=== PATIENT | female | born 1965 | race Caucasian/White ===

== ENCOUNTER → 2016-11-25 | Outpatient (CLI) | payer MEDICARE, OTHER ==
[~2016-11-25] MED LIST: ESCI5TAB PO; FERR65TA PO; GABA600T PO; GLUCTAB PO; HYDR-3288 PO; METF500T PO; NORC7.5T PO; PANT40TA3 PO; PHEN30CA PO; POTA-243 PO; PROT40TA PO; TAB-TAB PO; TEMA30CA PO; VITA500S3 PO
[2016-11-25 12:03] LABS: ALKALINE PHOSPHATASE 77 U/L (45-117); ALT (GPT) 20 U/L (10-53); ANION GAP 9 MEQ/L (5-15); AST (GOT) 15 U/L (15-37); BICARBONATE 26.5 MEQ/L (21.0-32.0); BLOOD UREA NITROGEN 16 MG/DL (7-18); CHLORIDE 105 MEQ/L (98-107); GLOMERULAR FILTRATION RATE 53 ML/MIN (>89); GLUCOSE,FASTING 112 MG/DL (74-99); HDL CHOLESTEROL 67.9 MG/DL (40.0-60.0); LDL CHOLESTEROL 75 MG/DL (0-99); POTASSIUM 4.4 MEQ/L (3.5-5.1); SODIUM (NA) 140 MEQ/L (136-145); TOTAL BILIRUBIN ADULT 0.8 MG/DL (0.2-1.0)
[2016-11-25 16:54] LABS: HEMOGLOBIN A1a 0.8 %; HEMOGLOBIN Ao 85.8 %; HEMOGLOBIN F 0.8 %; HEMOGLOBIN LA1C 2.1 %; HEMOGLOBIN P3 3.9 %
== END ==
LOC: CLAB 11:01
PROVIDERS: ATTEND General Practice
DX: E55.9 Vitamin D deficiency, unspecified (principal); N18.3 Chronic kidney disease, stage 3 (moderate); E11.22 Type 2 diabetes mellitus with diabetic chronic kidney disease; Z79.899 Other long term (current) drug therapy
CPT/HCPCS: 36415; 80053; 80061; 82306; 83036; 83970

== ENCOUNTER 2017-02-26 19:41 | Observation (INO) | payer MEDICARE, OTHER ==
[~2017-02-26] VITALS: Ht 172.7 cm; Wt 123.0 kg
[~2017-02-26 19:41] MED LIST changes: -ESCI5TAB PO; -HYDR-3288 PO; -METF500T PO; -PANT40TA3 PO; -PHEN30CA PO; -TEMA30CA PO
[2017-02-26 19:43] VITALS: BP 183/95; PULSE 88; RESP 18; TEMP 98.6; O2SAT 100
--- NOTE | 2017-02-26 19:49 | PD ---
Physical Exam Time Seen by Provider: 19:46 Narrative 51yo F c/o chest pain, nausea, clamminess, ORR over the past few days. Worsening today. Reports heart palpitations and SOB. Chest pain and SOB worse on exertion. Feels pressure in back too. Patient seen in triage. VS reviewed. Awaiting bed placement. Data Data Last Documented VS Vital Signs Date Time Temp Pulse Resp B/P Pulse Ox O2 Delivery O2 Flow Rate FiO2 02/26/17 19:43 98.6 88 18 183/95 100 Room Air MDM Supervised Visit with RYANNE: Ana Brown February 26, 2017 19:49
[2017-02-26 21:42] VITALS: BP 162/81; PULSE 81; RESP 19; O2SAT 100
[2017-02-26] MEDS ORDERED: HYDR-3288 PO (21:57)
[2017-02-26] MEDS ORDERED: TEMA30CA PO (21:57)
[2017-02-26] MEDS ORDERED: PROT40TA PO (21:57)
[2017-02-26] MEDS ORDERED: ESCI5TAB PO (21:57)
[2017-02-26] MEDS ORDERED: GABA600T PO (21:57)
[2017-02-26] MEDS ORDERED: METF500T PO (21:57)
[2017-02-26] MEDS ORDERED: PHEN30CA PO (21:57)
[2017-02-26] MEDS ORDERED: POTA-243 PO (21:57)
[2017-02-26] MEDS ORDERED: SODIUM CHLORID 0.9% 500 ML INJ 500 ML IV ONE (22:00)
[2017-02-26] MEDS ORDERED: ASPIRIN 81 MG CHEW TAB PO ONE (22:00)
[2017-02-26] MEDS ORDERED: SODIUM CHLORIDE 0.9% FLUSH 10 ML FLUSH IVF PRN (22:00)
[2017-02-26] MEDS ORDERED: NITROGLYCERIN 0.4 MG SL 25 TABS/BTL SL ONE (22:00)
--- NOTE | 2017-02-26 22:00 | PD ---
HPI Chief Complaint: Chest Pain Time Seen by Provider: 21:37 Travel History International Travel<30 days: No Contact w/Intl Traveler<30days: No Traveled to known affect area: No History of Present Illness HPI The patient is a 51-year-old female who presents emergency department for chest pain and shortness of breath. The patient states over the last 2 days she has had some chest pain which is substernal, radiates around the left aspect of her chest to the mid scapular area. The patient's pain has been constant since approximately 5 PM, is associated with shortness of breath, mild nausea, and lightheadedness. The patient states she is also short of breath, minimal exertional symptoms, and history of diabetes which is controlled with metformin. The patient denies any known history of coronary artery disease, hypertension, hyperlipidemia, or current tobacco use. The patient does have a history of stage IV uterine cancer with previous partial hysterectomy, chemotherapy, and subsequent tumor removal from the lungs after recurrence. The patient's primary physician is Dr. Paulson. The patient denies having any previous stress test or history of cardiomyopathy. PFSH Past Medical History Arthritis: Yes (hand left thumb left knee) Blood Disorders: No Cancer: Yes (UTERINE/ METS TO LUNGS) Cardiovascular Problems: No Diabetes: Yes Patient Takes Glucophage: Yes Diminished Hearing: No Endocrine: Yes Gastrointestinal Disorders: Yes (GASTRIC BYPASS, ABD. PAIN) Glaucoma: No Genitourinary: No Hepatitis: No Hiatal Hernia: No Hypertension: Yes (RESOLVED WITH WT LOSS) Immune Disorder: No Implanted Vascular Access Dvce: Yes Musculoskeletal: Yes (ARTHRITIS, NECK/ LEFT SHOULDER PAIN ) Neurologic: Yes (NEUROPATHY FEET) Psychiatric: No Reproductive: Yes (HX ENDOMETRIAL CA) Respiratory: Yes (LUNG SX) Sleep Apnea: Yes Thyroid Disease: No Tetanus Vaccination: Unknown Influenza Vaccination: No ?: Not Menopausal: Yes : 1 Para: 1 Ovarian Cysts: Yes Past Surgical History Abdominal Surgery: Yes (LAP SARWAT, GASTRIC BYPASS gastric bypass 01/25/13) AICD: No Body Medical Devices: INFUSAPORT Cholecystectomy: Yes (2003) Ear Surgery: No Eye Surgery: No Genitourinary Surgery: No Gynecologic Surgery: Yes (LASH) Hysterectomy: Yes Joint Replacement: No Oral Surgery: No Pacemaker: No Thoracic Surgery: Yes (RIGHT LUNG MASS EXC.) Other Surgery: Yes (CHOLECYSTECTOMY) Social History Alcohol Use: No Tobacco Use: No Substance Use: No Allergies-Medications (Allergen,Severity, Reaction): Coded Allergies: Latex (Unverified Allergy, Severe, Itching, RASH, 02/26/17) Toradol (Verified Allergy, Intermediate, HIVES, 02/26/17) burning rash Carboplatin (Verified Allergy, Mild, Rash, 02/26/17) Adhesives (Unverified Adverse Reaction, Severe, RASH, 02/26/17) OK FOR PAPER TAPE Ativan (Verified Adverse Reaction, Mild, NIGHTMARES, 02/26/17) Percocet (Verified Adverse Reaction, Unknown, 02/26/17) nausea Reported Meds & Prescriptions Reported Meds & Active Scripts Active Reported Escitalopram (Escitalopram Oxalate) 5 Mg Tab 5 Mg PO DAILY [place] (Hydrocodone-Acetaminophen) 7.5-325 mg Tab 1 Tab PO Q6H PRN Phentermine (Phentermine HCl) 30 Mg Cap 30 Mg PO DAILY Protonix (Pantoprazole Sodium) 40 Mg Tab 40 Mg PO DAILY Klor-Con 10 (Potassium Chloride) 10 Meq Tab 10 Meq PO BID Gabapentin 600 Mg Tab 600 Mg PO TID Temazepam 30 Mg Cap 30 Mg PO HS PRN Review of Systems Except as stated in HPI: all other systems reviewed are Neg General / Constitutional: No: Fever HENT: Positive: Lightheadedness Cardiovascular: Positive: Chest Pain or Discomfort, Diaphoresis, Dyspnea on exertion (minimal), No: Tachycardia Respiratory: Positive: Shortness of Breath Gastrointestinal: Positive: Nausea, No: Vomiting, Abdominal Pain Musculoskeletal: No: Weakness Neurologic: Positive: Dizziness, No: Weakness Physical Exam Narrative GENERAL: Awake, alert, pleasant 51-year-old female who appears her stated age and is in no acute respiratory distress. SKIN: Focused skin assessment warm/dry. HEAD: Atraumatic. Normocephalic. EYES: Pupils equal and round. No scleral icterus. No injection or drainage. ENT: No nasal bleeding or discharge. Mucous membranes pink and moist. NECK: Trachea midline. No JVD. CARDIOVASCULAR: Regular rate and rhythm. No murmur appreciated. Well-healed scar over the lateral right chest wall. RESPIRATORY: No accessory muscle use. Clear to auscultation. Breath sounds equal bilaterally. GASTROINTESTINAL: Abdomen soft, obese, no rebound tenderness. MUSCULOSKELETAL: No obvious deformities. No clubbing. No cyanosis. No edema. NEUROLOGICAL: Awake and alert. No obvious cranial nerve deficits. Motor grossly within normal limits. Normal speech. PSYCHIATRIC: Appropriate mood and affect; insight and judgment normal. Data Data Last Documented VS Vital Signs Date Time Temp Pulse Resp B/P Pulse Ox O2 Delivery O2 Flow Rate FiO2 02/26/17 22:21 76 18 136/73 100 Room Air 02/26/17 19:43 98.6 Orders Electrocardiogram (02/26/17 ) Electrocardiogram (02/26/17 21:54) Ckmb (Isoenzyme) Profile (02/26/17 21:54) Complete Blood Count With Diff (02/26/17 21:54) Comprehensive Metabolic Panel (02/26/17 21:54) Magnesium (Mg) (02/26/17 21:54) Prothrombin Time / Inr (Pt) (02/26/17 21:54) Act Partial Throm Time (Ptt) (02/26/17 21:54) Troponin I (02/26/17 21:54) Lipase (02/26/17 21:54) Chest, Single Ap (02/26/17 21:54) Ecg Monitoring (02/26/17 21:54) Bilateral Bp Monitoring (02/26/17 21:54) Iv Access Insert/Monitor (02/26/17 21:54) Oximetry (02/26/17 21:54) Oxygen Administration (02/26/17 21:54) Aspirin Chew (Aspirin Chew) (02/26/17 22:00) Sodium Chloride 0.9% Flush (Ns Flush) (02/26/17 22:00) Nitroglycerin Sl (Nitrostat Sl) (02/26/17 22:00) Sodium Chlorid 0.9% 500 Ml Inj (Ns 500 M (02/26/17 22:00) Labs Laboratory Tests Test 02/26/17 22:05 White Blood Count 3.6 TH/MM3 Red Blood Count 3.13 MIL/MM3 Hemoglobin 10.0 GM/DL Hematocrit 30.5 % Mean Corpuscular Volume 97.3 FL Mean Corpuscular Hemoglobin 31.9 PG Mean Corpuscular Hemoglobin 32.7 % Concent Red Cell Distribution Width 17.3 % Platelet Count 109 TH/MM3 Mean Platelet Volume 8.7 FL Neutrophils (%) (Auto) % Lymphocytes (%) (Auto) % Monocytes (%) (Auto) % Eosinophils (%) (Auto) % Basophils (%) (Auto) % Neutrophils # (Auto) TH/MM3 Lymphocytes # (Auto) TH/MM3 Monocytes # (Auto) TH/MM3 Eosinophils # (Auto) TH/MM3 Basophils # (Auto) TH/MM3 CBC Comment AUTO DIFF Differential Total Cells 100 Counted Neutrophils % (Manual) 7 % Band Neutrophils % 5 % Lymphocytes % 60 % Monocytes % 1 % Eosinophils % 6 % Neutrophils # (Manual) 0.7 TH/MM3 Metamyelocytes 4 % Myelocytes 3 % Nucleated Red Blood Cells 3 /100 WBC Differential Comment FINAL DIFF MANUAL Atypical Lymphocytes 14 % Platelet Estimate LOW Platelet Morphology Comment NORMAL Keratocytes OCC Prothrombin Time 10.3 SEC Prothromb Time International 0.9 RATIO Ratio Activated Partial 22.5 SEC Thromboplast Time Sodium Level 140 MEQ/L Potassium Level 4.1 MEQ/L Chloride Level 107 MEQ/L Carbon Dioxide Level 27.1 MEQ/L Anion Gap 6 MEQ/L Blood Urea Nitrogen 19 MG/DL Creatinine 1.04 MG/DL Estimat Glomerular Filtration 56 ML/MIN Rate Random Glucose 128 MG/DL Calcium Level 9.3 MG/DL Magnesium Level 1.8 MG/DL Total Bilirubin 0.6 MG/DL Aspartate Amino Transf 18 U/L (AST/SGOT) Alanine Aminotransferase 23 U/L (ALT/SGPT) Alkaline Phosphatase 75 U/L Total Creatine Kinase 56 U/L Troponin I LESS THAN 0.02 NG/ML Total Protein 7.6 GM/DL Albumin 3.9 GM/DL Lipase 147 U/L MDM Medical Decision Making Medical Screen Exam Complete: Yes Emergency Medical Condition: Yes Medical Record Reviewed: Yes Interpretation(s) EKG reveals a normal sinus rhythm with a rate 80. RSR prime in V1, right bundle branch block. Chest x-ray reveals no acute disease Laboratory Tests Test 02/26/17 22:05 White Blood Count 3.6 TH/MM3 Red Blood Count 3.13 MIL/MM3 Hemoglobin 10.0 GM/DL Hematocrit 30.5 % Mean Corpuscular Volume 97.3 FL Mean Corpuscular Hemoglobin 31.9 PG Mean Corpuscular Hemoglobin 32.7 % Concent Red Cell Distribution Width 17.3 % Platelet Count 109 TH/MM3 Mean Platelet Volume 8.7 FL Neutrophils (%) (Auto) % Lymphocytes (%) (Auto) % Monocytes (%) (Auto) % Eosinophils (%) (Auto) % Basophils (%) (Auto) % Neutrophils # (Auto) TH/MM3 Lymphocytes # (Auto) TH/MM3 Monocytes # (Auto) TH/MM3 Eosinophils # (Auto) TH/MM3 Basophils # (Auto) TH/MM3 CBC Comment AUTO DIFF Differential Total Cells 100 Counted Neutrophils % (Manual) 7 % Band Neutrophils % 5 % Lymphocytes % 60 % Monocytes % 1 % Eosinophils % 6 % Neutrophils # (Manual) 0.7 TH/MM3 Metamyelocytes 4 % Myelocytes 3 % Nucleated Red Blood Cells 3 /100 WBC Differential Comment FINAL DIFF MANUAL Atypical Lymphocytes 14 % Platelet Estimate LOW Platelet Morphology Comment NORMAL Keratocytes OCC Prothrombin Time 10.3 SEC Prothromb Time International 0.9 RATIO Ratio Activated Partial 22.5 SEC Thromboplast Time Sodium Level 140 MEQ/L Potassium Level 4.1 MEQ/L Chloride Level 107 MEQ/L Carbon Dioxide Level 27.1 MEQ/L Anion Gap 6 MEQ/L Blood Urea Nitrogen 19 MG/DL Creatinine 1.04 MG/DL Estimat Glomerular Filtration 56 ML/MIN Rate Random Glucose 128 MG/DL Calcium Level 9.3 MG/DL Magnesium Level 1.8 MG/DL Total Bilirubin 0.6 MG/DL Aspartate Amino Transf 18 U/L (AST/SGOT) Alanine Aminotransferase 23 U/L (ALT/SGPT) Alkaline Phosphatase 75 U/L Total Creatine Kinase 56 U/L Troponin I LESS THAN 0.02 NG/ML Total Protein 7.6 GM/DL Albumin 3.9 GM/DL Lipase 147 U/L Differential Diagnosis Differential diagnosis includes acute coronary syndrome, pulmonary embolism, pleural effusion, pneumonia, neuralgia, pancreatitis, gastritis, cardiomyopathy. Narrative Course IV was established, labs are drawn and sent, and the patient was placed on cardiac telemetry monitoring and continuous pulse oximetry monitoring. EKG was ordered and interpreted. Chest x-ray was obtained. The patient was administered aspirin and nitroglycerin sublingual. I do not believe the patient has a pulmonary embolism as there is no tachycardia, hypoxia, or significant recent risk factors. The patient's initial troponin was negative. Chest x-ray was negative. The patient did not receive any pain relief with nitroglycerin, therefore, was administered Zofran and morphine. The patient does have mild anemia with leukopenia white count 8.6, will need outpatient follow-up secondary to abnormal CBC cell pathology. However, patient will be 23 hour observation the chest pain center for chest pain rule out ACS. The patient's comfortable with this plan of care and disposition. Physician Communication Physician Communication The patient will be 23 hour observation to the chest pain Center with serial cardiac enzymes and further evaluation by cardiology. Diagnosis Primary Impression: Chest pain Qualified Code: R07.9 - Chest pain, unspecified type Admitting Information Admitting Physician Requests: Observation Condition: Stable Naseem Dai MD February 26, 2017 22:00
[2017-02-26 22:13] LABS: HEMATOCRIT 30.5 % (35.0-46.0); MEAN CELL VOLUME 97.3 FL (80.0-100.0); MEAN CORPUSCULAR HEMOGLOBIN 31.9 PG (27.0-34.0); MEAN CORPUSCULAR HGB CONC 32.7 % (32.0-36.0); PLATELET COUNT 109 TH/MM3 (150-450); RED BLOOD COUNT 3.13 MIL/MM3 (4.00-5.30); RED CELL DISTRIBUTION WIDTH 17.3 % (11.6-17.2); WHITE BLOOD COUNT 3.6 TH/MM3 (4.0-11.0)
[2017-02-26 22:15] VITALS: BP 153/82; PULSE 81; RESP 18; O2SAT 100
[2017-02-26 22:21] VITALS: BP 136/73; PULSE 76; RESP 18; O2SAT 100
[2017-02-26 22:21] LABS: HEMO FLAGS AUTO DIFF
--- NOTE | 2017-02-26 22:23 | RADRPT ---
EXAM DATE/TIME: 02/26/2017 22:14 [facility] COMPARISON: CHEST SINGLE AP, July 20, 2013, 6:03. INDICATIONS : Chest pain. MEDICAL HISTORY : Carcinoma, lung. carcinoma, uterine. SURGICAL HISTORY : Right lung tumors removed, port placed and removed. ENCOUNTER: Initial ACUITY: 1 day PAIN SCORE: 8/10 LOCATION: middle chest. FINDINGS: A single view of the chest demonstrates the lungs to be symmetrically aerated without evidence of mas s, infiltrate or effusion. The cardiomediastinal contours are unremarkable. Osseous structures are intact. CONCLUSION: No acute disease. Salvador Driscoll Jr., MD on February 26, 2017 at 22:20 Board Certified Radiologist. This report was verified electronically.
[2017-02-26 22:25] LABS: APTT (PATIENT) 22.5 SEC (24.3-30.1); INTERNATIONAL NORMALIZED RATIO 0.9 RATIO; PROTHROMBIN TIME - PATIENT 10.3 SEC (9.8-11.6)
[2017-02-26 22:53] LABS: ANION GAP 6 MEQ/L (5-15); AST (GOT) 18 U/L (15-37); BICARBONATE 27.1 MEQ/L (21.0-32.0); BLOOD UREA NITROGEN 19 MG/DL (7-18); CHLORIDE 107 MEQ/L (98-107); GLOMERULAR FILTRATION RATE 56 ML/MIN (>89); POTASSIUM 4.1 MEQ/L (3.5-5.1); SODIUM (NA) 140 MEQ/L (136-145)
[2017-02-26 22:54] LABS: ALT (GPT) 23 U/L (10-53)
[2017-02-26 23:23] LABS: ALKALINE PHOSPHATASE 75 U/L (45-117); MAGNESIUM 1.8 MG/DL (1.5-2.5); TOTAL BILIRUBIN ADULT 0.6 MG/DL (0.2-1.0)
[2017-02-26 23:37] LABS: ATYPICAL LYMPHOCYTES 14 % (0-0); BANDS 5 % (0-6); CORRECTED NUCLEATED RBC 3 /100 WBC (0-0); CREATINE KINASE 56 U/L (26-192); EOSINOPHILS 6 % (0-4); METAMYELOCYTES 4 % (0-1); MYELOCYTES 3 % (0-0); NEUTROPHIL # MANUAL DIFF 0.7 TH/MM3 (1.8-7.7); POLYS (SEG NEUTROPHILS) 7 % (16-70); WBC DIFF SAMPLE 100
[2017-02-26 23:39] LABS: PLATELET ESTIMATE SMEAR LOW (NORMAL); PLATELET MORPHOLOGY NORMAL (NORMAL); SCAN/DIFF FINAL DIFF MANUAL
[2017-02-26 23:40] LABS: KERATOCYTES OCC (NORMAL)
[2017-02-26 23:55] VITALS: BP 132/67; PULSE 63; RESP 18; O2SAT 100
[2017-02-27] VITALS (7 sets, daily range): BP systolic 109–125; BP diastolic 53–97; PULSE 61–71; RESP 18–20; TEMP 97.6–98; O2SAT 98–100
[2017-02-27] MEDS ORDERED: ACETAMINOPHEN/HYDROcodone 325 MG/7.5 MG TAB PO PRN
[2017-02-27] MEDS ORDERED: ONDANSETRON HCL 4 MG/2 ML VIAL IV PRN
[2017-02-27] MEDS ORDERED: MORPHINE SULFATE 4 MG/ML INJ IV PRN
[2017-02-27] MEDS ORDERED: ACETAMINOPHEN 500 MG CPLT PO PRN
[2017-02-27] MEDS ORDERED: NITROGLYCERIN 0.4 MG SL 25 TABS/BTL SL PRN
[2017-02-27] MEDS ORDERED: SODIUM CHLORIDE 0.9% FLUSH 10 ML FLUSH IV FLUSH PRN
[2017-02-27] MEDS ORDERED: MORPHINE SULFATE 4 MG/ML INJ IV PUSH ONE (00:15)
[2017-02-27] MEDS ORDERED: ONDANSETRON HCL 4 MG/2 ML VIAL IV PUSH ONE (00:15)
[2017-02-27 02:13] LABS: CREATINE KINASE 33 U/L (26-192)
[2017-02-27 04:45] LABS: CREATINE KINASE 31 U/L (26-192)
--- NOTE | 2017-02-27 07:38 | EKG ---
Date Performed: 02/26/2017 Time Performed: 19:55:57 PTAGE: 51 years EKG: Sinus rhythm RIGHT BUNDLE BRANCH BLOCK ABNORMAL ECG PREVIOUS TRACING : 01/06/2016 18.43 Compared to the previous tracing, Right bundle branch block is new DOCTOR: Audie Blanco Interpretating Date/Time 02/27/2017 07:36:32
[2017-02-27] MEDS ORDERED: SODIUM CHLORIDE 0.9% FLUSH 10 ML FLUSH IV FLUSH SCH (09:00)
[2017-02-27] MEDS ORDERED: ESCITALOPRAM OXALATE 10 MG TAB PO SCH (09:00)
[2017-02-27] MEDS ORDERED: TEMAZEPAM 15 MG CAP PO PRN (09:00)
[2017-02-27] MEDS ORDERED: ASPIRIN 325 MG TAB PO SCH (09:00)
[2017-02-27] MEDS ORDERED: PILL SPLITTER OTHER PRN (09:30)
--- NOTE | 2017-02-27 10:59 | HHI.HP ---
[facility] Primary Care Physician Polly Paulson M.D. Chief Complaint Chest pain and back pain History of Present Illness This is a 51-year-old female that presents to ED states she's had a chest discomfort and back discomfort that began simultaneously around 5:00 yesterday while she is lying down watching television. The chest discomfort is central and radiates to midline of the upper back. Worsened with certain movements. The pain in the back is described as sharp and dull discomfort in the chest. The discomfort for constant however improved with morphine in the ED. She recalls being diaphoretic, short of breath, and nauseous with the symptoms. They have since resolved. Patient has history of uterine cancer that metastasized to the lungs and underwent chemotherapy 2010. That it doesn't 13 is a recurrence of a pulmonary nodule and she had lung surgery for that and went through chemotherapy again. She last saw her oncologist November of this year and there is no evidence of recurrence. She is scheduled to see them again with CAT scans April of this year. Denies recent travel. Denies calf pain. Denies inspirational chest discomfort. Review of Systems General: Patient denies fevers, chills recent, and recent travel HEENT: Patient denies headache, sore throat, difficulty swallowing. Cardiovascular: Has the chest discomfort as mentioned above. Denies sensation of heart beating rapidly or irregularly. No syncope. She has had some diaphoresis. Respiratory: Patient has been short of breath. Denies inspirational chest discomfort. Denies coughing wheezing or hemoptysis. GI: Intermittent nausea. Patient denies vomiting, diarrhea, abdominal pain, bloody stools. Musculoskeletal: Patient denies joint pain or edema. Denies calf pain or edema. Neurovascular: Patient denies numbness, tingling, weakness in extremities. Denies headache. Endocrine: Denies polyuria and polydipsia. Hematologic: Denies easy bruising. Skin: Denies rash or itching. Past Family Social History Allergies: Coded Allergies: Latex (Unverified Allergy, Severe, Itching, RASH, 02/26/17) Toradol (Verified Allergy, Intermediate, HIVES, 02/26/17) burning rash Carboplatin (Verified Allergy, Mild, Rash, 02/26/17) Adhesives (Unverified Adverse Reaction, Severe, RASH, 02/26/17) OK FOR PAPER TAPE Ativan (Verified Adverse Reaction, Mild, NIGHTMARES, 02/26/17) Percocet (Verified Adverse Reaction, Unknown, 02/26/17) nausea Past Medical History Uterine cancer with metastasis to the lungs in 2010. Underwent chemotherapy. Reoccurred 2012 and underwent chemotherapy. Evaluated by oncologist November of this year without evidence of recurrence. Also history of gastric bypass 2012. She has history of neuropathy. She also had diabetes but states that that resolved after losing weight. Denies hypertension, hyperlipidemia, and coronary artery disease. Past Surgical History Lung surgery secondary to lung cancer. Hysterectomy cholecystectomy gastric bypass. Reported Medications Reported Meds & Active Scripts Active Reported Escitalopram (Escitalopram Oxalate) 5 Mg Tab 5 Mg PO DAILY Temazepam 30 Mg Cap 30 Mg PO HS PRN Active Ordered Medications Current Medications Medications (Trade) Dose Ordered Sig/Jasen Route Start Time Stop Time Status Last Admin (NS Flush) 2 ml UNSCH PRN IV FLUSH 02/27/17 00:00 (NS Flush) 2 ml BID IV FLUSH 02/27/17 09:00 02/27/17 08:46 (Tylenol) 500 mg Q4H PRN PO 02/27/17 00:00 ([place] 7.5-325 Mg) 1 tab Q4H PRN PO 02/27/17 00:00 02/27/17 08:47 (Morphine Inj) 2 mg Q4H PRN IV 02/27/17 00:00 02/27/17 04:48 (Zofran Inj) 4 mg Q6H PRN IV 02/27/17 00:00 (Nitrostat Sl) 0.4 mg Q5M PRN SL 02/27/17 00:00 (Aspirin) 325 mg DAILY PO 02/27/17 09:00 02/27/17 08:46 (Lexapro) 5 mg DAILY PO 02/27/17 09:00 (Restoril) 30 mg HS PRN PO 02/27/17 09:00 (Pill Splitter) 1 ea UNSCH PRN OTHER 02/27/17 09:30 Family History Denies family history of CAD. Social History Patient quit smoking 2004. Prior that she smoked a little less than one half pack a day on weekends for years. Denies alcohol or illicit drugs. She states she is disabled secondary to 3 of cancer. Physical Exam Vital Signs Vital Signs Date Time Temp Pulse Resp B/P Pulse Ox O2 Delivery O2 Flow Rate FiO2 02/27/17 07:18 97.6 62 20 109/53 99 02/27/17 04:55 21 02/27/17 02:07 97.9 68 18 114/53 98 02/27/17 01:50 71 02/27/17 01:18 70 18 125/97 99 Room Air 02/27/17 00:46 100 02/26/17 23:55 63 18 132/67 100 Room Air 02/26/17 22:21 76 18 136/73 100 Room Air 02/26/17 22:15 18 100 Room Air 02/26/17 22:15 81 18 153/82 100 Room Air 02/26/17 21:42 81 19 162/81 100 Room Air 02/26/17 21:39 18 96 02/26/17 19:49 16 02/26/17 19:43 98.6 88 18 183/95 100 Room Air Physical Exam GENERAL: This is a well-nourished, well-developed patient, in no apparent distress. Patient speaks in clear complete sentences. Patient is pleasant. Exam and with a female nurse at bedside. HEENT: Head is atraumatic and normocephalic. Neck is supple without lymphadenopathy and trachea is midline. No JVD or carotid bruits. CARDIOVASCULAR: Regular rate and rhythm without murmurs, gallops, or rubs. RESPIRATORY: Clear to auscultation. Breath sounds equal bilaterally. No wheezes , rales, or rhonchi. Chest wall is tender, palpation reproduces the same discomfort that she had been having. No use of accessory muscles. GASTROINTESTINAL: Abdomen is nontender, nondistended. Abdomen soft. No obvious pulsatile mass or bruit. No CVA tenderness. Strong femoral pulses bilaterally. Normal bowel sounds in all quadrants. MUSCULOSKELETAL: There is a discomfort in her upper back just left of the spine and medial of the scapula, palpating this area reproduces the discomfort. Also twisting of the torso reproduces this discomfort. Patient is moving upper and lower extremities freely. No calf tenderness or edema, no Homans sign. Strong pulses in upper and lower extremities. NEUROLOGICAL: Patient is alert and oriented. Cranial nerves 2-12 are grossly intact. No focal deficits and speech is clear. SKIN: No rash and turgor is normal. Laboratory Laboratory Tests Test 02/26/17 02/27/17 02/27/17 22:05 01:25 04:10 White Blood Count 3.6 Red Blood Count 3.13 Hemoglobin 10.0 Hematocrit 30.5 Mean Corpuscular Volume 97.3 Mean Corpuscular Hemoglobin 31.9 Mean Corpuscular Hemoglobin 32.7 Concent Red Cell Distribution Width 17.3 Platelet Count 109 Mean Platelet Volume 8.7 Neutrophils (%) (Auto) Lymphocytes (%) (Auto) Monocytes (%) (Auto) Eosinophils (%) (Auto) Basophils (%) (Auto) Neutrophils # (Auto) Lymphocytes # (Auto) Monocytes # (Auto) Eosinophils # (Auto) Basophils # (Auto) CBC Comment AUTO DIFF Differential Total Cells 100 Counted Neutrophils % (Manual) 7 Band Neutrophils % 5 Lymphocytes % 60 Monocytes % 1 Eosinophils % 6 Neutrophils # (Manual) 0.7 Metamyelocytes 4 Myelocytes 3 Nucleated Red Blood Cells 3 Differential Comment FINAL DIFF MANUAL Atypical Lymphocytes 14 Platelet Estimate LOW Platelet Morphology Comment NORMAL Keratocytes OCC Prothrombin Time 10.3 Prothromb Time International 0.9 Ratio Activated Partial 22.5 Thromboplast Time Sodium Level 140 Potassium Level 4.1 Chloride Level 107 Carbon Dioxide Level 27.1 Anion Gap 6 Blood Urea Nitrogen 19 Creatinine 1.04 Estimat Glomerular Filtration 56 Rate Random Glucose 128 Calcium Level 9.3 Magnesium Level 1.8 Total Bilirubin 0.6 Aspartate Amino Transf 18 (AST/SGOT) Alanine Aminotransferase 23 (ALT/SGPT) Alkaline Phosphatase 75 Total Creatine Kinase 56 33 31 Troponin I LESS THAN 0.02 LESS THAN 0.02 LESS THAN 0.02 Total Protein 7.6 Albumin 3.9 Lipase 147 Result Diagram: 02/26/17220402/26/172204 Imaging Last 48 hours Impressions Chest X-Ray 02/26/172153 Signed Impressions: Service Date/Time: Sunday, February 26, 2017 22:14 - CONCLUSION: No acute disease. Salvador Driscoll Jr., MD Course EKGs have have right bundle branch block. Sinus rhythm. No significant ST segment depressions or elevations. Assessment and Plan Assessment and Plan * Chest pain: Patient has had serial cardiac enzymes and EKGs for ruling out purposes. Her discomfort appears to be atypical muscular in nature. She will be seen by Dr. Cole of cardiology and the chest pain center and will likely be discharged after he has evaluated her. She with a follow-up with her primary care physician. Patient is stable at this time. She is agreeable to this plan. Oral Newberry Feb 27, 2017 10:59
--- NOTE | 2017-02-27 12:35 | HHI.DCPOC ---
Discharge Care Plan Diagnosis: (1) Chest pain, atypical (2) Pancytopenia Goals to Promote Your Health * To prevent worsening of your condition and complications * To maintain your health at the optimal level Directions to Meet Your Goals Take your medications as prescribed Follow your dietary instruction Follow activity as directed Keep your appointments as scheduled Take your immunizations and boosters as scheduled If your symptoms worsen call your PCP, if no PCP go to Urgent Care Center or Emergency Room Smoking is Dangerous to Your Health. Avoid second hand smoke Call the 24-hour hour crisis hotline for domestic abuse at Oral Newberry Feb 27, 2017 12:35
--- NOTE | 2017-02-27 13:41 | EKG ---
Date Performed: 02/27/2017 Time Performed: 04:22:23 PTAGE: 51 years EKG: Sinus rhythm RIGHT BUNDLE BRANCH BLOCK ABNORMAL ECG PREVIOUS TRACING : 02/27/2017 01.31 Since previous tracing, no significant change noted DOCTOR: Mark Cole Interpretating Date/Time 02/27/2017 13:40:26
--- NOTE | 2017-02-27 13:42 | EKG ---
Date Performed: 02/27/2017 Time Performed: 01:31:04 PTAGE: 51 years EKG: Sinus rhythm RIGHT BUNDLE BRANCH BLOCK ABNORMAL ECG PREVIOUS TRACING : 02/26/2017 19.55 Since previous tracing, no significant change noted DOCTOR: Mark Cole Interpretating Date/Time 02/27/2017 13:42:21
== END 2017-02-27 15:49 | disposition home or self-care (01) ==
LOC: NEPE 19:41 → NEDA 23:58 → NEPHCDU 02-27 01:45
PROVIDERS: ADMIT Internal Medicine Cardiovascular Disease; ATTEND Internal Medicine Cardiovascular Disease
DX: R07.89 Other chest pain (principal); I10 Essential (primary) hypertension; E11.9 Type 2 diabetes mellitus without complications; Z85.42 Personal history of malignant neoplasm of other parts of uterus; Z85.118 Personal history of other malignant neoplasm of bronchus and lung; Z92.21 Personal history of antineoplastic chemotherapy; Z91.040 Latex allergy status; Z88.8 Allergy status to other drugs, medicaments and biological substances; Z91.048 Other nonmedicinal substance allergy status; Z88.5 Allergy status to narcotic agent; Z98.84 Bariatric surgery status; Z87.891 Personal history of nicotine dependence
CPT/HCPCS: 71010; 80053; 82550; 83690; 83735; 84484; 85007; 85027; 85610; 85730; 93005; 99285; G0378; J2270; J2405; J7040

== ENCOUNTER 2017-03-24 17:14 | Inpatient (IN) | payer MEDICARE, OTHER ==
[~2017-03-24] VITALS: Ht 170.2 cm; Wt 122.3 kg
[~2017-03-24 17:14] MED LIST changes: +ESCI5TAB PO; -FERR65TA PO; -GABA600T PO; -GLUCTAB PO; -NORC7.5T PO; -POTA-243 PO; -PROT40TA PO; -TAB-TAB PO; +TEMA30CA PO; -VITA500S3 PO
[2017-03-24 17:16] VITALS: BP 160/75; PULSE 68; RESP 20; TEMP 97.8; O2SAT 100
--- NOTE | 2017-03-24 17:57 | PD ---
Physical Exam Time Seen by Provider: 17:56 Narrative 51yo F sent by Dr. Kurtz for possible leukemia. Per patient was told to have MD call him and he will explain. Lab work done today. Patient seen in triage. VS reviewed. Awaiting bed placement. Data Data Last Documented VS Vital Signs Date Time Temp Pulse Resp B/P Pulse Ox O2 Delivery O2 Flow Rate FiO2 03/24/17 17:16 97.8 68 20 160/75 100 Room Air MDM Supervised Visit with RYANNE: Ana Brown Mar 24, 2017 17:57
[2017-03-24] MEDS ORDERED: PANT40TA3 PO (19:55)
[2017-03-24] MEDS ORDERED: GABA600T PO (19:55)
[2017-03-24] MEDS ORDERED: PHEN30CA PO (19:55)
[2017-03-24] MEDS ORDERED: HYDR-3288 PO (19:55)
[2017-03-24] MEDS ORDERED: POTA-243 PO (19:55)
[2017-03-24] MEDS ORDERED: METF500T PO (19:55)
--- NOTE | 2017-03-24 19:55 | PD ---
HPI Chief Complaint: Abnormal Results Time Seen by Provider: 19:54 Travel History International Travel<30 days: No Contact w/Intl Traveler<30days: No Traveled to known affect area: No History of Present Illness HPI 51-year-old female with a history of diabetes, uterine cancer with metastases to the lungs status post chemotherapy in 2011 and in 2014 presents to the emergency department for evaluation of abnormal blood work. States that she was seen by her oncologist Dr. Kurtz today and had blood work that was abnormal and she was told that she had pre-leukemia and that she needed to come immediately to the emergency department to be admitted to the hospital. She was told by him that she would need a bone marrow biopsy. She states that for the past month she has felt weak, fatigued, lightheaded and nauseous. States that she has some left upper back pain that has been ongoing. States that she had some chest pain and was admitted here about a month ago in the chest pain center. She denies any fever, chills, vomiting, diarrhea, constipation, abdominal pain, chest pain, swelling of the extremities, headache. No other complaints. PFSH Past Medical History Arthritis: Yes (hand left thumb left knee) Blood Disorders: No Cancer: Yes (UTERINE/ METS TO LUNGS) Cardiovascular Problems: No Diabetes: Yes Patient Takes Glucophage: Yes Diminished Hearing: No Endocrine: Yes Gastrointestinal Disorders: Yes (GASTRIC BYPASS, ABD. PAIN) Glaucoma: No Genitourinary: No Hepatitis: No Hiatal Hernia: No Hypertension: Yes (RESOLVED WITH WT LOSS) Immune Disorder: No Implanted Vascular Access Dvce: Yes Musculoskeletal: Yes (ARTHRITIS, NECK/ LEFT SHOULDER PAIN ) Neurologic: Yes (NEUROPATHY FEET) Psychiatric: No Reproductive: Yes (HX ENDOMETRIAL CA) Respiratory: Yes (CA METS TO LUNGS) Sleep Apnea: Yes Thyroid Disease: No Tetanus Vaccination: < 5 Years ?: Not Menopausal: Yes : 1 Para: 1 Ovarian Cysts: Yes Past Surgical History Abdominal Surgery: Yes (LAP SARWAT, GASTRIC BYPASS gastric bypass 01/25/13) AICD: No Body Medical Devices: INFUSAPORT Cholecystectomy: Yes (2003) Ear Surgery: No Eye Surgery: No Genitourinary Surgery: No Gynecologic Surgery: Yes (LASH) Hysterectomy: Yes Joint Replacement: No Oral Surgery: No Pacemaker: No Thoracic Surgery: Yes (RIGHT LUNG MASS EXC.) Other Surgery: Yes (CHOLECYSTECTOMY) Social History Alcohol Use: No Tobacco Use: No Substance Use: No Allergies-Medications (Allergen,Severity, Reaction): Coded Allergies: Latex (Unverified Allergy, Severe, Itching, RASH, 03/24/17) Toradol (Verified Allergy, Intermediate, HIVES, 03/24/17) burning rash Carboplatin (Verified Allergy, Mild, Rash, 03/24/17) Adhesives (Unverified Adverse Reaction, Severe, RASH, 03/24/17) OK FOR PAPER TAPE Ativan (Verified Adverse Reaction, Mild, NIGHTMARES, 03/24/17) Percocet (Verified Adverse Reaction, Unknown, 03/24/17) nausea Reported Meds & Prescriptions Reported Meds & Active Scripts Active Reported [place] (Hydrocodone-Acetaminophen) 7.5-325 mg Tab 1 Tab PO Q6H PRN Phentermine (Phentermine HCl) 30 Mg Cap 1 Tab PO DAILY Pantoprazole (Pantoprazole Sodium) 40 Mg Tab 40 Mg PO DAILY Klor-Con 10 (Potassium Chloride) 10 Meq Tab 10 Meq PO BID Gabapentin 600 Mg Tab 600 Mg PO TID Metformin (Metformin HCl) 500 Mg Tab 500 Mg PO BIDPC With meals Escitalopram (Escitalopram Oxalate) 5 Mg Tab 5 Mg PO DAILY Temazepam 30 Mg Cap 30 Mg PO HS PRN Review of Systems Except as stated in HPI: all other systems reviewed are Neg Physical Exam Narrative GENERAL: Well-nourished and well-developed pleasant patient in no acute distress who is nontoxic appearing. SKIN: Warm and dry. HEAD: Normocephalic and atraumatic. EYES: No injection, drainage, or hyphema noted. PERRLA. EOMI. ENT: No nasal drainage noted. Oropharynx is clear. NECK: Supple and the trachea is midline. CARDIOVASCULAR: Regular rate and rhythm. RESPIRATORY: Breath sounds are equal bilaterally with no accessory muscle use, wheezing, rhonchi, or crackles. GASTROINTESTINAL: Abdomen is soft, non-tender, and nondistended. MUSCULOSKELETAL: No obvious deformities, swelling, cyanosis, or ecchymosis is present throughout the upper and lower extremities. Patient has full range of motion without any signs of neurovascular compromise. BACK: Mild tenderness to palpation of left upper back. No obvious deformities, bony point tenderness, or crepitus noted throughout the thoracic and lumbar vertebrae. NEUROLOGICAL: Awake, alert, and oriented. Normal speech and gait. Cranial nerves are grossly intact. Data Data Last Documented VS Vital Signs Date Time Temp Pulse Resp B/P Pulse Ox O2 Delivery O2 Flow Rate FiO2 03/24/17 17:16 97.8 68 20 160/75 100 Room Air Orders Lactic Acid Sepsis Protocol (03/24/17 20:04) Urinalysis - C+S If Indicated (03/24/17 20:04) Blood Culture (03/24/17 20:04) Chest, Single Ap (03/24/17 20:04) Invasive Rad Dept Consult (03/24/17 ) Urine Culture (03/24/17 20:20) Ceftriaxone Inj (Rocephin Inj) (03/24/17 21:30) Prothrombin Time / Inr (Pt) (03/24/17 21:29) Act Partial Throm Time (Ptt) (03/24/17 21:29) Consult Hematology (03/24/17 ) Admit Order (Ed Use Only) (03/24/17 22:08) Labs Laboratory Tests Test 03/24/17 03/24/17 03/24/17 20:15 20:20 21:30 Lactic Acid Level 1.0 mmol/L Urine Color YELLOW Urine Turbidity HAZY Urine pH 5.5 Urine Specific [place] 1.030 Urine Protein 30 mg/dL Urine Glucose (UA) NEG mg/dL Urine Ketones NEG mg/dL Urine Occult Blood NEG Urine Nitrite NEG Urine Bilirubin NEG Urine Urobilinogen 2.0 MG/DL Urine Leukocyte Esterase LARGE Urine RBC 2 /hpf Urine WBC 14 /hpf Urine Squamous Epithelial 11 /hpf Cells Urine Transitional Epithelial 1 /hpf Cells Urine Bacteria RARE /hpf Urine Hyaline Casts 1 /lpf Urine Mucus FEW /lpf Microscopic Urinalysis Comment CATH-CULTURE IND Prothrombin Time 10.8 SEC Prothromb Time International 1.0 RATIO Ratio Activated Partial 23.3 SEC Thromboplast Time MDM Medical Decision Making Medical Screen Exam Complete: Yes Emergency Medical Condition: Yes Differential Diagnosis Anemia versus neutropenia versus myelodysplastic syndrome Narrative Course 51-year-old female presents to the emergency department for evaluation of abnormal labs. Patient is afebrile, vital signs are stable. She was sent here by her oncologist Dr. Kurtz. I reviewed the labs which show she is pancytopenic. Lactic acid is within normal limits. Coags are unremarkable. Urinalysis shows 30 protein, large leukocyte esterase, 14 white blood cells, rare bacteria and few mucus. We'll treat the patient with Rocephin 1 g IV here in the ED. Chest x-ray is unremarkable. Patient will be admitted to medicine service with hematology and interventional radiology consult. I discussed the case with my attending physician Dr. Winters who is aware of the patients history, physical examination findings, and treatment plan. Physician Communication Physician Communication I spoke with Dr. Kurtz who advised the patient is in acute leukemia and needs to be admitted and have a bone marrow biopsy performed tomorrow by IR. I spoke with Bakari MERCADO for [facility] who agrees to admit the patient to Dr. Willis's service. Diagnosis Primary Impression: Acute leukemia Qualified Code: C95.00 - Acute leukemia not having achieved remission Additional Impression: Pancytopenia Admitting Information Admitting Physician Requests: Ana Christianson Mar 24, 2017 19:55
--- NOTE | 2017-03-24 20:24 | RADRPT ---
EXAM DATE/TIME: 03/24/2017 20:16 [facility] COMPARISON: CHEST SINGLE AP, February 26, 2017, 22:14. INDICATIONS : Chest pain. MEDICAL HISTORY : Carcinoma, lung. carcinoma, uterine. SURGICAL HISTORY : Right lung tumors removed, port placed and removed. ENCOUNTER: Initial ACUITY: 1 day PAIN SCORE: 4/10 LOCATION: Bilateral chest FINDINGS: A single view of the chest demonstrates the lungs to be symmetrically aerated without evidence of mas s, infiltrate or effusion. The cardiomediastinal contours are unremarkable. Osseous structures are intact. CONCLUSION: No acute disease. Melquiades Trent MD on March 24, 2017 at 20:22 Board Certified Radiologist. This report was verified electronically.
[2017-03-24 21:12] LABS: BACTERIA, URINE RARE /hpf; BLOOD, URINE NEG (NEG); GLUCOSE,URINE NEG (NEG); HYALINE CAST, URINE 1 /lpf (RARE); KETONE, URINE NEG (NEG); MUCUS URINE FEW /lpf (OCC); NITRITE,URINE NEG (NEG); PH, URINE 5.5 (5.0-8.5); SQUAMOUS EPITHELIAL CELL URINE 11 /hpf (0-5); TRANSITIONAL EPI CELLS, URINE 1 /hpf; URINE COLOR YELLOW (YELLW/STRAW)
[2017-03-24 21:14] LABS: COMMENT (UR) CATH-CULTURE IND; CULTURE IF INDICATED CATH CULTURE IND
[2017-03-24] MEDS ORDERED: cefTRIAXone INJ 1,000 MG in SODIUM CHLORIDE 0.9% INJ 100 ML IV ONE (21:30)
[2017-03-24 21:57] LABS: APTT (PATIENT) 23.3 SEC (24.3-30.1); PROTHROMBIN TIME - PATIENT 10.8 SEC (9.8-11.6)
[2017-03-24] MEDS ORDERED: MAGNESIUM HYDROXIDE SUSP 30 ML CUP PO PRN (23:15)
[2017-03-24] MEDS ORDERED: ACETAMINOPHEN 325 MG TAB PO PRN ×2 (23:15)
[2017-03-24] MEDS ORDERED: SODIUM CHLORIDE 0.9% FLUSH 10 ML FLUSH IV FLUSH PRN (23:15)
[2017-03-24] MEDS ORDERED: ONDANSETRON HCL 4 MG/2 ML VIAL IVP PRN (23:15)
[2017-03-24] MEDS ORDERED: LACTULOSE SYRUP 20 GM/30 ML CUP PO PRN (23:15)
[2017-03-24] MEDS ORDERED: SENNOSIDES 8.6 MG TAB PO PRN (23:15)
[2017-03-24] MEDS ORDERED: NALOXONE HCL 0.4 MG/ML AMP IV PRN (23:15)
[2017-03-24] MEDS ORDERED: BISACODYL 10 MG SUPP RECTAL PRN (23:15)
[2017-03-25] VITALS (13 sets, daily range): BP systolic 91–139; BP diastolic 52–109; PULSE 56–88; RESP 16–20; TEMP 96.7–98.3; O2SAT 95–100
[2017-03-25] MEDS: SODIUM CHLOR 0.9% 1000 ML INJ 1,000 ML IV SCH ×2 (01:17→19:15)
[2017-03-25] MEDS ORDERED: TEMAZEPAM 15 MG CAP PO ONE (02:00)
[2017-03-25 08:07] LABS: HEMATOCRIT 21.8 % (35.0-46.0); MEAN CELL VOLUME 95.2 FL (80.0-100.0); MEAN CORPUSCULAR HEMOGLOBIN 31.1 PG (27.0-34.0); MEAN CORPUSCULAR HGB CONC 32.6 % (32.0-36.0); PLATELET COUNT 60 TH/MM3 (150-450); RED BLOOD COUNT 2.29 MIL/MM3 (4.00-5.30); RED CELL DISTRIBUTION WIDTH 19.2 % (11.6-17.2); WHITE BLOOD COUNT 2.3 TH/MM3 (4.0-11.0)
[2017-03-25 08:16] LABS: HEMO FLAGS AUTO DIFF
[2017-03-25 09:48] LABS: BANDS 3 % (0-6); BASOPHILS 1 % (0-2); BLASTS 8 % (0-0); EOSINOPHILS 3 % (0-4); POLYS (SEG NEUTROPHILS) 8 % (16-70); WBC DIFF SAMPLE 100
[2017-03-25 09:49] LABS: OVALOCYTES 1+ (NORMAL); PLATELET ESTIMATE SMEAR LOW (NORMAL); PLATELET MORPHOLOGY NORMAL (NORMAL); SCAN/DIFF FINAL DIFF MANUAL
[2017-03-25 09:50] LABS: NEUTROPHIL # MANUAL DIFF 0.3 TH/MM3 (1.8-7.7)
[2017-03-25] MEDS ORDERED: GLUCAGON 1 MG/ML VIAL OTHER PRN (11:00)
[2017-03-25] MEDS ORDERED: PILL SPLITTER OTHER PRN (11:00)
[2017-03-25] MEDS ORDERED: DEXTROSE 50% IN WATER 50 ML VIAL(D50) IV PRN (11:00)
--- NOTE | 2017-03-25 11:12 | HHI.HP ---
HPI Service [facility] Primary Care Physician Polly Paulson M.D. Admission Diagnosis Acute Leukemia, Pancytopenia Diagnoses: Chief Complaint: FATIGUE Travel History International Travel<30 Days: No Contact w/Intl Traveler <30 Da: No Traveled to Known Affected Are: No History of Present Illness This a pleasant 52-year-old white female with significant past medical history of age for endometrial cancer with pulmonary metastasis treated with chemotherapy. She had a recurrence of the disease in 2012 and underwent right lung surgery and completed another cycle of chemotherapy. She has continued to follow-up with Dr. Upton this regularly and at this time her cancer remains in remission. Patient indicates that since January of this year she has been feeling more fatigue and feeling faint and almost passed out. She was evaluated at the chest pain center mid-January and underwent cardiac evaluation as well as stress test that was negative. She was referred to Dr. Kurtz and had lab work done concerning for acute leukemia. She was sent to the hospital for admission and bone marrow biopsy. Indicates he has been feeling very weak, fatigued and lightheaded and nauseous. She has noted bruising without any injury, especially in her legs. No petechia. No active bleeding. She has not had any syncopal episode. She complains of left upper chest wall pain as well as back pain. States that she's due to have a PET scan April of this year. Denies any fever, no chills. No nausea, no vomiting, diarrhea. Appetite has been fair. She does have a dry cough but no sputum. No urinary symptoms. The emergency room, patient was evaluated. CBC remarkable for pancytopenia, WBC 2.3 , hemoglobin 7.1, hematocrit 21.8, platelets 60. Neutrophil 0.3. Urinalysis remarkable for large leukocyte esterase WBC 14, culture pending. Patient has been started on ceftriaxone. Patient is admitted for further evaluation and treatment Review of Systems Constitutional: COMPLAINS OF: Fatigue, Change in appetite, DENIES: Diaphoretic episodes, Fever, Weight gain, Weight loss, Chills, Dizziness, Night Sweats Endocrine: DENIES: Abnorml menstrual pattern, Heat/cold intolerance, Polydipsia , Polyuria, Polyphagia Eyes: DENIES: Blurred vision, Diplopia, Eye inflammation, Eye pain, Vision loss , Photosensitivity, Double Vision Past Family Social History Past Medical History 1. Non-insulin dependent diabetes, currently on metformin. 2. Obesity. 3. Anemia. 4. Stage IV endometrial carcinoma with chemotherapy, which she completed September of 2010 and has been followed per Dr. Thomason. 5. Hypertension. 6. Positive weight loss after gastric bypass. 7. Obstructive sleep apnea. 8. Reactive airway and probable mild COPD. 9. Vitamin B12 deficiency secondary to gastric bypass. Past Surgical History 1. Robotic assisted hysterectomy, September of 2010. 2. Laparoscopy Michael-en Y gastric bypass, December of 2012. 3. Cholecystectomy. 4. Placement of Infusaport catheter on the right. 5. Status post right middle lobe wedge resection and right lower lobe segmentectomy for an enlarging right lower lobe lung nodule (07/14/2013) 6. Repair of King hernia, EMILI (07/17/2015) Reported Medications Reported Meds & Active Scripts Active Reported [place] (Hydrocodone-Acetaminophen) 7.5-325 mg Tab 1 Tab PO Q6H PRN Phentermine (Phentermine HCl) 30 Mg Cap 1 Tab PO DAILY Pantoprazole (Pantoprazole Sodium) 40 Mg Tab 40 Mg PO DAILY Klor-Con 10 (Potassium Chloride) 10 Meq Tab 10 Meq PO BID Gabapentin 600 Mg Tab 600 Mg PO TID Metformin (Metformin HCl) 500 Mg Tab 500 Mg PO BIDPC With meals Escitalopram (Escitalopram Oxalate) 5 Mg Tab 5 Mg PO DAILY Temazepam 30 Mg Cap 30 Mg PO HS PRN Allergies: Coded Allergies: Latex (Unverified Allergy, Severe, Itching, RASH, 03/24/17) Toradol (Verified Allergy, Intermediate, HIVES, 03/24/17) burning rash Carboplatin (Verified Allergy, Mild, Rash, 03/24/17) Adhesives (Unverified Adverse Reaction, Severe, RASH, 03/24/17) OK FOR PAPER TAPE Ativan (Verified Adverse Reaction, Mild, NIGHTMARES, 03/24/17) Percocet (Verified Adverse Reaction, Unknown, 03/24/17) nausea Active Ordered Medications Inpatient Medications Acetaminophen (Tylenol) 650 mg Q6H PRN PO PAIN SCALE 1 TO 2; Start 03/24/17 at 23:15 Bisacodyl (Dulcolax Supp) 10 mg DAILY PRN RECTAL SEVERE CONSITIPATION; Start at 23:15 Ceftriaxone Sodium 1000 mg/ Sodium Chloride 100 ml @ 200 mls/hr ONCE ONCE IV Last administered on 03/24/17 21:38; Start 03/24/17 at 21:30; Stop 03/24/17 at 21:59; Status DC Ceftriaxone Sodium/Sodium Chloride (Rocephin Inj/NS Inj) 100 ml @ 200 mls/hr Q24H IV ; Start 03/25/17 at 23:00 Dextrose (D50w (Vial) Inj) 50 ml UNSCH PRN IV HYPOGLYCEMIA-SEE COMMENTS; Start 03/25/17 at 11:00 Escitalopram Oxalate (Lexapro) 5 mg DAILY PO ; Start 03/26/17 at 09:00 Gabapentin (Neurontin) 600 mg TID PO ; Start 03/25/17 at 13:00 Glucagon (Glucagon Inj) 1 mg UNSCH PRN OTHER HYPOGLYCEMIA-SEE COMMENTS; Start 03/25/17 at 11:00 Insulin Aspart (NovoLOG SUPPLEMENTAL SCALE) 1 ACHS SLIDING SCALE SQ ; Start at 11:00 Lactulose 30 ml 30 ml DAILY PRN PO SEVERE CONSITIPATION; Start 03/24/17 at 23: 15 Magnesium Hydroxide (Milk Of Magnesia Liq) 30 ml Q12H PRN PO MILD - MODERATE CONSTIPATION; Start 03/24/17 at 23:15 Miscellaneous (Pill Splitter) 1 ea UNSCH PRN OTHER SEE LABEL COMMENTS; Start at 11:00 Naloxone HCl (Narcan Inj) 0.4 mg UNSCH PRN IV SEE LABEL COMMENTS; Start at 23:15 Ondansetron HCl (Zofran Inj) 4 mg Q6H PRN IVP NAUSEA OR VOMITING; Start at 23:15 Pantoprazole Sodium (Protonix) 40 mg DAILY PO ; Start 03/26/17 at 09:00 Sennosides (Senokot) 17.2 mg Q12H PRN PO MODERATE - SEVERE CONSTIPATION; Start 03/24/17 at 23:15 Sodium Chloride (NS 1000 ml Inj) 1,000 ml @ 100 mls/hr Q10H IV Last administered on 03/25/17 01:17; Start 03/24/17 at 23:15 Sodium Chloride (NS Flush) 2 ml BID IV FLUSH ; Start 03/25/17 at 09:00 Temazepam (Restoril) 30 mg HS PRN PO INSOMNIA; Start 03/25/17 at 02:00 Family History Mother from acute renal failure, diabetes complications. History of ovarian cancer Father from brain tumor at age 39 Brother at age 14 from leukemia, also had testicular cancer She has a sister who is alive and well, history of hypothyroidism Social History Patient is disabled, no smoking, no alcohol, no substance abuse. She has a 29- year-old son. Patient is attending school to complete a bachelor's degree online Physical Exam Vital Signs Vital Signs Date Time Temp Pulse Resp B/P Pulse Ox O2 Delivery O2 Flow Rate FiO2 03/25/17 09:43 95 21 03/25/17 08:00 96.7 57 16 105/52 99 03/25/17 04:00 96.7 61 17 95/60 98 03/25/17 00:30 96.9 71 18 126/62 100 03/24/17 17:16 97.8 68 20 160/75 100 Room Air Physical Exam GENERAL: This is a well-nourished, well-developed patient, in no apparent distress. SKIN: Skin pale, cool dry, healing bruises on legs. HEAD: Atraumatic. Normocephalic. No temporal or scalp tenderness. EYES: Pupils equal round and reactive. Extraocular motions intact. Pale sclera. No injection or drainage. ENT: Nose without bleeding, purulent drainage or septal hematoma. Throat without erythema, tonsillar hypertrophy or exudate. Uvula midline. Airway patent. NECK: Trachea midline. No JVD or lymphadenopathy. Supple, nontender, no meningeal signs. CARDIOVASCULAR: Regular rate and rhythm without murmurs, gallops, or rubs. RESPIRATORY: Clear to auscultation. Breath sounds equal bilaterally. No wheezes , rales, or rhonchi. GASTROINTESTINAL: Abdomen soft, non-tender, nondistended. Scars from previuos surgery noted, well healed. No hepato-splenomegaly, or palpable masses. No guarding. MUSCULOSKELETAL: Extremities without clubbing, cyanosis, or edema. No joint tenderness, effusion, or edema noted. No calf tenderness. Negative Homans sign bilaterally. NEUROLOGICAL: Awake and alert. Cranial nerves II through XII intact. Motor and sensory grossly within normal limits. Five out of 5 muscle strength in all muscle groups. Normal speech. Laboratory Laboratory Tests Test 03/24/17 03/24/17 03/24/17/27/17 20:15 20:20 21:30 06:49 Lactic Acid Level 1.0 Urine Color YELLOW Urine Turbidity HAZY Urine pH 5.5 Urine Specific [place] 1.030 Urine Protein 30 Urine Glucose (UA) NEG Urine Ketones NEG Urine Occult Blood NEG Urine Nitrite NEG Urine Bilirubin NEG Urine Urobilinogen 2.0 Urine Leukocyte Esterase LARGE Urine RBC 2 Urine WBC 14 Urine Squamous Epithelial 11 Cells Urine Transitional Epithelial 1 Cells Urine Bacteria RARE Urine Hyaline Casts 1 Urine Mucus FEW Microscopic Urinalysis Comment CATH-CULTURE IND Prothrombin Time 10.8 Prothromb Time International 1.0 Ratio Activated Partial 23.3 Thromboplast Time White Blood Count 2.3 Red Blood Count 2.29 Hemoglobin 7.1 Hematocrit 21.8 Mean Corpuscular Volume 95.2 Mean Corpuscular Hemoglobin 31.1 Mean Corpuscular Hemoglobin 32.6 Concent Red Cell Distribution Width 19.2 Platelet Count 60 Mean Platelet Volume 8.8 Neutrophils (%) (Auto) Lymphocytes (%) (Auto) Monocytes (%) (Auto) Eosinophils (%) (Auto) Basophils (%) (Auto) Neutrophils # (Auto) Lymphocytes # (Auto) Monocytes # (Auto) Eosinophils # (Auto) Basophils # (Auto) CBC Comment AUTO DIFF Differential Total Cells 100 Counted Neutrophils % (Manual) 8 Band Neutrophils % 3 Lymphocytes % 75 Monocytes % 2 Eosinophils % 3 Basophils % 1 Neutrophils # (Manual) 0.3 Differential Comment FINAL DIFF MANUAL Blastocytes 8 Platelet Estimate LOW Platelet Morphology Comment NORMAL Ovalocytes 1+ Date/Time Procedure Status Source Growth 03/24/17 20:20 Urine Culture Received Urine Catheterized Urine Pending 03/24/17 20:15 Aerobic Blood Culture Received Blood Peripheral Pending 03/24/17 20:15 Anaerobic Blood Culture Received Blood Peripheral Pending Result Diagram: 03/25/17 0649 Imaging Last Impressions Chest X-Ray 03/24/172003 Signed Impressions: Service Date/Time: Friday, March 24, 2017 20:16 - CONCLUSION: No acute disease. Melquiades Trent MD Assessment and Plan Problem List: (1) Fatigue (2) Symptomatic anemia (3) Acute leukemia (4) H/O gastric bypass (5) Hx of cancer of uterus (6) Hx of cancer of lung (7) Pancytopenia (8) UTI (urinary tract infection) Assessment and Plan Admit to Dr. Willis 51-year-old white female with history of uterine cancer with pulmonary metastasis with prior recurrence requiring right lung surgery and chemotherapy. Admitted with complaints of fatigue, dizziness and feeling more tired. He was found with pancytopenia, laboratory workup concerning for acute leukemia. -Keep nothing by mouth at this time, patient is scheduled to have bone marrow biopsy today Oncology also following patient, Dr. Kurtz on consultation. -We'll give 2 units of packed cells and follow H&H Continue to monitor platelet counts, monitor for bleeding CBC in the morning Patient is on neutropenic precautions Urinary tract infection Urine culture pending Continue Rocephin 1 g IV daily History of gastric bypass and subsequent repair of King hernia, EMILI Obesity Was taking phentermine until December of this year -stable Hx DM, occ. takes Metformin to avoid hyperglycemia but not taking regularly. Blood glucose has stabilized after bariatric surgery -We will check Accu-Cheks before meals and at bedtime with low-dose insulin therapy if needed No SCDs and anticoagulation at this time due to thrombocytopenia Repeat labs in the morning Home medications reviewed, initiated as indicated Plan of care discussed with the patient, attending and registered nurse. Further management of the patient will be dependent on the hospital course This patient was seen by myself and Dr. Willis, this H&P is written on his behalf Physician Certification 2 Midnight Certification Type: Admission for Inpatient Services Order for Inpatient Services The services are ordered in accordance with Medicare regulations or non- Medicare payer requirements, as applicable. In the case of services not specified as inpatient-only, they are appropriately provided as inpatient services in accordance with the 2-midnight benchmark. Estimated LOS (days): 2 2 days is the estimated time the patient will need to remain in the hospital, assuming treatment plan goals are met and no additional complications. Post-Hospital Plan: Home Problem Qualifiers (1) Fatigue: Qualified Code: R53.83 - Fatigue, unspecified type (2) Acute leukemia: Qualified Code: C95.00 - Acute leukemia not having achieved remission (3) UTI (urinary tract infection): Qualified Code: N39.0 - Urinary tract infection without hematuria, site unspecified Soledad Easley Mar 25, 2017 11:12
[2017-03-25] MEDS ORDERED: SODIUM CHLOR 0.9% 250 ML INJ 250 ML IV ONE (11:15)
[2017-03-25] MEDS: INSULIN ASPART SUPPLEMENTAL SCALE SQ SCH ×3 (12:58→21:54)
[2017-03-25] MEDS ORDERED: MIDAZOLAM HCL 5 MG/5 ML VIAL ONE (13:02)
[2017-03-25] MEDS ORDERED: fentaNYL CITRATE 250 MCG/5 ML AMP ONE (13:02)
[2017-03-25] MEDS ORDERED: LIDOCAINE 1%/EPINEPHrine 1:100,000 SOLN 20 ML VIAL ONE (13:03)
[2017-03-25 14:36] LABS: BONE MARROW PROCESSING COMPLETE; IRON STAIN DONE; JENNER GIEMSA STAIN DONE
[2017-03-25] MEDS: GABAPENTIN 300 MG CAP PO SCH ×2 (15:00→16:09)
--- NOTE | 2017-03-25 16:15 | RADRPT ---
EXAM DATE/TIME: 03/25/2017 13:58 [facility] COMPARISON: No previous studies available for comparison. INDICATIONS : Acute leukemia, pancytopenia. SEDATION TIME: 30 minutes BIOPSY SITE: Right MEDICATION(S): 1.) 4 mg midazolam (Versed) IV 2.) 200 mcg fentanyl (Sublimaze) IV DEVICE(S): 1.) 11 gauge Bone marrow biopsy needle MEDICAL HISTORY : Carcinoma, lung. Diabetes mellitus type 2. Uterine cancer SURGICAL HISTORY : Cholecystectomy ENCOUNTER: Initial ACUITY: 1 day PAIN SCORE: 0/10 LOCATION: Right iliac A total of one core specimen(s) were obtained and sent to the laboratory for pathologic evaluation. PROCEDURE: 1. CT guided bone marrow biopsy. 2. Conscious sedation with continuous EKG and oximetry monitoring. 3. EKG and oximetry remained stable throughout the procedure. Prior to the procedure informed consent was obtained. Any appropriate prior imaging studies were rev iewed. Using automated exposure control and adjustment of the mA and/or kV according to patient size , radiation dose was kept as low as reasonably achievable to obtain optimal diagnostic quality images . DICOM format image data is available electronically for review and comparison. The site was prepped in a sterile fashion. Full sterile technique was used, including cap, mask, sita rile gloves and gown and a large sterile sheet. Hand hygiene and 2% chlorhexidine and/or betadine/al cohol prep was utilized per protocol for cutaneous antisepsis. The skin and subcutaneous tissues wer e infiltrated with local anesthetic solution. With CT guidance the previously identified target was localized. Biopsy was performed using the presc ribed needle as above. Following biopsy marrow aspiration was performed with repeat puncture. [place] te hemostasis was obtained with compression at the puncture site. Follow-up CT scan reveals no hemorrhage. Conscious sedation was performed with the prescribed dosages and duration as above in the presence of an independent trained radiology nurse to assist in the monitoring of the patient. EKG and oximetry remained stable throughout the procedure. The patient tolerated the procedure well and there were no complications. The patient was sent to Radiology Outpatient Unit in stable condition. CONCLUSION: 1. Uncomplicated CT guided bone marrow aspirate. 2. Uncomplicated CT guided bone marrow biopsy. Papa Hawley MD on March 25, 2017 at 16:06 Board Certified Radiologist. This report was verified electronically.
[2017-03-25] MEDS: SODIUM CHLORIDE 0.9% FLUSH 10 ML FLUSH IV FLUSH SCH (19:44)
[2017-03-25] MEDS: TEMAZEPAM 15 MG CAP PO PRN (21:52)
[2017-03-26 00:56] VITALS: BP 92/52; PULSE 60; RESP 19; TEMP 97.8; O2SAT 97
[2017-03-26] MEDS: oxyCODONE/ACETAMINOPHEN 5 MG/325 MG TAB PO PRN ×2 (01:03→08:43)
[2017-03-26] MEDS: cefTRIAXone INJ 1,000 MG in SODIUM CHLORIDE 0.9% INJ 100 ML IV SCH ×2 (01:05→23:06)
[2017-03-26] MEDS: SODIUM CHLOR 0.9% 1000 ML INJ 1,000 ML IV SCH (01:06)
[2017-03-26 04:00] VITALS: BP 96/54; PULSE 63; RESP 18; TEMP 96.2; O2SAT 96
--- NOTE | 2017-03-26 07:01 | MB ---
cc: ASHLEY LOCKE M.D. DATE OF CONSULTATION 03/25/2017 REASON FOR CONSULTATION Consult requested by Dr. Willis for evaluation of pancytopenia with peripheral blast. HISTORY OF PRESENT ILLNESS Deanne is a pleasant 51-year-old female. She was diagnosed with stage IV endometrial cancer in September 2010. At the time of diagnosis, she was found to have pulmonary metastasis. She was evaluated by Dr. Thomason. She was treated with chemotherapy and she went into remission. She was doing fine up until 2012, she was found to have recurrent disease in the lung. The patient underwent surgery and the policy confirmed metastatic endometrial cancer. Subsequently, she was treated with another six cycles of Taxol and Carboplatin chemotherapy and she went into remission. She had a PET scan in April of 2016 which showed no evidence of residual of recurrent disease. Her CA-125 remains normal. The patient lately has been not feeling well. She has been complaining of weakness, tiredness, fatigue with shortness of breath and chest pains. She came to the emergency room about a month ago. She underwent cardiac workup which was negative. The patient had a blood test which showed pancytopenia with peripheral blasts. The patient was referred to me yesterday for evaluation of the pancytopenia with peripheral blast. When I saw her yesterday, the CBC showed a white count of 2.8, hemoglobin 9.2, hematocrit 28.2, platelet count is 84. The differential count showed 16% blast. I suspected that the patient has acute leukemia and advised her to report to the emergency room to be admitted to the hospital. The patient came to the emergency room. I did talk to the physician library assistant in the ER about her condition. Recommendations were made for the patient to be admitted to the hospital. The patient wanted bone marrow biopsy under sedation. Therefore interventional radiologists have been consulted for the procedure. The patient is complaining of lightheadedness, weakness, tiredness and fatigue. She denies any fevers. Appetite is okay. The rest of the review of systems is negative. PAST MEDICAL HISTORY 1. Morbid obesity status post gastric bypass surgery 2. Metastatic endometrial cancer 3. Sleep apnea syndrome 4. Peripheral neuropathy 5. Diabetes mellitus 6. Gastroesophageal reflux disease PAST SURGICAL HISTORY 1. Gastric bypass surgery in 2012. 2. Hysterectomy in 2010. 3. Cholecystectomy 4. Thoracotomy with resection of the right middle lobe. ALLERGIES ATROVENT, CARBOPLATINOL, LATEX AND TORADOL. MEDICATIONS 1. Gabapentin 2. Iron 3. Magnesium 4. Metformin 5. Pantoprazole 6. Phentermine FAMILY HISTORY Noncontributory SOCIAL HISTORY The patient does not smoke cigarettes, does not drink alcohol. PHYSICAL EXAM This is a well-developed, well-nourished white female in no apparent distress. VITAL SIGNS: Temperature 96.8, heart rate is 80, blood pressure 132/66, O2 saturation 96%. HEENT: PERRLA, EOMI, anicteric. No oral lesions are noted. NECK: No lymphadenopathy noted. LUNGS: Clear. No wheezing, rhonchi or rales. HEART: Regular rate and rhythm. ABDOMEN: Soft and nontender, unable to feel for liver and spleen due to the obesity. EXTREMITIES: No pedal edema. NEUROLOGIC: Awake, alert and oriented times three. SKIN: No significant lesions noted. ASSESSMENT 1. Pancytopenia with peripheral blast. Acute leukemia is strongly suspected. However, myelodysplasia cannot be ruled out at this time either. 2. History of metastatic endometrial cancer stage IV in 2010 status post surgery followed by chemotherapy and went into remission. Then in 2012, she had recurrent disease in the lung for which she underwent surgery followed by six cycles of carboplatin and Taxol chemotherapy. She had a PET scan last year which showed no evidence of recurrent or residual disease. 3. History of morbid obesity status post gastric bypass surgery 4. Diabetes mellitus 5. Peripheral neuropathy most likely from Taxol chemotherapy. PLAN I have reviewed her available records and I had an extensive discussion with the patient regarding the pancytopenia and peripheral blasts. I suspect that she has developed acute leukemia from the from the previous chemotherapy. We discussed that the chemotherapy has late side effects of either myelodysplasia or acute leukemia. I wanted to do the bone marrow biopsy in our office yesterday, however, the patient wanted to have it have it under sedation, therefore I will consult interventional radiologist for CT-guided core needle biopsy of the bone marrow. We will ask the radiologist to send the aspirate for flow cytometry and cytogenetics. We will also ask the radiologist to send the biopsy for morphology evaluation. The differential diagnosis at this time is either myelodysplastic syndrome or acute leukemia. Once the diagnosis is confirmed, then we will discuss with the patient regarding the treatment options. We will give her a blood transfusion to keep hemoglobin more than 8 and platelet transfusion to keep the platelet count more than 15. The patient is neutropenic and if she develops a fever then we will initiate neutropenic fever protocol. Further recommendations will be based on her hospital stay. Thank you for asking my opinion. MD AIME Martin/JUDSON /12:14 AM /6:49 AM
[2017-03-26 07:20] LABS: HEMATOCRIT 27.2 % (35.0-46.0); MEAN CELL VOLUME 92.9 FL (80.0-100.0); MEAN CORPUSCULAR HEMOGLOBIN 30.4 PG (27.0-34.0); MEAN CORPUSCULAR HGB CONC 32.7 % (32.0-36.0); PLATELET COUNT 53 TH/MM3 (150-450); RED BLOOD COUNT 2.93 MIL/MM3 (4.00-5.30); RED CELL DISTRIBUTION WIDTH 19.4 % (11.6-17.2); WHITE BLOOD COUNT 2.4 TH/MM3 (4.0-11.0)
[2017-03-26 07:24] LABS: HEMO FLAGS AUTO DIFF
[2017-03-26] MEDS: INSULIN ASPART SUPPLEMENTAL SCALE SQ SCH ×4 (07:45→20:22)
[2017-03-26 07:51] LABS: ALKALINE PHOSPHATASE 56 U/L (45-117); ALT (GPT) 11 U/L (10-53); ANION GAP 8 MEQ/L (5-15); AST (GOT) 12 U/L (15-37); BICARBONATE 25.5 MEQ/L (21.0-32.0); BLOOD UREA NITROGEN 13 MG/DL (7-18); CHLORIDE 107 MEQ/L (98-107); GLOMERULAR FILTRATION RATE 72 ML/MIN (>89); LDH SERUM 79 U/L (84-246); SODIUM (NA) 140 MEQ/L (136-145)
[2017-03-26 08:00] VITALS: BP 106/60; PULSE 58; RESP 18; TEMP 96.4; O2SAT 97
[2017-03-26] MEDS: GABAPENTIN 300 MG CAP PO SCH ×3 (08:43→19:29)
[2017-03-26] MEDS: PANTOPRAZOLE SOD 40 MG DELAYED RELEASE TAB PO SCH (08:43)
[2017-03-26] MEDS: ESCITALOPRAM OXALATE 10 MG TAB PO SCH (08:43)
[2017-03-26] MEDS: SODIUM CHLORIDE 0.9% FLUSH 10 ML FLUSH IV FLUSH SCH ×2 (08:45→20:23)
[2017-03-26 09:47] LABS: BLASTS 5 % (0-0); CORRECTED NUCLEATED RBC 5 /100 WBC (0-0); EOSINOPHILS 1 % (0-4); METAMYELOCYTES 1 % (0-1); MYELOCYTES 2 % (0-0); NEUTROPHIL # MANUAL DIFF 0.4 TH/MM3 (1.8-7.7); POLYS (SEG NEUTROPHILS) 12 % (16-70); WBC DIFF SAMPLE 100
[2017-03-26 09:49] LABS: ACANTHOCYTES OCC (NORMAL); PLATELET ESTIMATE SMEAR LOW (NORMAL); PLATELET MORPHOLOGY NORMAL (NORMAL)
[2017-03-26 09:50] LABS: OVALOCYTES 1+ (NORMAL)
[2017-03-26 09:51] LABS: SCAN/DIFF FINAL DIFF MANUAL
--- NOTE | 2017-03-26 10:00 | PD.ONC.PN ---
Subjective Subjective Remarks Afebrile overnight. Patient resting in bed in nad. Says she feels okay today, a bit tired. Waiting on pathology results. Objective Data Date Time Temp Pulse Resp B/P Pulse Ox O2 Delivery O2 Flow Rate FiO2 03/26/17 08:00 96.4 58 18 106/60 97 03/26/17 04:00 96.2 63 18 96/54 96 03/26/17 02:03 16 03/26/17 00:56 97.8 60 19 92/52 97 03/25/17 22:15 98.3 66 18 91/58 97 03/25/17 21:58 97.6 88 17 104/56 97 03/25/17 20:00 97.0 65 17 102/66 97 03/25/17 17:25 97.9 62 18 131/62 100 03/25/17 16:00 96.8 80 16 132/66 96 03/25/17 15:25 68 20 120/64 95 03/25/17 14:55 65 20 116/64 95 03/25/17 14:40 98.1 69 20 139/109 95 03/25/17 12:00 97.9 56 16 106/73 99 03/26/17 03/26/17 03/26/17 07:00 15:00 23:00 Intake Total 361 ml 480 ml Balance 361 ml 480 ml Result Diagram: 03/26/17 0600 03/26/17 0600 Laboratory Results Laboratory Tests Test 03/25/17 03/26/17 12:00 06:00 Blood Type A POSITIVE Antibody Screen NEGATIVE Crossmatch Leukocyte-Reduced Red Blood Cells Blood Bank Comment White Blood Count 2.4 TH/MM3 Red Blood Count 2.93 MIL/MM3 Hemoglobin 8.9 GM/DL Hematocrit 27.2 % Mean Corpuscular Volume 92.9 FL Mean Corpuscular Hemoglobin 30.4 PG Mean Corpuscular Hemoglobin 32.7 % Concent Red Cell Distribution Width 19.4 % Platelet Count 53 TH/MM3 Mean Platelet Volume 8.7 FL Neutrophils (%) (Auto) % Lymphocytes (%) (Auto) % Monocytes (%) (Auto) % Eosinophils (%) (Auto) % Basophils (%) (Auto) % Neutrophils # (Auto) TH/MM3 Lymphocytes # (Auto) TH/MM3 Monocytes # (Auto) TH/MM3 Eosinophils # (Auto) TH/MM3 Basophils # (Auto) TH/MM3 CBC Comment AUTO DIFF Differential Total Cells 100 Counted Neutrophils % (Manual) 12 % Lymphocytes % 75 % Monocytes % 4 % Eosinophils % 1 % Neutrophils # (Manual) 0.4 TH/MM3 Metamyelocytes 1 % Myelocytes 2 % Nucleated Red Blood Cells 5 /100 WBC Differential Comment FINAL DIFF MANUAL Blastocytes 5 % Platelet Estimate LOW Platelet Morphology Comment NORMAL Ovalocytes 1+ Acanthocytes OCC Sodium Level 140 MEQ/L Potassium Level 4.0 MEQ/L Chloride Level 107 MEQ/L Carbon Dioxide Level 25.5 MEQ/L Anion Gap 8 MEQ/L Blood Urea Nitrogen 13 MG/DL Creatinine 0.83 MG/DL Estimat Glomerular Filtration 72 ML/MIN Rate Random Glucose 83 MG/DL Calcium Level 8.1 MG/DL Total Bilirubin 1.0 MG/DL Aspartate Amino Transf 12 U/L (AST/SGOT) Alanine Aminotransferase 11 U/L (ALT/SGPT) Alkaline Phosphatase 56 U/L Lactate Dehydrogenase 79 U/L Total Protein 5.6 GM/DL Albumin 2.9 GM/DL Culture Results Microbiology Date/Time Procedure Status Source Growth 03/24/17 20:15 Aerobic Blood Culture - Preliminary Resulted Blood Peripheral NO GROWTH IN 1 DAY 03/24/17 20:15 Anaerobic Blood Culture - Preliminary Resulted Blood Peripheral NO GROWTH IN 1 DAY 03/24/17 20:15 Aerobic Blood Culture - Preliminary Resulted Blood Peripheral NO GROWTH IN 1 DAY 03/24/17 20:15 Anaerobic Blood Culture - Preliminary Resulted Blood Peripheral NO GROWTH IN 1 DAY 03/24/17 20:20 Urine Culture - Final Complete Urine Catheterized Urine 50-100,000 CFU/ML MIXED GRAM POSITIVE... Administered Medications Medications (Trade) Dose Ordered Sig/Jasen Route PRN Reason Start Time Stop Time Status Last Admin Dose Admin Sodium Chloride 1,000 ml @ 100 mls/hr Q10H IV 03/24/17 23:15 03/26/17 01:06 Ceftriaxone Sodium/Sodium Chloride (Rocephin Inj/NS Inj) 100 ml @ 200 mls/hr Q24H IV 03/25/17 23:00 03/26/17 01:05 Temazepam (Restoril) 30 mg HS PRN PO INSOMNIA 03/25/17 02:00 03/25/17 21:52 Escitalopram Oxalate (Lexapro) 5 mg DAILY PO 03/26/17 09:00 03/26/17 08:43 Gabapentin (Neurontin) 600 mg TID PO 03/25/17 13:00 03/26/17 08:43 Pantoprazole Sodium (Protonix) 40 mg DAILY PO 03/26/17 09:00 03/26/17 08:43 Oxycodone/ Acetaminophen (Percocet 5-325 Mg) 1 tab Q4H PRN PO PAIN SCALE 1 TO 10 03/25/17 15:45 03/26/17 08:43 Objective Remarks GENERAL: Pleasant middle aged female, upright in bed SKIN: Warm and dry. HEAD: Normocephalic. EYES: No injection or drainage. NECK: Supple, trachea midline. CARDIOVASCULAR: Regular rate and rhythm RESPIRATORY: Breath sounds equal bilaterally. No accessory muscle use. GASTROINTESTINAL: Abdomen soft, non-tender, nondistended. EXTREMITIES: No cyanosis MUSCULOSKELETAL: Adequate muscle tone. NEUROLOGICAL: awake and alert, normal speech. moving all extremities. Assessment/Plan Problem List: (1) Pancytopenia Status: Acute Plan: 03/26:d/w patient that we are waiting on pathology. discussed pathophysiology of pancytopenia and leukemia. discussed possible treatment if leukemia is diagnosed. --s/p bone marrow biopsy 03/25, awaiting pathology --Acute leukemia is strongly suspected. --transfuse to keep hemoglobin more than 8 and platelet transfusion to keep the platelet count more than 15. --neutropenic precautions (2) Endometrial ca Status: Acute Plan: 2010:--diagnosed with stage IV endometrial cancer in September 2010. had pulmonary mets at time of dx --treated with chemotherapy --- entered remission. 2012:--found to have recurrent disease in the lung. treated with another six cycles of Taxol and Carboplatin chemotherapy --entered a second remission April 2016: PET scan showed no evidence of residual of recurrent disease. --CA-125 remains normal. Assessment 51y/o female admitted with pancytopenia with peripheral blast. h/o Morbid obesity status post gastric bypass surgery Sleep apnea syndrome. Peripheral neuropathy. Diabetes mellitus. Gastroesophageal reflux disease Attending Statement better after PRBC await BM BX result will follow. The exam, history, and the medical decision-making described in the above note were completed with the assistance of the mid-level provider. I reviewed and agree with the findings presented. I attest that I had a [id number] encounter with the patient on the same day, and personally performed and documented my assessment and findings in the medical record. Jeanne Mcdonald Mar 26, 2017 09:59 Pam Kurtz MD Mar 26, 2017 15:23
--- NOTE | 2017-03-26 10:40 | HHI.PR ---
Subjective Remarks right hip pain no cp no sob fatigue improved some appetite ok no fever no bruising Objective Objective Results - Vital Signs Date Time Temp Pulse Resp B/P Pulse Ox O2 Delivery O2 Flow Rate FiO2 03/26/17 08:00 96.4 58 18 106/60 97 03/26/17 04:00 96.2 63 18 96/54 96 03/26/17 02:03 16 03/26/17 00:56 97.8 60 19 92/52 97 03/25/17 22:15 98.3 66 18 91/58 97 03/25/17 21:58 97.6 88 17 104/56 97 03/25/17 20:00 97.0 65 17 102/66 97 03/25/17 17:25 97.9 62 18 131/62 100 03/25/17 16:00 96.8 80 16 132/66 96 03/25/17 15:25 68 20 120/64 95 03/25/17 14:55 65 20 116/64 95 03/25/17 14:40 98.1 69 20 139/109 95 03/25/17 12:00 97.9 56 16 106/73 99 I/O 03/25/17 03/25/17 03/25/17 03/26/17 03/26/17 03/26/17 07:00 15:00 23:00 07:00 15:00 23:00 Intake Total 425 ml 0 ml 862 ml 361 ml 480 ml Output Total 100 ml Balance 325 ml 0 ml 862 ml 361 ml 480 ml Intake Oral 0 ml 480 ml 480 ml IV Total 425 ml Packed Cells 382 ml 361 ml Output Urine Total 100 ml # Voids 2 4 # Bowel Movements 1 Result Diagram: 03/26/17 0603/26/17 06 Imaging Last Impressions Chest X-Ray 03/24/172003 Signed Impressions: Service Date/Time: Friday, March 24, 2017 20:16 - CONCLUSION: No acute disease. Melquiades Trent MD Other Results Laboratory Tests Test 03/25/17 03/26/17 12:00 06:00 Blood Type A POSITIVE Antibody Screen NEGATIVE Crossmatch Leukocyte-Reduced Red Blood Cells Blood Bank Comment White Blood Count 2.4 Red Blood Count 2.93 Hemoglobin 8.9 Hematocrit 27.2 Mean Corpuscular Volume 92.9 Mean Corpuscular Hemoglobin 30.4 Mean Corpuscular Hemoglobin 32.7 Concent Red Cell Distribution Width 19.4 Platelet Count 53 Mean Platelet Volume 8.7 Neutrophils (%) (Auto) Lymphocytes (%) (Auto) Monocytes (%) (Auto) Eosinophils (%) (Auto) Basophils (%) (Auto) Neutrophils # (Auto) Lymphocytes # (Auto) Monocytes # (Auto) Eosinophils # (Auto) Basophils # (Auto) CBC Comment AUTO DIFF Differential Total Cells 100 Counted Neutrophils % (Manual) 12 Lymphocytes % 75 Monocytes % 4 Eosinophils % 1 Neutrophils # (Manual) 0.4 Metamyelocytes 1 Myelocytes 2 Nucleated Red Blood Cells 5 Differential Comment FINAL DIFF MANUAL Blastocytes 5 Platelet Estimate LOW Platelet Morphology Comment NORMAL Ovalocytes 1+ Acanthocytes OCC Sodium Level 140 Potassium Level 4.0 Chloride Level 107 Carbon Dioxide Level 25.5 Anion Gap 8 Blood Urea Nitrogen 13 Creatinine 0.83 Estimat Glomerular Filtration 72 Rate Random Glucose 83 Calcium Level 8.1 Total Bilirubin 1.0 Aspartate Amino Transf 12 (AST/SGOT) Alanine Aminotransferase 11 (ALT/SGPT) Alkaline Phosphatase 56 Lactate Dehydrogenase 79 Total Protein 5.6 Albumin 2.9 Date/Time Procedure Status Source Growth 03/24/17 20:20 Urine Culture - Final Complete Urine Catheterized Urine 50-100,000 CFU/ML MIXED GRAM POSITIVE... 03/24/17 20:15 Aerobic Blood Culture - Preliminary Resulted Blood Peripheral NO GROWTH IN 1 DAY 03/24/17 20:15 Anaerobic Blood Culture - Preliminary Resulted Blood Peripheral NO GROWTH IN 1 DAY ROS General: Fatigue, Other (right hip pain ) HEENT: No: Sore Throat, Dysphagia Cardiac: No: Chest Pain, Edema, Palpitations Pulmonary: No: Cough, SOB, Wheezing GI: No: Abdominal Pain, BM, Diarrhea, N/V /COMPASS OPERATOR: No: Dysuria, Urgency Neuro/MS: No: Lightheaded, Confusion Psych: No: Anxiety, Depression Skin: No: Itching, Rash Physical Exam Physical Exam GENERAL: This is a well-nourished, well-developed patient, in no apparent distress. SKIN: Skin pale, cool dry, healing bruises on legs. HEAD: Atraumatic. Normocephalic. No temporal or scalp tenderness. EYES: Pupils equal round and reactive. Extraocular motions intact. Pale sclera. No injection or drainage. ENT: Nose without bleeding, purulent drainage or septal hematoma. Throat without erythema, tonsillar hypertrophy or exudate. Uvula midline. Airway patent. NECK: Trachea midline. No JVD or lymphadenopathy. Supple, nontender, no meningeal signs. CARDIOVASCULAR: Regular rate and rhythm without murmurs, gallops, or rubs. RESPIRATORY: Clear to auscultation. Breath sounds equal bilaterally. No wheezes , rales, or rhonchi. GASTROINTESTINAL: Abdomen soft, non-tender, nondistended. Scars from previuos surgery noted, well healed. No hepato-splenomegaly, or palpable masses. No guarding. MUSCULOSKELETAL: Extremities without clubbing, cyanosis, or edema. No joint tenderness, effusion, or edema noted. No calf tenderness. Negative Homans sign bilaterally. NEUROLOGICAL: Awake and alert. Cranial nerves II through XII intact. Motor and sensory grossly within normal limits. Five out of 5 muscle strength in all muscle groups. Normal speech. Urinary Catheter: No Vascular Central Line Catheter: No A/P Diagnosis: (1) Fatigue (2) Symptomatic anemia (3) Acute leukemia (4) H/O gastric bypass (5) Hx of cancer of uterus (6) Hx of cancer of lung (7) Pancytopenia (8) UTI (urinary tract infection) Assessment and Plan 51-year-old white female with history of uterine cancer with pulmonary metastasis with prior recurrence requiring right lung surgery and chemotherapy. Admitted with complaints of fatigue, dizziness and feeling more tired. He was found with pancytopenia, laboratory workup concerning for acute leukemia. -S/P CT guided bone marrow biopsy 03/25, follow results Oncology also following patient, Dr. Kurtz's input appreciated. -S/P 2 units of packed cells, HH 8.9-27.2 -plat 53 today CBC in the morning continue neutropenic precautions -treatment pending bx results Urinary tract infection Urine culture mixed GPC Continue Rocephin 1 g IV daily for now History of gastric bypass and subsequent repair of King hernia, EMILI Obesity Was taking phentermine until December of this year -stable Hx DM, occ. takes Metformin to avoid hyperglycemia but not taking regularly. Blood glucose has stabilized after bariatric surgery BGM 198 yesterday, today 80s -continue with Accu-Cheks before meals and at bedtime with low-dose insulin therapy if needed No SCDs and anticoagulation at this time due to thrombocytopenia Repeat labs in the morning continue with above treatment, f/u bx results dc IVF D/W RN D/W Dr. Willis D/ W pt This patient was seen by myself and Dr. Willis, this note is written on his behalf Problem Qualifiers (1) Fatigue: Qualified Code: R53.83 - Fatigue, unspecified type (2) Acute leukemia: Qualified Code: C95.00 - Acute leukemia not having achieved remission (3) UTI (urinary tract infection): Qualified Code: N39.0 - Urinary tract infection without hematuria, site unspecified Soledad Easley Mar 26, 2017 10:40
[2017-03-26 13:00] VITALS: BP 125/74; PULSE 65; RESP 16; TEMP 98; O2SAT 99
[2017-03-26 16:00] VITALS: BP 109/58; PULSE 71; RESP 16; TEMP 97.3; O2SAT 97
[2017-03-26 20:00] VITALS: BP 116/65; PULSE 65; RESP 18; TEMP 97.7; O2SAT 96
[2017-03-26] MEDS: TEMAZEPAM 15 MG CAP PO PRN (23:06)
[2017-03-27] VITALS: BP 114/67; PULSE 64; RESP 18; TEMP 98; O2SAT 96
[2017-03-27 04:00] VITALS: BP 120/68; PULSE 67; RESP 18; TEMP 97; O2SAT 95
[2017-03-27] MEDS: INSULIN ASPART SUPPLEMENTAL SCALE SQ SCH ×4 (06:11→21:45)
[2017-03-27 08:00] VITALS: BP 102/63; PULSE 72; RESP 16; TEMP 96.4; O2SAT 93
[2017-03-27 08:07] LABS: HEMATOCRIT 28.8 % (35.0-46.0); MEAN CORPUSCULAR HEMOGLOBIN 30.4 PG (27.0-34.0); MEAN CORPUSCULAR HGB CONC 32.6 % (32.0-36.0); PLATELET COUNT 54 TH/MM3 (150-450); RED BLOOD COUNT 3.09 MIL/MM3 (4.00-5.30)
[2017-03-27 08:21] LABS: HEMO FLAGS AUTO DIFF
[2017-03-27] MEDS: ESCITALOPRAM OXALATE 10 MG TAB PO SCH (09:16)
[2017-03-27] MEDS: PANTOPRAZOLE SOD 40 MG DELAYED RELEASE TAB PO SCH (09:16)
[2017-03-27] MEDS: SODIUM CHLORIDE 0.9% FLUSH 10 ML FLUSH IV FLUSH SCH ×2 (09:17→21:42)
[2017-03-27] MEDS: GABAPENTIN 300 MG CAP PO SCH ×3 (09:17→19:41)
--- NOTE | 2017-03-27 10:59 | PD.ONC.PN ---
Subjective Subjective Remarks Afebrile overnight. Feeling fatigued today. Otherwise without complaint. Waiting on bone marrow biopsy results. Objective Data Date Time Temp Pulse Resp B/P Pulse Ox O2 Delivery O2 Flow Rate FiO2 03/27/17 08:00 96.4 72 16 102/63 93 03/27/17 04:00 97.0 67 18 120/68 95 03/27/17 00:00 98.0 64 18 114/67 96 03/26/17 20:00 97.7 65 18 116/65 96 03/26/17 16:00 97.3 71 16 109/58 97 03/26/17 13:00 98.0 65 16 125/74 99 03/27/17 03/27/17 03/27/17 07:00 15:00 23:00 Intake Total 480 ml Balance 480 ml Result Diagram: 03/27/17 0708 03/26/17 0600 Laboratory Results Laboratory Tests Test 03/27/17 07:08 White Blood Count 2.0 TH/MM3 Red Blood Count 3.09 MIL/MM3 Hemoglobin 9.4 GM/DL Hematocrit 28.8 % Mean Corpuscular Volume 93.0 FL Mean Corpuscular Hemoglobin 30.4 PG Mean Corpuscular Hemoglobin 32.6 % Concent Red Cell Distribution Width 19.0 % Platelet Count 54 TH/MM3 Mean Platelet Volume 8.7 FL Neutrophils (%) (Auto) % Lymphocytes (%) (Auto) % Monocytes (%) (Auto) % Eosinophils (%) (Auto) % Basophils (%) (Auto) % Neutrophils # (Auto) TH/MM3 Lymphocytes # (Auto) TH/MM3 Monocytes # (Auto) TH/MM3 Eosinophils # (Auto) TH/MM3 Basophils # (Auto) TH/MM3 CBC Comment AUTO DIFF Culture Results Microbiology Date/Time Procedure Status Source Growth 03/24/17 20:15 Aerobic Blood Culture - Preliminary Resulted Blood Peripheral NO GROWTH IN 2 DAYS 03/24/17 20:15 Anaerobic Blood Culture - Preliminary Resulted Blood Peripheral NO GROWTH IN 2 DAYS 03/24/17 20:15 Aerobic Blood Culture - Preliminary Resulted Blood Peripheral NO GROWTH IN 2 DAYS 03/24/17 20:15 Anaerobic Blood Culture - Preliminary Resulted Blood Peripheral NO GROWTH IN 2 DAYS 03/24/17 20:20 Urine Culture - Final Complete Urine Catheterized Urine 50-100,000 CFU/ML MIXED GRAM POSITIVE... Administered Medications Medications (Trade) Dose Ordered Sig/Jasen Route PRN Reason Start Time Stop Time Status Last Admin Dose Admin Sodium Chloride 2 ml 2 ml BID IV FLUSH 03/25/17 09:00 03/27/17 09:17 Ceftriaxone Sodium/Sodium Chloride (Rocephin Inj/NS Inj) 100 ml @ 200 mls/hr Q24H IV 03/25/17 23:00 03/26/17 23:06 Temazepam (Restoril) 30 mg HS PRN PO INSOMNIA 03/25/17 02:00 03/26/17 23:06 Escitalopram Oxalate (Lexapro) 5 mg DAILY PO 03/26/17 09:00 03/27/17 09:16 Gabapentin (Neurontin) 600 mg TID PO 03/25/17 13:00 03/27/17 09:17 Pantoprazole Sodium (Protonix) 40 mg DAILY PO 03/26/17 09:00 03/27/17 09:16 Oxycodone/ Acetaminophen (Percocet 5-325 Mg) 1 tab Q4H PRN PO PAIN SCALE 1 TO 10 03/25/17 15:45 03/26/17 08:43 Objective Remarks GENERAL: Pleasant female, sitting up in bed in nad SKIN: Warm and dry. HEAD: Normocephalic. EYES: No injection or drainage. NECK: Supple, trachea midline. CARDIOVASCULAR: Regular rate and rhythm RESPIRATORY: Breath sounds equal bilaterally. No accessory muscle use. GASTROINTESTINAL: Abdomen soft, non-tender, nondistended. EXTREMITIES: No cyanosis MUSCULOSKELETAL: Adequate muscle tone. NEUROLOGICAL: aox3. normal speech. Assessment/Plan Problem List: (1) Pancytopenia Status: Acute Plan: 03/27: again discussed waiting on pathology. printed out and reviewed patient education on MDS and possibility of AML. discussed that the results are pending.15-20minutes spent at bedside discussing and answering questions. --s/p bone marrow biopsy 03/25, awaiting pathology --Acute leukemia is strongly suspected. --transfuse to keep hemoglobin more than 8 and platelet transfusion to keep the platelet count more than 15. --neutropenic precautions (2) Endometrial ca Status: Acute Plan: 2010:--diagnosed with stage IV endometrial cancer in September 2010. had pulmonary mets at time of dx --treated with chemotherapy --- entered remission. 2012:--found to have recurrent disease in the lung. treated with another six cycles of Taxol and Carboplatin chemotherapy --entered a second remission April 2016: PET scan showed no evidence of residual of recurrent disease. --CA-125 remains normal. Assessment 51y/o female admitted with pancytopenia with peripheral blast. h/o Morbid obesity status post gastric bypass surgery Sleep apnea syndrome. Peripheral neuropathy. Diabetes mellitus. Gastroesophageal reflux disease Plan c/o weakness anxious to know the BM bx result d/w pathologist DR Deutsch yesterday. will be ready today Jeanne Mcdonald Mar 27, 2017 10:59 Pam Kurtz MD Mar 28, 2017 15:00
[2017-03-27 11:18] LABS: BANDS 2 % (0-6); BLASTS 12 % (0-0); EOSINOPHILS 2 % (0-4); METAMYELOCYTES 1 % (0-1); MYELOCYTES 2 % (0-0); POLYS (SEG NEUTROPHILS) 10 % (16-70); WBC DIFF SAMPLE 100
[2017-03-27 11:19] LABS: NEUTROPHIL # MANUAL DIFF 0.3 TH/MM3 (1.8-7.7); PLATELET ESTIMATE SMEAR LOW (NORMAL); PLATELET MORPHOLOGY NORMAL (NORMAL); SCAN/DIFF FINAL DIFF MANUAL
[2017-03-27 12:00] VITALS: BP 105/64; PULSE 54; RESP 16; TEMP 98; O2SAT 98
--- NOTE | 2017-03-27 13:53 | HHI.PR ---
Subjective Remarks dizzy when out of bed room not spinning feels very fatigue today, just wants to sleep right hip pain appetite fair no cp no sob no fever Objective Objective Results - Vital Signs Date Time Temp Pulse Resp B/P Pulse Ox O2 Delivery O2 Flow Rate FiO2 03/27/17 12:00 98.0 54 16 105/64 98 03/27/17 08:00 96.4 72 16 102/63 93 03/27/17 04:00 97.0 67 18 120/68 95 03/27/17 00:00 98.0 64 18 114/67 96 03/26/17 20:00 97.7 65 18 116/65 96 03/26/17 16:00 97.3 71 16 109/58 97 I/O 03/26/17 03/26/17 03/26/17 03/27/17 03/27/17 03/27/17 07:00 15:00 23:00 07:00 15:00 23:00 Intake Total 361 ml 2027 ml 480 ml Balance 361 ml 2027 ml 480 ml Intake Oral 960 ml 480 ml IV Total 1067 ml Packed Cells 361 ml # Voids 1 3 # Bowel Movements 0 Result Diagram: 03/27/17 0708 03/26/17 0600 Imaging Last Impressions Chest X-Ray 03/24/172003 Signed Impressions: Service Date/Time: Friday, March 24, 2017 20:16 - CONCLUSION: No acute disease. Melquiades Trent MD Other Results Laboratory Tests Test 03/27/17 07:08 White Blood Count 2.0 Red Blood Count 3.09 Hemoglobin 9.4 Hematocrit 28.8 Mean Corpuscular Volume 93.0 Mean Corpuscular Hemoglobin 30.4 Mean Corpuscular Hemoglobin 32.6 Concent Red Cell Distribution Width 19.0 Platelet Count 54 Mean Platelet Volume 8.7 Neutrophils (%) (Auto) Lymphocytes (%) (Auto) Monocytes (%) (Auto) Eosinophils (%) (Auto) Basophils (%) (Auto) Neutrophils # (Auto) Lymphocytes # (Auto) Monocytes # (Auto) Eosinophils # (Auto) Basophils # (Auto) CBC Comment AUTO DIFF Differential Total Cells 100 Counted Neutrophils % (Manual) 10 Band Neutrophils % 2 Lymphocytes % 68 Monocytes % 3 Eosinophils % 2 Neutrophils # (Manual) 0.3 Metamyelocytes 1 Myelocytes 2 Differential Comment FINAL DIFF MANUAL Blastocytes 12 Platelet Estimate LOW Platelet Morphology Comment NORMAL Date/Time Procedure Status Source Growth 03/24/17 20:20 Urine Culture - Final Complete Urine Catheterized Urine 50-100,000 CFU/ML MIXED GRAM POSITIVE... 03/24/17 20:15 Aerobic Blood Culture - Preliminary Resulted Blood Peripheral NO GROWTH IN 3 DAYS 03/24/17 20:15 Anaerobic Blood Culture - Preliminary Resulted Blood Peripheral NO GROWTH IN 3 DAYS ROS General: Fatigue, Weakness, Other (dizziness ) HEENT: No: Sore Throat, Dysphagia Cardiac: No: Chest Pain, Edema, Palpitations Pulmonary: No: Cough, SOB, Wheezing GI: No: Abdominal Pain, BM, Diarrhea, N/V /AQUATICS ASSISTANT DEPARTMENT HEAD: No: Dysuria, Urgency Neuro/MS: Other (right hip pain ), No: Lightheaded, Confusion Psych: No: Anxiety, Depression Skin: No: Itching, Rash Physical Exam Physical Exam GENERAL: This is a well-nourished, well-developed patient, in no apparent distress. SKIN: Skin pale, cool dry, healing bruises on legs. HEAD: Atraumatic. Normocephalic. No temporal or scalp tenderness. EYES: Pupils equal round and reactive. Extraocular motions intact. Pale sclera. No injection or drainage. ENT: Nose without bleeding, purulent drainage or septal hematoma. Throat without erythema, tonsillar hypertrophy or exudate. Uvula midline. Airway patent. NECK: Trachea midline. No JVD or lymphadenopathy. Supple, nontender, no meningeal signs. CARDIOVASCULAR: Regular rate and rhythm without murmurs, gallops, or rubs. RESPIRATORY: Clear to auscultation. Breath sounds equal bilaterally. No wheezes , rales, or rhonchi. GASTROINTESTINAL: Abdomen soft, non-tender, nondistended. Scars from previuos surgery noted, well healed. No hepato-splenomegaly, or palpable masses. No guarding. MUSCULOSKELETAL: Extremities without clubbing, cyanosis, or edema. No joint tenderness, effusion, or edema noted. No calf tenderness. Negative Homans sign bilaterally. NEUROLOGICAL: Awake and alert. Cranial nerves II through XII intact. Motor and sensory grossly within normal limits. Five out of 5 muscle strength in all muscle groups. Normal speech. Urinary Catheter: No Vascular Central Line Catheter: No A/P Diagnosis: (1) Fatigue (2) Symptomatic anemia (3) Acute leukemia (4) H/O gastric bypass (5) Hx of cancer of uterus (6) Hx of cancer of lung (7) Pancytopenia (8) UTI (urinary tract infection) Assessment and Plan 51-year-old white female with history of uterine cancer with pulmonary metastasis with prior recurrence requiring right lung surgery and chemotherapy. Admitted with complaints of fatigue, dizziness and feeling more tired. He was found with pancytopenia, laboratory workup concerning for acute leukemia. -S/P CT guided bone marrow biopsy 03/25, follow results Oncology also following patient, Dr. Kurtz's input appreciated. -S/P 2 units of packed cells, HH stable -plat staying > 50,000 continue neutropenic precautions -treatment pending bx results C/O dizziness -CT head today -orthostatics Urinary tract infection Urine culture mixed GPC Continue Rocephin 1 g IV daily for now History of gastric bypass and subsequent repair of King hernia, EMILI Obesity Was taking phentermine until December of this year -stable Hx DM, occ. takes Metformin to avoid hyperglycemia but not taking regularly. Blood glucose has stabilized after bariatric surgery BGM 198 yesterday, today 80s -continue with Accu-Cheks before meals and at bedtime with low-dose insulin therapy if needed No SCDs and anticoagulation at this time due to thrombocytopenia continue with above treatment, f/u bx results PT eval Labs in am D/W RN D/W Dr. Willis D/ W pt This patient was seen by myself and Dr. Willis, this note is written on his behalf Problem Qualifiers (1) Fatigue: Qualified Code: R53.83 - Fatigue, unspecified type (2) Acute leukemia: Qualified Code: C95.00 - Acute leukemia not having achieved remission (3) UTI (urinary tract infection): Qualified Code: N39.0 - Urinary tract infection without hematuria, site unspecified Soledad Easley Mar 27, 2017 13:53
--- NOTE | 2017-03-27 15:14 | RADRPT ---
EXAM DATE/TIME: 03/27/2017 14:55 [facility] COMPARISON: CT BRAIN W/O CONTRAST, January 06, 2016, 18:49. INDICATIONS : Evaluate for dizziness. RADIATION DOSE: 46.27 CTDIvol (mGy) MEDICAL HISTORY : Carcinoma, lung. Endometrial and uterine cancer, neuropathy feet. SURGICAL HISTORY : Cholecystectomy. Gastric bypass ENCOUNTER: Initial ACUITY: 1 day PAIN SCALE: 2/10 LOCATION: Bilateral cranial TECHNIQUE: Multiple contiguous axial images were obtained of the head. Using automated exposure control and adjustment of the mA and/or kV according to patient size, radiation dose was kept as low as reasonably achievable to obtain optimal diagnostic quality images. DICOM format image data is av ailable electronically for review and comparison. FINDINGS: CEREBRUM: The ventricles are normal for age. No evidence of midline shift, mass lesion, hemorrha ge or acute infarction. No extra-axial fluid collections are seen. POSTERIOR FOSSA: The cerebellum and brainstem are intact. The 4th ventricle is midline. The cer ebellopontine angle is unremarkable. EXTRACRANIAL: The visualized portion of the orbits is intact. Mucosal thickening is noted within the left ethmoid air cells. Nasal septal deviation to the left is noted. SKULL: The calvaria is intact. No evidence of skull fracture. CONCLUSION: 1. No acute intracranial abnormality. 2. Mucosal thickening within the left ethmoid air cells. Papa Hawley MD on March 27, 2017 at 15:09 Board Certified Radiologist. This report was verified electronically.
[2017-03-27 16:00] VITALS: BP 101/62; PULSE 60; RESP 16; TEMP 97.6; O2SAT 97
[2017-03-27 20:06] VITALS: BP 110/78; PULSE 61; RESP 16; TEMP 95.1; O2SAT 100
[2017-03-27] MEDS: TEMAZEPAM 15 MG CAP PO PRN (21:42)
[2017-03-27] MEDS: cefTRIAXone INJ 1,000 MG in SODIUM CHLORIDE 0.9% INJ 100 ML IV SCH (23:35)
[2017-03-28] VITALS: BP 108/67; PULSE 65; RESP 16; TEMP 98.2; O2SAT 98
[2017-03-28 04:00] VITALS: BP_SYST 104; BP_SYST 106; BP_SYST 111; BP_DIAS 61; BP_DIAS 69; BP_DIAS 70; PULSE 58; RESP 16; TEMP 96.1; O2SAT 96
[2017-03-28] MEDS: INSULIN ASPART SUPPLEMENTAL SCALE SQ SCH ×3 (06:24→16:00)
[2017-03-28 08:00] VITALS: BP_SYST 112; BP_SYST 115; BP_SYST 122; BP_DIAS 66; BP_DIAS 70; BP_DIAS 74; PULSE 54; RESP 18; TEMP 96.6; O2SAT 99
[2017-03-28 08:09] LABS: HEMATOCRIT 28.8 % (35.0-46.0); MEAN CELL VOLUME 93.1 FL (80.0-100.0); MEAN CORPUSCULAR HEMOGLOBIN 30.7 PG (27.0-34.0); MEAN CORPUSCULAR HGB CONC 32.9 % (32.0-36.0); PLATELET COUNT 60 TH/MM3 (150-450); RED BLOOD COUNT 3.09 MIL/MM3 (4.00-5.30); RED CELL DISTRIBUTION WIDTH 18.2 % (11.6-17.2)
[2017-03-28 08:15] LABS: HEMO FLAGS AUTO DIFF
[2017-03-28] MEDS: PANTOPRAZOLE SOD 40 MG DELAYED RELEASE TAB PO SCH (09:22)
[2017-03-28] MEDS: ESCITALOPRAM OXALATE 10 MG TAB PO SCH (09:22)
[2017-03-28] MEDS: SODIUM CHLORIDE 0.9% FLUSH 10 ML FLUSH IV FLUSH SCH (09:23)
[2017-03-28] MEDS: GABAPENTIN 300 MG CAP PO SCH ×2 (09:23→12:41)
[2017-03-28 09:44] LABS: BANDS 2 % (0-6); BLASTS 12 % (0-0); CORRECTED NUCLEATED RBC 1 /100 WBC (0-0); EOSINOPHILS 1 % (0-4); METAMYELOCYTES 1 % (0-1); MYELOCYTES 1 % (0-0); POLYS (SEG NEUTROPHILS) 5 % (16-70); PROMYELOCYTES 1 % (0-0); WBC DIFF SAMPLE 100
[2017-03-28 09:45] LABS: NEUTROPHIL # MANUAL DIFF 0.2 TH/MM3 (1.8-7.7); OVALOCYTES 1+ (NORMAL); PLATELET ESTIMATE SMEAR LOW (NORMAL); PLATELET MORPHOLOGY NORMAL (NORMAL)
[2017-03-28 09:46] LABS: SCAN/DIFF FINAL DIFF MANUAL
--- NOTE | 2017-03-28 10:12 | HHI.PR ---
Subjective Remarks Sitting up on side of bed No acute pain or shortness of breath Chief complaint constipation no BM 3 days Afebrile Objective Objective Results - Vital Signs Date Time Temp Pulse Resp B/P Pulse Ox O2 Delivery O2 Flow Rate FiO2 03/28/17 08:00 96.6 54 18 115/74 99 112/70 122/66 03/28/17 04:00 96.1 58 16 111/70 96 106/69 104/61 03/28/17 00:00 98.2 65 16 108/67 98 03/27/17 20:06 95.1 61 16 110/78 100 03/27/17 16:00 97.6 60 16 101/62 97 03/27/17 12:00 98.0 54 16 105/64 98 I/O 03/27/17 03/27/17 03/27/17 03/28/17 03/28/17 03/28/17 07:00 15:00 23:00 07:00 15:00 23:00 Intake Total 480 ml 1440 ml 240 ml Balance 480 ml 1440 ml 240 ml Intake Oral 480 ml 1440 ml 240 ml # Voids 3 5 2 # Bowel Movements 0 Result Diagram: 03/28/17 0727 03/26/17 0600 ROS General: Fatigue, Weakness, Other (10 point ROS done positives noted) GI: BM (constipation no BM 3 days, has received meds 2) Neuro/MS: Other (no anxiety, talkative) Skin: Other (pale) Physical Exam Physical Exam PHYSICAL EXAMINATION GENERAL: This is an obese female who appears to be in no acute distress sitting on side of the bed. She is alert and awake, HEAD: Normocephalic, alopecia OROPHARYNGEAL: Oropharynx clear NECK: Supple. Trachea midline without deviation. CARDIAC: Regular rhythm, regular rate, S1 and S2 are heard. LUNGS: Clear to auscultation bilaterally. Mild diminished sounds no wheezes or rhonchi ABDOMEN: Soft, obese, taut, soft bowel sounds EXTREMITIES: no edema. Pulses intact NEUROLOGICAL: Patient mood and affect appropriate, talkative SKIN:Warm and moist, pale A/P Assessment and Plan (1) Fatigue (2) Symptomatic anemia (3) Acute leukemia (4) H/O gastric bypass (5) Hx of cancer of uterus (6) Hx of cancer of lung (7) Pancytopenia (8) UTI (urinary tract infection) Assessment and Plan Vital signs reviewed, noted mild bradycardia, otherwise normal trends no fever Labs reviewed, blood cultures negative 3 days, UTI is noted to be contaminant probable, hemoglobin stable at 9.5, leukopenia 2. 51-year-old white female with history of uterine cancer with pulmonary metastasis with prior recurrence requiring right lung surgery and chemotherapy. Admitted with complaints of fatigue, dizziness and feeling more tired. He was found with pancytopenia, laboratory workup concerning for acute leukemia. -S/P CT guided bone marrow biopsy 03/25, results still pending Oncology also following patient, Dr. Kurtz's input appreciated. -S/P 2 units of packed cells, hemoglobin 9.5 continue neutropenic precautions, patient is on reverse isolation -treatment pending bx results Blood cultures show no growth in 3 days, Urinary tract infection Urine culture mixed GPC , probably contaminant Rocephin DC'd History of gastric bypass and subsequent repair of King hernia, EMILI Obesity, Was taking phentermine until December of this year -stable Hx DM, occ. Medical management and monitoring of her blood sugar -continue with Accu-Cheks before meals and at bedtime with low-dose insulin therapy if needed Constipation, no bowel movement in 3 days, has taken 2 doses of laxatives. Will add mag citrate today if no results by this afternoon. Explained to patient and nurse No SCDs and anticoagulation at this time due to thrombocytopenia continue with above treatment, f/u bx results PT, patient is sitting on side of the bed and getting up without assistance for now DC planning, dependent on hospital course and patient's needs. Discussed with Dr. Willis, seen on his behalf Discussed with patient Discussed with nurse Rose Mary Adan Mar 28, 2017 10:12
[2017-03-28] MEDS ORDERED: MAGNESIUM CITRATE SOLN 300 ML BTL PO ONE (11:15)
[2017-03-28 12:00] VITALS: BP 106/68; PULSE 55; RESP 18; TEMP 97.4; O2SAT 95
[2017-03-28 12:37] LABS: ALKALINE PHOSPHATASE 65 U/L (45-117); ALT (GPT) 15 U/L (10-53); ANION GAP 6 MEQ/L (5-15); AST (GOT) 11 U/L (15-37); BICARBONATE 29.5 MEQ/L (21.0-32.0); BLOOD UREA NITROGEN 15 MG/DL (7-18); CHLORIDE 106 MEQ/L (98-107); GLOMERULAR FILTRATION RATE 58 ML/MIN (>89); POTASSIUM 4.5 MEQ/L (3.5-5.1); SODIUM (NA) 141 MEQ/L (136-145); TOTAL BILIRUBIN ADULT 0.6 MG/DL (0.2-1.0)
--- NOTE | 2017-03-28 13:16 | PD.ONC.PN ---
Subjective Subjective Remarks Afebrile overnight. Patient resting in bed in nad. Waiting to hear results of bone marrow biopsy. Objective Data Date Time Temp Pulse Resp B/P Pulse Ox O2 Delivery O2 Flow Rate FiO2 03/28/17 12:00 97.4 55 18 106/68 95 03/28/17 08:00 96.6 54 18 115/74 99 112/70 122/66 03/28/17 04:00 96.1 58 16 111/70 96 106/69 104/61 03/28/17 00:00 98.2 65 16 108/67 98 03/27/17 20:06 95.1 61 16 110/78 100 03/27/17 16:00 97.6 60 16 101/62 97 Result Diagram: 03/28/17 0727 03/28/17 1144 Laboratory Results Laboratory Tests Test 03/28/17 03/28/17 07:27 11:44 White Blood Count 2.0 TH/MM3 Red Blood Count 3.09 MIL/MM3 Hemoglobin 9.5 GM/DL Hematocrit 28.8 % Mean Corpuscular Volume 93.1 FL Mean Corpuscular Hemoglobin 30.7 PG Mean Corpuscular Hemoglobin 32.9 % Concent Red Cell Distribution Width 18.2 % Platelet Count 60 TH/MM3 Mean Platelet Volume 10.0 FL Neutrophils (%) (Auto) % Lymphocytes (%) (Auto) % Monocytes (%) (Auto) % Eosinophils (%) (Auto) % Basophils (%) (Auto) % Neutrophils # (Auto) TH/MM3 Lymphocytes # (Auto) TH/MM3 Monocytes # (Auto) TH/MM3 Eosinophils # (Auto) TH/MM3 Basophils # (Auto) TH/MM3 CBC Comment AUTO DIFF Differential Total Cells 100 Counted Neutrophils % (Manual) 5 % Band Neutrophils % 2 % Lymphocytes % 73 % Monocytes % 4 % Eosinophils % 1 % Neutrophils # (Manual) 0.2 TH/MM3 Metamyelocytes 1 % Myelocytes 1 % Promyelocytes 1 % Nucleated Red Blood Cells 1 /100 WBC Differential Comment FINAL DIFF MANUAL Blastocytes 12 % Platelet Estimate LOW Platelet Morphology Comment NORMAL Ovalocytes 1+ Sodium Level 141 MEQ/L Potassium Level 4.5 MEQ/L Chloride Level 106 MEQ/L Carbon Dioxide Level 29.5 MEQ/L Anion Gap 6 MEQ/L Blood Urea Nitrogen 15 MG/DL Creatinine 1.01 MG/DL Estimat Glomerular Filtration 58 ML/MIN Rate Random Glucose 93 MG/DL Calcium Level 8.9 MG/DL Total Bilirubin 0.6 MG/DL Aspartate Amino Transf 11 U/L (AST/SGOT) Alanine Aminotransferase 15 U/L (ALT/SGPT) Alkaline Phosphatase 65 U/L Total Protein 6.6 GM/DL Albumin 3.3 GM/DL Administered Medications Medications (Trade) Dose Ordered Sig/Jasen Route PRN Reason Start Time Stop Time Status Last Admin Dose Admin Sodium Chloride (NS Flush) 2 ml BID IV FLUSH 03/25/17 09:00 03/28/17 09:23 Magnesium Hydroxide (Milk Of Magnesia Liq) 30 ml Q12H PRN PO MILD - MODERATE CONSTIPATION 03/24/17 23:15 03/27/17 21:42 Sennosides (Senokot) 17.2 mg Q12H PRN PO MODERATE - SEVERE CONSTIPATION 03/24/17 23:15 03/28/17 04:47 Lactulose (Lactulose Liq) 30 ml DAILY PRN PO SEVERE CONSITIPATION 03/24/17 23:15 03/28/17 09:25 Temazepam (Restoril) 30 mg HS PRN PO INSOMNIA 03/25/17 02:00 03/27/17 21:42 Escitalopram Oxalate (Lexapro) 5 mg DAILY PO 03/26/17 09:00 03/28/17 09:22 Gabapentin (Neurontin) 600 mg TID PO 03/25/17 13:00 03/28/17 12:41 Pantoprazole Sodium (Protonix) 40 mg DAILY PO 03/26/17 09:00 03/28/17 09:22 Oxycodone/ Acetaminophen (Percocet 5-325 Mg) 1 tab Q4H PRN PO PAIN SCALE 1 TO 10 03/25/17 15:45 03/26/17 08:43 Objective Remarks GENERAL: Pleasant female, upright in bed in nad. SKIN: Warm and dry. HEAD: Normocephalic. EYES: No injection or drainage. NECK: Supple, trachea midline. CARDIOVASCULAR: Regular rate and rhythm RESPIRATORY: Breath sounds equal bilaterally. No accessory muscle use. GASTROINTESTINAL: Abdomen soft, non-tender, nondistended. EXTREMITIES: No cyanosis MUSCULOSKELETAL: Adequate muscle tone. NEUROLOGICAL: awake and alert, normal speech. moving all extremities. Assessment/Plan Problem List: (1) Pancytopenia Status: Acute Plan: 03/28: waiting results of bone marrow biopsy --s/p bone marrow biopsy 03/25, awaiting pathology --Acute leukemia is strongly suspected. --transfuse to keep hemoglobin more than 8 and platelet transfusion to keep the platelet count more than 15. --neutropenic precautions (2) Endometrial ca Status: Acute Plan: 2010:--diagnosed with stage IV endometrial cancer in September 2010. had pulmonary mets at time of dx --treated with chemotherapy --- entered remission. 2012:--found to have recurrent disease in the lung. treated with another six cycles of Taxol and Carboplatin chemotherapy --entered a second remission April 2016: PET scan showed no evidence of residual of recurrent disease. --CA-125 remains normal. Assessment 51y/o female admitted with pancytopenia with peripheral blast. h/o Morbid obesity status post gastric bypass surgery Sleep apnea syndrome. Peripheral neuropathy. Diabetes mellitus. Gastroesophageal reflux disease Attending Statement c/o weakness. no fevers. D/W Pathologist Dr Dior. Report will be ready later today. IF MDS then d/c home and chemo on friday in the office. If AML then will start induction chemo inhouse. Jeanne Mcdonald Mar 28, 2017 13:16 Pam Kurtz MD Mar 28, 2017 15:07
--- NOTE | 2017-03-28 15:47 | HHI.DS ---
Discharge Summary Admission Date Mar 24, 2017 at 22:10 Admitting Diagnosis Acute Leukemia, Pancytopenia (1) Fatigue Diagnosis: Principal (2) Symptomatic anemia Diagnosis: Principal (3) Acute leukemia Diagnosis: Principal (4) H/O gastric bypass Diagnosis: Principal (5) Hx of cancer of uterus Diagnosis: Principal (6) Hx of cancer of lung Diagnosis: Principal (7) Pancytopenia Diagnosis: Principal (8) UTI (urinary tract infection) Diagnosis: Principal Brief History This a pleasant 52-year-old white female with significant past medical history of age for endometrial cancer with pulmonary metastasis treated with chemotherapy. She had a recurrence of the disease in 2012 and underwent right lung surgery and completed another cycle of chemotherapy. She has continued to follow-up with Dr. Upton this regularly and at this time her cancer remains in remission. Patient indicates that since January of this year she has been feeling more fatigue and feeling faint and almost passed out. She was evaluated at the chest pain center mid-January and underwent cardiac evaluation as well as stress test that was negative. She was referred to Dr. Kurtz and had lab work done concerning for acute leukemia. She was sent to the hospital for admission and bone marrow biopsy. Indicates he has been feeling very weak, fatigued and lightheaded and nauseous. She has noted bruising without any injury, especially in her legs. No petechia. No active bleeding. She has not had any syncopal episode. She complained of left upper chest wall pain as well as back pain. Stated that she's due to have a PET scan April of this year. Denied any fever, no chills. No nausea, no vomiting, diarrhea. Appetite has been fair. emergency room, patient was evaluated. Her stay patient has blood transfusion. After blood transfusion patient was feeling better. Bone marrow biopsy was done. Patient was seen and followed by oncologist. And as per oncology is bone marrow biopsy showed AML then induction therapy if MDS and then go home and come back to his office on coming Friday to have therapy. As discussed with [facility] oncology PA biopsy showed MDS and patient can be discharged so plan to discharge her home to be followed by Dr. Mccray coming Friday. And is overall a stable. CBC/BMP: 03/28/17 0727 03/28/17 1144 Significant Findings Laboratory Tests Test 03/26/17 03/27/17 03/28/17 03/28/17 06:00 07:08 07:27 11:44 White Blood Count 2.4 TH/MM3 2.0 TH/MM3 2.0 TH/MM3 (4.0-11.0) (4.0-11.0) (4.0-11.0) Red Blood Count 2.93 MIL/MM3 3.09 MIL/MM3 3.09 MIL/MM3 (4.00-5.30) (4.00-5.30) (4.00-5.30) Hemoglobin 8.9 GM/DL 9.4 GM/DL 9.5 GM/DL (11.6-15.3) (11.6-15.3) (11.6-15.3) Hematocrit 27.2 % 28.8 % 28.8 % (35.0-46.0) (35.0-46.0) (35.0-46.0) Red Cell Distribution Width 19.4 % 19.0 % 18.2 % (11.6-17.2) (11.6-17.2) (11.6-17.2) Platelet Count 53 TH/MM3 54 TH/MM3 60 TH/MM3 (150-450) (150-450) (150-450) Neutrophils % (Manual) 12 % (16-70) 10 % (16-70) 5 % (16-70) Lymphocytes % 75 % (9-44) 68 % (9-44) 73 % (9-44) Neutrophils # (Manual) 0.4 TH/MM3 0.3 TH/MM3 0.2 TH/MM3 (1.8-7.7) (1.8-7.7) (1.8-7.7) Myelocytes 2 % (0-0) 2 % (0-0) 1 % (0-0) Nucleated Red Blood Cells 5 /100 WBC 1 /100 WBC (0-0) (0-0) Blastocytes 5 % (0-0) 12 % (0-0) 12 % (0-0) Platelet Estimate LOW (NORMAL) LOW (NORMAL) LOW (NORMAL) Ovalocytes 1+ (NORMAL) 1+ (NORMAL) Acanthocytes OCC (NORMAL) Estimat Glomerular Filtration 72 ML/MIN (>89) 58 ML/MIN (>89) Rate Calcium Level 8.1 MG/DL (8.5-10.1) Aspartate Amino Transf 12 U/L (15-37) 11 U/L (15-37) (AST/SGOT) Lactate Dehydrogenase 79 U/L (84-246) Total Protein 5.6 GM/DL (6.4-8.2) Albumin 2.9 GM/DL 3.3 GM/DL (3.4-5.0) (3.4-5.0) Promyelocytes 1 % (0-0) Creatinine 1.01 MG/DL (0.50-1.00) Pt Condition on Discharge: Stable Discharge Disposition: Discharge Home Discharge Instructions DIET: Follow Instructions for: Diabetic Diet Activities you can perform: Weight Bearing as [place] Follow up Referrals: Oncology - 2-3 Days PCP Follow-up - 1 Week Continued Medications: Escitalopram (Escitalopram) 5 Mg Tab 5 MG PO DAILY #30 Ref 0 TAB Gabapentin (Gabapentin) 600 Mg Tab 600 MG PO TID #90 Ref 0 TAB Hydrocodone-Acetaminophen ([place]) 7.5-325 mg Tab 1 TAB PO Q6H PRN PAIN Ref 0 TAB Metformin (Metformin) 500 Mg Tab 500 MG PO BIDPC With meals Blood Sugar Management #60 Ref 0 TAB Pantoprazole (Pantoprazole) 40 Mg Tab 40 MG PO DAILY Reflux #30 Ref 0 TAB Phentermine (Phentermine) 30 Mg Cap 1 TAB PO DAILY Potassium Chloride ER (Klor-Con 10) 10 Meq Tab 10 MEQ PO BID Electrolyte Replacement #60 Ref 0 TAB Temazepam (Temazepam) 30 Mg Cap 30 MG PO HS PRN INSOMNIA #30 Ref 0 CAP Abhinav Willis MD Mar 28, 2017 15:47
== END 2017-03-28 18:36 | disposition home or self-care (01) | DRG 835 ==
LOC: NEPE 17:14 → NEDA 22:10 → HOCA 03-25 00:24
PROVIDERS: ADMIT Specialist; ATTEND Specialist
PROC: 07DR3ZX Extraction of Iliac Bone Marrow, Percutaneous Approach, Diagnostic (ICD-10-PCS; principal; 2017-03-25)
PROC: 30233N1 Transfusion of Nonautologous Red Blood Cells into Peripheral Vein, Percutaneous Approach (ICD-10-PCS; 2017-03-25)
DX: C92.00 Acute myeloblastic leukemia, not having achieved remission (principal); Z68.41 Body mass index [BMI] 40.0-44.9, adult; D61.818 Other pancytopenia; G62.9 Polyneuropathy, unspecified; E66.9 Obesity, unspecified; I10 Essential (primary) hypertension; G47.33 Obstructive sleep apnea (adult) (pediatric); J44.9 Chronic obstructive pulmonary disease, unspecified; E11.9 Type 2 diabetes mellitus without complications; T45.1X5A Adverse effect of antineoplastic and immunosuppressive drugs, initial encounter; M19.90 Unspecified osteoarthritis, unspecified site; K21.9 Gastro-esophageal reflux disease without esophagitis; K59.00 Constipation, unspecified; Z98.84 Bariatric surgery status; Z79.84 Long term (current) use of oral hypoglycemic drugs; Z85.42 Personal history of malignant neoplasm of other parts of uterus; Z85.118 Personal history of other malignant neoplasm of bronchus and lung
CPT/HCPCS: 36430; 38221; 70450; 71010; 77012; 80053; 81001; 81218; 81245; 81310; 82948; 83605; 83615; 85007; 85027; 85097; 85610; 85730; 86850; 86900; 86901; 86920; 87040; 87086; 88184; 88185; 88237; 88264; 88280; 88305; 88311; 88313; 88341; 88377; 96374; 99152; 99153; C1830; G0364; J0696; J1815; J2250; J3010; J7030; J7050; P9016

== ENCOUNTER 2017-04-07 10:49 | Observation (INO) | payer MEDICARE, OTHER ==
[~2017-04-07] VITALS: Ht 170.2 cm; Wt 120.0 kg
[~2017-04-07 10:49] MED LIST changes: +GABA600T PO; +HYDR-3288 PO; +METF500T PO; +PANT40TA3 PO; +PHEN30CA PO; +POTA-243 PO
[2017-04-07 10:51] VITALS: BP 139/72; PULSE 76; RESP 24; TEMP 97.9; O2SAT 100
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
[2017-04-07] MEDS ORDERED: PANTOPRAZOLE SODIUM 40 MG VIAL IV PUSH ONE (11:30)
[2017-04-07] MEDS ORDERED: SODIUM CHLORIDE 0.9% FLUSH 10 ML FLUSH IVF PRN (11:30)
[2017-04-07] MEDS ORDERED: SODIUM CHLOR 0.9% 1000 ML INJ 1,000 ML IV ONE (11:30)
[2017-04-07] MEDS ORDERED: ONDANSETRON HCL 4 MG/2 ML VIAL IV PUSH ONE (11:45)
[2017-04-07] MEDS ORDERED: MORPHINE SULFATE 8 MG/ML INJ IV PUSH ONE (11:45)
--- NOTE | 2017-04-07 11:51 | RADRPT ---
EXAM DATE/TIME: 04/07/2017 11:14 [facility] COMPARISON: CHEST SINGLE AP, March 24, 2017, 20:16. INDICATIONS : Chest pain, short of breath. MEDICAL HISTORY : endometrial ca that went to her lungs 2012, just told she has pre leumemia ca SURGICAL HISTORY : Hysterectomy. right lung tumors removed. ENCOUNTER: Initial ACUITY: 1 day PAIN SCORE: 10/10 LOCATION: Bilateral chest FINDINGS: The lungs are clear without infiltrate, nodule, or mass. There is no appreciable pleural effusion fo r technique. Heart and mediastinum are unremarkable. CONCLUSION: No acute cardiopulmonary disease. Rafiq Coombs MD on April 07, 2017 at 11:49 Board Certified Radiologist. This report was verified electronically.
[2017-04-07 12:17] VITALS: BP 122/73; PULSE 68; PULSE 70; RESP 15; RESP 16; O2SAT 99
[2017-04-07 12:30] LABS: AUTOMATED NEUTROPHIL # 1.1 TH/MM3 (1.8-7.7); BASOPHIL % 0.7 % (0.0-2.0); EOSINOPHIL # 0.1 TH/MM3 (0-0.4); EOSINOPHIL % 4.3 % (0.0-4.0); HEMATOCRIT 25.9 % (35.0-46.0); LYMPH % 39.3 % (9.0-44.0); LYMPHOCYTE # 0.9 TH/MM3 (1.0-4.8); MEAN CELL VOLUME 92.7 FL (80.0-100.0); MEAN CORPUSCULAR HEMOGLOBIN 30.4 PG (27.0-34.0); MEAN CORPUSCULAR HGB CONC 32.8 % (32.0-36.0); MONO % 9.2 % (0.0-8.0); NEUT % 46.5 % (16.0-70.0); PLATELET COUNT 65 TH/MM3 (150-450); RED CELL DISTRIBUTION WIDTH 18.6 % (11.6-17.2); WHITE BLOOD COUNT 2.3 TH/MM3 (4.0-11.0)
[2017-04-07 12:35] LABS: HEMO FLAGS AUTO DIFF
[2017-04-07 12:42] LABS: APTT (PATIENT) 23.5 SEC (24.3-30.1); PROTHROMBIN TIME - PATIENT 10.7 SEC (9.8-11.6)
[2017-04-07 12:50] LABS: ALKALINE PHOSPHATASE 61 U/L (45-117); ALT (GPT) 15 U/L (10-53); ANION GAP 7 MEQ/L (5-15); AST (GOT) 17 U/L (15-37); BICARBONATE 27.7 MEQ/L (21.0-32.0); BLOOD UREA NITROGEN 18 MG/DL (7-18); CHLORIDE 107 MEQ/L (98-107); GLOMERULAR FILTRATION RATE 66 ML/MIN (>89); MAGNESIUM 1.5 MG/DL (1.5-2.5); POTASSIUM 4.5 MEQ/L (3.5-5.1); SODIUM (NA) 142 MEQ/L (136-145); TOTAL BILIRUBIN ADULT 0.9 MG/DL (0.2-1.0)
[2017-04-07 13:03] LABS: CREATINE KINASE 45 U/L (26-192)
[2017-04-07 13:15] LABS: BANDS 4 % (0-6); BLASTS 2 % (0-0); EOSINOPHILS 4 % (0-4); METAMYELOCYTES 6 % (0-1); MYELOCYTES 3 % (0-0); NEUTROPHIL # MANUAL DIFF 1.3 TH/MM3 (1.8-7.7); POLYS (SEG NEUTROPHILS) 42 % (16-70); WBC DIFF SAMPLE 100
[2017-04-07 13:16] LABS: ACANTHOCYTES OCC (NORMAL); PLATELET ESTIMATE SMEAR LOW (NORMAL); PLATELET MORPHOLOGY NORMAL (NORMAL); TEARDROP RBCS 1+ (NORMAL)
[2017-04-07 13:17] LABS: SCAN/DIFF FINAL DIFF MANUAL
[2017-04-07] MEDS ORDERED: CLIN1CAP6 PO (13:39)
[2017-04-07] MEDS ORDERED: IOHEXOL 350 MG/ML 10 ML VIAL (for RAD DIAG) IV ONE (15:30)
--- NOTE | 2017-04-07 15:54 | RADRPT ---
EXAM DATE/TIME: 04/07/2017 15:10 [facility] COMPARISON: CT THORAX W/O CONTRAST, June 15, 2013, 9:25. INDICATIONS : Mid chest pain radiating to back. IV CONTRAST: 75 cc Omnipaque 350 (iohexol) IV RADIATION DOSE: 23.17 CTDIvol (mGy) MEDICAL HISTORY : Hypertension. Carcinoma, lung. Uterine cancer SURGICAL HISTORY : Cholecystectomy. Hysterectomy. ENCOUNTER: Initial ACUITY: 1 day PAIN SCALE: 9/10 LOCATION: chest TECHNIQUE: Volumetric scanning of the chest was performed using a pulmonary embolism protocol MIP images were re constructed. Using automated exposure control and adjustment of the mA and/or kV according to patien t size, radiation dose was kept as low as reasonably achievable to obtain optimal diagnostic quality images. DICOM format image data is available electronically for review and comparison. FINDINGS: There are multiple lung nodules bilaterally not present on the prior study from 2012. In the lef t lung there are 3 separate nodules in left lower lobe and one nodule in left upper lobe the largest measures 1 cm in left upper lobe. There may be a couple of other tiny nodules in the left upper lobe as well to in the right lung there are too numerous to count nodules the largest one measures 1 cm in size and all of them are suspicious for metastatic disease or possibly septic emboli. There are tiny lymph nodes within the mediastinum most likely benign. There is no evidence for PE for technique. CONCLUSION: Multiple lung nodules bilaterally could represent metastatic disease or septic emboli as the most lik maria a etiologies. Rafiq Coombs MD on April 07, 2017 at 15:42 Board Certified Radiologist. This report was verified electronically.
[2017-04-07] MEDS ORDERED: SENNOSIDES 8.6 MG TAB PO PRN (16:30)
[2017-04-07] MEDS ORDERED: NALOXONE HCL 0.4 MG/ML AMP IV PRN (16:30)
[2017-04-07] MEDS ORDERED: LACTULOSE SYRUP 20 GM/30 ML CUP PO PRN (16:30)
[2017-04-07] MEDS ORDERED: ONDANSETRON HCL 4 MG/2 ML VIAL IVP PRN (16:30)
[2017-04-07] MEDS ORDERED: BISACODYL 10 MG SUPP RECTAL PRN (16:30)
[2017-04-07] MEDS ORDERED: SODIUM CHLORIDE 0.9% FLUSH 10 ML FLUSH IV FLUSH PRN (16:30)
[2017-04-07] MEDS ORDERED: MAGNESIUM HYDROXIDE SUSP 30 ML CUP PO PRN (16:30)
--- NOTE | 2017-04-07 17:08 | HHI.HP ---
HPI [facility] Primary Care Physician Polly Paulson M.D. Admission Diagnosis pancytopenia, pleuritic chest pain, abnormal CT of the chest Diagnoses: Travel History International Travel<30 Days: No Contact w/Intl Traveler <30 Da: No Traveled to Known Affected Are: No History of Present Illness Is a very pleasant 51-year-old female who presented to the emergency department at [facility] today with burning chest discomfort, dysphagia, odynophagia, also some shortness of breath, she has a chest burning pressure radiating to her back. This worsened on deep inspiration and on trying to swallow anything including her own saliva. This has been going on for about 1- 2 days. She has recently been started on some antibiotics by her oncologist. She stated that she thinks her antibiotic pills are getting stuck in her throat. She was seen by the undersigned in room echo 49. She is alert and oriented. She's not vomiting however she is clearly in distress at whenever she tries to breathe deeply or swallow. No fever chills or diaphoresis. A chest CT was done and failed to show any evidence of pulmonary emboli. The radiologist are multiple nodules bilaterally that could represent metastatic disease versus septic emboli. The patient clinically does not have any suspicion of infection at this time. No fever chills or diaphoresis. No sputum production. Her vital signs are stable Past Family Social History Past Medical History Stage IV metastatic endometrial cancer, sees Dr. Friedman Chemotherapy Pancytopenia Sleep apnea Lung metastases/right lung mass Possible leukemia, strongly suspected by oncology, she sees oncologist Dr. Kurtz Morbid obesity Peripheral neuropathy Hypertension Cholecystitis Ovarian cyst Arthritis Diabetes Depression Past Surgical History Right lung surgery/mass excision in 2012 Gastric bypass surgery in 2013 Reported Medications Reported Meds & Active Scripts Active Reported Clindamycin (Clindamycin HCl) 300 Mg Cap 300 Mg PO QID [place] (Hydrocodone-Acetaminophen) 7.5-325 mg Tab 1 Tab PO Q6H PRN Pantoprazole (Pantoprazole Sodium) 40 Mg Tab 40 Mg PO DAILY Gabapentin 600 Mg Tab 600 Mg PO TID PRN Metformin (Metformin HCl) 500 Mg Tab 500 Mg PO BIDPC With meals Escitalopram (Escitalopram Oxalate) 5 Mg Tab 5 Mg PO HS Temazepam 30 Mg Cap 30 Mg PO HS PRN Allergies: Coded Allergies: Latex (Unverified Allergy, Severe, Itching, RASH, 04/07/17) Toradol (Verified Allergy, Intermediate, HIVES, 04/07/17) burning rash Carboplatin (Verified Allergy, Mild, Rash, 04/07/17) Adhesives (Unverified Adverse Reaction, Severe, RASH, 04/07/17) OK FOR PAPER TAPE Ativan (Verified Adverse Reaction, Mild, NIGHTMARES, 04/07/17) Percocet (Verified Adverse Reaction, Unknown, 04/07/17) nausea Family History Reviewed but noncontributory Social History Lives at home with her son, no smoking, no excessive alcohol, no illicit drug use Physical Exam Vital Signs Vital Signs Date Time Temp Pulse Resp B/P Pulse Ox O2 Delivery O2 Flow Rate FiO2 04/07/17 12:31 14 04/07/17 12:17 70 16 99 Nasal Cannula 2 04/07/17 12:17 68 15 122/73 99 Nasal Cannula 2 04/07/17 12:17 99 Nasal Cannula 2 04/07/17 11:30 15 99 Nasal Cannula 2 04/07/17 10:51 97.9 76 24 139/72 100 Room Air Physical Exam GENERAL: This is a very pleasant, morbidly obese , well-developed patient, in no apparent distress. SKIN: No rashes, ecchymoses or lesions. Cool and dry. HEAD: Atraumatic. Normocephalic. No temporal or scalp tenderness. EYES: Pupils equal round and reactive. Extraocular motions intact. No scleral icterus. No injection or drainage. ENT: Nose without bleeding, purulent drainage or septal hematoma. Throat without erythema, tonsillar hypertrophy or exudate. Uvula midline. Airway patent. NECK: Trachea midline. No JVD or lymphadenopathy. Supple, nontender, no meningeal signs. CARDIOVASCULAR: Regular rate and rhythm without murmurs, gallops, or rubs. RESPIRATORY: Clear to auscultation. Breath sounds equal bilaterally. No wheezes , rales, or rhonchi. GASTROINTESTINAL: Abdomen soft, non-tender, nondistended. No hepato-splenomegaly , or palpable masses. No guarding. She has some red circular discoloration on her abdominal wall which she stated they are secondary to The chemotherapy injections that she is getting MUSCULOSKELETAL: Extremities without clubbing, cyanosis, or edema. No joint tenderness, effusion, or edema noted. No calf tenderness. Negative Homans sign bilaterally. NEUROLOGICAL: Awake and alert. Cranial nerves II through XII intact. Normal speech. Laboratory Laboratory Tests Test 04/07/17 11:45 White Blood Count 2.3 Red Blood Count 2.80 Hemoglobin 8.5 Hematocrit 25.9 Mean Corpuscular Volume 92.7 Mean Corpuscular Hemoglobin 30.4 Mean Corpuscular Hemoglobin 32.8 Concent Red Cell Distribution Width 18.6 Platelet Count 65 Mean Platelet Volume 8.9 Neutrophils (%) (Auto) 46.5 Lymphocytes (%) (Auto) 39.3 Monocytes (%) (Auto) 9.2 Eosinophils (%) (Auto) 4.3 Basophils (%) (Auto) 0.7 Neutrophils # (Auto) 1.1 Lymphocytes # (Auto) 0.9 Monocytes # (Auto) 0.2 Eosinophils # (Auto) 0.1 Basophils # (Auto) 0.0 CBC Comment AUTO DIFF Differential Total Cells 100 Counted Neutrophils % (Manual) 42 Band Neutrophils % 4 Lymphocytes % 32 Monocytes % 7 Eosinophils % 4 Neutrophils # (Manual) 1.3 Metamyelocytes 6 Myelocytes 3 Differential Comment FINAL DIFF MANUAL Blastocytes 2 Platelet Estimate LOW Platelet Morphology Comment NORMAL Tear Drop Cells 1+ Acanthocytes OCC Prothrombin Time 10.7 Prothromb Time International 1.0 Ratio Activated Partial 23.5 Thromboplast Time D-Dimer Quantitative (PE/DVT) 1.27 Sodium Level 142 Potassium Level 4.5 Chloride Level 107 Carbon Dioxide Level 27.7 Anion Gap 7 Blood Urea Nitrogen 18 Creatinine 0.90 Estimat Glomerular Filtration 66 Rate Random Glucose 89 Calcium Level 8.8 Magnesium Level 1.5 Total Bilirubin 0.9 Aspartate Amino Transf 17 (AST/SGOT) Alanine Aminotransferase 15 (ALT/SGPT) Alkaline Phosphatase 61 Total Creatine Kinase 45 Troponin I LESS THAN 0.02 Total Protein 6.7 Albumin 3.5 Lipase 106 Result Diagram: 04/07/17 1145 04/07/17 1145 Imaging Electrocardiogram today was unremarkable Last 24 hours Impressions Chest X-Ray 04/07/17 1119 Signed Impressions: Service Date/Time: Friday, April 07, 2017 11:14 - CONCLUSION: No acute cardiopulmonary disease. Rafiq Coombs MD CT Angiography 04/07/17 1119 Signed Impressions: Service Date/Time: Friday, April 07, 2017 15:10 - CONCLUSION: Multiple lung nodules bilaterally could represent metastatic disease or septic emboli as the most likely etiologies. Rafiq Coombs MD Assessment and Plan Assessment and Plan Assessment Burning chest discomfort Pleuritic pain odynophagia, including on trying to swallow her own saliva Rule out acute coronary event Rule out pill esophagitis Rule out extrinsic esophageal compression Management The patient is being admitted to telemetry. CKs and troponins are ordered. The case was discussed with on-call human resources operations director Dr. Mccormick. She is being kept nothing by mouth. Intravenous Protonix is ordered. She is likely to need an endoscopy tonight. Further recommendations to follow according to her progress. Consultation was also been requested from her oncologist Dr. Mccray Discussed with patient Discussed with nurse Discussed with emergency physician teaching assistant 40 minutes spent Discussed With: Nurse Maranda Narayanan MD Apr 07, 2017 17:08
[2017-04-07 18:10] VITALS: BP 108/66
--- NOTE | 2017-04-07 18:15 | PD.CONS ---
HPI History of Present Illness This is a 51 year old female patient with endometrial cancer who presents with dull pressure like pain that occurs with swallowing and is associated with dysphagia. There is no associated fever or chills. She is able to swallow saliva. She has had dysphagia for several weeks. She is receiving chemotherapy for endometrial cancer diagnosed in 2010 that later metastasized to her lungs and she had tumors removed with surgery from the lung. She has been on chemotherapy for one week that is injected into the subq tissue of abdomen. She reports she has been nutropenic, Also had BM biopsy that demonstrated MDS. ROS: no headache, earache sore throat, new lumps, she has rash on her stomach , swelling in legs that is chronic. Otherwise complete ros is negative. []. PFSH Past Medical History Takes anti depressant. Past Surgical History Cholecystectomy, GAstric bypass Hysterectomy lung nodules removed. Coded Allergies: Latex (Unverified Allergy, Severe, Itching, RASH, 04/07/17) Toradol (Verified Allergy, Intermediate, HIVES, 04/07/17) burning rash Carboplatin (Verified Allergy, Mild, Rash, 04/07/17) Adhesives (Unverified Adverse Reaction, Severe, RASH, 04/07/17) OK FOR PAPER TAPE Ativan (Verified Adverse Reaction, Mild, NIGHTMARES, 04/07/17) Percocet (Verified Adverse Reaction, Unknown, 04/07/17) nausea Medications Current Medications Medications (Trade) Dose Ordered Sig/Jasen Route Start Time Stop Time Status Last Admin (NS Flush) 2 ml UNSCH PRN IV FLUSH 04/07/17 16:30 (NS Flush) 2 ml BID IV FLUSH 04/07/17 21:00 (Zofran Inj) 4 mg Q6H PRN IVP 04/07/17 16:30 (Narcan Inj) 0.4 mg UNSCH PRN IV 04/07/17 16:30 (Quin-Colace) 1 tab BID PO 04/07/17 21:00 (Milk Of Magnesia Liq) 30 ml Q12H PRN PO 04/07/17 16:30 (Senokot) 17.2 mg Q12H PRN PO 04/07/17 16:30 (Dulcolax Supp) 10 mg DAILY PRN RECTAL 04/07/17 16:30 (Lactulose Liq) 30 ml DAILY PRN PO 04/07/17 16:30 (Protonix Inj) 40 mg Q12H IV PUSH 04/07/17 18:00 Family History Not contributory Social History Has a son. Denies alcohol and smoking GI Exam Vitals I&O Vital Signs Date Time Temp Pulse Resp B/P Pulse Ox O2 Delivery O2 Flow Rate FiO2 04/07/17 12:31 14 04/07/17 12:17 70 16 99 Nasal Cannula 2 04/07/17 12:17 68 15 122/73 99 Nasal Cannula 2 04/07/17 12:17 99 Nasal Cannula 2 04/07/17 11:30 15 99 Nasal Cannula 2 04/07/17 10:51 97.9 76 24 139/72 100 Room Air Laboratory Test 04/07/17 11:45 White Blood Count 2.3 TH/MM3 Red Blood Count 2.80 MIL/MM3 Hemoglobin 8.5 GM/DL Hematocrit 25.9 % Mean Corpuscular Volume 92.7 FL Mean Corpuscular Hemoglobin 30.4 PG Mean Corpuscular Hemoglobin 32.8 % Concent Red Cell Distribution Width 18.6 % Platelet Count 65 TH/MM3 Mean Platelet Volume 8.9 FL Neutrophils (%) (Auto) 46.5 % Lymphocytes (%) (Auto) 39.3 % Monocytes (%) (Auto) 9.2 % Eosinophils (%) (Auto) 4.3 % Basophils (%) (Auto) 0.7 % Neutrophils # (Auto) 1.1 TH/MM3 Lymphocytes # (Auto) 0.9 TH/MM3 Monocytes # (Auto) 0.2 TH/MM3 Eosinophils # (Auto) 0.1 TH/MM3 Basophils # (Auto) 0.0 TH/MM3 CBC Comment AUTO DIFF Differential Total Cells 100 Counted Neutrophils % (Manual) 42 % Band Neutrophils % 4 % Lymphocytes % 32 % Monocytes % 7 % Eosinophils % 4 % Neutrophils # (Manual) 1.3 TH/MM3 Metamyelocytes 6 % Myelocytes 3 % Differential Comment FINAL DIFF MANUAL Blastocytes 2 % Platelet Estimate LOW Platelet Morphology Comment NORMAL Tear Drop Cells 1+ Acanthocytes OCC Prothrombin Time 10.7 SEC Prothromb Time International 1.0 RATIO Ratio Activated Partial 23.5 SEC Thromboplast Time D-Dimer Quantitative (PE/DVT) 1.27 MG/L FEU Sodium Level 142 MEQ/L Potassium Level 4.5 MEQ/L Chloride Level 107 MEQ/L Carbon Dioxide Level 27.7 MEQ/L Anion Gap 7 MEQ/L Blood Urea Nitrogen 18 MG/DL Creatinine 0.90 MG/DL Estimat Glomerular Filtration 66 ML/MIN Rate Random Glucose 89 MG/DL Calcium Level 8.8 MG/DL Magnesium Level 1.5 MG/DL Total Bilirubin 0.9 MG/DL Aspartate Amino Transf 17 U/L (AST/SGOT) Alanine Aminotransferase 15 U/L (ALT/SGPT) Alkaline Phosphatase 61 U/L Total Creatine Kinase 45 U/L Troponin I LESS THAN 0.02 NG/ML Total Protein 6.7 GM/DL Albumin 3.5 GM/DL Lipase 106 U/L Physical Examination HEENT: Pupils round and reactive to light; normocephalic; atraumatic; no jaundice. Throat is clear. NECK: Neck is supple, no JVD, no lymphadenopathy. CHEST: Chest is clear to auscultation and percussion. CARDIAC: Regular rate and rhythm with no murmur gallop or rubs. ABDOMEN: Soft, nondistended, nontender; no hepatosplenomegaly; bowel sounds are present in all four quadrants. EXTREMITIES: No clubbing, cyanosis, or edema. SKIN: Normal; Rash on skin of abdomen, erythematous, ring like. no jaundice. TACK WELDER: No focal deficits; alert and oriented times three. Assessment and Plan Plan Imp: Odynophagia in immuno-compromized patient may be abdullahi. Pt can handle secretions. Endometrial cancer with metastasis GAstric bypass Plan: EGD will be performed tomorrow. NPO except sips of water Consents. Rubén Mccormick MD Apr 07, 2017 18:15
[2017-04-07 18:47] VITALS: BP 114/58; PULSE 66; RESP 16; TEMP 98.5; O2SAT 100
[2017-04-07 19:28] VITALS: BP 117/61
[2017-04-07] MEDS: DOCUSATE SODIUM 50 MG/SENNA 8.6 MG TAB PO SCH (20:56)
[2017-04-07] MEDS: SODIUM CHLORIDE 0.9% FLUSH 10 ML FLUSH IV FLUSH SCH (20:56)
[2017-04-07] MEDS: MORPHINE SULFATE 4 MG/ML INJ IV PUSH PRN (20:57)
[2017-04-07 21:49] LABS: CREATINE KINASE 47 U/L (26-192)
[2017-04-08 00:27] VITALS: BP 106/56; PULSE 70; RESP 18; TEMP 97.9; O2SAT 99
[2017-04-08] MEDS: MORPHINE SULFATE 4 MG/ML INJ IV PUSH PRN ×2 (01:28→12:57)
[2017-04-08 05:11] VITALS: BP 111/69; PULSE 62; RESP 18; TEMP 97.9; O2SAT 100
[2017-04-08] MEDS: PANTOPRAZOLE SODIUM 40 MG VIAL IV PUSH SCH ×2 (05:14→18:52)
[2017-04-08 05:44] LABS: CREATINE KINASE 31 U/L (26-192)
--- NOTE | 2017-04-08 07:26 | HHI.PR ---
Subjective Subjective Remarks Resting in bed Speech fairly clear, No obvious oral secretions prohibiting her speech Nothing by mouth Afebrile (Rose Mary Adan) Review of Systems Constitutional Constitutional: Fatigue, Weight Change, Weakness (Rose Mary Adan) Pulmonary Respiratory: Shortness of Breath (mild) (Rose Mary Adan) GI/Abdomen GI/Abdominal Exam: Nausea (mild) (Rose Mary Adan) Musculoskeletal MS: Weakness, Discomfort/Pain (Rose Mary Adan) Psychiatric Psychiatric: Normal Mood, Anxiety (Rose Mary Adan) Vitals/Results Vital Signs Vital Signs Date Time Temp Pulse Resp B/P Pulse Ox O2 Delivery O2 Flow Rate FiO2 04/08/17 05:11 97.9 62 18 111/69 100 04/08/17 00:27 97.9 70 18 106/56 99 04/07/17 21:02 16 04/07/17 19:28 117/61 04/07/17 18:47 98.5 66 16 114/58 100 04/07/17 18:10 65 15 108/66 95 04/07/17 12:31 14 04/07/17 12:17 70 16 99 Nasal Cannula 2 04/07/17 12:17 68 15 122/73 99 Nasal Cannula 2 04/07/17 12:17 99 Nasal Cannula 2 04/07/17 11:30 15 99 Nasal Cannula 2 04/07/17 10:51 97.9 76 24 139/72 100 Room Air (Rose Mary Adan) CBC/BMP: 04/07/17 1145 04/07/17 1145 Lab Results Laboratory Tests Test 04/07/17 04/07/17 04/08/17 11:45 20:53 04:59 White Blood Count 2.3 TH/MM3 Red Blood Count 2.80 MIL/MM3 Hemoglobin 8.5 GM/DL Hematocrit 25.9 % Mean Corpuscular Volume 92.7 FL Mean Corpuscular Hemoglobin 30.4 PG Mean Corpuscular Hemoglobin 32.8 % Concent Red Cell Distribution Width 18.6 % Platelet Count 65 TH/MM3 Mean Platelet Volume 8.9 FL Neutrophils (%) (Auto) 46.5 % Lymphocytes (%) (Auto) 39.3 % Monocytes (%) (Auto) 9.2 % Eosinophils (%) (Auto) 4.3 % Basophils (%) (Auto) 0.7 % Neutrophils # (Auto) 1.1 TH/MM3 Lymphocytes # (Auto) 0.9 TH/MM3 Monocytes # (Auto) 0.2 TH/MM3 Eosinophils # (Auto) 0.1 TH/MM3 Basophils # (Auto) 0.0 TH/MM3 CBC Comment AUTO DIFF Differential Total Cells 100 Counted Neutrophils % (Manual) 42 % Band Neutrophils % 4 % Lymphocytes % 32 % Monocytes % 7 % Eosinophils % 4 % Neutrophils # (Manual) 1.3 TH/MM3 Metamyelocytes 6 % Myelocytes 3 % Differential Comment FINAL DIFF MANUAL Blastocytes 2 % Platelet Estimate LOW Platelet Morphology Comment NORMAL Tear Drop Cells 1+ Acanthocytes OCC Prothrombin Time 10.7 SEC Prothromb Time International 1.0 RATIO Ratio Activated Partial 23.5 SEC Thromboplast Time D-Dimer Quantitative (PE/DVT) 1.27 MG/L FEU Sodium Level 142 MEQ/L Potassium Level 4.5 MEQ/L Chloride Level 107 MEQ/L Carbon Dioxide Level 27.7 MEQ/L Anion Gap 7 MEQ/L Blood Urea Nitrogen 18 MG/DL Creatinine 0.90 MG/DL Estimat Glomerular Filtration 66 ML/MIN Rate Random Glucose 89 MG/DL Calcium Level 8.8 MG/DL Magnesium Level 1.5 MG/DL Total Bilirubin 0.9 MG/DL Aspartate Amino Transf 17 U/L (AST/SGOT) Alanine Aminotransferase 15 U/L (ALT/SGPT) Alkaline Phosphatase 61 U/L Total Creatine Kinase 45 U/L 47 U/L 31 U/L Troponin I LESS THAN 0.02 LESS THAN 0.02 LESS THAN 0.02 NG/ML NG/ML NG/ML Total Protein 6.7 GM/DL Albumin 3.5 GM/DL Lipase 106 U/L Current Medications Administered Medications Medications (Trade) Dose Ordered Sig/Jasen Route PRN Reason Start Time Stop Time Status Last Admin Dose Admin Sodium Chloride (NS Flush) 2 ml UNSCH PRN IV FLUSH FLUSH AFTER USING IV ACCESS 04/07/17 16:30 04/08/17 01:29 Sodium Chloride (NS Flush) 2 ml BID IV FLUSH 04/07/17 21:00 04/08/17 09:00 Senna/Docusate Sodium (Quin-Colace) 1 tab BID PO 04/07/17 21:00 04/08/17 09:00 Pantoprazole Sodium (Protonix Inj) 40 mg Q12H IV PUSH 04/07/17 18:00 04/08/17 05:14 Morphine Sulfate (Morphine Inj) 4 mg Q3H PRN IV PUSH severe pain 04/07/17 20:30 04/08/17 01:28 (Rose Mary Adan) Physical Exam General General Appearance: Pale, Anxious Appearance Remarks Current cancer patient receiving chemotherapy, 10 point ROS done positives noted (Rose Mary AdanP) Eyes Eye Exam: Pupils Reactive (Rose Mary AdanP) Ears & Nose Ears & Nose Exam: Nasal Mucosa [place] (Rose Mary Adan TECHNICAL INSPECTOR) Throat Throat Exam: Oral Mucosa [place] & Moist (pale) (Rose Mary Adan TECHNICAL INSPECTOR) Neck Neck Exam: Neck Supple (Rose Mary Adan TECHNICAL INSPECTOR) Pulmonary Resp Exam: Rhonchi (I'll), Decreased Bases, Diminished Breath Sounds (Rose Mary AdanP) Cardiology CV Exam: Regular (Rose Mary AdanP) Chest/Breast Chest/Breast Remarks Atypical chest pain appears more pleuritic and muscle skeletal (Rose Mary AdanP) Gastrointestinal/Abdomen GI Exam: Bowel Sounds Present GI Remarks Dysphasia (Rose Mary AdanP) Musculoskeletal MS Exam: Joints Intact (Rose Mary AdanP) Integumentary Skin Exam: Warm, Dry (Rose Mary AdanP) Extremeties Extremities Exam: No Edema, Pedal Pulses Palpable (Rose Mary AdanP) Neurologic Neuro Exam: Awake, Oriented, Speech Clear, Moving All Extremities (Rose Mary AdanP) Assessment/Plan Assessment/Plan Atypical chest discomfort, muscle skeletal and pleuritic odynophagia, including on trying to swallow her own saliva, dysphasia GI consult done, planned for endoscopy this morning, currently nothing by mouth. Patient patient feels the pain or abnormality is in her lungs, Anemia, does have cancer and chronic disease monitor for any acute GI bleeding Rule out pill esophagitis Rule out extrinsic esophageal compression We will have more information on patient's needs after endoscopy acute coronary event, ruled out negative troponins, continue monitoring with telemetry Patient has cancer, current treatment being done chemotherapy , abdominal injections, patient requested report be removed in the recent past but now is wondering if that was a good idea, requesting discussion with her oncologist of the need to replace. Encourage patient to continue this line of questioning with her oncologist, abnormal CT scan shows metastasis, will need questions and further discussions on plan of care and patient's wishes Leukopenia monitor, patient is being maintained on reverse isolation PUD prophylaxis Discussed with nurse to maintain nothing by mouth and prep for EGD Discussed with patient Discussed with Dr. Narayanan, patient seen on his behalf (Rose Mary Adan) Assessment/Plan seen, examined by myself, Dr Narayanan, today Discussed with patient had an upper endoscopy today Other diagnoses of pill esophagitis Advance to full liquid diet Finish course of antibiotics for left upper extremity cellulitis, this clinically looks much better Discharge in a.m. if stable Discussed with mid level provider The exam, history, and the medical decision-making described in the above note were completed with the assistance of the mid-level provider. I reviewed the findings presented. I attest that I had a [id number] encounter with the patient on the same day, and personally performed and documented my assessment and findings in the medical record. 35 minutes spent (Maranda Narayanan MD) Rose Mary Adan Apr 08, 2017 07:25 Maranda Narayanan MD Apr 08, 2017 18:24
[2017-04-08 07:33] VITALS: BP 110/68; PULSE 72; RESP 18; TEMP 98.3; O2SAT 100
--- NOTE | 2017-04-08 08:12 | MB ---
cc: ARMINDA PETERS MD, ABDUL J. M.D. DATE OF CONSULTATION: 04/07/2017 REASON FOR CONSULTATION Consult requested by Dr. Peters for evaluation of myelodysplastic syndrome and pulmonary nodules. HISTORY OF PRESENT ILLNESS Deanne is a 51-year-old female. She was recently referred to me for evaluation of pancytopenia with peripheral blasts. She underwent bone marrow biopsy which showed high-grade myelodysplastic syndrome. She was started on Vidaza chemotherapy last week Friday. She has tolerated the treatment quite well. The patient today called our office that she was not feeling well. She had burning chest pain, difficulty swallowing and pleuritic-type chest pain. She was advised to come to the emergency room. The patient was evaluated in the emergency room and admitted to the hospital for further work-up. GI has been consulted as she is having odynophagia. A CT angiogram of the chest does not show any pulmonary embolism, however, it shows that she has bilateral multiple pulmonary nodules consistent with metastasis. REVIEW OF SYSTEMS The rest of the review of systems is negative. PAST MEDICAL HISTORY 1. Arthritis. 2. Depression. 3. Diabetes mellitus. 4. Gastroesophageal reflux disease. 5. History of morbid obesity status post gastric bypass surgery. 6. Peripheral neuropathy. 7. Recently diagnosed with high-grade myelodysplasia. 8. Endometrial cancer diagnosed initially in July 2010 as stage IV, status post surgery and multiple courses of chemotherapy. PAST SURGICAL HISTORY 1. Infusaport placement. 2. Colonoscopy. 3. Hernia repair. 4. Upper endoscopy. 5. Gastric bypass surgery. 6. Tumor removed from the right lung in 2012. 7. Michael-en-Y for morbid obesity. 8. Complete hysterectomy. 9. Cholecystectomy. ALLERGIES 1. ATIVAN. 2. CARBOPLATIN. 3. LATEX. 4. TORADOL. MEDICATIONS Please see EMR. FAMILY HISTORY Noncontributory. SOCIAL HISTORY The patient does not smoke cigarettes, does not drink alcohol. PHYSICAL EXAMINATION GENERAL: A well-developed, well-nourished white female in no apparent distress. VITAL SIGNS: Temperature 98.5, heart rate 66, blood pressure 114/58, O2 saturation 100% on room air. HEENT: PERRLA. EOMI. Anicteric. No oral lesions noted. NECK: No lymphadenopathy noted. LUNGS: Clear. No wheezing, rhonchi or rales. HEART: Regular rate and rhythm. ABDOMEN: Soft, nontender. No hepatosplenomegaly. EXTREMITIES: No pedal edema. NEUROLOGIC: Awake, alert, oriented x3. SKIN: No significant lesions are noted. ASSESSMENT 1. Odynophagia, most likely due to candidal esophagitis. 2. Myelodysplastic syndrome; started on Vidaza last week Friday. 3. History of stage IV endometrial cancer diagnosed in 2009, underwent chemotherapy and surgery. She then had a relapse in the lung in 2012 for which she had surgery followed by further chemotherapy. Now she has recurrent disease in both lungs. PLAN I have reviewed her available records and I have discussed with the patient regarding the difficulty swallowing. She is immunocompromised and she is at high risk for an opportunistic infection. Therefore, I suspect that she has developed Jewels esophagitis. She is scheduled to see the weigher alloy for possible upper endoscopy. Regarding the bilateral pulmonary nodules this is most likely consistent with recurrent endometrial cancer. I will discuss the case with her FIELD SALES CONSULTANT oncologist Dr. Thomason. Unfortunately she is not a candidate for any further chemotherapy. Further recommendation will be based on her hospital stay. Thank you for asking my opinion. Deidra Kurtz MD /FELA /11:35 PM /8:02 AM
[2017-04-08] MEDS: DOCUSATE SODIUM 50 MG/SENNA 8.6 MG TAB PO SCH ×2 (09:00→21:00)
[2017-04-08] MEDS: SODIUM CHLORIDE 0.9% FLUSH 10 ML FLUSH IV FLUSH SCH ×2 (09:00→23:20)
--- NOTE | 2017-04-08 09:52 | EKG ---
Date Performed: 04/07/2017 Time Performed: 11:26:06 PTAGE: 51 years EKG: Sinus rhythm WITH FIRST DEGREE AV BLOCK RIGHT BUNDLE BRANCH BLOCK ABNORMAL ECG Compared to prior tracing no signi ficant change PREVIOUS TRACING : 02/27/2017 04.22 DOCTOR: Saeed Winters Interpretating Date/Time 04/08/2017 09:48:51
[2017-04-08 09:54] VITALS: BP 110/68; PULSE 72; RESP 18; TEMP 98.3; O2SAT 100
[2017-04-08 10:03] LABS: HEMATOCRIT 24.4 % (35.0-46.0); MEAN CELL VOLUME 93.9 FL (80.0-100.0); MEAN CORPUSCULAR HEMOGLOBIN 29.7 PG (27.0-34.0); MEAN CORPUSCULAR HGB CONC 31.6 % (32.0-36.0); PLATELET COUNT 57 TH/MM3 (150-450); RED CELL DISTRIBUTION WIDTH 18.3 % (11.6-17.2); WHITE BLOOD COUNT 1.5 TH/MM3 (4.0-11.0)
[2017-04-08 10:08] LABS: HEMO FLAGS AUTO DIFF
[2017-04-08 10:27] LABS: BICARBONATE 28.8 MEQ/L (21.0-32.0)
[2017-04-08 11:02] LABS: BANDS 6 % (0-6); EOSINOPHILS 6 % (0-4); NEUTROPHIL # MANUAL DIFF 0.6 TH/MM3 (1.8-7.7); POLYS (SEG NEUTROPHILS) 32 % (16-70); WBC DIFF SAMPLE 100
[2017-04-08 11:03] LABS: OVALOCYTES 1+ (NORMAL); PLATELET ESTIMATE SMEAR LOW (NORMAL); PLATELET MORPHOLOGY NORMAL (NORMAL); SCAN/DIFF FINAL DIFF MANUAL; TEARDROP RBCS 1+ (NORMAL)
[2017-04-08] MEDS ORDERED: PROPOFOL 200 MG/20 ML AMP IV PUSH ONE (11:05)
--- NOTE | 2017-04-08 11:17 | HHI.GIFU ---
Subjective Remarks Immediate postop note: EGD with dilatation over guidewire and dilatation with balloon Indication: dysphagia, odynophagia Meds: MAC Findings: Esophagus: proximal erythema consistent with pill esophagitis. Dilated with 16mm, 17mm savary dilator over guidewire Distal esophagus dilated with 16mm,17mm, 18mm dilator without much effect. Gastric pouch: healthy. Jejunum and anastomosis normal. Impression: Pill esophagitis, with dysphagia and odynophagia. Esophagus dilated proximal. with effect. History of gastric bypass Rec: full liquid diet, then if tolerated diet as tolerated. Carafate and PPI. Objective Vitals I&O Vital Signs Date Time Temp Pulse Resp B/P Pulse Ox O2 Delivery O2 Flow Rate FiO2 04/08/17 09:54 98.3 72 18 110/68 100 04/08/17 07:33 98.3 72 18 110/68 100 04/08/17 05:11 97.9 62 18 111/69 100 04/08/17 00:27 97.9 70 18 106/56 99 04/07/17 21:02 16 04/07/17 19:28 117/61 04/07/17 18:47 98.5 66 16 114/58 100 04/07/17 18:10 65 15 108/66 95 04/07/17 12:31 14 04/07/17 12:17 70 16 99 Nasal Cannula 2 04/07/17 12:17 68 15 122/73 99 Nasal Cannula 2 04/07/17 12:17 99 Nasal Cannula 2 04/07/17 11:30 15 99 Nasal Cannula 2 Laboratory Laboratory Tests Test 04/07/17 04/07/17 04/08/17 04/08/17 11:45 20:53 04:59 09:43 White Blood Count 2.3 1.5 Red Blood Count 2.80 2.60 Hemoglobin 8.5 7.7 Hematocrit 25.9 24.4 Mean Corpuscular Volume 92.7 93.9 Mean Corpuscular Hemoglobin 30.4 29.7 Mean Corpuscular Hemoglobin 32.8 31.6 Concent Red Cell Distribution Width 18.6 18.3 Platelet Count 65 57 Mean Platelet Volume 8.9 8.1 Neutrophils (%) (Auto) 46.5 Lymphocytes (%) (Auto) 39.3 Monocytes (%) (Auto) 9.2 Eosinophils (%) (Auto) 4.3 Basophils (%) (Auto) 0.7 Neutrophils # (Auto) 1.1 Lymphocytes # (Auto) 0.9 Monocytes # (Auto) 0.2 Eosinophils # (Auto) 0.1 Basophils # (Auto) 0.0 CBC Comment AUTO DIFF AUTO DIFF Differential Total Cells 100 Counted Neutrophils % (Manual) 42 Band Neutrophils % 4 Lymphocytes % 32 Monocytes % 7 Eosinophils % 4 Neutrophils # (Manual) 1.3 Metamyelocytes 6 Myelocytes 3 Differential Comment FINAL DIFF MANUAL Blastocytes 2 Platelet Estimate LOW Platelet Morphology Comment NORMAL Tear Drop Cells 1+ Acanthocytes OCC Prothrombin Time 10.7 Prothromb Time International 1.0 Ratio Activated Partial 23.5 Thromboplast Time D-Dimer Quantitative (PE/DVT) 1.27 Sodium Level 142 142 Potassium Level 4.5 4.0 Chloride Level 107 108 Carbon Dioxide Level 27.7 28.8 Anion Gap 7 5 Blood Urea Nitrogen 18 13 Creatinine 0.90 0.92 Estimat Glomerular Filtration 66 64 Rate Random Glucose 89 86 Calcium Level 8.8 8.4 Magnesium Level 1.5 Total Bilirubin 0.9 Aspartate Amino Transf 17 (AST/SGOT) Alanine Aminotransferase 15 (ALT/SGPT) Alkaline Phosphatase 61 Total Creatine Kinase 45 47 31 Troponin I LESS THAN 0.02 LESS THAN 0.02 LESS THAN 0.02 Total Protein 6.7 Albumin 3.5 Lipase 106 Physical Exam HEENT: Pupils round and reactive to light; normocephalic; atraumatic; no jaundice. Throat is clear. NECK: Neck is supple, no JVD, no lymphadenopathy. CHEST: Chest is clear to auscultation and percussion. CARDIAC: Regular rate and rhythm with no murmur gallop or rubs. ABDOMEN: Soft, nondistended, nontender; no hepatosplenomegaly; bowel sounds are present in all four quadrants. EXTREMITIES: No clubbing, cyanosis, or edema. SKIN: Normal; no rash; no jaundice. METAL SORTER: No focal deficits; alert and oriented times three. Assessment and Plan Plan Imp: Odynophagia in immuno-compromized patient may be abdullahi. Pt can handle secretions. Endometrial cancer with metastasis GAstric bypass Plan: EGD with dilatation performed, shows pill esophagitis, mild with stricturing. Full liquid diet and advance if tolerated. OK for discharge PPI BID and carafate liquid tid for 1 week. Rubén Mccormick MD Apr 08, 2017 11:17
[2017-04-08 11:57] VITALS: BP 112/56; PULSE 67; RESP 16; TEMP 99.8; O2SAT 100
[2017-04-08 15:36] VITALS: BP 91/52; PULSE 70; RESP 16; TEMP 99.7; O2SAT 96
--- NOTE | 2017-04-08 22:26 | PD.ONC.PN ---
Subjective Subjective Remarks Complaining of Difficulty swallowing EGD today Discuss with the patient regarding CT chest findings She most likely has a recurrent metastatic endometrial cancer I have discusis the case with her [employer]ENCE [employer] oncologist Dr. Daniel. He wants her to have a PET scan As an outpatient and then he will see her Okay to discuss from my standpoint Objective Data Date Time Temp Pulse Resp B/P Pulse Ox O2 Delivery O2 Flow Rate FiO2 04/08/17 15:36 99.7 70 16 91/52 96 04/08/17 13:02 16 04/08/17 11:57 99.8 67 16 112/56 100 04/08/17 11:19 67 16 101/65 99 04/08/17 11:14 74 16 112/65 99 04/08/17 11:09 98.2 80 16 100/63 98 04/08/17 09:54 98.3 72 18 110/68 100 04/08/17 07:33 98.3 72 18 110/68 100 04/08/17 05:11 97.9 62 18 111/69 100 04/08/17 00:27 97.9 70 18 106/56 99 04/08/17 04/08/17 04/08/17 07:00 15:00 23:00 Intake Total 100 ml 480 ml Balance 100 ml 480 ml Result Diagram: 04/08/1743 04/08/17942 Laboratory Results Laboratory Tests Test 04/08/17 04/08/17 04:59 09:43 Total Creatine Kinase 31 U/L Troponin I LESS THAN 0.02 NG/ML White Blood Count 1.5 TH/MM3 Red Blood Count 2.60 MIL/MM3 Hemoglobin 7.7 GM/DL Hematocrit 24.4 % Mean Corpuscular Volume 93.9 FL Mean Corpuscular Hemoglobin 29.7 PG Mean Corpuscular Hemoglobin 31.6 % Concent Red Cell Distribution Width 18.3 % Platelet Count 57 TH/MM3 Mean Platelet Volume 8.1 FL Neutrophils (%) (Auto) % Lymphocytes (%) (Auto) % Monocytes (%) (Auto) % Eosinophils (%) (Auto) % Basophils (%) (Auto) % Neutrophils # (Auto) TH/MM3 Lymphocytes # (Auto) TH/MM3 Monocytes # (Auto) TH/MM3 Eosinophils # (Auto) TH/MM3 Basophils # (Auto) TH/MM3 CBC Comment AUTO DIFF Differential Total Cells 100 Counted Neutrophils % (Manual) 32 % Band Neutrophils % 6 % Lymphocytes % 52 % Monocytes % 4 % Eosinophils % 6 % Neutrophils # (Manual) 0.6 TH/MM3 Differential Comment FINAL DIFF MANUAL Platelet Estimate LOW Platelet Morphology Comment NORMAL Tear Drop Cells 1+ Ovalocytes 1+ Sodium Level 142 MEQ/L Potassium Level 4.0 MEQ/L Chloride Level 108 MEQ/L Carbon Dioxide Level 28.8 MEQ/L Anion Gap 5 MEQ/L Blood Urea Nitrogen 13 MG/DL Creatinine 0.92 MG/DL Estimat Glomerular Filtration 64 ML/MIN Rate Random Glucose 86 MG/DL Calcium Level 8.4 MG/DL Administered Medications Medications (Trade) Dose Ordered Sig/Jasen Route PRN Reason Start Time Stop Time Status Last Admin Dose Admin Sodium Chloride (NS Flush) 2 ml UNSCH PRN IV FLUSH FLUSH AFTER USING IV ACCESS 04/07/17 16:30 04/08/17 01:29 Sodium Chloride (NS Flush) 2 ml BID IV FLUSH 04/07/17 21:00 04/08/17 09:00 Senna/Docusate Sodium (Quin-Colace) 1 tab BID PO 04/07/17 21:00 04/08/17 09:00 Pantoprazole Sodium (Protonix Inj) 40 mg Q12H IV PUSH 04/07/17 18:00 04/08/17 18:52 Morphine Sulfate (Morphine Inj) 4 mg Q3H PRN IV PUSH severe pain 04/07/17 20:30 04/08/17 12:57 Objective Remarks GENERAL: Well-nourished, well-developed patient. SKIN: Warm and dry. HEAD: Normocephalic. EYES: No scleral icterus. No injection or drainage. NECK: Supple, trachea midline. No JVD or lymphadenopathy. LYMPHATIC: No adenopathy. CARDIOVASCULAR: Regular rate and rhythm without murmurs. RESPIRATORY: Breath sounds equal bilaterally. No accessory muscle use. GASTROINTESTINAL: Abdomen soft, non-tender, nondistended. EXTREMITIES: No cyanosis, or edema. MUSCULOSKELETAL: Adequate muscle tone. NEUROLOGICAL: No obvious focal deficit. Awake, alert, and oriented x3. PSYCHIATRIC: Appropriate mood and affect; insight and judgment normal. Pam Kurtz MD Apr 08, 2017 22:26
[2017-04-08] MEDS: DOXYCYCLINE MONOHYDRATE SUSP 25 MG/5 ML 60 ML BTL PO SCH (23:20)
[2017-04-09] VITALS: BP 104/64; PULSE 77; RESP 18; TEMP 98.4; O2SAT 97
[2017-04-09 03:21] VITALS: BP 111/56; PULSE 78; RESP 17; TEMP 98.9; O2SAT 97
[2017-04-09] MEDS: PANTOPRAZOLE SODIUM 40 MG VIAL IV PUSH SCH (06:27)
--- NOTE | 2017-04-09 07:45 | HHI.PR ---
Subjective Subjective Remarks Resting in bed Speech clear, able to swallow and control her secretions Hungry this a.m. guarding on full liquid diet Similac advance as tolerated Leukopenia Reverse isolation continues Afebrile (Rose Mary Adan) Review of Systems Constitutional Constitutional: Fatigue, Weight Change, Weakness (Rose Mary Adan) Pulmonary Respiratory: Shortness of Breath (resolved, none at rest) (Rose Mary Adan) GI/Abdomen GI/Abdominal Exam: Nausea (resolved) (Rose Mary Adan) Musculoskeletal MS: Weakness, Discomfort/Pain (Rose Mary Adan) Psychiatric Psychiatric: Normal Mood, Anxiety (Rose Mary Adan) Vitals/Results Intake & Output 04/08/17 04/08/17 04/09/17 15:00 23:00 07:00 Intake Total 100 ml 480 ml Balance 100 ml 480 ml Intake Oral 480 ml IV Total 100 ml # Voids 4 # Bowel Movements 2 Vital Signs Vital Signs Date Time Temp Pulse Resp B/P Pulse Ox O2 Delivery O2 Flow Rate FiO2 04/09/17 03:21 98.9 78 17 111/56 97 04/09/17 00:00 98.4 77 18 104/64 97 04/08/17 15:36 99.7 70 16 91/52 96 04/08/17 13:02 16 04/08/17 11:57 99.8 67 16 112/56 100 04/08/17 11:19 67 16 101/65 99 04/08/17 11:14 74 16 112/65 99 04/08/17 11:09 98.2 80 16 100/63 98 04/08/17 09:54 98.3 72 18 110/68 100 (Rose Mary Adan) CBC/BMP: 04/08/17 0943 04/08/17 0943 Lab Results Laboratory Tests Test 04/08/17 09:43 White Blood Count 1.5 TH/MM3 Red Blood Count 2.60 MIL/MM3 Hemoglobin 7.7 GM/DL Hematocrit 24.4 % Mean Corpuscular Volume 93.9 FL Mean Corpuscular Hemoglobin 29.7 PG Mean Corpuscular Hemoglobin 31.6 % Concent Red Cell Distribution Width 18.3 % Platelet Count 57 TH/MM3 Mean Platelet Volume 8.1 FL Neutrophils (%) (Auto) % Lymphocytes (%) (Auto) % Monocytes (%) (Auto) % Eosinophils (%) (Auto) % Basophils (%) (Auto) % Neutrophils # (Auto) TH/MM3 Lymphocytes # (Auto) TH/MM3 Monocytes # (Auto) TH/MM3 Eosinophils # (Auto) TH/MM3 Basophils # (Auto) TH/MM3 CBC Comment AUTO DIFF Differential Total Cells 100 Counted Neutrophils % (Manual) 32 % Band Neutrophils % 6 % Lymphocytes % 52 % Monocytes % 4 % Eosinophils % 6 % Neutrophils # (Manual) 0.6 TH/MM3 Differential Comment FINAL DIFF MANUAL Platelet Estimate LOW Platelet Morphology Comment NORMAL Tear Drop Cells 1+ Ovalocytes 1+ Sodium Level 142 MEQ/L Potassium Level 4.0 MEQ/L Chloride Level 108 MEQ/L Carbon Dioxide Level 28.8 MEQ/L Anion Gap 5 MEQ/L Blood Urea Nitrogen 13 MG/DL Creatinine 0.92 MG/DL Estimat Glomerular Filtration 64 ML/MIN Rate Random Glucose 86 MG/DL Calcium Level 8.4 MG/DL Imaging Remarks Last Impressions Chest X-Ray 04/07/17 1119 Signed Impressions: Service Date/Time: Friday, April 07, 2017 11:14 - CONCLUSION: No acute cardiopulmonary disease. Rafiq Coombs MD CT Angiography 04/07/17 111 Signed Impressions: Service Date/Time: Friday, April 07, 2017 15:10 - CONCLUSION: Multiple lung nodules bilaterally could represent metastatic disease or septic emboli as the most likely etiologies. Rafiq Coombs MD Current Medications Administered Medications Medications (Trade) Dose Ordered Sig/Jasen Route PRN Reason Start Time Stop Time Status Last Admin Dose Admin Sodium Chloride (NS Flush) 2 ml UNSCH PRN IV FLUSH FLUSH AFTER USING IV ACCESS 04/07/17 16:30 04/08/17 01:29 Sodium Chloride (NS Flush) 2 ml BID IV FLUSH 04/07/17 21:00 04/08/17 23:20 Senna/Docusate Sodium (Quin-Colace) 1 tab BID PO 04/07/17 21:00 04/08/17 09:00 Pantoprazole Sodium (Protonix Inj) 40 mg Q12H IV PUSH 04/07/17 18:00 04/09/17 06:27 Morphine Sulfate (Morphine Inj) 4 mg Q3H PRN IV PUSH severe pain 04/07/17 20:30 04/08/17 12:57 Doxycycline Monohydrate (Vibramycin Liq) 100 mg Q12HR PO 04/08/17 21:00 04/08/17 23:20 (Rose Mary AdanP) Physical Exam General General Appearance: Pale, Anxious Appearance Remarks Current cancer patient receiving chemotherapy, 10 point ROS done positives noted (Rose Mary Adan [employer]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 HIGH SCHO[employer] FORE[employer] LANGUAGE TUTOR) Pulmonary Resp Exam: Rhonchi (none audible this morning), Decreased Bases, Diminished Breath Sounds (Rose Mary Adan [employer] SCHO[employer] LANGUAGE TUTOR) Cardiology CV Exam: Regular (Rose Mary Adan [employer] LANGUAGE TUTOR) Chest/Breast Chest/Breast Remarks No complaints of any chest pain this a.m. (Rose Mary Adan. HIGH SCHO[employer] LANGUAGE TUTOR) Gastrointestinal/Abdomen GI Exam: Bowel Sounds Present GI Remarks Dysphasia, improved after EGD and stretching of the esophagus (Rose Mary Adan. HIGH SCHO[employer] LANGUAGE TUTOR) Musculoskeletal MS Exam: Joints Intact (Rose Mary Adan. HIGH [employer]CHO[employer] LANGUAGE TUTOR) Integumentary Skin Exam: Warm, Dry (Rose Mary Adan [employer]IGH [employer] FORE[employer] LANGUAGE TUTOR) Extremeties Extremities Exam: No Edema, Pedal Pulses Palpable (Rose Mary Adan [employer] LANGUAGE TUTOR) Neurologic Neuro Exam: Awake, Oriented, Speech Clear, Moving All Extremities (Rose Mary Adan. HIGH SCHO[employer] LANGUAGE TUTOR) Assessment/Plan Assessment/Plan Atypical chest discomfort, muscle skeletal and pleuritic odynophagia, improved able to control her secretions better, diet advanced to full liquids and as tolerated Patient patient feels the pain or abnormality is in her lungs, Anemia, does have cancer and chronic disease monitor for any acute GI bleeding pill esophagitis, post EGD Esophagus stretched, patient is hungry this a.m. and trialing full liquids. We' ll increase diet as patient's ability to swallow continues Patient placed on Carafate 3 times a day 1 week, more remain on PPI Protonix twice a day per GIs orders. Will follow-up as an outpatient, acute coronary event, ruled out ruled out negative troponins, continue monitoring with telemetry Patient has cancer, current treatment being done chemotherapy , abdominal injections, Oncology consult appreciate information, she set up for a PET scan Friday as an outpatient Leukopenia decreased 1.5 , monitor, patient is being maintained on reverse isolation Supportive care PUD prophylaxis Discharge planning possibly today or in a.m., patient's leukopenia has continued to be at a low level I.5, will follow admitting team's recommendations Discussed with nurse Discussed with patient Discussed with Dr. Narayanan, patient seen on his behalf 25 MIN. (Rose Mary Adan) Assessment/Plan seen, examined by myself, Dr Narayanan, today Discussed with patient Discharge home today 1 week of Protonix 40 mg by mouth twice a day, and then go back to once a day 1 week of Carafate Follow-up with GI as needed Discussed with mid level provider The exam, history, and the medical decision-making described in the above note were completed with the assistance of the mid-level provider. I reviewed the findings presented. I attest that I had a [id number] encounter with the patient on the same day, and personally performed and documented my assessment and findings in the medical record. (Maranda Narayanan MD) Rose Mary Adan Apr 09, 2017 07:45 Maranda Narayanan MD Apr 09, 2017 18:53
[2017-04-09 08:00] VITALS: BP 104/69; PULSE 76; RESP 20; TEMP 97.9; O2SAT 92
[2017-04-09] MEDS ORDERED: SUCRALFATE 1 GM/10 ML CUP PO SCH (09:00)
[2017-04-09] MEDS: DOXYCYCLINE MONOHYDRATE SUSP 25 MG/5 ML 60 ML BTL PO SCH (09:36)
[2017-04-09] MEDS: SODIUM CHLORIDE 0.9% FLUSH 10 ML FLUSH IV FLUSH SCH (09:37)
[2017-04-09] MEDS: MORPHINE SULFATE 4 MG/ML INJ IV PUSH PRN (09:38)
[2017-04-09] MEDS: DOCUSATE SODIUM 50 MG/SENNA 8.6 MG TAB PO SCH (09:38)
[2017-04-09] MEDS ORDERED: PANT40TA3 PO (09:39)
[2017-04-09] MEDS ORDERED: SUCR1S PO (09:39)
[2017-04-09] MEDS ORDERED: DOXY25S PO (09:39)
--- NOTE | 2017-04-09 09:52 | MR ---
cc: ASHLEY LOCKE M.D., MAZHAR MD SULLIVAN,RUBÉN Mckeon MD DATE 04/08/2017 PROCEDURE Esophagogastroduodenoscopy with esophageal dilatation over guidewire and esophageal dilatation with balloon. INDICATION Dysphagia, odynophagia. REFERRING PHYSICIAN Referred by Dr. Narayanan PROCEDURE After informed consent was obtained, the patient was placed in the left side down position. She was sedated by the anesthesia service. After adequate sedation was achieved, the Pentax video gastroscope was inserted in the oropharynx and advanced to the esophagus, stomach and through the gastric pouch and into the jejunum. The scope was then slowly withdrawn examining the mucosal surfaces carefully. In the distal esophagus it was unclear whether there was a stricture there but the balloon dilator was used to dilate 16, 17 and 18-mm, did not appear to have much effect. Then a guidewire was left in place as the scope was withdrawn. Over the guidewire a 16-mm Savary dilator was passed down through the upper esophagus, taking care not to advance too far. The dilator was then removed and a 17-mm Savary dilator was passed down through the proximal esophagus and through an apparent strictured section taking care not to pass it too far. The dilator and guidewire were then removed together. A re-look examination was performed and showed there was no complication. The scope was then withdrawn and the procedure was terminated. She tolerated the procedure well and was returned to the recovery area in good condition. FINDINGS 1. The esophagus showed proximal erythema consistent with pill esophagitis. There did appear to be a stricture there, dilated to 16 and 17-mm with a Savary dilator as described above. 2. The distal esophagus was dilated to 16, 17 and 18-mm with a balloon dilator but there did not appear to be much effect. 3. The gastric pouch appeared healthy. 4. The jejunum anastomosis appeared healthy. IMPRESSION 1. Pill esophagitis with dysphagia and odynophagia. 1. Esophagus dilated proximal with Savary dilators with what appears to be good effect. 2. History of gastric bypass. RECOMMENDATIONS 1. Full liquid diet and then advance to a regular diet as tolerated. 2. Carafate and proton pump inhibitor should be given. Rubén Mccormick MD HHS/SSB /8:47 AM /9:44 AM MTDD
--- NOTE | 2017-04-09 10:59 | HHI.GIFU ---
Subjective Remarks Resting in bed. Odynophagia much improved. Does have upper thoracic back pain - states she has had this since January and the plan is for a PET scan as outpatient. Tolerating diet, but does not want to advance past full liquids. Objective Vitals I&O Vital Signs Date Time Temp Pulse Resp B/P Pulse Ox O2 Delivery O2 Flow Rate FiO2 04/09/17 08:00 97.9 76 20 104/69 92 04/09/17 03:21 98.9 78 17 111/56 97 04/09/17 00:00 98.4 77 18 104/64 97 04/08/17 15:36 99.7 70 16 91/52 96 04/08/17 13:02 16 04/08/17 11:57 99.8 67 16 112/56 100 04/08/17 11:19 67 16 101/65 99 04/08/17 11:14 74 16 112/65 99 04/08/17 11:09 98.2 80 16 100/63 98 I/O 04/08/17 04/08/17 04/08/17 04/09/17 04/09/17 04/09/17 07:00 15:00 23:00 07:00 15:00 23:00 Intake Total 100 ml 480 ml Balance 100 ml 480 ml Intake Oral 480 ml IV Total 100 ml # Voids 4 # Bowel Movements 2 Imaging Last Impressions Chest X-Ray 04/07/17 1119 Signed Impressions: Service Date/Time: Friday, April 07, 2017 11:14 - CONCLUSION: No acute cardiopulmonary disease. Rafiq Coombs MD CT Angiography 04/07/17 1119 Signed Impressions: Service Date/Time: Friday, April 07, 2017 15:10 - CONCLUSION: Multiple lung nodules bilaterally could represent metastatic disease or septic emboli as the most likely etiologies. Rafiq Coombs MD Physical Exam HEENT: Normocephalic; atraumatic; no jaundice. CHEST: CTA CARDIAC: RRR ABDOMEN: Soft, nondistended, nontender; no hepatosplenomegaly; bowel sounds are present in all four quadrants. EXTREMITIES: No clubbing, cyanosis, or edema. SKIN: Normal; no rash; no jaundice. 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 Assessment and Plan Plan Imp: - Odynophagia in immunocompromised patient. S/P EGD with dilatation (04/08/17)--- -> Pill esophagitis with dypshagia and no diet aphagia. Esophagus dilated proximal with Savary dilator with what appears to be good effect, history of gastric bypass. PPI Carafate. IMPROVED. No longer having odynophagia. Tolerating full liquids , but does not want to advance diet. - Pancytopenia secondary to chemotherapy. WBC 1.5, 7.7/24, Plt 57. Per oncology - Endometrial cancer with metastasis. Per oncology. Plan: - Okay to d/c home from GI standpoint - Advance diet as tolerated (wants to stay on full liquid for now - Await pathology - Protonix 40mg po BID - Carafate liquid x 1 week - FU MONAE 2 weeks - Supportive care - Further recommendations to follow based on results of above - PT seen and examined by Dr. Mccormick and myself and this note is written on his behalf Aminata Colon Apr 09, 2017 10:59
--- NOTE | 2017-04-09 15:45 | PD.ONC.PN ---
Subjective Subjective Remarks c/o left upper back pain. and fatigue. Objective Data Date Time Temp Pulse Resp B/P Pulse Ox O2 Delivery O2 Flow Rate FiO2 04/09/17 08:00 97.9 76 20 104/69 92 04/09/17 03:21 98.9 78 17 111/56 97 04/09/17 00:00 98.4 77 18 104/64 97 Result Diagram: 04/08/1743 04/08/17942 Objective Remarks GENERAL: Well-nourished, well-developed patient. SKIN: Warm and dry. HEAD: Normocephalic. EYES: No scleral icterus. No injection or drainage. NECK: Supple, trachea midline. No JVD or lymphadenopathy. LYMPHATIC: No adenopathy. CARDIOVASCULAR: Regular rate and rhythm without murmurs. RESPIRATORY: Breath sounds equal bilaterally. No accessory muscle use. GASTROINTESTINAL: Abdomen soft, non-tender, nondistended. EXTREMITIES: No cyanosis, or edema. MUSCULOSKELETAL: Adequate muscle tone. NEUROLOGICAL: No obvious focal deficit. Awake, alert, and oriented x3. PSYCHIATRIC: Appropriate mood and affect; insight and judgment normal. Assessment/Plan Problem List: (1) Endometrial ca Status: Acute Plan: pt most likely has recurrent mets to lung. Recommend PET scan. 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 Plan OK to d/c home will follow as outpt Pam Kurtz MD Apr 09, 2017 15:45
[2017-04-09] MEDS ORDERED: PANTOPRAZOLE SOD 40 MG DELAYED RELEASE TAB PO SCH (21:00)
== END 2017-04-09 11:17 | disposition home or self-care (01) ==
LOC: NEPE 10:49 → NEDA 16:18 → NEPHCDU 18:18
PROVIDERS: ADMIT Specialist; ATTEND Specialist
PROC: 0D718ZZ Dilation of Upper Esophagus, Via Natural or Artificial Opening Endoscopic (ICD-10-PCS; principal; 2017-04-07)
DX: R07.89 Other chest pain (principal); R13.10 Dysphagia, unspecified; K20.8 Other esophagitis; D61.818 Other pancytopenia; C95.00 Acute leukemia of unspecified cell type not having achieved remission; R07.81 Pleurodynia; R91.8 Other nonspecific abnormal finding of lung field; R06.02 Shortness of breath; R47.02 Dysphasia; K22.2 Esophageal obstruction; Z98.84 Bariatric surgery status; D72.819 Decreased white blood cell count, unspecified; C54.1 Malignant neoplasm of endometrium; C78.00 Secondary malignant neoplasm of unspecified lung; M17.11 Unilateral primary osteoarthritis, right knee; M19.042 Primary osteoarthritis, left hand; D63.8 Anemia in other chronic diseases classified elsewhere; G47.30 Sleep apnea, unspecified; E66.01 Morbid (severe) obesity due to excess calories; F32.9 Major depressive disorder, single episode, unspecified; I44.0 Atrioventricular block, first degree; E11.9 Type 2 diabetes mellitus without complications; G62.9 Polyneuropathy, unspecified; Z79.899 Other long term (current) drug therapy; Z79.84 Long term (current) use of oral hypoglycemic drugs; Z68.41 Body mass index [BMI] 40.0-44.9, adult
CPT/HCPCS: 01922; 43248; 71010; 71275; 80048; 80053; 82550; 83690; 83735; 84484; 85007; 85027; 85379; 85610; 85730; 93005; 96374; 96375; 99285; C1726; C1769; C9113; G0378; J2270; J2405; J7030; Q9967

== ENCOUNTER 2017-04-16 06:43 | Day surgery (SDC) | payer MEDICARE, OTHER ==
[~2017-04-16] VITALS: Ht 172.7 cm; Wt 120.0 kg
[~2017-04-16 06:43] MED LIST changes: +DOXY25S PO; -PHEN30CA PO; -POTA-243 PO; +SUCR1S PO
[2017-04-16 07:12] VITALS: BP 143/77; PULSE 64; RESP 20; TEMP 98.7; O2SAT 93
[2017-04-16] MEDS ORDERED: SODIUM CHLORIDE 0.9% 1000 ML IV SCH (07:45)
[2017-04-16] MEDS ORDERED: POVIDONE IODINE 5% (ANTISEPSIS KIT) 4 APPLICATIONS EACH NARE SCH (07:45)
[2017-04-16] MEDS ORDERED: VANCOMYCIN 1000 MG/NS 250 ML - implanted port/tunneled catheter IV SCH ×2 (07:45)
[2017-04-16] MEDS ORDERED: CHLORHEXIDINE GLUCONATE 2 % 1 PACK (2 CLOTHS) TOPICAL SCH (07:45)
[2017-04-16] MEDS ORDERED: ceFAZolin 2 GM PREMIX 50 ML - implanted port/tunneled catheter insertion IV SCH (07:45)
[2017-04-16] MEDS ORDERED: ESCI10TA PO (08:01)
[2017-04-16] MEDS ORDERED: METF500T PO (08:01)
[2017-04-16] MEDS ORDERED: PANT40TA3 PO (08:01)
[2017-04-16] MEDS ORDERED: [UNRECOGNIZED DRUG - CODE] (08:01)
[2017-04-16] MEDS ORDERED: fentaNYL CITRATE 250 MCG/5 ML AMP ONE (08:38)
[2017-04-16] MEDS ORDERED: MIDAZOLAM HCL 5 MG/5 ML VIAL ONE (08:38)
[2017-04-16] MEDS ORDERED: LIDOCAINE 1%/EPINEPHrine 1:100,000 SOLN 20 ML VIAL ONE (09:01)
[2017-04-16 09:45] VITALS: BP 106/64; PULSE 75; RESP 16; TEMP 97.8; O2SAT 100
--- NOTE | 2017-04-16 09:49 | PD.RAD ---
Post Procedure Progress Note Pre Procedure Diagnosis: (1) Endometrial ca Post Procedure Diagnosis: (1) Endometrial ca Procedure Date: Apr 16, 2017 Supervising Radiologist: Salvador Driscoll JR Proceduralist/Assist: Vu Berg, RT(R), Frank Abdul RT(R) Anesthesia: Conscious Sedation Plan of Activity Patient to Unit: ROPU Patient Condition: Good See PACS Report for procedural detail/treatment Central Venous Access Device Procedure 1 Right Internal Jugular Infusaport Placement single lumen Polish: 8 Findings: Port in good position. OK to use Plan F/U with IR or a physician in 10-14 days for a site check Jr. Americo,Salvador Mcgrath MD Apr 16, 2017 09:49
[2017-04-16 10:00] VITALS: BP 111/62; PULSE 75; RESP 16; O2SAT 100
[2017-04-16] MEDS ORDERED: SODIUM CHLORIDE 0.9% FLUSH 10 ML FLUSH IVF PRN (10:00)
--- NOTE | 2017-04-16 10:24 | RADRPT ---
EXAM DATE/TIME: 04/16/2017 08:18 [facility] COMPARISON: No previous studies available for comparison. INDICATIONS : Patient presents with uterine cancer in need of port placement for chemotherapy treatment. MEDICAL HISTORY : HTN Morbid obesity Endometrial cancer Lung cancer Arthritis Peripheral neuropathy SURGICAL HISTORY : Right port Gastric bypass Right lung mass exc. 2013 [place] Hernia repair Hysterectomy ENCOUNTER: Subsequent ACUITY: 1 month PAIN SCORE: 0/10 LOCATION: N/A FLUORO TIME: 0.3 minutes IMAGE SERIES: 0 SEDATION TIME: 30 minutes ACCESS: Right internal jugular vein SEDATION: 1.) 5 mg midazolam (Versed) IV 2.) 250 mcg fentanyl (Sublimaze) IV Prophylactic antibiotics were administered with appropriate pre-procedure timing. Vancomycin within 2 hours of procedure, Ancef (or alternative) within 1 hour of procedure. DEVICE: 1. [address] [place] single lumen Smart port CT w/ vortex PROCEDURE : 1. Continuous pulse oximetry and EKG monitoring. 2. Intravenous conscious sedation. 3. Ultrasound guidance for venous access. 4. Fluoroscopic guided implantable central venous port placement. The patient was placed supine. The neck was prepped in sterile fashion. Full sterile technique was u sed, including cap, mask, sterile gloves and gown, and a large sterile sheet. Hand hygiene and 2% ch lorhexidine Betadine was utilized per protocol for cutaneous antisepsis with appropriate dry time for site. The skin and subcutaneous tissues were infiltrated with local anesthetic solution. Under direct ultrasound guidance, central venous access was accomplished in the targeted vessel. The ultrasound images depicting access guidance were stored and saved to PACS for permanent record. A s ubcutaneous pocket was created using blunt dissection. The port was introduced to the pocket. The c atheter tubing was fed through a subcutaneous tunnel to the venotomy site. The catheter tubing was c ut to a suitable length and then was introduced through a valved Peel-Away sheath and positioned with catheter tubing tip at the cavo-atrial junction level. The pocket incision was closed with subcutic ular Vicryl suture. Steri-Strips were applied. The port was flushed and locked with heparin solutio n per protocol. Sterile dressing was applied to the site. The patient tolerated the procedure well. Conscious sedation was performed with the prescribed dosages and duration as above in the presence of an independent trained radiology nurse to assist in the monitoring of the patient. EKG and oximetry remained stable throughout the procedure. The patient tolerated the procedure well and there were no complications. The patient was sent to post anesthesia recovery in stable condition. CONCLUSION: Uncomplicated ultrasound and fluoroscopic guided implanted central venous port catheter placement as described in detail above. An 8 [place] Power port was placed. Salvador Driscoll Jr., MD on April 16, 2017 at 10:22 Board Certified Radiologist. This report was verified electronically.
[2017-04-16 10:30] VITALS: BP 95/52; PULSE 75; RESP 16; O2SAT 99
[2017-04-16 11:00] VITALS: BP 128/70; PULSE 69; RESP 16; O2SAT 99
[2017-04-16 11:30] VITALS: BP 119/68; PULSE 68; RESP 18; O2SAT 99
== END 2017-04-16 12:12 | disposition home or self-care (01) ==
LOC: HROP 06:43 → HRIP 06:44 → HROP 12:12
PROVIDERS: ATTEND Internal Medicine Hematology & Oncology
DX: C54.1 Malignant neoplasm of endometrium (principal); I10 Essential (primary) hypertension; G62.9 Polyneuropathy, unspecified; Z85.118 Personal history of other malignant neoplasm of bronchus and lung; E66.01 Morbid (severe) obesity due to excess calories
CPT/HCPCS: 36561; 76937; 77001; 99152; 99153; C1788; J0690; J1642; J2250; J3010; J3370; J7030; J7050

== ENCOUNTER → 2017-06-06 | Outpatient (CLI) | payer MEDICARE, OTHER ==
[~2017-06-06] MED LIST changes: +CYCL1TAB29 PO; +DILA4TAB2 PO; -DOXY25S PO; +ESCI10TA PO; -ESCI5TAB PO; +FENT50DI T-DERMAL; -HYDR-3288 PO; +MEDR2.5 PO; +MEDR4PAK PO; +SENN1TAB PO; +VENTAER INH; +[UNRECOGNIZED DRUG - CODE]
[2017-06-06 09:53] LABS: BACTERIA, URINE FEW /hpf; BLOOD, URINE NEG (NEG); GLUCOSE,URINE NEG (NEG); KETONE, URINE NEG (NEG); MUCUS URINE FEW /lpf (OCC); NITRITE,URINE NEG (NEG); PH, URINE 5.5 (5.0-8.5); SQUAMOUS EPITHELIAL CELL URINE 7 /hpf (0-5); TRANSITIONAL EPI CELLS, URINE <1 /hpf; URINE COLOR YELLOW (YELLW/STRAW)
[2017-06-06 10:15] LABS: ANION GAP 9 MEQ/L (5-15); AST (GOT) 11 U/L (15-37); BICARBONATE 29.1 MEQ/L (21.0-32.0); BLOOD UREA NITROGEN 36 MG/DL (7-18); CHLORIDE 96 MEQ/L (98-107); GLOMERULAR FILTRATION RATE 45 ML/MIN (>89); GLUCOSE,FASTING 154 MG/DL (74-99); POTASSIUM 3.3 MEQ/L (3.5-5.1); SODIUM (NA) 134 MEQ/L (136-145)
[2017-06-06 10:16] LABS: MICRO ALBUMIN RANDOM URINE RAW 47.4 MG/L (0.0-30.0)
[2017-06-06 10:17] LABS: ALKALINE PHOSPHATASE 60 U/L (45-117); ALT (GPT) 14 U/L (10-53); TOTAL BILIRUBIN ADULT 1.6 MG/DL (0.2-1.0)
[2017-06-06 16:11] LABS: HEMOGLOBIN A1a 1.3 %; HEMOGLOBIN A1b 0.9 %; HEMOGLOBIN Ao 83.2 %; HEMOGLOBIN F 1.6 %; HEMOGLOBIN LA1C 2.5 %; HEMOGLOBIN P3 5.7 %
== END ==
LOC: CLAB 09:06
PROVIDERS: ATTEND General Practice
DX: E11.9 Type 2 diabetes mellitus without complications (principal); Z79.899 Other long term (current) drug therapy; Z87.891 Personal history of nicotine dependence
CPT/HCPCS: 36415; 80053; 81001; 82043; 83036

== ENCOUNTER 2017-06-13 15:07 | Inpatient (IN) | payer MEDICARE, OTHER ==
[~2017-06-13] VITALS: Ht 170.2 cm; Wt 113.1 kg
[~2017-06-13 15:07] MED LIST changes: -CYCL1TAB29 PO; -DILA4TAB2 PO; -FENT50DI T-DERMAL; -GABA600T PO; -MEDR2.5 PO; -MEDR4PAK PO; -SENN1TAB PO; -VENTAER INH
[2017-06-13 15:15] VITALS: BP 131/63; PULSE 98; RESP 22; TEMP 98.5; O2SAT 100
--- NOTE | 2017-06-13 15:19 | PD ---
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 Patient endorses chills, bilateral leg pain and recent immobility. Also endorses loss of appetite. She denies fever, chills, nausea, vomiting, changes in bowel habits, melena, hematochezia, dysuria, back pain. She is followed by Dr. Kurtz, Oncology and Dr. Paulson PCP [facility] Past Medical History Arthritis: Yes (hand left thumb right knee) Asthma: No Blood Disorders: No Anxiety: No Depression: Yes Heart Rhythm Problems: No Cancer: Yes (Endometrial, Righ lung, MDS) Cardiovascular Problems: No High Cholesterol: No Chemotherapy: Yes (presently everyday) Chest Pain: No Congestive Heart Failure: No COPD: No Diabetes: Yes Diminished Hearing: No Endocrine: Yes (diabetes) Gastrointestinal Disorders: Yes (GASTRIC BYPASS, ABD. PAIN) Glaucoma: No Genitourinary: Yes (edometrial cancer) Hepatitis: No Hiatal Hernia: No Hypertension: Yes (RESOLVED WITH WT LOSS) Immune Disorder: No Musculoskeletal: No Neurologic: No Psychiatric: Yes (Depression) Reproductive: No Respiratory: Yes (SOB with ambulation) Immunizations Current: No Radiation Therapy: No Sleep Apnea: No Thyroid Disease: No Menopausal: Yes : 1 Para: 1 Ovarian Cysts: Yes Past Surgical History Abdominal Surgery: No (gastric bypass) AICD: No Cardiac Surgery: No Cholecystectomy: Yes Ear Surgery: No Endocrine Surgery: No Eye Surgery: No Genitourinary Surgery: No Gynecologic Surgery: Yes (DIANNE) Hysterectomy: Yes Joint Replacement: No Oral Surgery: No Pacemaker: No Thoracic Surgery: Yes (Right lung) Other Surgery: Yes (RYN -gastric bypass) Social History Alcohol Use: No Tobacco Use: No Substance Use: No Allergies-Medications (Allergen,Severity, Reaction): Coded Allergies: latex (Verified Allergy, Severe, Itching, RASH, 06/13/17) ketorolac (Verified Allergy, Intermediate, HIVES, 06/13/17) burning rash carboplatin (Verified Allergy, Mild, Rash, 06/13/17) adhesive (Verified Adverse Reaction, Severe, RASH, 06/13/17) OK FOR PAPER TAPE lorazepam (Verified Adverse Reaction, Mild, NIGHTMARES, 06/13/17) morphine (Verified Adverse Reaction, Mild, Itching, 06/13/17) acetaminophen (Verified Adverse Reaction, Unknown, 06/13/17) nausea oxycodone (Verified Adverse Reaction, Unknown, 06/13/17) nausea Reported Meds & Prescriptions Reported Meds & Active Scripts Active Reported Gabapentin 600 Mg Tab 600 Mg PO TID Provera (Medroxyprogesterone Acetate) 2.5 Mg Tab 2.5 Mg PO DAILY Start day 16 Vidaza Inj (Azacitidine) 100 Mg Inj Escitalopram (Escitalopram Oxalate) 10 Mg Tab 10 Mg PO DAILY Pantoprazole (Pantoprazole Sodium) 40 Mg Tab 40 Mg PO DAILY Temazepam 30 Mg Cap 30 Mg PO HS PRN Review of Systems Except as stated in HPI: all other systems reviewed are Neg Physical Exam Narrative GENERAL: Well-nourished, well-developed, obese, anxious white female in [facility]. PSYCH: Occasionally tearful. SKIN: Focused skin assessment warm/dry. Multiple darkened, warm, tender areas of the BLE. HEAD: Normocephalic. EYES: No scleral icterus. No injection or drainage. NECK: Supple, trachea midline. No JVD or lymphadenopathy. CARDIOVASCULAR: Regular rate and rhythm without murmurs, gallops, or rubs. RESPIRATORY: Breath sounds clear and equal bilaterally. No accessory muscle use. GASTROINTESTINAL: Abdomen soft, non-tender, nondistended. Active bowel sounds. MUSCULOSKELETAL: No cyanosis, or edema. Hohmann sign negative bilaterally. BACK: Nontender without obvious deformity. No CVA tenderness. Data Data Last Documented VS Vital Signs Date Time Temp Pulse Resp B/P (MAP) Pulse Ox O2 Delivery O2 Flow Rate FiO2 06/13/17 16:24 89 18 130/68 (88) 99 Room Air 06/13/17 15:15 98.5 Orders Orders Complete Blood Count With Diff (06/13/17 15:41) Comprehensive Metabolic Panel (06/13/17 15:41) Act Partial Throm Time (Ptt) (06/13/17 15:41) Prothrombin Time / Inr (Pt) (06/13/17 15:41) Urinalysis - C+S If Indicated (06/13/17 15:41) Iv Access Insert/Monitor (06/13/17 15:41) Ecg Monitoring (06/13/17 15:41) Oximetry (06/13/17 15:41) Chest, Single Ap (06/13/17 15:41) Sodium Chloride 0.9% Flush (Ns Flush) (06/13/17 15:45) Us Leg Venous Doppler Bilat (06/13/17 16:44) Sodium Chlor 0.9% 1000 Ml Inj (Ns 1000 M (06/13/17 16:45) Hydromorphone Pf Inj (Dilaudid Pf Inj) (06/13/17 17:00) Ct Pulmonary Angiogram (06/13/17 17:07) Type And Screen (06/13/17 17:25) Urine Culture (06/13/17 16:25) Iohexol 350 Inj (Omnipaque 350 Inj) (06/13/17 18:30) Electrocardiogram (06/13/17 18:37) Cefepime Inj (Maxipime Inj) (06/13/17 19:15) Red Blood Cells (Rbc) (06/13/17 19:04) Blood Product Administration (06/13/17 19:04) Sodium Chlor 0.9% 250 Ml Inj (Ns 250 Ml (06/13/17 19:15) Consult Medical Oncology (06/13/17 ) Admit Order (Ed Use Only) (06/13/17 19:04) Labs Laboratory Tests Test 06/13/17 16:10 06/13/17 16:25 White Blood Count 2.8 TH/MM3 Red Blood Count 1.95 MIL/MM3 Hemoglobin 5.8 GM/DL Hematocrit 17.5 % Mean Corpuscular Volume 89.6 FL Mean Corpuscular Hemoglobin 29.7 PG Mean Corpuscular Hemoglobin Concent 33.2 % Red Cell Distribution Width 19.7 % Platelet Count 103 TH/MM3 Mean Platelet Volume 7.8 FL CBC Comment AUTO DIFF Differential Total Cells Counted 100 Neutrophils % (Manual) 29 % Band Neutrophils % 7 % Lymphocytes % 39 % Monocytes % 13 % Eosinophils % 1 % Basophils % 1 % Neutrophils # (Manual) 1.1 TH/MM3 Metamyelocytes 4 % Nucleated Red Blood Cells 2 /100 WBC Differential Comment FINAL DIFF MANUAL Blastocytes 6 % Platelet Estimate LOW Platelet Morphology Comment NORMAL Ovalocytes 1+ Keratocytes OCC Prothrombin Time 12.2 SEC Prothromb Time International Ratio 1.1 RATIO Activated Partial Thromboplast Time 27.3 SEC Blood Urea Nitrogen 19 MG/DL Creatinine 1.11 MG/DL Random Glucose 147 MG/DL Total Protein 6.6 GM/DL Albumin 2.8 GM/DL Calcium Level 9.1 MG/DL Alkaline Phosphatase 67 U/L Aspartate Amino Transf (AST/SGOT) 9 U/L Alanine Aminotransferase (ALT/SGPT) 11 U/L Total Bilirubin 2.3 MG/DL Sodium Level 135 MEQ/L Potassium Level 3.4 MEQ/L Chloride Level 101 MEQ/L Carbon Dioxide Level 25.4 MEQ/L Anion Gap 9 MEQ/L Estimat Glomerular Filtration Rate 52 ML/MIN Urine Color DARK-YELLOW Urine Turbidity HAZY Urine pH 5.5 Urine Specific [place] 1.027 Urine Protein 30 mg/dL Urine Glucose (UA) NEG mg/dL Urine Ketones 10 mg/dL Urine Occult Blood NEG Urine Nitrite NEG Urine Bilirubin SMALL Urine Urobilinogen 8.0 MG/DL Urine Leukocyte Esterase LARGE Urine WBC 19 /hpf Urine Squamous Epithelial Cells 7 /hpf Urine Hyaline Casts 1 /lpf Urine Mucus FEW /lpf Microscopic Urinalysis Comment CULTURE INDICATED MDM Medical Decision Making Medical Screen Exam Complete: Yes Emergency Medical Condition: Yes Differential Diagnosis PNA versus metastatic CA versus anemia versus DVT versus PE versus other Narrative Course 51 YO F with PMH of 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 Patient endorses chills, bilateral leg pain and recent immobility. Also endorses loss of appetite. She denies fever, chills, nausea, vomiting, changes in bowel habits, melena, hematochezia, dysuria, back pain. She finished a course of chemotherapy approximately one week ago. She is followed by Dr. Kurtz, Oncology and Dr. Paulson PCP. Afebrile, pulse 98, respiratory rate 22, 100% on room air, 131/63 on presentation. Physical exam reveals an obese, anxious white female in no acute distress. Chest is clear to auscultation bilaterally. She does have several warm, darkened, erythematous patches in the bilateral lower extremities but Hohmann sign is negative bilaterally. IV was established. CBC: WBC 2.8. Hemoglobin 5.8. Hematocrit 17.5. Platelets 3. Neutrophils 1.1. Coags: INR 1.1. CMP BUN 19, creatinine 1.11. Bilirubin 2.3. Potassium 3.4. EKG: Rate 89, sinus rhythm. Normal intervals. Normal axis. No ST changes. Reviewed by Dr. Chisholm CXR: No acute findings. Ultrasound of bilateral lower extremities: No DVT. Right Woodard cyst. CTA: Noted in the right midlung is larger as compared to previous studies, other findings improved. Questionable splenic infarction. Patient is typed and screened, 2 units packed red blood cells ordered to be administered when they arrive. I spoke with Dr. Johnson who recommends 1 g cefepime, oncology consult and will accept the patient to the medicine service under Dr. Willis. Please see medicine and oncology notes for disposition. [facility] Point of Care Internal Pos. & Neg. Controls: Passed Fecal Specimen Occult Blood: Negative Vanessa Edwards Jun 13, 2017 15:19
[2017-06-13] MEDS ORDERED: SODIUM CHLORIDE 0.9% FLUSH 10 ML FLUSH IVF PRN (15:45)
--- NOTE | 2017-06-13 16:05 | RADRPT ---
EXAM DATE/TIME: 06/13/2017 16:00 [facility] COMPARISON: CHEST SINGLE AP, April 07, 2017, 11:14. INDICATIONS : Extreme shortness of breath. MEDICAL HISTORY : Bilateral lung cancer. SURGICAL HISTORY : Infusaport. ENCOUNTER: Initial ACUITY: 3 days PAIN SCORE: 0/10 LOCATION: Bilateral chest FINDINGS: The [id number] in good position. The lungs are clear. The heart is normal in size. Visualized bony structures are grossly intact. CONCLUSION: 1. No acute cardiopulmonary findings. Kolton Felix MD on June 13, 2017 at 16:03 Board Certified Radiologist. This report was verified electronically.
[2017-06-13 16:24] VITALS: BP 130/68; PULSE 89; RESP 18; O2SAT 99
[2017-06-13] MEDS ORDERED: SODIUM CHLOR 0.9% 1000 ML INJ 1,000 ML IV ONE (16:45)
[2017-06-13 16:48] LABS: MEAN CELL VOLUME 89.6 FL (80.0-100.0); MEAN CORPUSCULAR HEMOGLOBIN 29.7 PG (27.0-34.0); MEAN CORPUSCULAR HGB CONC 33.2 % (32.0-36.0); PLATELET COUNT 103 TH/MM3 (150-450); RED BLOOD COUNT 1.95 MIL/MM3 (4.00-5.30); RED CELL DISTRIBUTION WIDTH 19.7 % (11.6-17.2); WHITE BLOOD COUNT 2.8 TH/MM3 (4.0-11.0)
[2017-06-13 16:59] LABS: APTT (PATIENT) 27.3 SEC (24.3-30.1); INTERNATIONAL NORMALIZED RATIO 1.1 RATIO; PROTHROMBIN TIME - PATIENT 12.2 SEC (9.8-11.6)
[2017-06-13] MEDS ORDERED: HYDROmorphone HCL PF 1 MG/ML VIAL IV PUSH ONE (17:00)
[2017-06-13 17:09] LABS: HEMO FLAGS AUTO DIFF
[2017-06-13 17:12] LABS: BLOOD, URINE NEG (NEG); COMMENT (UR) CULTURE INDICATED; CULTURE IF INDICATED CULTURE INDICATED; GLUCOSE,URINE NEG (NEG); HYALINE CAST, URINE 1 /lpf (RARE); KETONE, URINE 10 mg/dL (NEG); MUCUS URINE FEW /lpf (OCC); NITRITE,URINE NEG (NEG); PH, URINE 5.5 (5.0-8.5); SQUAMOUS EPITHELIAL CELL URINE 7 /hpf (0-5)
[2017-06-13 17:14] LABS: HEMATOCRIT 17.5 % (35.0-46.0)
[2017-06-13 17:22] LABS: ANION GAP 9 MEQ/L (5-15); AST (GOT) 9 U/L (15-37); BICARBONATE 25.4 MEQ/L (21.0-32.0); BLOOD UREA NITROGEN 19 MG/DL (7-18); CHLORIDE 101 MEQ/L (98-107); GLOMERULAR FILTRATION RATE 52 ML/MIN (>89); POTASSIUM 3.4 MEQ/L (3.5-5.1); SODIUM (NA) 135 MEQ/L (136-145)
[2017-06-13 17:26] LABS: ALKALINE PHOSPHATASE 67 U/L (45-117); ALT (GPT) 11 U/L (10-53); TOTAL BILIRUBIN ADULT 2.3 MG/DL (0.2-1.0)
[2017-06-13 17:32] LABS: URINE COLOR DARK-YELLOW (YELLW/STRAW)
--- NOTE | 2017-06-13 18:25 | RADRPT ---
EXAM DATE/TIME: 06/13/2017 17:16 [facility] COMPARISON: No previous studies available for comparison. INDICATIONS : Bilateral leg pain. MEDICAL HISTORY : Carcinoma, lung. Gastroesophageal reflux disease. Ovarian cysts. Carcinoma, endometrial. Arthritis. Diabetes. Depression. Carcinoma, uterine. Chemotherapy. SURGICAL HISTORY : Cholecystectomy.Hysterectomy. Gastric bypass surgery. ENCOUNTER: Initial ACUITY: 4 - 6 days PAIN SCORE: 10/10 LOCATION: Bilateral legs. TECHNIQUE: Venous ultrasound of the left and right leg was performed from the inguinal ligament to the proximal calf. Real-time, color Doppler and spectral tracing, compression and augmentation techniques were us ed. FINDINGS: RIGHT LEG: There is normal compressibility of the deep venous system from the inguinal region to the proximal ca lf. No echogenic clot is seen in the lumen of the common femoral, femoral, popliteal, and posterior tibial veins. There is a normal response of the venous system to proximal and distal augmentation an d respiration. Note is made of a large Woodard's cyst in the popliteal fossa measuring approximately 9 .1 x 2.1 x 3.2 cm. LEFT LEG: There is normal compressibility of the deep venous system from the inguinal region to the proximal ca lf. No echogenic clot is seen in the lumen of the common femoral, femoral, popliteal, and posterior tibial veins. There is a normal response of the venous system to proximal and distal augmentation an d respiration. CONCLUSION: 1. No DVT identified. 2. 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 Kolton Felix MD on June 13, 2017 at 18:22 Board Certified Radiologist. This report was verified electronically.
[2017-06-13] MEDS ORDERED: IOHEXOL 350 MG/ML 10 ML VIAL (for RAD DIAG) IVCONTRAST ONE (18:30)
--- NOTE | 2017-06-13 18:42 | RADRPT ---
EXAM DATE/TIME: 06/13/2017 18:13 [facility] COMPARISON: CT PULMONARY ANGIOGRAM, April 07, 2017, 15:10. INDICATIONS : Short of breath, evaluate for embolus. IV CONTRAST: 75 cc Omnipaque 350 (iohexol) IV RADIATION DOSE: 17.16 CTDIvol (mGy) MEDICAL HISTORY : Carcinoma, lung. Diabetes mellitus type 2. uterine cancer SURGICAL HISTORY : Cholecystectomy. Gastric bypass. Hysterectomy. ENCOUNTER: Initial ACUITY: 1 day PAIN SCALE: 0/10 LOCATION: chest TECHNIQUE: Volumetric scanning of the chest was performed using a pulmonary embolism protocol MIP images were re constructed. Using automated exposure control and adjustment of the mA and/or kV according to patien t size, radiation dose was kept as low as reasonably achievable to obtain optimal diagnostic quality images. DICOM format image data is available electronically for review and comparison. Follow-up recommendations for detected pulmonary nodules are based at a minimum on nodule size and pa tient risk factors according to Fleischner Society Guidelines. FINDINGS: PULMONARY ARTERIES: No filling defects are seen in the pulmonary arteries through the segmental level. LUNGS: There is an 18 mm right mid lung nodule that previously measured 10 mm. Otherwise, scattered nodules of both lungs are smaller and less distinct in the interim. PLEURAE: There is no pleural thickening or pleural effusion. MEDIASTINUM: No lymphadenopathy demonstrated. Heart size stable, within normal limits. Mild coronary artery calcif ication again seen in the left anterior descending. MUSCULOSKELETAL: No acute bony abnormality demonstrated. MISCELLANEOUS: An approximately 3.8 x 4.2 cm area of geographic low attenuation seen medially of the visualized sple en. CONCLUSION: 1. No pulmonary embolus. 2. A right midlung pulmonary nodule seen on series 3 a 2 image 48 is larger in the interim. Otherwise , previously seen scattered vague nodular opacities of both lungs are smaller and less distinct in th e interim. 3. Irregular area of low-attenuation seen in the visualized spleen and not convincingly present previ ously. This may represent an area of splenic infarction. Bakari Paz MD on June 13, 2017 at 18:36 Board Certified Radiologist. This report was verified electronically.
[2017-06-13 18:50] LABS: BANDS 7 % (0-6); BASOPHILS 1 % (0-2); BLASTS 6 % (0-0); CORRECTED NUCLEATED RBC 2 /100 WBC (0-0); EOSINOPHILS 1 % (0-4); METAMYELOCYTES 4 % (0-1); NEUTROPHIL # MANUAL DIFF 1.1 TH/MM3 (1.8-7.7); POLYS (SEG NEUTROPHILS) 29 % (16-70); WBC DIFF SAMPLE 100
[2017-06-13 18:52] LABS: KERATOCYTES OCC (NORMAL)
[2017-06-13 18:53] LABS: OVALOCYTES 1+ (NORMAL); PLATELET ESTIMATE SMEAR LOW (NORMAL); PLATELET MORPHOLOGY NORMAL (NORMAL); SCAN/DIFF FINAL DIFF MANUAL
[2017-06-13] MEDS ORDERED: CEFEPIME INJ 2,000 MG in SODIUM CHLORIDE 0.9% INJ 100 ML IV ONE (19:15)
[2017-06-13] MEDS ORDERED: SODIUM CHLOR 0.9% 250 ML INJ 250 ML IV ONE (19:15)
[2017-06-13 19:20] VITALS: BP 106/51; PULSE 86; RESP 16; O2SAT 100
[2017-06-13] MEDS ORDERED: [UNRECOGNIZED DRUG - CODE] (19:27)
[2017-06-13] MEDS ORDERED: MEDR2.5 PO (19:27)
[2017-06-13] MEDS ORDERED: GABA600T PO (19:29)
[2017-06-13] MEDS ORDERED: LACTULOSE SYRUP 20 GM/30 ML CUP PO PRN (19:45)
[2017-06-13] MEDS ORDERED: ONDANSETRON HCL 4 MG/2 ML VIAL IVP PRN (19:45)
[2017-06-13] MEDS ORDERED: BISACODYL 10 MG SUPP RECTAL PRN (19:45)
[2017-06-13] MEDS ORDERED: NALOXONE HCL 0.4 MG/ML AMP IV PUSH PRN (19:45)
[2017-06-13] MEDS ORDERED: MAGNESIUM HYDROXIDE SUSP 30 ML CUP PO PRN (19:45)
[2017-06-13] MEDS ORDERED: SENNOSIDES 8.6 MG TAB PO PRN (19:45)
[2017-06-13] MEDS ORDERED: TEMAZEPAM 15 MG CAP PO PRN (20:00)
--- NOTE | 2017-06-13 20:14 | HHI.HP ---
HPI Service [facility] Primary Care Physician Polly Paulson M.D. Admission Diagnosis anemia, neutropenia, thrombocytopenia, UTI Diagnoses: Chief Complaint: SOB, LEG PAIN, FATIGUE Travel History International Travel<30 Days: No Contact w/Intl Traveler <30 Da: No Traveled to Known Affected Are: No History of Present Illness Ms. Clara Barrett is a pleasant 51-year-old white female with significant history of recent diagnosis of high-grade myelodysplastic syndrome currently on Pentasa. History of endometrial carcinoma, had been treated previously with chemotherapy. Had recurrence of the disease in 2012 and underwent right lung surgery and completed another cycle of chemotherapy. Most recently, she had a PET scan confirming pulmonary metastasis. She is currently on Provera. Patient presented to the emergency room with dyspnea with her cessation has been worsening. She's had chills, no fever. She's had increasing leg pain and has not been ambulating very much. At this soft tissue mass on her legs that had been evaluated in our believed to be calcifications. Indicates that they are very tender to palpation and she has been difficulty ambulating to the point that she's not able to get up in the morning and make breakfast for herself or take care of her activities of daily living. She has been pretty much laying in bed and has not been able to drive herself to the store to buy groceries. She has been taking Dilaudid 2 mg tabs every [address] Kurtz is her oncologist. She has received intermittent transfusions of blood she has been severely anemic. During this admission, she was evaluated in emergency room, laboratory workup was completed. CBC was significant for hemoglobin of 5.8, hematocrit 17.5, WBC 2.8, platelets 103. She denies any blood in stool. Hemoccult was negative in the emergency room. BMP remarkable for hypokalemia, potassium 3.4. Creatinine 1.11. Total bilirubin 2.3. Urinalysis positive for leukocyte esterase with WBC. 2 units of packed cells have been ordered. She was started on cefepime. During evaluation in emergency room, patient was very tearful and indicates that she needs more help at home. She lives with her son and he is not able to help as much. She feels like her quality of life is diminishing and is not sure whether continuing with treatment is appropriate. Patient is admitted for further evaluation and treatment. Review of Systems Constitutional: COMPLAINS OF: Fatigue, DENIES: Diaphoretic episodes, Fever, Weight gain, Weight loss, Chills, Dizziness, Change in appetite, Night Sweats Endocrine: DENIES: Abnorml menstrual pattern, Heat/cold intolerance, Polydipsia , Polyuria, Polyphagia Eyes: DENIES: Blurred vision, Diplopia, Eye inflammation, Eye pain, Vision loss , Photosensitivity, Double Vision Ears, nose, mouth, throat: DENIES: Tinnitus, Hearing loss, Vertigo, Nasal discharge, Oral lesions, Throat pain, Hoarseness, Ear Pain, Running Nose, Epistaxis, Sinus Pain, Toothache, Odynophagia Respiratory: DENIES: Apneas, Cough, Snoring, Wheezing, Hemoptysis, Sputum production, Shortness of breath Cardiovascular: COMPLAINS OF: Dyspnea on Exertion, Lower Extremity Edema, DENIES: Chest pain, Palpitations, Syncope, PND, Orthopnea, Claudication Gastrointestinal: DENIES: Abdominal pain, Black stools, Bloody stools, Constipation, Diarrhea, Nausea, Vomiting, Difficulty Swallowing, Anorexia Genitourinary: DENIES: Abnormal vaginal bleeding, Dysmenorrhea, Dyspareunia, Sexual dysfunction, Urinary frequency, Urinary incontinence, Urgency, Hematuria , Dysuria, Nocturia, Vaginal discharge Musculoskeletal: DENIES: Joint pain, Muscle aches, Stiffness, Joint Swelling, Back pain, Neck pain Integumentary: DENIES: Abnormal pigmentation, Pruritus, Rash, Nail changes, Breast masses, Breast skin changes, Nipple discharge Immunologic/allergic: DENIES: Eczema, Urticaria Neurologic: DENIES: Abnormal gait, Headache, Localized weakness, Paresthesias, Seizures, Speech Problems, Tremor, Poor Balance Psychiatric: DENIES: Anxiety, Confusion, Mood changes, Depression, Hallucinations, Agitation, Suicidal Ideation, Homicidal Ideation, Delusions Other BILAT LEG PAIN WITH NODULES THAT ARE TENDER TO PALPATION Past Family Social History Past Medical History 1. Non-insulin dependent diabetes, currently on metformin. 2. Obesity. 3. Anemia. 4. Stage IV endometrial carcinoma with chemotherapy, which she completed September of 2010 and has been followed per Dr. Thomason. 5. Hypertension. 6. Positive weight loss after gastric bypass. 7. Obstructive sleep apnea. 8. Reactive airway and probable mild COPD. 9. Vitamin B12 deficiency secondary to gastric bypass. 10. Recently diagnosed with high-grade myelodysplastic syndrome February 2017, currently on Vidaza chemotherapy. 11. Recurrent endometrial cancer. On Provera. Had PET scan March Past Surgical History 1. Robotic assisted hysterectomy, September of 2010. 2. Laparoscopy Michael-en Y gastric bypass, December of 2012. 3. Cholecystectomy. 4. Placement of [place] catheter on the right. 5. Status post right middle lobe wedge resection and right lower lobe segmentectomy for an enlarging right lower lobe lung nodule (07/14/2013) 6. Repair of King hernia, EMILI ( 7. EGD March 2017, had dilatation. 8. Bone marrow biopsy February 2017 Reported Medications Reported Meds & Active Scripts Active Reported Gabapentin 600 Mg Tab 600 Mg PO TID Provera (Medroxyprogesterone Acetate) 2.5 Mg Tab 2.5 Mg PO DAILY Start day 16 Vidaza Inj (Azacitidine) 100 Mg Inj Escitalopram (Escitalopram Oxalate) 10 Mg Tab 10 Mg PO DAILY Pantoprazole (Pantoprazole Sodium) 40 Mg Tab 40 Mg PO DAILY Temazepam 30 Mg Cap 30 Mg PO HS PRN Allergies: Coded Allergies: latex (Verified Allergy, Severe, Itching, RASH, 06/13/17) ketorolac (Verified Allergy, Intermediate, HIVES, 06/13/17) burning rash carboplatin (Verified Allergy, Mild, Rash, 06/13/17) adhesive (Verified Adverse Reaction, Severe, RASH, 06/13/17) OK FOR PAPER TAPE lorazepam (Verified Adverse Reaction, Mild, NIGHTMARES, 06/13/17) morphine (Verified Adverse Reaction, Mild, Itching, 06/13/17) acetaminophen (Verified Adverse Reaction, Unknown, 06/13/17) nausea oxycodone (Verified Adverse Reaction, Unknown, 06/13/17) nausea Active Ordered Medications Inpatient Medications Bisacodyl (Dulcolax Supp) 10 mg DAILY PRN RECTAL SEVERE CONSITIPATION; Start at 19:45 Cefepime HCl 1000 mg/Sodium Chloride 100 ml @ 200 mls/hr Q12H IV ; Start at 09:00 Cefepime HCl 2000 mg/Sodium Chloride 100 ml @ 200 mls/hr ONCE ONCE IV Last administered on 06/13/17t 19:54; Start 06/13/17 at 19:15; Stop 06/13/17 at 19:44 ; Status DC Escitalopram Oxalate (Lexapro) 10 mg DAILY PO ; Start 06/14/17 at 09:00 Gabapentin (Neurontin) 600 mg TID PO ; Start 06/14/17 at 09:00 Hydromorphone HCl (Dilaudid Pf Inj) 0.5 mg Q4H PRN IV PUSH PAIN SCALE 4 TO 7; Start 06/13/17 at 20:00 Lactulose (Lactulose Liq) 30 ml DAILY PRN PO SEVERE CONSITIPATION; Start at 19:45 Magnesium Hydroxide (Milk Of Magnesia Liq) 30 ml Q12H PRN PO MILD - MODERATE CONSTIPATION; Start 06/13/17 at 19:45 Naloxone HCl (Narcan Inj) 0.4 mg UNSCH PRN IV PUSH SEE LABEL COMMENTS; Start at 19:45 Ondansetron HCl (Zofran Inj) 4 mg Q6H PRN IVP NAUSEA OR VOMITING; Start at 19:45 Pantoprazole Sodium (Protonix) 40 mg DAILY PO ; Start 06/14/17 at 09:00 Senna/Docusate Sodium (Quin-Colace) 1 tab BID PO ; Start 06/13/17 at 21:00 Sennosides (Senokot) 17.2 mg Q12H PRN PO MODERATE - SEVERE CONSTIPATION; Start 06/13/17 at 19:45 Sodium Chloride (NS Flush) 2 ml BID IV FLUSH ; Start 06/13/17 at 21:00 Temazepam (Restoril) 30 mg HS PRN PO INSOMNIA; Start 06/13/17 at 20:00 Family History Mother from acute renal failure, diabetes complications. History of ovarian cancer Father from brain tumor at age 39 Brother at age 14 from leukemia, also had testicular cancer She has a sister who is alive and well, history of hypothyroidism Social History Patient is disabled, no smoking, no alcohol, no substance abuse. She has a 29- year-old son. Patient is attending school to complete a bachelor's degree online Physical Exam Vital Signs Vital Signs Date Time Temp Pulse Resp B/P (MAP) Pulse Ox O2 Delivery O2 Flow Rate FiO2 06/13/17 19:20 86 16 106/51 (69) 100 Room Air 06/13/17 16:24 89 18 130/68 (88) 99 Room Air 06/13/17 15:27 22 100 Room Air 06/13/17 15:15 98.5 98 22 131/63 (85) 100 Physical Exam GENERAL: This is a well-nourished, obese female. SKIN: Skin pale, cool and dry. There are soft tissue masses noted to both legs or extremities. Skin overlying masses is dark pigmented, thickened. No exudate, no open areas. HEAD: Atraumatic. Normocephalic. No temporal or scalp tenderness. EYES: Pupils equal round and reactive. Extraocular motions intact. No scleral icterus. Conjunctiva pale. No injection or drainage. ENT: Nose without bleeding, purulent drainage or septal hematoma. Throat without erythema, tonsillar hypertrophy or exudate. Uvula midline. Airway patent. NECK: Trachea midline. No JVD or lymphadenopathy. Supple, nontender, no meningeal signs. CARDIOVASCULAR: Regular rate and rhythm soft murmurs, no gallops, no rubs. CHEST: Right upper chest with PAC RESPIRATORY: Clear to auscultation. Breath sounds equal bilaterally. No wheezes , rales, or rhonchi. GASTROINTESTINAL: Abdomen soft, non-tender, nondistended. No hepato-splenomegaly , or palpable masses. No guarding. MUSCULOSKELETAL: Extremities without clubbing, cyanosis. No joint tenderness, effusion, or edema noted. No calf tenderness. Negative Homans sign bilaterally. Bilateral lower extremity with soft tissue masses as described above. Trace pretibial edema. Pedal pulses 2+ bilaterally NEUROLOGICAL: Awake, alert oriented 3. No focal deficits. Laboratory Laboratory Tests Test 06/13/17 16:10 06/13/17 16:25 White Blood Count 2.8 Red Blood Count 1.95 Hemoglobin 5.8 Hematocrit 17.5 Mean Corpuscular Volume 89.6 Mean Corpuscular Hemoglobin 29.7 Mean Corpuscular Hemoglobin Concent 33.2 Red Cell Distribution Width 19.7 Platelet Count 103 Mean Platelet Volume 7.8 CBC Comment AUTO DIFF Differential Total Cells Counted 100 Neutrophils % (Manual) 29 Band Neutrophils % 7 Lymphocytes % 39 Monocytes % 13 Eosinophils % 1 Basophils % 1 Neutrophils # (Manual) 1.1 Metamyelocytes 4 Nucleated Red Blood Cells 2 Differential Comment FINAL DIFF MANUAL Blastocytes 6 Platelet Estimate LOW Platelet Morphology Comment NORMAL Ovalocytes 1+ Keratocytes OCC Prothrombin Time 12.2 Prothromb Time International Ratio 1.1 Activated Partial Thromboplast Time 27.3 Blood Urea Nitrogen 19 Creatinine 1.11 Random Glucose 147 Total Protein 6.6 Albumin 2.8 Calcium Level 9.1 Alkaline Phosphatase 67 Aspartate Amino Transf (AST/SGOT) 9 Alanine Aminotransferase (ALT/SGPT) 11 Total Bilirubin 2.3 Sodium Level 135 Potassium Level 3.4 Chloride Level 101 Carbon Dioxide Level 25.4 Anion Gap 9 Estimat Glomerular Filtration Rate 52 Urine Color DARK-YELLOW Urine Turbidity HAZY Urine pH 5.5 Urine Specific [place] 1.027 Urine Protein 30 Urine Glucose (UA) NEG Urine Ketones 10 Urine Occult Blood NEG Urine Nitrite NEG Urine Bilirubin SMALL Urine Urobilinogen 8.0 Urine Leukocyte Esterase LARGE Urine WBC 19 Urine Squamous Epithelial Cells 7 Urine Hyaline Casts 1 Urine Mucus FEW Microscopic Urinalysis Comment CULTURE INDICATED Date/Time Source Procedure Growth Status 06/13/17 16:25 Urine Clean Catch Urine Culture Pending Worksheet Result Diagram: 06/13/17 1610 06/13/[address] Angiography 06/13/17 1707 Signed Impressions: Service Date/Time: Tuesday, June 13, 2017 18:13 - CONCLUSION: 1. No pulmonary embolus. 2. A right midlung pulmonary nodule seen on series 3 a 2 image 48 is larger in the interim. Otherwise, previously seen scattered vague nodular opacities of both lungs are smaller and less distinct in the interim. 3. Irregular area of low-attenuation seen in the visualized spleen and not convincingly present previously. This may represent an area of splenic infarction. Bakari Paz MD Lower Extremity Ultrasound 06/13/17 1644 Signed Impressions: Service Date/Time: Tuesday, June 13, 2017 17:16 - CONCLUSION: 1. No DVT identified. 2. 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 Kolton Felix MD Chest X-Ray 06/13/17 1541 Signed Impressions: Service Date/Time: Tuesday, June 13, 2017 16:00 - CONCLUSION: 1. No acute cardiopulmonary findings. Kolton Felix MD Capkeoni VTE Risk Assessment Capkeoni VTE Risk Assessment: Mod/High Risk (score >= 2) VTE Pharm Contraindication: High risk for bleeding Caprini Risk Assessment Model Point Value = 1 Point Value = 2 Point Value = 3 Point Value = 5 Age 41-60 Minor surgery BMI > 25 kg/m2 Swollen legs Varicose veins or History of unexplained or recurrent spontaneous Oral contraceptives or hormone replacement Sepsis (< 1 month) Serious lung disease, including pneumonia (< 1 month) Abnormal pulmonary function Acute myocardial infarction Congestive heart failure (< 1 month) History of inflammatory bowel disease Medical patient at bed rest Age 61-74 Arthroscopic surgery Major open surgery (> 45 min) Laparoscopic surgery (> 45 min) Malignancy Confined to bed (> 72 hours) Immobilizing plaster cast Central venous access Age >= 75 History of VTE Family history of VTE Factor V Leiden Prothrombin [id number] Lupus anticoagulant Anticardiolipin antibodies Elevated serum homocysteine Heparin-induced thrombocytopenia Other congenital or acquired thrombophilia Stroke (< 1 month) Elective arthroplasty Hip, pelvis, or leg fracture Acute spinal cord injury (< 1 month) Prophylaxis Regimen Total Risk Factor Score Risk Level Prophylaxis Regimen 0-1 Low Early ambulation 2 Moderate Order ONE of the following: *Sequential Compression Device (SCD) *Heparin 5000 units SQ BID 3-4 Higher Order ONE of the following medications: *Heparin 5000 units SQ TID *Enoxaparin/Lovenox 40 mg SQ daily (WT < 150 kg, CrCl > 30 mL/min) *Enoxaparin/Lovenox 30 mg SQ daily (WT < 150 kg, CrCl > 10-29 mL/min) *Enoxaparin/Lovenox 30 mg SQ BID (WT < 150 kg, CrCl > 30 mL/min) AND/OR *Sequential Compression Device (SCD) 5 or more Highest Order ONE of the following medications: *Heparin 5000 units SQ TID (Preferred with Epidurals) *Enoxaparin/Lovenox 40 mg SQ daily (WT < 150 kg, CrCl > 30 mL/min) *Enoxaparin/Lovenox 30 mg SQ daily (WT < 150 kg, CrCl > 10-29 mL/min) *Enoxaparin/Lovenox 30 mg SQ BID (WT < 150 kg, CrCl > 30 mL/min) AND *Sequential Compression Device (SCD) Assessment and Plan Problem List: (1) Symptomatic anemia ICD Codes: D64.9 - Anemia, unspecified Status: Acute (2) Dehydration ICD Codes: E86.0 - Dehydration Status: Acute (3) MDS (myelodysplastic syndrome) ICD Codes: D46.9 - Myelodysplastic syndrome, unspecified Status: Acute (4) Endometrial ca ICD Codes: C54.1 - Malignant neoplasm of endometrium Status: Acute (5) Pancytopenia ICD Codes: D61.818 - Other pancytopenia Status: Acute (6) UTI (urinary tract infection) ICD Codes: N39.0 - Urinary tract infection, site not specified Status: Acute (7) Total bilirubin, elevated ICD Codes: R17 - Unspecified jaundice Status: Acute Assessment and Plan Admit to Dr. Willis 51-year-old female with history of metastatic endometrial cancer and high-grade myelodysplastic syndrome. Presented with dyspnea with exertion, found with symptomatic anemia. Undergoing chemotherapy Symptomatic anemia, heme negative stools Pancytopenia -Continue with blood transfusion, she will receive 2 units -Follow CBC in the morning -Hematology has been consulted Metastatic endometrial cancer High-grade myelodysplastic syndrome -Dr. Kurtz has been consulted UTI -Follow urine culture -Continue cefepime 1 g IV every 12 Dehydration Hypokalemia -Continue with IV fluids -Follow BMP in the morning -Replace potassium Elevated T bili etiology unclear -Patient may need further imaging studies, will defer to oncology Bilateral leg pain, recent findings of painful soft tissue masses to both legs which apparently are calcification. Complaints of increasing pain and difficulty ambulating -Continue pain management Hx DM, was on Metformin to avoid hyperglycemia but not taking regularly. Blood glucose has stabilized after bariatric surgery Controls through diet -We will check Accu-Cheks before meals and at bedtime with low-dose insulin therapy if needed No SCDs and anticoagulation at this time due to thrombocytopenia Repeat labs in the morning Home medications reviewed, initiated as indicated Plan of care discussed with the patient, attending and registered nurse. Further management of the patient will be dependent on the hospital course Consult case management for discharge planning, patient will need assistance at home. Home health care possibly home health aides. This patient was seen by myself and Dr. Willis, this H&P is written on his behalf Physician Certification 2 Midnight Certification Type: Admission for Inpatient Services Order for Inpatient Services The services are ordered in accordance with Medicare regulations or non- Medicare payer requirements, as applicable. In the case of services not specified as inpatient-only, they are appropriately provided as inpatient services in accordance with the 2-midnight benchmark. Estimated LOS (days): 2 2 days is the estimated time the patient will need to remain in the hospital, assuming treatment plan goals are met and no additional complications. Post-Hospital Plan: Home Health Problem Qualifiers (1) UTI (urinary tract infection): Qualified Codes: N39.0 - Urinary tract infection, site not specified Soledad Easley Jun 13, 2017 20:14
[2017-06-13] MEDS: HYDROmorphone HCL PF 1 MG/ML VIAL IV PUSH PRN ×2 (20:16→22:42)
--- NOTE | 2017-06-13 20:51 | EKG ---
Date Performed: 06/13/2017 Time Performed: 18:50:28 PTAGE: 51 years EKG: Sinus rhythm RIGHT BUNDLE BRANCH BLOCK ABNORMAL ECG No significant change from prior electrocardiogram. PREVIOUS TRACING : 04/07/2017 11.26 DOCTOR: Mayur Luque Interpretating Date/Time 06/13/2017 20:49:01
[2017-06-13 21:00] VITALS: BP 115/57; PULSE 96; RESP 18; TEMP 98.3; O2SAT 100
[2017-06-13] MEDS: DOCUSATE SODIUM 50 MG/SENNA 8.6 MG TAB PO SCH (21:00)
[2017-06-13] MEDS: SODIUM CHLORIDE 0.9% FLUSH 10 ML FLUSH IV FLUSH SCH (21:00)
[2017-06-13] MEDS: SODIUM CHLOR 0.9% 1000 ML INJ 1,000 ML IV SCH (21:03)
--- NOTE | 2017-06-13 21:12 | HHI.FF ---
Face to Face Verification Diagnosis: (1) Fatigue (2) Symptomatic anemia (3) Endometrial ca Physical Therapy Order: Evaluate and Treat Home Health Nursing Order: Medical education Nursing assessment with vital signs Home Health Aide Order: To Assist In: Bathing and personal care, security guard supervisor and meal prep Director [employer] Order: To Evaluate: Support services Order: To Provide: Long range planning, Community services I have seen patient Clara Barrett on 06/13/17. My clinical findings support the need for the requested home health care services because: Ltd mobility - disease progression Deconditioned w/ increased weakness Limited ability to care for self High risk of falls I certify that my clinical findings support that this patient is homebound because: Unsteady gait/balance Need for psychosocial assistance Unable to use public transportation Soledad Easley Jun 13, 2017 21:12
[2017-06-13] MEDS ORDERED: POTASSIUM CHLORIDE 25 MEQ EFFERVESCENT TAB PO ONE (21:15)
[2017-06-13 21:40] VITALS: BP 117/78; PULSE 78; RESP 16; TEMP 98; O2SAT 99
[2017-06-13] MEDS ORDERED: GLUCAGON 1 MG/ML VIAL OTHER PRN (21:45)
[2017-06-13] MEDS ORDERED: DEXTROSE 50% IN WATER 50 ML VIAL(D50) IV PRN (21:45)
[2017-06-13 23:08] VITALS: BP 111/67; PULSE 78; RESP 18; O2SAT 98
[2017-06-14] VITALS (16 sets, daily range): BP systolic 99–117; BP diastolic 50–72; PULSE 67–100; RESP 14–19; TEMP 96.7–99.5; O2SAT 16–100
[2017-06-14] MEDS: HYDROmorphone HCL PF 1 MG/ML VIAL IV PUSH PRN ×4 (03:23→21:02)
[2017-06-14 05:30] LABS: MEAN CELL VOLUME 87.7 FL (80.0-100.0); MEAN CORPUSCULAR HEMOGLOBIN 30.3 PG (27.0-34.0); MEAN CORPUSCULAR HGB CONC 34.6 % (32.0-36.0); PLATELET COUNT 83 TH/MM3 (150-450); RED BLOOD COUNT 2.16 MIL/MM3 (4.00-5.30); RED CELL DISTRIBUTION WIDTH 16.6 % (11.6-17.2); WHITE BLOOD COUNT 2.7 TH/MM3 (4.0-11.0)
[2017-06-14 05:32] LABS: HEMO FLAGS AUTO DIFF
[2017-06-14 05:53] LABS: BICARBONATE 27.5 MEQ/L (21.0-32.0); POTASSIUM 3.5 MEQ/L (3.5-5.1)
[2017-06-14 06:22] LABS: BANDS 5 % (0-6); BLASTS 5 % (0-0); CORRECTED NUCLEATED RBC 1 /100 WBC (0-0); EOSINOPHILS 4 % (0-4); MYELOCYTES 4 % (0-0); NEUTROPHIL # MANUAL DIFF 0.9 TH/MM3 (1.8-7.7); POLYS (SEG NEUTROPHILS) 26 % (16-70); WBC DIFF SAMPLE 100
[2017-06-14 06:23] LABS: PLATELET ESTIMATE SMEAR LOW (NORMAL); PLATELET MORPHOLOGY NORMAL (NORMAL); SCAN/DIFF FINAL DIFF MANUAL
[2017-06-14] MEDS: INSULIN ASPART SUPPLEMENTAL SCALE SQ SCH ×4 (08:00→21:10)
[2017-06-14] MEDS: SODIUM CHLORIDE 0.9% FLUSH 10 ML FLUSH IV FLUSH SCH ×2 (09:00→21:00)
[2017-06-14] MEDS: DOCUSATE SODIUM 50 MG/SENNA 8.6 MG TAB PO SCH ×2 (09:00→21:05)
[2017-06-14] MEDS: ESCITALOPRAM OXALATE 10 MG TAB PO SCH (09:56)
[2017-06-14] MEDS: GABAPENTIN 300 MG CAP PO SCH ×3 (09:56→18:12)
[2017-06-14] MEDS: CEFEPIME INJ 1,000 MG in SODIUM CHLORIDE 0.9% INJ 100 ML IV SCH ×2 (09:56→21:05)
[2017-06-14] MEDS: PANTOPRAZOLE SOD 40 MG DELAYED RELEASE TAB PO SCH (09:56)
[2017-06-14] MEDS ORDERED: diphenhydrAMINE HCL 25 MG CAP PO PRN (10:15)
[2017-06-14] MEDS: predniSONE 20 MG TAB PO SCH ×2 (11:31→21:04)
--- NOTE | 2017-06-14 14:45 | HHI.PR ---
Subjective Remarks Patient is still has painful masses in her legs. It is causing difficulty in walking No shortness of breath Feeling weak and tired Review of system for 12 point system otherwise unremarkable Objective Objective Results - Vital Signs Date Time Temp Pulse Resp B/P (MAP) Pulse Ox O2 Delivery O2 Flow Rate FiO2 06/14/17 12:00 98.3 72 14 104/60 (75) 99 06/14/17 11:35 98.4 89 14 102/52 99 06/14/17 11:13 97.6 100 102/62 16 06/14/17 08:00 98.3 81 14 104/56 (72) 100 06/14/17 07:15 97.9 79 16 104/64 (77) 100 06/14/17 04:00 97.0 06/14/17 04:00 82 06/14/17 03:15 97.6 83 18 106/65 99 06/14/17 02:25 75 06/14/17 00:55 97.5 79 18 101/57 100 06/14/17 00:30 99.1 96 17 99/61 95 06/14/17 00:00 98.2 88 19 113/59 (77) 100 06/13/17 23:08 78 18 111/67 (82) 98 Room Air 06/13/17 23:07 06/13/17 21:40 98.0 78 16 117/78 99 06/13/17 21:00 98.3 96 18 115/57 100 06/13/17 19:20 86 16 106/51 (69) 100 Room Air 06/13/17 16:24 89 18 130/68 (88) 99 Room Air 06/13/17 15:27 22 100 Room Air 06/13/17 15:15 98.5 98 22 131/63 (85) 100 I/O 06/13/17 06/13/17 06/13/17 06/14/17 06/14/17 06/14/17 07:00 15:00 23:00 07:00 15:00 23:00 Intake Total 2340 ml 1360 ml 476 ml Output Total 350 ml Balance 2340 ml 1010 ml 476 ml Intake Oral 120 ml 240 ml 476 ml IV Total 2200 ml Packed Cells 1120 ml Blood Product IV Normal Saline Flush 20 ml Output Urine Total 350 ml # Voids 1 2 # Bowel Movements 1 Result Diagram: 9/16/17 0450 06/14/17 [address] Angiography 06/13/17 1707 Signed Impressions: Service Date/Time: Tuesday, June 13, 2017 18:13 - CONCLUSION: 1. No pulmonary embolus. 2. A right midlung pulmonary nodule seen on series 3 a 2 image 48 is larger in the interim. Otherwise, previously seen scattered vague nodular opacities of both lungs are smaller and less distinct in the interim. 3. Irregular area of low-attenuation seen in the visualized spleen and not convincingly present previously. This may represent an area of splenic infarction. Bakari Paz MD Lower Extremity Ultrasound 06/13/17 1644 Signed Impressions: Service Date/Time: Tuesday, June 13, 2017 17:16 - CONCLUSION: 1. No DVT identified. 2. 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 Kolton Felix MD Chest X-Ray 06/13/17 1541 Signed Impressions: Service Date/Time: Tuesday, June 13, 2017 16:00 - CONCLUSION: 1. No acute cardiopulmonary findings. Kolton Felix MD Other Results Laboratory Tests Test 06/13/17 16:10 06/13/17 16:25 06/14/17 04:50 06/14/17 07:45 White Blood Count 2.8 2.7 Red Blood Count 1.95 2.16 Hemoglobin 5.8 6.6 Hematocrit 17.5 19.0 Mean Corpuscular Volume 89.6 87.7 Mean Corpuscular Hemoglobin 29.7 30.3 Mean Corpuscular Hemoglobin Concent 33.2 34.6 Red Cell Distribution Width 19.7 16.6 Platelet Count 103 83 Mean Platelet Volume 7.8 7.8 CBC Comment AUTO DIFF AUTO DIFF Differential Total Cells Counted 100 100 Neutrophils % (Manual) 29 26 Band Neutrophils % 7 5 Lymphocytes % 39 41 Monocytes % 13 15 Eosinophils % 1 4 Basophils % 1 Neutrophils # (Manual) 1.1 0.9 Metamyelocytes 4 Nucleated Red Blood Cells 2 1 Differential Comment FINAL DIFF MANUAL FINAL DIFF MANUAL Blastocytes 6 5 Platelet Estimate LOW LOW Platelet Morphology Comment NORMAL NORMAL Ovalocytes 1+ Keratocytes OCC Prothrombin Time 12.2 Prothromb Time International Ratio 1.1 Activated Partial Thromboplast Time 27.3 Blood Urea Nitrogen 19 20 Creatinine 1.11 1.08 Random Glucose 147 162 Total Protein 6.6 Albumin 2.8 Calcium Level 9.1 8.4 Alkaline Phosphatase 67 Aspartate Amino Transf (AST/SGOT) 9 Alanine Aminotransferase (ALT/SGPT) 11 Total Bilirubin 2.3 Sodium Level 135 139 Potassium Level 3.4 3.5 Chloride Level 101 104 Carbon Dioxide Level 25.4 27.5 Anion Gap 9 8 Estimat Glomerular Filtration Rate 52 53 Urine Color DARK-YELLOW Urine Turbidity HAZY Urine pH 5.5 Urine Specific [place] 1.027 Urine Protein 30 Urine Glucose (UA) NEG Urine Ketones 10 Urine Occult Blood NEG Urine Nitrite NEG Urine Bilirubin SMALL Urine Urobilinogen 8.0 Urine Leukocyte Esterase LARGE Urine WBC 19 Urine Squamous Epithelial Cells 7 Urine Hyaline Casts 1 Urine Mucus FEW Microscopic Urinalysis Comment CULTURE INDICATED Myelocytes 4 Magnesium Level 1.7 Date/Time Source Procedure Growth Status 06/13/17 16:25 Urine Clean Catch Urine Culture - Preliminary IMMATURE GROWTH - REINCUBATE Resulted Physical Exam Physical Exam GENERAL: This is a well-nourished, obese female. SKIN: Skin pale, cool and dry. There are soft tissue masses noted to both legs or extremities. Skin overlying masses is dark pigmented, thickened. No exudate, no open areas. HEAD: Atraumatic. Normocephalic. No temporal or scalp tenderness. EYES: Pupils equal round and reactive. Extraocular motions intact. No scleral icterus. Conjunctiva pale. No injection or drainage. ENT: Nose without bleeding, purulent drainage or septal hematoma. Airway patent. NECK: Trachea midline. No JVD or lymphadenopathy. Supple, nontender, no meningeal signs. CARDIOVASCULAR: Regular rate and rhythm soft murmurs, no gallops, no rubs. CHEST: Right upper chest with PAC RESPIRATORY: Clear to auscultation. Breath sounds equal bilaterally. No wheezes , rales, or rhonchi. GASTROINTESTINAL: Abdomen soft, non-tender, nondistended. No hepato-splenomegaly , or palpable masses. No guarding. MUSCULOSKELETAL: Extremities without clubbing, cyanosis. No joint tenderness, effusion, or edema noted. No calf tenderness. Negative Homans sign bilaterally. Bilateral lower extremity with soft tissue masses as described above. Trace pretibial edema. Pedal pulses 2+ bilaterally NEUROLOGICAL: Awake, alert oriented 3. No focal deficits. A/P Assessment and Plan (1) Symptomatic anemia ICD Codes: D64.9 - Anemia, unspecified Status: Acute (2) Dehydration ICD Codes: E86.0 - Dehydration Status: Acute (3) MDS (myelodysplastic syndrome) ICD Codes: D46.9 - Myelodysplastic syndrome, unspecified Status: Acute (4) Endometrial ca ICD Codes: C54.1 - Malignant neoplasm of endometrium Status: Acute (5) Pancytopenia ICD Codes: D61.818 - Other pancytopenia Status: Acute (6) UTI (urinary tract infection) ICD Codes: N39.0 - Urinary tract infection, site not specified Status: Acute (7) Total bilirubin, elevated ICD Codes: R17 - Unspecified jaundice Status: Acute Plan 51-year-old female with history of metastatic endometrial cancer and high-grade myelodysplastic syndrome. Presented with dyspnea with exertion, found with symptomatic anemia. Undergoing chemotherapy Symptomatic anemia, heme negative stools Pancytopenia -Continue with blood transfusion, she will more units of PRBC -Follow CBC in the morning -Hematology has been consulted Metastatic endometrial cancer High-grade myelodysplastic syndrome -Dr. Kurtz has been consulted UTI -Follow urine culture -Continue cefepime 1 g IV every 12 Dehydration Hypokalemia -Continue with IV fluids -Follow BMP in the morning Elevated T bili etiology unclear -Patient may need further imaging studies, will defer to oncology Bilateral leg pain, recent findings of painful soft tissue masses to both legs which apparently are calcification. Complaints of increasing pain and difficulty ambulating -Continue pain management Hx DM, was on Metformin to avoid hyperglycemia but not taking regularly. Blood glucose has stabilized after bariatric surgery Controls through diet -We will check Accu-Cheks before meals and at bedtime with low-dose insulin therapy if needed No SCDs and anticoagulation at this time due to thrombocytopenia Repeat labs in the morning Home medications reviewed, initiated as indicated Plan of care discussed with the patient and registered nurse. Further management of the patient will be dependent on the hospital course Abhinav Willis MD Jun 14, 2017 14:45
[2017-06-14] MEDS ORDERED: FUROSEMIDE 20 MG/2 ML VIAL IV PUSH ONE (15:00)
--- NOTE | 2017-06-14 15:06 | MB ---
cc: ISSAC COPELAND M.D. DATE OF CONSULTATION: 06/14/[address] Willis. REASON FOR CONSULTATION: Oncology consult to render opinion regarding patient with symptomatic anemia and leg pain. HISTORY OF PRESENT ILLNESS The patient very pleasant 51-year-old female with history of metastatic endometrial cancer as well as recent diagnosis of high grade myelodysplastic syndrome, presented to the hospital with complaint of increased shortness of breath, weakness and leg pain. She recently was diagnosed with a relapse metastatic endometrial cancer. She has had multiple treatments of chemotherapy in the past. However, she developed worsening pancytopenia and bone marrow biopsy in February showed high-grade myelodysplastic syndrome. She was started on Vidaza, she just received the third cycle on May 26. She has been receiving packed red blood cell transfusion about every 2 weeks. She started having increased shortness of breath again earlier this week. She has chills but denies any fever. She has dizziness. She also been having pain in her leg for last few months. She has hyperpigmented lesions on her aguirre area which she calls a calcification. It has been hurting more lately. She has decreased appetite has not been eating much or drinking fluids over the last week. She denies any chest pain, palpitations. Denies any significant cough. She has no nausea, vomiting, abdominal pain. Denies any melena or hematochezia. Denies any dysuria, hematuria. PAST MEDICAL HISTORY: 1. Metastatic endometrial cancer 2. High grade myelodysplastic syndrome. 3. Diabetes mellitus. 4. Obesity. 5. Gastroesophageal reflux disease. 6. Peripheral neuropathy 7. Osteoarthritis 8. Depression. PAST SURGICAL HISTORY: 1. Port placement 2. Colonoscopy 3. Hernia repair 4. Upper endoscopy 5. Gastric bypass surgery 6. Resection of right lung tumor 7. Hysterectomy 8. Bilateral salpingo-oophorectomy. 9. Cholecystectomy. 10. Bone marrow biopsy. FAMILY HISTORY Noncontributory. SOCIAL HISTORY No tobacco or alcohol use. ALLERGIES ACETAMINOPHEN CARBOPLATIN <<3:23>> LATEX LORAZEPAM MORPHINE OXYCODONE CURRENT MEDICATIONS Cefepime Lexapro Neurontin Protonix. Quin-Colace. REVIEW OF SYSTEMS CONSTITUTIONAL: Constitutional has increased weakness and has chill she has lost some weight. Eyes: Denies any blurry vision or vision. ENT: No mouth sore voice changes. Cardiovascular: Denies chest pressure, palpitation. RESPIRATORY: As above. GI: Denies any nausea, vomiting, diarrhea, abdominal pain, melena, hematochezia. GENITOURINARY: No dysuria, hematuria. MUSCULOSKELETAL: As above. HEMATOLOGY: Hematology as above. ENDOCRINE: Negative DERMATOLOGY: As above. PSYCHIATRIC: Negative. NEUROLOGIC: Negative. PHYSICAL EXAMINATION VITAL SIGNS: Temperature 98.3, blood pressure 104/56, O2 saturation 100%. IN GENERAL: She is alert, oriented x3 in no acute distress. She is obese. HEAD, EYES, EARS, NOSE, AND THROAT: Atraumatic, cephalic. Pupils equal, round and light. Muscle intact for icterus. Oropharynx dry mucosa. No lesion or thrush. NECK: No thyromegaly. No palpable masses. LYMPHATICS: No palpable cervical, clavicular, axillary or lymph node. CARDIOVASCULAR SYSTEM: Regular S1-S2 normal, no murmurs. LUNGS: Lungs clear to auscultation bilaterally. No wheezing. ABDOMEN: Soft, nontender. I could not palpate liver or spleen. EXTREMITIES: Extremity exam no cyanosis, clubbing. She has 1+ ankle edema. No calf tenderness. She however has hyperpigmented raised lesion in bilateral aguirre area, more prominent on the left side. He has increased warmth and is tender to touch. SKIN: As above. NEUROLOGIC: Nonfocal. LABORATORY: Laboratory data reviewed ASSESSMENT 1. High-grade myelodysplastic syndrome with pancytopenia. She is transfusion dependent. She had a bone marrow biopsy in February which showed high-grade Myelodysplastic syndrome with complex cytogenetic abnormality. She has been getting transfusion about every other week. She just received third cycle of Vidaza May 26. She now presented with worsening cytopenia due to the myelodysplasia as well as recent Vidaza. She has moderate neutropenia but no fever at this time. She is currently receiving packed red blood cells transfusion. Due to her myelodysplasia I do not plan to give her Neupogen at this time. Her bilirubin is slightly elevated and we will proceed with hemolysis workup. 2. Metastatic endometrial cancer. She has been under the care of Dr. Thomason. She was first diagnosed in 2010 treated with carboplatin, Taxol with good response. In 2012 she developed a lung nodule which was resected and showed a metastatic endometrial cancer. She was treated with carboplatin, Taxol again with good response. In March of this year she was found to have progression of disease in the lung. However, she is not a candidate to receive more chemotherapy due to high-grade myelodysplasia and pancytopenia. She was then started on Provera. 3. Diabetes mellitus. Stable. 4. Leg lesion. She stated it started after she received the Vidaza and Provera. They are quite tender and has increased warmth. I am wondering if these are erythema nodosum. She does not appear to have cellulitis at this time. I am going to give her a trial of prednisone. 5. Gastroesophageal reflux disease. 6. Peripheral neuropathy due to previous chemotherapy. 7. Obesity status post gastric bypass surgery. 8. Osteoarthritis, she has chronic joint aches. RECOMMENDATIONS 1. I agree with transfusion to keep her hemoglobin around eight 2. Monitor CBC. 3. We will give her a trial of prednisone. 4. Monitor blood glucose. 5. Hemolysis workup. Thank you Dr. Willis for asking us see this patient. MD LANA Alexis/arnie /10:43 AM /2:27 PM DANA
[2017-06-14 18:15] LABS: RETIC % 1.9 % (0.4-3.0)
[2017-06-14 18:18] LABS: REVIEW FLAG FINAL
[2017-06-15] VITALS (10 sets, daily range): BP systolic 105–131; BP diastolic 57–77; PULSE 62–74; RESP 14–18; TEMP 96.5–98.6; O2SAT 98–100
[2017-06-15] MEDS: SODIUM CHLOR 0.9% 1000 ML INJ 1,000 ML IV SCH (01:38)
[2017-06-15] MEDS: HYDROmorphone HCL PF 1 MG/ML VIAL IV PUSH PRN ×3 (04:25→22:14)
[2017-06-15 04:34] LABS: HEMATOCRIT 24.9 % (35.0-46.0); MEAN CELL VOLUME 86.2 FL (80.0-100.0); MEAN CORPUSCULAR HEMOGLOBIN 29.1 PG (27.0-34.0); MEAN CORPUSCULAR HGB CONC 33.8 % (32.0-36.0); PLATELET COUNT 97 TH/MM3 (150-450); RED BLOOD COUNT 2.89 MIL/MM3 (4.00-5.30); RED CELL DISTRIBUTION WIDTH 18.7 % (11.6-17.2); WHITE BLOOD COUNT 2.5 TH/MM3 (4.0-11.0)
[2017-06-15 04:50] LABS: BICARBONATE 25.7 MEQ/L (21.0-32.0)
[2017-06-15 04:55] LABS: REVIEW FLAG FINAL
[2017-06-15] MEDS: predniSONE 20 MG TAB PO SCH ×2 (08:53→20:49)
[2017-06-15] MEDS: GABAPENTIN 300 MG CAP PO SCH ×3 (08:53→17:21)
[2017-06-15] MEDS: ESCITALOPRAM OXALATE 10 MG TAB PO SCH (08:53)
[2017-06-15] MEDS: PANTOPRAZOLE SOD 40 MG DELAYED RELEASE TAB PO SCH (08:53)
[2017-06-15] MEDS: CEFEPIME INJ 1,000 MG in SODIUM CHLORIDE 0.9% INJ 100 ML IV SCH ×2 (08:54→20:53)
[2017-06-15] MEDS: DOCUSATE SODIUM 50 MG/SENNA 8.6 MG TAB PO SCH ×2 (08:54→20:49)
[2017-06-15] MEDS: SODIUM CHLORIDE 0.9% FLUSH 10 ML FLUSH IV FLUSH SCH ×2 (08:54→20:52)
--- NOTE | 2017-06-15 09:26 | PD.ONC.PN ---
Subjective Subjective Remarks Afebrile overnight. Patient resting in bed in nad. Feeling better today. Dyspnea improved. leg lesions improved. Objective Data Date Time Temp Pulse Resp B/P (MAP) Pulse Ox O2 Delivery O2 Flow Rate FiO2 06/15/17 04:00 62 06/15/17 04:00 96.5 66 17 117/77 (90) 99 06/15/17 00:00 96.6 64 17 105/57 (73) 99 06/15/17 00:00 62 06/14/17 21:05 81 06/14/17 20:00 96.9 75 16 113/69 (84) 98 06/14/17 18:10 96.7 67 16 117/50 99 06/14/17 15:45 99.5 74 16 113/72 99 06/14/17 15:08 98.1 89 16 111/63 99 06/14/17 12:00 98.3 72 14 104/60 (75) 99 06/14/17 11:35 98.4 89 14 102/52 99 06/14/17 11:13 97.6 100 102/62 16 06/15/17 06/15/17 06/15/17 07:00 15:00 23:00 Intake Total 1580 ml Balance 1580 ml Result Diagram: 06/15/17 0410 06/15/17 0410 Laboratory Results Laboratory Tests Test 06/15/17 04:10 White Blood Count 2.5 TH/MM3 Red Blood Count 2.89 MIL/MM3 Hemoglobin 8.4 GM/DL Hematocrit 24.9 % Mean Corpuscular Volume 86.2 FL Mean Corpuscular Hemoglobin 29.1 PG Mean Corpuscular Hemoglobin Concent 33.8 % Red Cell Distribution Width 18.7 % Platelet Count 97 TH/MM3 Mean Platelet Volume 7.7 FL Blood Urea Nitrogen 17 MG/DL Creatinine 1.01 MG/DL Random Glucose 188 MG/DL Calcium Level 8.5 MG/DL Sodium Level 137 MEQ/L Potassium Level 4.0 MEQ/L Chloride Level 105 MEQ/L Carbon Dioxide Level 25.7 MEQ/L Anion Gap 6 MEQ/L Estimat Glomerular Filtration Rate 58 ML/MIN Culture Results Microbiology Date/Time Source Procedure Growth Status 06/13/17 16:25 Urine Clean Catch Urine Culture - Final 50-100,000 CFU/ML MIXED KIARA... Complete Administered Medications Medications (Trade) Dose Ordered Sig/Jasen Route PRN Reason Start Time Stop Time Status Last Admin Dose Admin Sodium Chloride 1,000 ml @ 100 mls/hr Q10H IV 06/13/17 19:38 06/15/17 01:38 Senna/Docusate Sodium (Quin-Colace) 1 tab BID PO 06/13/17 21:00 06/14/17 21:05 Cefepime HCl 1000 mg/Sodium Chloride 100 ml @ 200 mls/hr Q12H IV 06/14/17 09:00 06/15/17 08:54 Hydromorphone HCl (Dilaudid Pf Inj) 0.5 mg Q4H PRN IV PUSH PAIN SCALE 4 TO 7 06/13/17 20:00 06/15/17 04:25 Escitalopram Oxalate (Lexapro) 10 mg DAILY PO 06/14/17 09:00 06/15/17 08:53 Gabapentin (Neurontin) 600 mg TID PO 06/14/17 09:00 06/15/17 08:53 Pantoprazole Sodium (Protonix) 40 mg DAILY PO 06/14/17 09:00 06/15/17 08:53 Insulin Aspart (NovoLOG SUPPLEMENTAL SCALE) 1 ACHS SLIDING SCALE SQ 06/14/17 08:00 06/14/17 21:10 Prednisone (Deltasone) 20 mg BID PO 06/14/17 10:45 06/15/17 08:53 Objective Remarks GENERAL: Pleasant obese female sitting up in bed in [facility]. SKIN: Warm and dry. right chest wall with port in place. HEAD: Normocephalic. EYES: No injection or drainage. NECK: Supple, trachea midline. CARDIOVASCULAR: Regular rate and rhythm RESPIRATORY: Breath sounds equal bilaterally. No accessory muscle use. GASTROINTESTINAL: Abdomen soft, non-tender, nondistended. EXTREMITIES: No cyanosis. NEUROLOGICAL: awake and alert, normal speech. Assessment/Plan Problem List: (1) MDS (myelodysplastic syndrome) ICD Codes: D46.9 - Myelodysplastic syndrome, unspecified Status: Acute Plan: --High-grade myelodysplastic syndrome with pancytopenia. --transfusion dependent. --bone marrow biopsy in February showed high-grade Myelodysplastic syndrome with complex cytogenetic abnormality. --getting transfusion about every other week. --just received third cycle of Vidaza May 26. --now with worsening cytopenia due to the myelodysplasia as well as recent Vidaza. --has moderate neutropenia but no fever at this time. (2) Endometrial ca ICD Codes: C54.1 - Malignant neoplasm of endometrium Status: Acute Plan: --Metastatic endometrial cancer. --first diagnosed in 2010 treated with carboplatin, Taxol with good response. --2012 she developed a lung nodule which was resected and showed a metastatic endometrial cancer. treated with carboplatin, Taxol again with good response. --March of this year she was found to have progression of disease in the lung. --not a candidate to receive more chemotherapy due to high-grade myelodysplasia and pancytopenia. --on Provera. (3) Leg lesion ICD Codes: L98.9 - Disorder of the skin and subcutaneous tissue, unspecified Plan: --stated it started after she received the Vidaza and Provera. ?erythema nodosum. does not appear to have cellulitis at this time. --trial of prednisone appears to be helping. (4) Symptomatic anemia ICD Codes: D64.9 - Anemia, unspecified Status: Acute Plan: -- transfusion to keep her hemoglobin around eight -LDH/haptoglobin WNL making hemolysis less likely --will check bilirubin again today Assessment 51y/o female admitted with symptomatic anemia and leg pain. h/o Metastatic endometrial cancer High grade myelodysplastic syndrome. Diabetes mellitus. Obesity. Gastroesophageal reflux disease. Peripheral neuropathy. Osteoarthritis. Depression. Plan 1. monitor CBC 2. continue prednisone 3. check bilirubin today. Attending Statement The exam, history, and the medical decision-making described in the above note were completed with the assistance of the mid-level provider. I reviewed and agree with the findings presented. I attest that I had a [id number] encounter with the patient on the same day, and personally performed and documented my assessment and findings in the medical record. Feeling better. Leg pain improved. The legs lesions is less warm. No evidence of hemolysis. Continue to monitor CBC. Continue prednisone. Jeanne Mcdonald Jun 15, 2017 09:26 Stiven Pearson MD Jun 15, 2017 11:15
--- NOTE | 2017-06-15 09:40 | HHI.PR ---
Subjective Remarks not as fatigue leg pain better, nodules not as tender has been able to ambulate some no cp no sob no palpitations per RN, 10 beat run of NSVT this morning. Pt. had no complaints at time (Soledad Easley) Objective Objective Results - Vital Signs Date Time Temp Pulse Resp B/P (MAP) Pulse Ox O2 Delivery O2 Flow Rate FiO2 06/15/17 04:00 62 06/15/17 04:00 96.5 66 17 117/77 (90) 99 06/15/17 00:00 96.6 64 17 105/57 (73) 99 06/15/17 00:00 62 06/14/17 21:05 81 06/14/17 20:00 96.9 75 16 113/69 (84) 98 06/14/17 18:10 96.7 67 16 117/50 99 06/14/17 15:45 99.5 74 16 113/72 99 06/14/17 15:08 98.1 89 16 111/63 99 06/14/17 12:00 98.3 72 14 104/60 (75) 99 06/14/17 11:35 98.4 89 14 102/52 99 06/14/17 11:13 97.6 100 102/62 16 I/O 06/14/17 06/14/17 06/14/17 06/15/17 06/15/17 06/15/17 07:00 15:00 23:00 07:00 15:00 23:00 Intake Total 1360 ml 476 ml 1130 ml 1580 ml Output Total 350 ml Balance 1010 ml 476 ml 1130 ml 1580 ml Intake Oral 240 ml 476 ml 480 ml 480 ml IV Total 1100 ml Packed Cells 1120 ml 650 ml Output Urine Total 350 ml # Voids 2 2 2 # Bowel Movements 1 1 (Soledad Easley) Result Diagram: 06/15/1740906/15/[address] Angiography 06/13/17 1707 Signed Impressions: Service Date/Time: Tuesday, June 13, 2017 18:13 - CONCLUSION: 1. No pulmonary embolus. 2. A right midlung pulmonary nodule seen on series 3 a 2 image 48 is larger in the interim. Otherwise, previously seen scattered vague nodular opacities of both lungs are smaller and less distinct in the interim. 3. Irregular area of low-attenuation seen in the visualized spleen and not convincingly present previously. This may represent an area of splenic infarction. Bakari Paz MD Lower Extremity Ultrasound 06/13/17 1644 Signed Impressions: Service Date/Time: Tuesday, June 13, 2017 17:16 - CONCLUSION: 1. No DVT identified. 2. 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 Kolton Felix MD Chest X-Ray 06/13/17 1541 Signed Impressions: Service Date/Time: Tuesday, June 13, 2017 16:00 - CONCLUSION: 1. No acute cardiopulmonary findings. Kolton Felix MD Other Results Laboratory Tests Test 06/15/17 04:10 White Blood Count 2.5 Red Blood Count 2.89 Hemoglobin 8.4 Hematocrit 24.9 Mean Corpuscular Volume 86.2 Mean Corpuscular Hemoglobin 29.1 Mean Corpuscular Hemoglobin Concent 33.8 Red Cell Distribution Width 18.7 Platelet Count 97 Mean Platelet Volume 7.7 Blood Urea Nitrogen 17 Creatinine 1.01 Random Glucose 188 Calcium Level 8.5 Sodium Level 137 Potassium Level 4.0 Chloride Level 105 Carbon Dioxide Level 25.7 Anion Gap 6 Estimat Glomerular Filtration Rate 58 Date/Time Source Procedure Growth Status 06/13/17 16:25 Urine Clean Catch Urine Culture - Final 50-100,000 CFU/ML MIXED KIARA... 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 SKIN: Skin pale, cool and dry. There are soft tissue masses noted to both legs or extremities. Skin overlying masses is dark pigmented, thickened. No exudate, no open areas. HEAD: Atraumatic. Normocephalic. No temporal or scalp tenderness. EYES: Pupils equal round and reactive. Extraocular motions intact. No scleral icterus. Conjunctiva pale. No injection or drainage. ENT: Nose without bleeding, purulent drainage or septal hematoma. Throat without erythema, tonsillar hypertrophy or exudate. Uvula midline. Airway patent. NECK: Trachea midline. No JVD or lymphadenopathy. Supple, nontender, no meningeal signs. CARDIOVASCULAR: Regular rate and rhythm soft murmurs, no gallops, no rubs. CHEST: Right upper chest with PAC RESPIRATORY: Clear to auscultation. Breath sounds equal bilaterally. No wheezes , rales, or rhonchi. GASTROINTESTINAL: Abdomen soft, non-tender, nondistended. No hepato-splenomegaly , or palpable masses. No guarding. MUSCULOSKELETAL: Extremities without clubbing, cyanosis. No joint tenderness, effusion, or edema noted. No calf tenderness. Negative Homans sign bilaterally. Bilateral lower extremity with soft tissue masses as described above. Trace pretibial edema. Pedal pulses 2+ bilaterally NEUROLOGICAL: Awake, alert oriented 3. No focal deficits. (Soledad Easley) Urinary Catheter: No (Soledad Easley) Vascular Central Line Catheter: No (Soledad Easley) A/P Diagnosis: (1) Symptomatic anemia ICD Codes: D64.9 - Anemia, unspecified Status: Acute (2) Dehydration ICD Codes: E86.0 - Dehydration Status: Acute (3) MDS (myelodysplastic syndrome) ICD Codes: D46.9 - Myelodysplastic syndrome, unspecified Status: Acute (4) Endometrial ca ICD Codes: C54.1 - Malignant neoplasm of endometrium Status: Acute (5) Pancytopenia ICD Codes: D61.818 - Other pancytopenia Status: Acute (6) UTI (urinary tract infection) ICD Codes: N39.0 - Urinary tract infection, site not specified Status: Acute (7) Total bilirubin, elevated ICD Codes: R17 - Unspecified jaundice Status: Acute Assessment and Plan 51-year-old female with history of metastatic endometrial cancer and high-grade myelodysplastic syndrome. Presented with dyspnea with exertion, found with symptomatic anemia. Undergoing chemotherapy Symptomatic anemia, heme negative stools Pancytopenia -s/p 4 units PRBC -Hemoglobin improved 8.4, hematocrit 24.9 -heme input appreciated Metastatic endometrial cancer High-grade myelodysplastic syndrome - evaluated pt. input appreciated -Resume Provera UTI -Follow urine culture-mixed gram-positive. Likely contaminant -Continue cefepime 1 g IV every 12 Dehydration Hypokalemia -Improve -Discontinue IV fluids Elevated T bili etiology unclear -T bili back to normal Bilateral leg pain, recent findings of painful soft tissue masses to both legs which apparently are calcification. Complaints of increasing pain and difficulty ambulating -Continue pain management -?erythema nodosum per oncology. Started on PO steroids, feeling better. Hx DM, was on Metformin to avoid hyperglycemia but not taking regularly. Blood glucose has stabilized after bariatric surgery Controls through diet -continue check Accu-Cheks before meals and at bedtime with low-dose insulin therapy if needed Nonsustained VT, had a second episode today, 11 beats Patient asymptomatic -We'll obtain 2-D echo -Stat mag level -Continue with telemetry monitoring -Consult cardiology for evaluation -We'll not start any beta blockers, blood pressure is marginal 100. Heart rate at time between 50 and 60 PT for OOB No SCDs and anticoagulation at this time due to thrombocytopenia Consult case management for discharge planning, patient will need assistance at home. Home health care possibly home health aides. Labs in am poss dc tomorrow if stable Discussed with patient Discussed with RN Discussed with Dr. Willis This patient was seen by myself and Dr. Willis, this note is written on his behalf (Soledad Easley) Assessment and Plan Patient seen and examined as above Cardiac rhythm strips reviewed Labs reviewed Medications reviewed Discussed with RN Agree with the above plan of care including cardiology consult Plan of care was discussed with BUTTER PRINTER (Abhinav Willis MD) Problem Qualifiers (1) UTI (urinary tract infection): Qualified Codes: N39.0 - Urinary tract infection, site not specified Soledad Easley Jun 15, 2017 09:40 Abhinav Willis MD Jun 15, 2017 12:07
[2017-06-15 10:04] LABS: INDIRECT BILIRUBIN 0.6 MG/DL (0.0-0.8)
[2017-06-15] MEDS: INSULIN ASPART SUPPLEMENTAL SCALE SQ SCH ×4 (10:56→20:49)
--- NOTE | 2017-06-15 12:38 | MB ---
cc: ASHLEY LOCKE M.D., RENA M. M.D. TIM MCKEON,JAWRL DATE OF CONSULTATION: 06/15/2017. I have reviewed the hospital records and spoken with the patient. She is a very pleasant, unfortunate 51-year-old white woman I am seeing for arrhythmia. The patient has no definite cardiac history except for being told of a heart murmur. 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 The patient more recently has had mild dyspnea on exertion and generalized fatigue. She has been admitted where she was found to be severely pancytopenic. The patient denies chest pain, palpitations or syncope or edema. Her EKG x2 have shown sinus rhythm with first-degree AV block and right bundle-branch block. The right bundle-branch block was noted earlier this year. She was noted to have to short episodes of wide complex arrhythmia. One of these was regular and had a very similar morphology to her baseline and the other had a different morphology but was completely irregular. PAST MEDICAL HISTORY: 1. Diabetes -- she denies hypertension or hyperlipidemia. 2. Obesity. 3. Pancytopenia. 4. Stage IV endometrial carcinoma. 5. Gastric bypass surgery. 6. Prior obstructive sleep apnea. 7. Mild COPD. 8. High grade myelodysplastic syndrome. 9. Hysterectomy. 10. Cholecystectomy. 11. Right middle lobe wedge resection and right lower lobe segmentectomy for metastatic endometrial CA. 12. Esophageal dilatation. ALLERGIES: 1. MORPHINE. 2. CARBOPLATIN. 3. TORADOL. 4. LATEX. 5. ACETAMINOPHEN. 6. OXYCODONE. MEDICATIONS: Medication list reviewed. SOCIAL HISTORY: She is single and does not smoke or drink. FAMILY HISTORY: Noncontributory. REVIEW OF SYSTEMS: Remarkable for the above along with some weight loss. She does have pain in her legs from calcium deposits. She also notes very mild bruising. EKGS: EKG is as above. IMAGING STUDIES: Chest x-ray shows no acute disease. Lower extremity ultrasound shows no DVT with large Woodard's cyst on the right side. CT angiogram shows no pulmonary embolus. There is a right mid lung nodule which is larger and may be an area of splenic infarct. PHYSICAL EXAMINATION: GENERAL: On exam, she is alert and oriented times three and resting comfortably. She is overweight. VITAL SIGNS: Afebrile. The vital signs are stable. SKIN: There are no xanthelasma and oropharyngeal mucosa normal. CHEST: Clear. CARDIOVASCULAR: JVD normal. S1, S2 with a 2/6 early peaking systolic ejection murmur at the base. ABDOMEN: Benign. EXTREMITIES: No cyanosis, clubbing or edema. PULSES: 1 to 2+ throughout without bruits. NEUROLOGIC: She was not ambulated. LAB WORK: Initial hemoglobin was 5.8 and hematocrit 17.5. Today her hematocrit is 24.9. She does feel better. Platelet count is 97,000. PT and PTT normal. Potassium 4.0. Creatinine 1.01. Magnesium 1.7. Liver functions normal. Albumin depressed at 2.4. Urinalysis positive for leukocyte esterase with mixed chiki on culture. PROBLEMS: 1. Arrhythmia - It is unclear whether this is atrial or ventricular, particularly with her underlying bundle branch block. The episodes were nonsustained and I would not treat these specifically. I have discussed this with Dr. Pearson and Dr. Willis. 2. Diabetic diet. 3. Treatment of underlying urinary tract infection. 4. Risk factor modification per primary service. 5. Echocardiogram to assess ventricular and valvular function. 6. Heart murmur - this most likely represents some aortic valve disease, which could be exacerbated by her heart murmur and high flow. The patient's overall prognosis is poor. She is certainly not a candidate for anything other than conservative cardiac management. I will be available on an as-needed basis. All questions were answered. MD ARSH Austin/TRUDY /11:35 AM /12:23 PM
--- NOTE | 2017-06-15 12:39 | EKG ---
Date Performed: 06/15/2017 Time Performed: 11:14:42 PTAGE: 51 years EKG: Sinus rhythm WITH FIRST DEGREE AV BLOCK RIGHT BUNDLE BRANCH BLOCK ABNORMAL ECG PREVIOUS TRACING : 06/13/2017 18.50 No significant change from previous tracing noted. DOCTOR: William Cyr Interpretating Date/Time 06/15/2017 12:39:01
--- NOTE | 2017-06-15 15:38 | ECHRPT ---
Indication: CARDIOMYOPATHY CONCLUSIONS Normal left ventricular size. The left ventricular systolic function is grossly normal on limited imaging. Wall thickness is measured at the upper limits of normal. Trace mitral valve regurgitation. The aortic valve is not well visualized. Aortic valve sclerosis is present. No aortic valve stenosis. No aortic valve regurgitation. There is mild tricuspid valve regurgitation. Normal estimated pulmonary pressures. BP: 117 / 64 HR: 63 Rhythm: Sinus MEASUREMENTS (Male / Female) Normal Values Technical Quality:Fair 2D ECHO LV Diastolic Diameter PLAX 5.0 cm 4.2 - 5.9 / 3.9 - 5.3 cm LV Systolic Diameter PLAX 3.3 cm IVS Diastolic Thickness 1.0 cm 0.6 - 1.0 / 0.6 - 0.9 cm LVPW Diastolic Thickness 1.0 cm 0.6 - 1.0 / 0.6 - 0.9 cm LV Relative Wall Thickness 0.4 LVOT Diameter 2.0 cm Aortic Root Diameter 2.5 cm LA Systolic Diameter LX 2.2 cm 3.0 - 4.0 / 2.7 - 3.8 cm M-MODE AV Cusp Separation MM 2.2 cm DOPPLER AV Peak Velocity 210.0 cm/s AV Peak Gradient 17.6 mmHg AV Mean Gradient 9.0 mmHg AV Velocity Time Integral 46.4 cm LVOT Peak Velocity 124.0 cm/s LVOT Peak Gradient 6.2 mmHg LVOT Velocity Time Integral 25.1 cm LVOT Cardiac Index 2149.8 cm/minm AV Area Cont Eq vti 1.7 cm AV Area Cont Eq pk 1.9 cm Mitral E Point Velocity 125.0 cm/s Mitral A Point Velocity 88.8 cm/s Mitral E to A Ratio 1.4 LV E' Lateral Velocity 12.5 cm/s Mitral E to LV E' Lateral Ratio 10.0 LV E' Septal Velocity 9.2 cm/s Mitral E to LV E' Septal Ratio 13.6 TR Peak Velocity 235.0 cm/s TR Peak Gradient 22.1 mmHg PV Peak Velocity 79.0 cm/s PV Peak Gradient 2.5 mmHg FINDINGS LEFT VENTRICLE Normal left ventricular size. The left ventricular systolic function is grossly normal on limited imaging. Left ventricular diastolic function parameters are normal. Wall thickness is measured at the upper limits of normal. RIGHT VENTRICLE Normal right ventricular size and systolic function. LEFT ATRIUM The left atrial size is normal. RIGHT ATRIUM The right atrial size is normal. ATRIAL SEPTUM Normal atrial septal thickness without atrial level shunting by limited color doppler interrogation. AORTA The aortic root and proximal ascending aorta are normal in size on limited imaging. MITRAL VALVE Structurally normal mitral valve. Trace mitral valve regurgitation. AORTIC VALVE The aortic valve is not well visualized. Aortic valve sclerosis is present. No aortic valve stenosis. No aortic valve regurgitation. TRICUSPID VALVE Structurally normal tricuspid valve. There is mild tricuspid valve regurgitation. Normal estimated pulmonary pressures. PULMONARY VALVE No pulmonary valve regurgitation or stenosis. VESSELS The inferior vena cava is normal in size. PERICARDIUM No pericardial effusion. Mayur Luque MD (Electronically Signed) Final Date:15 June 2017 15:37
[2017-06-15] MEDS: SODIUM CHLORIDE 0.9% FLUSH 10 ML FLUSH IV FLUSH PRN ×2 (22:15)
[2017-06-16] VITALS (11 sets, daily range): BP systolic 105–119; BP diastolic 55–66; PULSE 52–75; RESP 17–20; TEMP 96.2–97.6; O2SAT 98–100
[2017-06-16] MEDS: SODIUM CHLORIDE 0.9% FLUSH 10 ML FLUSH IV FLUSH PRN ×4 (03:50→22:00)
[2017-06-16 04:24] LABS: HEMATOCRIT 26.3 % (35.0-46.0); MEAN CORPUSCULAR HGB CONC 33.3 % (32.0-36.0); PLATELET COUNT 108 TH/MM3 (150-450); RED BLOOD COUNT 3.02 MIL/MM3 (4.00-5.30); RED CELL DISTRIBUTION WIDTH 18.9 % (11.6-17.2); WHITE BLOOD COUNT 2.8 TH/MM3 (4.0-11.0)
[2017-06-16 04:27] LABS: HEMO FLAGS AUTO DIFF
[2017-06-16 04:47] LABS: BICARBONATE 25.2 MEQ/L (21.0-32.0); POTASSIUM 4.3 MEQ/L (3.5-5.1)
[2017-06-16 05:35] LABS: BANDS 3 % (0-6); EOSINOPHILS 1 % (0-4); METAMYELOCYTES 7 % (0-1); MYELOCYTES 1 % (0-0); NEUTROPHIL # MANUAL DIFF 1.1 TH/MM3 (1.8-7.7); POLYS (SEG NEUTROPHILS) 30 % (16-70); WBC DIFF SAMPLE 100
[2017-06-16 05:36] LABS: OVALOCYTES 1+ (NORMAL); PLATELET ESTIMATE SMEAR LOW (NORMAL); PLATELET MORPHOLOGY NORMAL (NORMAL); SCAN/DIFF AUTO DIFF CONFIRMED
[2017-06-16] MEDS: HYDROmorphone HCL PF 1 MG/ML VIAL IV PUSH PRN ×4 (06:08→20:52)
--- NOTE | 2017-06-16 07:34 | PD.CARD.PN ---
Subjective Subjective Remarks The patient denies chest pain, shortness of breath, palpitations, GI symptoms or bleeding. Telemetry reveals sinus rhythm. Echocardiogram shows normal LV function with aortic sclerosis. Objective Medications Reviewed Vital Signs / I&O Vital Signs Date Time Temp Pulse Resp B/P (MAP) Pulse Ox O2 Delivery O2 Flow Rate FiO2 06/16/17 04:00 96.5 65 18 112/66 (81) 98 06/16/17 04:00 62 06/16/17 00:02 64 06/16/17 00:00 97.2 62 18 105/64 (78) 100 06/15/17 20:15 74 06/15/17 20:00 96.7 74 17 114/71 (85) 100 06/15/17 16:00 98.6 66 18 131/71 (91) 100 06/15/17 15:16 67 06/15/17 12:17 65 06/15/17 12:00 98.6 67 16 113/62 (79) 98 06/15/17 09:50 69 06/15/17 08:00 98.1 63 14 117/64 (81) 100 I/O 06/15/17 06/15/17 06/15/17 06/16/17 06/16/17 06/16/17 07:00 15:00 23:00 07:00 15:00 23:00 Intake Total 1580 ml 1690 ml 595 ml 240 ml Output Total 1150 ml Balance 1580 ml 1690 ml 595 ml -910 ml Intake Oral 480 ml 590 ml 360 ml 240 ml IV Total 1100 ml 1100 ml 235 ml Output Urine Total 1150 ml # Voids 2 2 2 # Bowel Movements 1 Physical Exam GENERAL: Overweight ,well-nourished, well-developed patient in no apparent distress. SKIN: Warm and dry. NECK: JVD normal - less than or equal to 5 cm H20. CARDIOVASCULAR: Regular rate and rhythm without gallops, or rubs. 2/6 early peaking systolic ejection murmur at the base. RESPIRATORY: Normal breath sounds - equal bilaterally. No accessory muscle use. No wheezes, rales or rubs. PERIPHERY: No cyanosis, or edema. Laboratory Laboratory Tests Test 06/15/17 12:33 06/16/17 03:45 Magnesium Level 1.7 MG/DL White Blood Count 2.8 TH/MM3 Red Blood Count 3.02 MIL/MM3 Hemoglobin 8.8 GM/DL Hematocrit 26.3 % Mean Corpuscular Volume 87.0 FL Mean Corpuscular Hemoglobin 29.0 PG Mean Corpuscular Hemoglobin Concent 33.3 % Red Cell Distribution Width 18.9 % Platelet Count 108 TH/MM3 Mean Platelet Volume 8.3 FL CBC Comment AUTO DIFF Differential Total Cells Counted 100 Neutrophils % (Manual) 30 % Band Neutrophils % 3 % Lymphocytes % 49 % Monocytes % 9 % Eosinophils % 1 % Neutrophils # (Manual) 1.1 TH/MM3 Metamyelocytes 7 % Myelocytes 1 % Differential Comment AUTO DIFF CONFIRMED Platelet Estimate LOW Platelet Morphology Comment NORMAL Ovalocytes 1+ Blood Urea Nitrogen 17 MG/DL Creatinine 1.00 MG/DL Random Glucose 257 MG/DL Calcium Level 8.4 MG/DL Sodium Level 137 MEQ/L Potassium Level 4.3 MEQ/L Chloride Level 105 MEQ/L Carbon Dioxide Level 25.2 MEQ/L Anion Gap 7 MEQ/L Estimat Glomerular Filtration Rate 58 ML/MIN TSH level has been normal in the past. Imaging Reviewed Assessment and Plan Assessment and Plan Problems: Arrhythmia-short, nonsustained ventricular tachycardia versus atrial with aberrancy. No recurrence. Right bundle branch block Heart murmur with aortic sclerosis Diabetes Severe myelodysplasia with pancytopenia Metastatic endometrial CA Recommendations: No treatment for arrhythmia as this most likely was exacerbated by her other issues. Low-cholesterol/salt/diabetic diet I have given the patient my card and I will see her in 3-4 weeks in the office. All questions have been answered. I will be available if needed. Mayur Luque MD Jun 16, 2017 07:34
[2017-06-16] MEDS: DOCUSATE SODIUM 50 MG/SENNA 8.6 MG TAB PO SCH ×2 (08:08→21:00)
[2017-06-16] MEDS: PANTOPRAZOLE SOD 40 MG DELAYED RELEASE TAB PO SCH (08:08)
[2017-06-16] MEDS: SODIUM CHLORIDE 0.9% FLUSH 10 ML FLUSH IV FLUSH SCH ×2 (08:08→21:01)
[2017-06-16] MEDS: CEFEPIME INJ 1,000 MG in SODIUM CHLORIDE 0.9% INJ 100 ML IV SCH ×2 (08:08→21:01)
[2017-06-16] MEDS: GABAPENTIN 300 MG CAP PO SCH ×3 (08:08→17:10)
[2017-06-16] MEDS: predniSONE 20 MG TAB PO SCH ×2 (08:08→21:00)
[2017-06-16] MEDS: ESCITALOPRAM OXALATE 10 MG TAB PO SCH (08:08)
[2017-06-16] MEDS: INSULIN ASPART SUPPLEMENTAL SCALE SQ SCH ×4 (08:16→21:58)
--- NOTE | 2017-06-16 10:48 | PD.ONC.PN ---
Subjective Subjective Remarks Afebrile overnight. patient resting in bed in nad. continuing to have pain in her leg lesions. difficulty walking d/t the pain. breathing improved. Objective Data Date Time Temp Pulse Resp B/P (MAP) Pulse Ox O2 Delivery O2 Flow Rate FiO2 06/16/17 08:00 96.2 55 20 111/58 (75) 100 06/16/17 04:00 96.5 65 18 112/66 (81) 98 06/16/17 04:00 62 06/16/17 00:02 64 06/16/17 00:00 97.2 62 18 105/64 (78) 100 06/15/17 20:15 74 06/15/17 20:00 96.7 74 17 114/71 (85) 100 06/15/17 16:00 98.6 66 18 131/71 (91) 100 06/15/17 15:16 67 06/15/17 12:17 65 06/15/17 12:00 98.6 67 16 113/62 (79) 98 06/16/17 06/16/17 06/16/17 07:00 15:00 23:00 Intake Total 240 ml Output Total 1150 ml Balance -910 ml Result Diagram: 06/16/17 0345 06/16/17 0345 Laboratory Results Laboratory Tests Test 06/15/17 12:33 06/16/17 03:45 Magnesium Level 1.7 MG/DL White Blood Count 2.8 TH/MM3 Red Blood Count 3.02 MIL/MM3 Hemoglobin 8.8 GM/DL Hematocrit 26.3 % Mean Corpuscular Volume 87.0 FL Mean Corpuscular Hemoglobin 29.0 PG Mean Corpuscular Hemoglobin Concent 33.3 % Red Cell Distribution Width 18.9 % Platelet Count 108 TH/MM3 Mean Platelet Volume 8.3 FL CBC Comment AUTO DIFF Differential Total Cells Counted 100 Neutrophils % (Manual) 30 % Band Neutrophils % 3 % Lymphocytes % 49 % Monocytes % 9 % Eosinophils % 1 % Neutrophils # (Manual) 1.1 TH/MM3 Metamyelocytes 7 % Myelocytes 1 % Differential Comment AUTO DIFF CONFIRMED Platelet Estimate LOW Platelet Morphology Comment NORMAL Ovalocytes 1+ Blood Urea Nitrogen 17 MG/DL Creatinine 1.00 MG/DL Random Glucose 257 MG/DL Calcium Level 8.4 MG/DL Sodium Level 137 MEQ/L Potassium Level 4.3 MEQ/L Chloride Level 105 MEQ/L Carbon Dioxide Level 25.2 MEQ/L Anion Gap 7 MEQ/L Estimat Glomerular Filtration Rate 58 ML/MIN Culture Results Microbiology Date/Time Source Procedure Growth Status 06/13/17 16:25 Urine Clean Catch Urine Culture - Final 50-100,000 CFU/ML MIXED KIARA... Complete Administered Medications Medications (Trade) Dose Ordered Sig/Jasen Route PRN Reason Start Time Stop Time Status Last Admin Dose Admin Sodium Chloride (NS Flush) 2 ml UNSCH PRN IV FLUSH FLUSH AFTER USING IV ACCESS 06/13/17 19:45 06/16/17 06:09 Sodium Chloride (NS Flush) 2 ml BID IV FLUSH 06/13/17 21:00 06/16/17 08:08 Senna/Docusate Sodium (Quin-Colace) 1 tab BID PO 06/13/17 21:00 06/16/17 08:08 Cefepime HCl 1000 mg/Sodium Chloride 100 ml @ 200 mls/hr Q12H IV 06/14/17 09:00 06/16/17 08:08 Hydromorphone HCl (Dilaudid Pf Inj) 0.5 mg Q4H PRN IV PUSH PAIN SCALE 4 TO 7 06/13/17 20:00 06/16/17 10:27 Escitalopram Oxalate (Lexapro) 10 mg DAILY PO 06/14/17 09:00 06/16/17 08:08 Gabapentin (Neurontin) 600 mg TID PO 06/14/17 09:00 06/16/17 08:08 Pantoprazole Sodium (Protonix) 40 mg DAILY PO 06/14/17 09:00 06/16/17 08:08 Insulin Aspart (NovoLOG SUPPLEMENTAL SCALE) 1 ACHS SLIDING SCALE SQ 06/14/17 08:00 06/16/17 08:16 Prednisone (Deltasone) 20 mg BID PO 06/14/17 10:45 06/16/17 08:08 Medroxyprogesterone Acetate (Provera) 2.5 mg DAILY PO 06/16/17 09:00 06/16/17 08:08 Sodium Chloride (NS Flush) 5 ml UNSCH PRN IV FLUSH SEE PROTOCOL TABLE 06/16/17 00:30 06/16/17 06:08 Heparin Sodium (Porcine) (Heparin Central Flush) 250 units UNSCH PRN IV FLUSH SEE PROTOCOL TABLE 06/16/17 00:30 06/16/17 06:08 Objective Remarks GENERAL: Pleasant female upright in bed in nad. SKIN: Warm and dry. right chest wall port in place. HEAD: Normocephalic. EYES: No injection or drainage. NECK: Supple, trachea midline. CARDIOVASCULAR: Regular rate and rhythm RESPIRATORY: Breath sounds equal bilaterally. No accessory muscle use. GASTROINTESTINAL: Abdomen soft, non-tender, nondistended. EXTREMITIES: No cyanosis. multiple hyperpigmented lesions on legs. NEUROLOGICAL: awake and alert, normal speech. moving all extremities Assessment/Plan Problem List: (1) Leg lesion ICD Codes: L98.9 - Disorder of the skin and subcutaneous tissue, unspecified Plan: 06/16: consult general surgery for punch biopsy. continue prednisone. --stated it started after she received the Vidaza and Provera. ?erythema nodosum. does not appear to have cellulitis at this time. --trial of prednisone appears to be helping. 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 --bone marrow biopsy in February showed high-grade Myelodysplastic syndrome with complex cytogenetic abnormality. --getting transfusion about every other week. --just received third cycle of Vidaza May 26. --now with worsening cytopenia due to the myelodysplasia as well as recent Vidaza. --has moderate neutropenia but no fever at this time. (4) Endometrial ca ICD Codes: C54.1 - Malignant neoplasm of endometrium Status: Acute Plan: --Metastatic endometrial cancer. --first diagnosed in 2010 treated with carboplatin, Taxol with good response. --2012 she developed a lung nodule which was resected and showed a metastatic endometrial cancer. treated with carboplatin, Taxol again with good response. --March of this year she was found to have progression of disease in the lung. --not a candidate to receive more chemotherapy due to high-grade myelodysplasia and pancytopenia. --on Provera. Assessment 51y/o female admitted with symptomatic anemia and leg pain. h/o Metastatic endometrial cancer High grade myelodysplastic syndrome. Diabetes mellitus. Obesity. Gastroesophageal reflux disease. Peripheral neuropathy. Osteoarthritis. Depression. Attending Statement c/o severe pain and swelling lower legs. can not walk due to pain. on steroid for possible erythema nodosum. consult GS for bx the lesion. no TX today. The exam, history, and the medical decision-making described in the above note were completed with the assistance of the mid-level provider. I reviewed and agree with the findings presented. I attest that I had a [id number] encounter with the patient on the same day, and personally performed and documented my assessment and findings in the medical record. Jeanne Mcdonald Jun 16, 2017 10:48 Pam Kurtz MD Jun 16, 2017 15:55
--- NOTE | 2017-06-16 10:54 | HHI.PR ---
Subjective Remarks Dozing off and on but responds readily to verbal stimuli Talkative, States pain management is controlled, but tries not to ask for meds anymore than she needs them Considering pain management in the future, seems to be more uncontrolled at home Objective Objective Results - Vital Signs Date Time Temp Pulse Resp B/P (MAP) Pulse Ox O2 Delivery O2 Flow Rate FiO2 06/16/17 08:00 96.2 55 20 111/58 (75) 100 06/16/17 04:00 96.5 65 18 112/66 (81) 98 06/16/17 04:00 62 06/16/17 00:02 64 06/16/17 00:00 97.2 62 18 105/64 (78) 100 06/15/17 20:15 74 06/15/17 20:00 96.7 74 17 114/71 (85) 100 06/15/17 16:00 98.6 66 18 131/71 (91) 100 06/15/17 15:16 67 06/15/17 12:17 65 06/15/17 12:00 98.6 67 16 113/62 (79) 98 I/O 06/15/17 06/15/17 06/15/17 06/16/17 06/16/17 06/16/17 07:00 15:00 23:00 07:00 15:00 23:00 Intake Total 1580 ml 1690 ml 595 ml 240 ml Output Total 1150 ml Balance 1580 ml 1690 ml 595 ml -910 ml Intake Oral 480 ml 590 ml 360 ml 240 ml IV Total 1100 ml 1100 ml 235 ml Output Urine Total 1150 ml # Voids 2 2 2 # Bowel Movements 1 Result Diagram: 06/16/17 0345 06/16/17 0345 ROS General: Fatigue, Weakness, Other (10 point ROS done positives noted) Skin: Other (nodules left and right leg, with bruising noted) Physical Exam Physical Exam PHYSICAL EXAMINATION GENERAL: This is a obese female who appears to be in no acute distress. She is awake HEAD: Normocephalic Facial features appear symmetric. OROPHARYNGEAL: Oropharynx pale but clear NECK: Supple. Trachea midline without deviation. CARDIAC: Regular rhythm, regular rate, S1 and S2 are heard. Mild murmur LUNGS: Mild diminished to auscultation bilaterally at bases ABDOMEN: Soft, nontender, soft bowel sounds EXTREMITIES: Trace edema. Lower extremities warm to touch, left and right leg nodules, with some mild bruising noted NEUROLOGICAL: Patient mood and affect appropriate. No focal deficit SKIN:Warm and dry A/P Assessment and Plan vital signs reviewed, normal trends, afebrile Symptomatic anemia, heme negative stools, appreciate hematology input Stable with hemoglobin at 8.8, leukopenia stable at 2.8, currently receiving chemotherapy Metastatic endometrial cancer High-grade myelodysplastic syndrome - evaluated pt. input appreciated -Resume Provera, undergoing chemotherapy as an outpatient Bilateral lower extremity nodules, warm sore to touch, pending biopsy possibly today UTI, culture pending, denies any dysuria -Continue cefepime 1 g IV every 12hr Bilateral leg pain, recent findings of painful soft tissue masses to both legs which apparently are calcification. Complaints of increasing pain and difficulty ambulating -Continue pain management -?erythema nodosum per oncology. Started on PO steroids, feeling better. Hx DM, but doesn't require any medications now Accu-Cheks before meals and at bedtime with low-dose insulin therapy if needed Dysrhythmia Appreciate cardiology eval 2-D echo shows normal ventricular function and a trace of mitral regurgitation Denies any chest pain or any other symptoms of palpitations, will follow cardiology as an outpatient, dysrhythmia seems to be a one-time occurrence and could be related to her other current symptoms PT for OOB, encouraged activity as she feels like it to maintain her quality of life No SCDs due to the leg nodules and pain and anticoagulation at this time due to thrombocytopenia Consult case management for discharge planning, patient will need assistance at home. Home health care possibly home health aides. Discussed with patient Discharge planning when medically stable and appreciate oncology input, lower extremity biopsies pending hopefully today Discussed with Dr. Narayanan, seen on her behalf Rose Mary Adan Jun 16, 2017 10:54
--- NOTE | 2017-06-16 16:48 | PD.CONS ---
HPI Service General Surgery Consult Requested By Jeanne MERCADO Reason for Consult Bilateral lower extremities skin punch biopsy Primary Care Physician Polly Paulson M.D. History of Present Illness This is a 51-year-old female with a past medical history of diabetes mellitus, obesity, anemia, stage IV endometrial cancer, myelodysplastic syndrome, obstructive sleep apnea and hypertension. The patient started a new chemotherapy regimen in the first week of March of this year. After starting this medication, the patient started noticing dark spots on her right leg and then on her left leg later. The patient has severe pain at these dark lesion sites; left greater than right. She has increased difficulty walking due to these painful lesions. The patient has been admitted due to leg weakness and inability to bear weight on bilateral lower extremities. A General Surgery consultation has been requested for skin punch biopsies. Review of Systems Constitutional: COMPLAINS OF: Fatigue, Weight gain, DENIES: Change in appetite Endocrine: DENIES: Polydipsia, Polyuria, Polyphagia Eyes: DENIES: Diplopia, Eye inflammation Ears, nose, mouth, throat: DENIES: Hearing loss Respiratory: DENIES: Apneas, Cough Cardiovascular: COMPLAINS OF: Lower Extremity Edema, DENIES: Chest pain, Syncope Gastrointestinal: DENIES: Abdominal pain, Diarrhea, Nausea, Vomiting Genitourinary: DENIES: Urinary frequency Musculoskeletal: DENIES: Joint pain Integumentary: COMPLAINS OF: Abnormal pigmentation (BLE ), Pruritus (BLE), DENIES: Breast masses, Breast skin changes Hematologic/lymphatic: DENIES: Bruising Immunologic/allergic: DENIES: Eczema Neurologic: COMPLAINS OF: Abnormal gait, DENIES: Paresthesias Psychiatric: DENIES: Mood changes, Depression, Hallucinations Past Family Social History Past Medical History Ynw-[id number]-usyatsrsc diabetes mellitus Obesity Anemia Stage IV endometrial cancer Metastatic cancer to the lungs Hypertension High-grade myelodysplastic syndrome Obstructive sleep apnea Vitamin B12 deficiency Past Surgical History [place]astric [place] [address] Gayle Robotic hysterectomy Bone marrow biopsy Blanco hernia [place] [address] Gayle EGD Laparoscopic cholecystectomy [id number] placement Right middle lobe wedge resection Reported Medications Vidaza Provera Gabapentin Escitalopram Temazepam Protonix Allergies: Coded Allergies: latex (Verified Allergy, Severe, Itching, RASH, 06/13/17) ketorolac (Verified Allergy, Intermediate, HIVES, 06/13/17) burning rash carboplatin (Verified Allergy, Mild, Rash, 06/13/17) adhesive (Verified Adverse Reaction, Severe, RASH, 06/13/17) OK FOR PAPER TAPE lorazepam (Verified Adverse Reaction, Mild, NIGHTMARES, 06/13/17) morphine (Verified Adverse Reaction, Mild, Itching, 06/13/17) acetaminophen (Verified Adverse Reaction, Unknown, 06/13/17) nausea oxycodone (Verified Adverse Reaction, Unknown, 06/13/17) nausea Active Ordered Medications Current Medications Medications (Trade) Dose Ordered Sig/Jasen Route Start Time Stop Time Status Last Admin (NS Flush) 2 ml UNSCH PRN IV FLUSH 06/13/17 19:45 06/16/17 06:09 (NS Flush) 2 ml BID IV FLUSH 06/13/17 21:00 06/16/17 08:08 (Zofran Inj) 4 mg Q6H PRN IVP 06/13/17 19:45 (Narcan Inj) 0.4 mg UNSCH PRN IV PUSH 06/13/17 19:45 (Quin-Colace) 1 tab BID PO 06/13/17 21:00 06/16/17 08:08 (Milk Of Magnesia Liq) 30 ml Q12H PRN PO 06/13/17 19:45 (Senokot) 17.2 mg Q12H PRN PO 06/13/17 19:45 (Dulcolax Supp) 10 mg DAILY PRN RECTAL 06/13/17 19:45 (Lactulose Liq) 30 ml DAILY PRN PO 06/13/17 19:45 Cefepime HCl 1000 mg/Sodium Chloride 100 ml @ 200 mls/hr Q12H IV 06/14/17 09:00 06/16/17 08:08 (Dilaudid Pf Inj) 0.5 mg Q4H PRN IV PUSH 06/13/17 20:00 06/16/17 16:12 (Lexapro) 10 mg DAILY PO 06/14/17 09:00 06/16/17 08:08 (Neurontin) 600 mg TID PO 06/14/17 09:00 06/16/17 14:02 (Protonix) 40 mg DAILY PO 06/14/17 09:00 06/16/17 08:08 (Restoril) 30 mg HS PRN PO 06/13/17 20:00 (D50w (Vial) Inj) 50 ml UNSCH PRN IV 06/13/17 21:45 (Glucagon Inj) 1 mg UNSCH PRN OTHER 06/13/17 21:45 (NovoLOG SUPPLEMENTAL SCALE) 1 ACHS SLIDING SCALE SQ 06/14/17 08:00 06/16/17 16:18 (Benadryl) 25 mg Q4H PRN PO 06/14/17 10:15 (Deltasone) 20 mg BID PO 06/14/17 10:45 06/16/17 08:08 (Provera) 2.5 mg DAILY PO 06/16/17 09:00 06/16/17 08:08 (NS Flush) 5 ml UNSCH PRN IV FLUSH 06/16/17 00:30 06/16/17 06:08 (Heparin Central Flush) 250 units UNSCH PRN IV FLUSH 06/16/17 00:30 06/16/17 06:08 (Heparin Central Flush) 500 units UNSCH IV FLUSH 06/16/17 00:30 Family History Mother with history of ovarian cancer Father from brain tumor Brother at age 14 from leukemia Social History Denies tobacco use Denies EtOH use Denies illicit drug use Physical Exam Vital Signs Vital Signs Date Time Temp Pulse Resp B/P (MAP) Pulse Ox O2 Delivery O2 Flow Rate FiO2 06/16/17 12:42 97.0 52 20 109/55 (73) 100 06/16/17 12:07 58 06/16/17 08:10 56 06/16/17 08:00 96.2 55 20 111/58 (75) 100 06/16/17 04:00 96.5 65 18 112/66 (81) 98 06/16/17 04:00 62 06/16/17 00:02 64 06/16/17 00:00 97.2 62 18 105/64 (78) 100 06/15/17 20:15 74 06/15/17 20:00 96.7 74 17 114/71 (85) 100 Physical Exam GENERAL: Pleasant 51 year old female resting in bed in no acute distress. SKIN: Focused skin exam on BLE. RIGHT lower extremity ---two areas of dark pigmentation with peeling skin; hard to palpation. Area of indentation on lateral lower leg without pain. LEFT lower extremity: Similar appears dark pigmentation as the RIGHT leg; three areas with similar appears peeling skin; hard to palpation. Pain worse in LEFT leg than RIGHT leg. HEAD: Atraumatic. Normocephalic. EYES: Pupils equal and round. No scleral icterus. No injection or drainage. ENT: No nasal bleeding or discharge. Mucous membranes pink and moist. NECK: Trachea midline. CARDIOVASCULAR: Regular rate and rhythm. RESPIRATORY: No accessory muscle use. Clear to auscultation. Breath sounds equal bilaterally. GASTROINTESTINAL: Abdomen soft, non-tender, nondistended. Eight healed laparoscopic scars. Abdomen obese. No palpable hernias or masses. MUSCULOSKELETAL: 1+ pitting edema in BLE. See above for skin assessment. NEUROLOGICAL: Awake and alert. No obvious cranial nerve deficits. Motor grossly within normal limits. Five out of 5 muscle strength in the arms and legs. Normal speech. PSYCHIATRIC: Appropriate mood and affect; insight and judgment normal. Laboratory Laboratory Tests Test 06/16/17 03:45 White Blood Count 2.8 Red Blood Count 3.02 Hemoglobin 8.8 Hematocrit 26.3 Mean Corpuscular Volume 87.0 Mean Corpuscular Hemoglobin 29.0 Mean Corpuscular Hemoglobin Concent 33.3 Red Cell Distribution Width 18.9 Platelet Count 108 Mean Platelet Volume 8.3 CBC Comment AUTO DIFF Differential Total Cells Counted 100 Neutrophils % (Manual) 30 Band Neutrophils % 3 Lymphocytes % 49 Monocytes % 9 Eosinophils % 1 Neutrophils # (Manual) 1.1 Metamyelocytes 7 Myelocytes 1 Differential Comment AUTO DIFF CONFIRMED Platelet Estimate LOW Platelet Morphology Comment NORMAL Ovalocytes 1+ Blood Urea Nitrogen 17 Creatinine 1.00 Random Glucose 257 Calcium Level 8.4 Sodium Level 137 Potassium Level 4.3 Chloride Level 105 Carbon Dioxide Level 25.2 Anion Gap 7 Estimat Glomerular Filtration Rate 58 Date/Time Source Procedure Growth Status 06/13/17 16:25 Urine Clean Catch Urine Culture - Final 50-100,000 CFU/ML MIXED KIARA... Complete Result Diagram: 06/16/17 0345 06/16/17 0345 Assessment and Plan Assessment and Plan 51 year old female with endometrial cancer and myelodysplastic syndrome with painful BLE lesions -Plan for bedside punch biopsy in the morning -Obtain supplies -Obtain consents -Pain control -Risks of procedure explained in detail to the patient -All questions answered -Thank you for this consult Discussed Condition With Dr. Monroe Nadege Barrett Attending Statement I personally evaluated the pt. She has multiple ecchymotic barber indurated lesions on both lower extremities that are tender to the touch, several are mildly raised and more disc shaped, at least two create a skin invagination into the SQ space. She is in favor of having them biopsied, the procedure and expectations were reviewed in detail. The exam, history, and the medical decision-making described in the above note were completed with the assistance of the mid-level provider. I reviewed and agree with the findings presented. I attest that I had a [id number] encounter with the patient on the same day, and personally performed and documented my assessment and findings in the medical record. Stephanie Landry Jun 16, 2017 16:48 Jong Monroe MD Jun 17, 2017 20:28
[2017-06-16] MEDS ORDERED: LIDOCAINE 2%/EPINEPHrine 1:100,000 30ML MDV INFIL ONE (19:45)
[2017-06-16] MEDS ORDERED: HYDROmorphone HCL PF 1 MG/ML VIAL IV SCH (23:00)
[2017-06-16] MEDS ORDERED: LIDOCAINE 2%/EPINEPHrine 1:100,000 20ML MDV INFIL ONE (23:45)
[2017-06-16] MEDS ORDERED: LIDOCAINE HCL 2% 20 ML VIAL INFIL ONE (23:45)
[2017-06-17] VITALS (11 sets, daily range): BP systolic 115–126; BP diastolic 57–74; PULSE 54–76; RESP 17–18; TEMP 97–98.8; O2SAT 98–100
[2017-06-17] MEDS: HYDROmorphone HCL PF 1 MG/ML VIAL IV PUSH PRN ×3 (03:55→13:04)
[2017-06-17] MEDS: SODIUM CHLORIDE 0.9% FLUSH 10 ML FLUSH IV FLUSH PRN ×4 (03:58→13:07)
[2017-06-17] MEDS ORDERED: HYDROmorphone HCL PF 4 MG/ML VIAL IV PUSH SCH (04:00)
[2017-06-17 04:50] LABS: HEMATOCRIT 26.9 % (35.0-46.0); MEAN CELL VOLUME 88.3 FL (80.0-100.0); MEAN CORPUSCULAR HEMOGLOBIN 29.1 PG (27.0-34.0); MEAN CORPUSCULAR HGB CONC 32.9 % (32.0-36.0); PLATELET COUNT 120 TH/MM3 (150-450); RED BLOOD COUNT 3.04 MIL/MM3 (4.00-5.30); RED CELL DISTRIBUTION WIDTH 18.4 % (11.6-17.2); WHITE BLOOD COUNT 3.4 TH/MM3 (4.0-11.0)
[2017-06-17 04:54] LABS: HEMO FLAGS AUTO DIFF
[2017-06-17 07:57] LABS: BANDS 8 % (0-6); BASOPHILS 1 % (0-2); BLASTS 2 % (0-0); CORRECTED NUCLEATED RBC 1 /100 WBC (0-0); MYELOCYTES 2 % (0-0); POLYS (SEG NEUTROPHILS) 50 % (16-70); WBC DIFF SAMPLE 100
[2017-06-17 07:58] LABS: OVALOCYTES 1+ (NORMAL); PLATELET ESTIMATE SMEAR LOW (NORMAL); PLATELET MORPHOLOGY NORMAL (NORMAL); SCAN/DIFF FINAL DIFF MANUAL
[2017-06-17] MEDS: INSULIN ASPART SUPPLEMENTAL SCALE SQ SCH ×4 (08:00→21:37)
[2017-06-17] MEDS: DOCUSATE SODIUM 50 MG/SENNA 8.6 MG TAB PO SCH ×2 (09:37→21:36)
[2017-06-17] MEDS: PANTOPRAZOLE SOD 40 MG DELAYED RELEASE TAB PO SCH (09:37)
[2017-06-17] MEDS: predniSONE 20 MG TAB PO SCH ×2 (09:37→21:36)
[2017-06-17] MEDS: ESCITALOPRAM OXALATE 10 MG TAB PO SCH (09:37)
[2017-06-17] MEDS: CEFEPIME INJ 1,000 MG in SODIUM CHLORIDE 0.9% INJ 100 ML IV SCH (09:37)
[2017-06-17] MEDS: GABAPENTIN 300 MG CAP PO SCH ×3 (09:37→18:04)
[2017-06-17] MEDS: SODIUM CHLORIDE 0.9% FLUSH 10 ML FLUSH IV FLUSH SCH ×2 (09:38→21:00)
--- NOTE | 2017-06-17 10:12 | PD.ONC.PN ---
Subjective Subjective Remarks Afebrile overnight. Patient still with pain in legs. Having difficulty walking on legs d/t pain. Would like to stay in the hospital for another day. Objective Data Date Time Temp Pulse Resp B/P (MAP) Pulse Ox O2 Delivery O2 Flow Rate FiO2 06/17/17 08:00 97.7 55 18 126/59 (81) 100 06/17/17 04:16 54 06/17/17 04:00 97.0 76 17 118/74 (89) 99 06/17/17 00:04 59 06/17/17 00:00 97.6 58 17 117/58 (77) 98 06/16/17 20:17 75 06/16/17 20:00 97.6 75 17 112/64 (80) 99 06/16/17 16:34 58 06/16/17 16:00 96.5 65 19 119/61 (80) 100 06/16/17 12:42 97.0 52 20 109/55 (73) 100 06/16/17 12:07 58 06/17/17 06/17/17 06/17/17 07:00 15:00 23:00 Output Total 800 ml Balance -800 ml Result Diagram: 06/17/17 0355 06/16/17 0345 Laboratory Results Laboratory Tests Test 06/17/17 03:55 White Blood Count 3.4 TH/MM3 Red Blood Count 3.04 MIL/MM3 Hemoglobin 8.9 GM/DL Hematocrit 26.9 % Mean Corpuscular Volume 88.3 FL Mean Corpuscular Hemoglobin 29.1 PG Mean Corpuscular Hemoglobin Concent 32.9 % Red Cell Distribution Width 18.4 % Platelet Count 120 TH/MM3 Mean Platelet Volume 8.1 FL CBC Comment AUTO DIFF Differential Total Cells Counted 100 Neutrophils % (Manual) 50 % Band Neutrophils % 8 % Lymphocytes % 22 % Monocytes % 15 % Basophils % 1 % Neutrophils # (Manual) 2.0 TH/MM3 Myelocytes 2 % Nucleated Red Blood Cells 1 /100 WBC Differential Comment FINAL DIFF MANUAL Blastocytes 2 % Platelet Estimate LOW Platelet Morphology Comment NORMAL Ovalocytes 1+ Administered Medications Medications (Trade) Dose Ordered Sig/Jasen Route PRN Reason Start Time Stop Time Status Last Admin Dose Admin Sodium Chloride (NS Flush) 2 ml UNSCH PRN IV FLUSH FLUSH AFTER USING IV ACCESS 06/13/17 19:45 06/17/17 07:37 Sodium Chloride (NS Flush) 2 ml BID IV FLUSH 06/13/17 21:00 06/17/17 09:38 Senna/Docusate Sodium (Quni-Colace) 1 tab BID PO 06/13/17 21:00 06/17/17 09:37 Cefepime HCl 1000 mg/Sodium Chloride 100 ml @ 200 mls/hr Q12H IV 06/14/17 09:00 06/17/17 09:37 Hydromorphone HCl (Dilaudid Pf Inj) 0.5 mg Q4H PRN IV PUSH PAIN SCALE 4 TO 7 06/13/17 20:00 06/16/17 20:52 Escitalopram Oxalate (Lexapro) 10 mg DAILY PO 06/14/17 09:00 06/17/17 09:37 Gabapentin (Neurontin) 600 mg TID PO 06/14/17 09:00 06/17/17 09:37 Pantoprazole Sodium (Protonix) 40 mg DAILY PO 06/14/17 09:00 06/17/17 09:37 Insulin Aspart (NovoLOG SUPPLEMENTAL SCALE) 1 ACHS SLIDING SCALE SQ 06/14/17 08:00 06/16/17 21:58 Prednisone (Deltasone) 20 mg BID PO 06/14/17 10:45 06/17/17 09:37 Medroxyprogesterone Acetate (Provera) 2.5 mg DAILY PO 06/16/17 09:00 06/17/17 09:37 Sodium Chloride (NS Flush) 5 ml UNSCH PRN IV FLUSH SEE PROTOCOL TABLE 06/16/17 00:30 06/17/17 03:58 Heparin Sodium (Porcine) (Heparin Central Flush) 250 units UNSCH PRN IV FLUSH SEE PROTOCOL TABLE 06/16/17 00:30 06/17/17 03:58 Hydromorphone HCl (Dilaudid Pf Inj) 1 mg Q4H PRN IV PUSH PAIN SCALE 8 TO 10 06/16/17 23:00 06/17/17 07:37 Objective Remarks GENERAL: Obese female sitting up in bed in nad. SKIN: Warm and dry. right chest wall port in place. HEAD: Normocephalic. EYES: No injection or drainage. NECK: Supple, trachea midline. CARDIOVASCULAR: Regular rate and rhythm RESPIRATORY: Breath sounds equal bilaterally. No accessory muscle use. GASTROINTESTINAL: Abdomen soft, non-tender, nondistended. EXTREMITIES: No cyanosis. hyperpigmented lesions, bilateral legs NEUROLOGICAL: aox3. normal speech. moving all extremities. Assessment/Plan Problem List: (1) Leg lesion ICD Codes: L98.9 - Disorder of the skin and subcutaneous tissue, unspecified Plan: 06/17: s/p punch biopsy. await pathology. start scheduled Dilaudid 4mg PO q6 hours --stated it started after she received the Vidaza and Provera. ?erythema nodosum. does not appear to have cellulitis at this time. --trial of prednisone appears to be helping. 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 --bone marrow biopsy in February showed high-grade Myelodysplastic syndrome with complex cytogenetic abnormality. --getting transfusion about every other week. --just received third cycle of Vidaza May 26. --now with worsening cytopenia due to the myelodysplasia as well as recent Vidaza. --has moderate neutropenia but no fever at this time. (4) Endometrial ca ICD Codes: C54.1 - Malignant neoplasm of endometrium Status: Acute Plan: --Metastatic endometrial cancer. --first diagnosed in 2010 treated with carboplatin, Taxol with good response. --2012 she developed a lung nodule which was resected and showed a metastatic endometrial cancer. treated with carboplatin, Taxol again with good response. --March of this year she was found to have progression of disease in the lung. --not a candidate to receive more chemotherapy due to high-grade myelodysplasia and pancytopenia. --on Provera. Assessment 51y/o female admitted with symptomatic anemia and leg pain. h/o Metastatic endometrial cancer High grade myelodysplastic syndrome. Diabetes mellitus. Obesity. Gastroesophageal reflux disease. Peripheral neuropathy. Osteoarthritis. Depression. Attending Statement still has pain in lower legs. start schedule Dilaudid s/p Bx of the lesion. path pending H/H is improving Ok to d/c home tomorrow. The exam, history, and the medical decision-making described in the above note were completed with the assistance of the mid-level provider. I reviewed and agree with the findings presented. I attest that I had a [id number] encounter with the patient on the same day, and personally performed and documented my assessment and findings in the medical record. Jeanne Mcdonald Jun 17, 2017 10:12 Pam Kurtz MD Jun 18, 2017 01:18
--- NOTE | 2017-06-17 11:47 | PD.OP ---
Operative Report Date of Surgery: Jun 17, 2017 Preoperative Diagnosis: (1) Leg lesion Postoperative Diagnosis: (1) Leg lesion Procedure: Skin punch biopsy of bilateral lower extremities Anesthesia: Local Surgeon: Preformed by Stephanie CASTILLO Vocal Music Instructor(s): Caitlin [id number] Operation and Findings: This is a 51 year old female with a three month of lower extremity skin lesions ; progressive. After explaining the procedure in detail and all questions answered, the patient signed an informed consent for bilateral lower extremity skin punch biopsy. Time out was completed with CATHERINE Butler. All individuals participating in the procedure were present for the time out. All supplies were obtained and at the bedside. Her right aguirre and left aguirre were both prepped with Betadine solution and cleansed thoroughly. 2% lidocaine was injected at the punch biopsy site. A 4 mm punch was used to obtain a specimen. Specimens were placed in the specimen cup with formalin. They were appropriately labeled using patient's label with name. The 2 sites were closed with a 3-0 nylon suture. No apparent complications post procedure. Sterile bandage was placed over the punch site. The patient tolerated the procedure well. All instruments were collected and disposed of in proper manner. The patient's bed was lowered to the lowest setting and call light placed within patient's reach. Medical Student Caitlin was present and observed the procedure. Stephanie Landry Jun 17, 2017 11:47
--- NOTE | 2017-06-17 12:01 | HHI.PR ---
Subjective Remarks Resting in bed, encourage patient to be out of bed today increased activity Biopsies done of bilateral leg nodules, appear to have some mild improvement Continues to have effective pain management Afebrile No UTI Objective Objective Results - Vital Signs Date Time Temp Pulse Resp B/P (MAP) Pulse Ox O2 Delivery O2 Flow Rate FiO2 06/17/17 11:47 68 06/17/17 11:46 58 06/17/17 08:00 97.7 55 18 126/59 (81) 100 06/17/17 04:16 54 06/17/17 04:00 97.0 76 17 118/74 (89) 99 06/17/17 00:04 59 06/17/17 00:00 97.6 58 17 117/58 (77) 98 06/16/17 20:17 75 06/16/17 20:00 97.6 75 17 112/64 (80) 99 06/16/17 16:34 58 06/16/17 16:00 96.5 65 19 119/61 (80) 100 06/16/17 12:42 97.0 52 20 109/55 (73) 100 06/16/17 12:07 58 I/O 06/16/17 06/16/17 06/16/17 06/17/17 06/17/17 06/17/17 07:00 15:00 23:00 07:00 15:00 23:00 Intake Total 240 ml 600 ml Output Total 1150 ml 800 ml Balance -910 ml 600 ml -800 ml Intake Oral 240 ml 500 ml IV Total 100 ml Output Urine Total 1150 ml 800 ml # Voids 2 1 Result Diagram: 06/17/17 0355 06/16/17 0345 ROS General: Fatigue (mild), Weakness, Other (10 point ROS done positives noted) Neuro/MS: Other (bilateral leg nodules biopsied today) Physical Exam Physical Exam PHYSICAL EXAMINATION GENERAL: This is a obese female who appears to be in no acute distress. She is alert and awake, talkative HEAD: Normocephalic Facial features appear symmetric. OROPHARYNGEAL: Oropharynx clear NECK: Supple. Trachea midline without deviation. CARDIAC: Regular rhythm, regular rate, S1 and S2 are heard. LUNGS: Clear to auscultation bilaterally. Encouraged to turn cough and deep breathe ABDOMEN: Soft, nontender, round no organomegaly or masses. Bowel sounds active EXTREMITIES: Mild lower extremity edema. NEUROLOGICAL: Patient mood and affect appropriate. No focal deficit SKIN: Closed bilateral leg nodules, mild bruising noted, clean dry and intact, no open skin A/P Assessment and Plan vital signs reviewed, normal trends, afebrile Symptomatic anemia, heme negative stools, appreciate hematology input Hemoglobin leukopenia stable Metastatic endometrial cancer With High-grade myelodysplastic syndrome - evaluated pt. input appreciated -Resume Provera, undergoing chemotherapy as an outpatient, encourage patient to increase activity, stand briefly today and be out of bed some Bilateral lower extremity nodules, warm sore to touch, bilateral leg biopsies done today, stitch 1 in each biopsy area, secured with Band-Aids clean dry and intact. Will follow up on biopsy results as outpatient. UTI ruled out, operable contaminant, denies any dysuria Antibiotic DC'd Hx DM, but doesn't require any medications now Accu-Cheks before meals and at bedtime with low-dose insulin therapy if needed Dysrhythmia Appreciate cardiology eval, will monitor for any further events but no aggressive treatment for now 2-D echo shows normal ventricular function and a trace of mitral regurgitation PT for OOB, encouraged activity which includes standing, discharge planning, patient is requesting to go home tomorrow so she can arrange someone to pick her up No SCDs due to the leg nodules and pain and anticoagulation at this time due to thrombocytopenia Discussed with patient Discharge planning when medically stable and appreciate oncology input, lower extremity biopsies pending hopefully today Discussed with Dr. Narayanan, seen on her behalf Rose Mary Adan Jun 17, 2017 12:01
[2017-06-17] MEDS ORDERED: MEDR4PAK PO (13:37)
[2017-06-17] MEDS: HYDROmorphone HCL 4 MG TAB PO SCH (18:07)
[2017-06-18] VITALS (11 sets, daily range): BP systolic 86–132; BP diastolic 50–76; PULSE 52–89; RESP 14–18; TEMP 96.2–99.9; O2SAT 94–100
[2017-06-18] MEDS: HYDROmorphone HCL 4 MG TAB PO SCH ×2 (00:20→05:57)
[2017-06-18] MEDS: INSULIN ASPART SUPPLEMENTAL SCALE SQ SCH ×3 (08:00→17:12)
[2017-06-18] MEDS: PANTOPRAZOLE SOD 40 MG DELAYED RELEASE TAB PO SCH (09:25)
[2017-06-18] MEDS: GABAPENTIN 300 MG CAP PO SCH ×3 (09:25→17:13)
[2017-06-18] MEDS: DOCUSATE SODIUM 50 MG/SENNA 8.6 MG TAB PO SCH (09:25)
[2017-06-18] MEDS: ESCITALOPRAM OXALATE 10 MG TAB PO SCH (09:25)
[2017-06-18] MEDS: predniSONE 20 MG TAB PO SCH (09:25)
[2017-06-18] MEDS: SODIUM CHLORIDE 0.9% FLUSH 10 ML FLUSH IV FLUSH SCH (09:26)
[2017-06-18 10:36] LABS: HEMATOCRIT 25.7 % (35.0-46.0); MEAN CELL VOLUME 88.5 FL (80.0-100.0); MEAN CORPUSCULAR HEMOGLOBIN 29.4 PG (27.0-34.0); MEAN CORPUSCULAR HGB CONC 33.2 % (32.0-36.0); PLATELET COUNT 114 TH/MM3 (150-450); WHITE BLOOD COUNT 3.1 TH/MM3 (4.0-11.0)
[2017-06-18 10:40] LABS: HEMO FLAGS AUTO DIFF
--- NOTE | 2017-06-18 10:55 | PD.ONC.PN ---
Subjective Subjective Remarks Afebrile overnight. Patient resting in bed in nad. Continuing to have pain in her legs. reports scheduled dilaudid did not help much. Objective Data Date Time Temp Pulse Resp B/P (MAP) Pulse Ox O2 Delivery O2 Flow Rate FiO2 06/18/17 08:07 63 06/18/17 08:00 98.2 72 18 116/66 (83) 95 06/18/17 04:24 53 06/18/17 04:00 96.6 65 17 105/66 (79) 97 06/18/17 00:05 61 06/18/17 00:00 98.2 89 17 132/76 (94) 100 06/17/17 20:05 68 06/17/17 20:00 98.8 70 17 115/59 (77) 98 06/17/17 16:00 97.7 65 18 123/65 (84) 99 06/17/17 12:00 97.0 71 18 115/57 (76) 98 06/17/17 11:47 68 06/17/17 11:46 58 06/18/17 06/18/17 06/18/17 07:00 15:00 23:00 Output Total 1400 ml Balance -1400 ml Result Diagram: 06/18/17 1030 06/16/17 0345 Laboratory Results Laboratory Tests Test 06/18/17 10:30 White Blood Count 3.1 TH/MM3 Red Blood Count 2.90 MIL/MM3 Hemoglobin 8.5 GM/DL Hematocrit 25.7 % Mean Corpuscular Volume 88.5 FL Mean Corpuscular Hemoglobin 29.4 PG Mean Corpuscular Hemoglobin Concent 33.2 % Red Cell Distribution Width 18.0 % Platelet Count 114 TH/MM3 Mean Platelet Volume 7.8 FL CBC Comment AUTO DIFF Administered Medications Medications (Trade) Dose Ordered Sig/Jasen Route PRN Reason Start Time Stop Time Status Last Admin Dose Admin Sodium Chloride (NS Flush) 2 ml UNSCH PRN IV FLUSH FLUSH AFTER USING IV ACCESS 06/13/17 19:45 06/17/17 13:07 Sodium Chloride (NS Flush) 2 ml BID IV FLUSH 06/13/17 21:00 06/18/17 09:26 Senna/Docusate Sodium (Quin-Colace) 1 tab BID PO 06/13/17 21:00 06/18/17 09:25 Lactulose (Lactulose Liq) 30 ml DAILY PRN PO SEVERE CONSITIPATION 06/13/17 19:45 06/18/17 09:25 Escitalopram Oxalate (Lexapro) 10 mg DAILY PO 06/14/17 09:00 06/18/17 09:25 Gabapentin (Neurontin) 600 mg TID PO 06/14/17 09:00 06/18/17 09:25 Pantoprazole Sodium (Protonix) 40 mg DAILY PO 06/14/17 09:00 06/18/17 09:25 Temazepam (Restoril) 30 mg HS PRN PO INSOMNIA 06/13/17 20:00 06/17/17 21:36 Insulin Aspart (NovoLOG SUPPLEMENTAL SCALE) 1 ACHS SLIDING SCALE SQ 06/14/17 08:00 06/17/17 21:37 Prednisone (Deltasone) 20 mg BID PO 06/14/17 10:45 06/18/17 09:25 Medroxyprogesterone Acetate (Provera) 2.5 mg DAILY PO 06/16/17 09:00 06/18/17 09:25 Sodium Chloride (NS Flush) 5 ml UNSCH PRN IV FLUSH SEE PROTOCOL TABLE 06/16/17 00:30 06/17/17 03:58 Heparin Sodium (Porcine) (Heparin Central Flush) 250 units UNSCH PRN IV FLUSH SEE PROTOCOL TABLE 06/16/17 00:30 06/17/17 03:58 Objective Remarks GENERAL: Middle aged female upright in bed in [facility]. SKIN: Warm and dry. HEAD: Normocephalic. EYES: No injection or drainage. NECK: Supple, trachea midline. CARDIOVASCULAR: Regular rate and rhythm without murmurs. RESPIRATORY: Breath sounds equal bilaterally. No accessory muscle use. GASTROINTESTINAL: Abdomen soft, non-tender, nondistended. EXTREMITIES: No cyanosis. scattered hyperpigmented lesions along legs. NEUROLOGICAL: No obvious focal deficit. Awake, alert, and oriented x3. Assessment/Plan Problem List: (1) Leg lesion ICD Codes: L98.9 - Disorder of the skin and subcutaneous tissue, unspecified Plan: 06/18: change dilaudid back to as needed. await pathology. patient clear for discharge. can follow up in clinic for pathology review. --stated it started after she received the Vidaza and Provera. ?erythema nodosum. does not appear to have cellulitis at this time. --trial of prednisone appears to be helping. 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 --bone marrow biopsy in February showed high-grade Myelodysplastic syndrome with complex cytogenetic abnormality. --getting transfusion about every other week. --just received third cycle of Vidaza May 26. --now with worsening cytopenia due to the myelodysplasia as well as recent Vidaza. --has moderate neutropenia but no fever at this time. (4) Endometrial ca ICD Codes: C54.1 - Malignant neoplasm of endometrium Status: Acute Plan: --Metastatic endometrial cancer. --first diagnosed in 2010 treated with carboplatin, Taxol with good response. --2012 she developed a lung nodule which was resected and showed a metastatic endometrial cancer. treated with carboplatin, Taxol again with good response. --March of this year she was found to have progression of disease in the lung. --not a candidate to receive more chemotherapy due to high-grade myelodysplasia and pancytopenia. --on Provera. Assessment 51y/o female admitted with symptomatic anemia and leg pain. h/o Metastatic endometrial cancer High grade myelodysplastic syndrome. Diabetes mellitus. Obesity. Gastroesophageal reflux disease. Peripheral neuropathy. Osteoarthritis. Depression. Attending Statement c/o pain in legs. Feels better stable to d/c sign off available The exam, history, and the medical decision-making described in the above note were completed with the assistance of the mid-level provider. I reviewed and agree with the findings presented. I attest that I had a [id number] encounter with the patient on the same day, and personally performed and documented my assessment and findings in the medical record. Jeanne Mcdonald Jun 18, 2017 10:55 Pam Kurtz MD Jun 18, 2017 18:19
[2017-06-18] MEDS ORDERED: HYDROmorphone HCL PF 1 MG/ML VIAL IV PUSH ONE (11:00)
[2017-06-18] MEDS ORDERED: HYDROmorphone HCL 4 MG TAB PO PRN (11:00)
[2017-06-18 13:00] LABS: BANDS 4 % (0-6); BLASTS 2 % (0-0); METAMYELOCYTES 2 % (0-1); MYELOCYTES 2 % (0-0); NEUTROPHIL # MANUAL DIFF 1.1 TH/MM3 (1.8-7.7); OVALOCYTES 1+ (NORMAL); PLATELET ESTIMATE SMEAR LOW (NORMAL); PLATELET MORPHOLOGY NORMAL (NORMAL); POLYS (SEG NEUTROPHILS) 28 % (16-70); SCAN/DIFF FINAL DIFF MANUAL; WBC DIFF SAMPLE 100
--- NOTE | 2017-06-18 13:01 | HHI.PR ---
Subjective Subjective Notes Resting in bed Reports mild pain at punch biopsy sites Objective Vitals/I&O Vital Signs Date Time Temp Pulse Resp B/P (MAP) Pulse Ox O2 Delivery O2 Flow Rate FiO2 06/18/17 08:07 63 06/18/17 08:00 98.2 18 116/66 (83) 95 Labs Laboratory Tests Test 06/18/17 10:30 White Blood Count 3.1 Red Blood Count 2.90 Hemoglobin 8.5 Hematocrit 25.7 Mean Corpuscular Volume 88.5 Mean Corpuscular Hemoglobin 29.4 Mean Corpuscular Hemoglobin Concent 33.2 Red Cell Distribution Width 18.0 Platelet Count 114 Mean Platelet Volume 7.8 CBC Comment AUTO DIFF Date/Time Source Procedure Growth Status 06/13/17 16:25 Urine Clean Catch Urine Culture - Final 50-100,000 CFU/ML MIXED KIARA... Complete Cardiovascular: Regular Lungs: Clear Abdomen: Non-distended, Non-tender Extremities: Other (see below ) Narrative Exam bilateral punch bx---sites with suture in place; no bleeding; c/d/i; bandages changed A/P Assessment and Plan 51 year old with female with BLE skin lesions; s/p bedside punch biopsy -Continue bandages to punch biopsy sites -Okay to shower -Pain control -Oncology to follow pathology of skin biopsy -GS will sign off -Follow up in about 10 days for suture removal Attending Statement Bandaids covering punch biopsy sites, no drainage, minimal bleeding after biopsy. Path pending. Will follow up in office for suture removal. The exam, history, and the medical decision-making described in the above note were completed with the assistance of the mid-level provider. I reviewed and agree with the findings presented. I attest that I had a [id number] encounter with the patient on the same day, and personally performed and documented my assessment and findings in the medical record. Stephanie Landry Jun 18, 2017 13:01 Jong Monroe MD Jun 19, 2017 07:37
--- NOTE | 2017-06-18 13:41 | HHI.DCPOC ---
Discharge Care Plan Diagnosis: (1) Symptomatic anemia Your Health Problems Are: Shortness of Breath Goals to Promote Your Health * To prevent worsening of your condition and complications * To maintain your health at the optimal level Directions to Meet Your Goals Take your medications as prescribed Follow your dietary instruction Follow activity as directed Keep your appointments as scheduled Take your immunizations and boosters as scheduled If your symptoms worsen call your PCP, if no PCP go to Urgent Care Center or Emergency Room Smoking is Dangerous to Your Health. Avoid second hand smoke Call the 24-hour hour crisis hotline for domestic abuse at [facility] E[facility] Jun 18, 2017 13:41
--- NOTE | 2017-06-18 13:41 | HHI.PR ---
Subjective Remarks No chest pain No shortness of breath Has not had a BM Leg pain somewhat improved on Dilaudid 4 mg tablets Appetite is good Feels stable to go home Agreeable with home health care and PT Objective Objective Results - Vital Signs Date Time Temp Pulse Resp B/P (MAP) Pulse Ox O2 Delivery O2 Flow Rate FiO2 06/18/17 08:07 63 06/18/17 08:00 98.2 72 18 116/66 (83) 95 06/18/17 04:24 53 06/18/17 04:00 96.6 65 17 105/66 (79) 97 06/18/17 00:05 61 06/18/17 00:00 98.2 89 17 132/76 (94) 100 06/17/17 20:05 68 06/17/17 20:00 98.8 70 17 115/59 (77) 98 06/17/17 16:00 97.7 65 18 123/65 (84) 99 I/O 06/17/17 06/17/17 06/17/17 06/18/17 06/18/17 06/18/17 07:00 15:00 23:00 07:00 15:00 23:00 Intake Total 960 ml 340 ml Output Total 800 ml 400 ml 1400 ml 500 ml Balance -800 ml 560 ml 340 ml -1400 ml -500 ml Intake Oral 960 ml 240 ml IV Total 100 ml Output Urine Total 800 ml 400 ml 1400 ml 500 ml # Voids 1 # Bowel Movements 0 Result Diagram: 06/18/17 1030 06/16/17 [address] Angiography 06/13/17 1707 Signed Impressions: Service Date/Time: Tuesday, June 13, 2017 18:13 - CONCLUSION: 1. No pulmonary embolus. 2. A right midlung pulmonary nodule seen on series 3 a 2 image 48 is larger in the interim. Otherwise, previously seen scattered vague nodular opacities of both lungs are smaller and less distinct in the interim. 3. Irregular area of low-attenuation seen in the visualized spleen and not convincingly present previously. This may represent an area of splenic infarction. Bakari Paz MD Lower Extremity Ultrasound 06/13/17 1644 Signed Impressions: Service Date/Time: Tuesday, June 13, 2017 17:16 - CONCLUSION: 1. No DVT identified. 2. 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 Kolton Felix MD Chest X-Ray 06/13/17 1541 Signed Impressions: Service Date/Time: Tuesday, June 13, 2017 16:00 - CONCLUSION: 1. No acute cardiopulmonary findings. Kolton Felix MD Other Results Laboratory Tests Test 06/18/17 10:30 White Blood Count 3.1 Red Blood Count 2.90 Hemoglobin 8.5 Hematocrit 25.7 Mean Corpuscular Volume 88.5 Mean Corpuscular Hemoglobin 29.4 Mean Corpuscular Hemoglobin Concent 33.2 Red Cell Distribution Width 18.0 Platelet Count 114 Mean Platelet Volume 7.8 CBC Comment AUTO DIFF Differential Total Cells Counted 100 Neutrophils % (Manual) 28 Band Neutrophils % 4 Lymphocytes % 51 Monocytes % 11 Neutrophils # (Manual) 1.1 Metamyelocytes 2 Myelocytes 2 Differential Comment FINAL DIFF MANUAL Blastocytes 2 Platelet Estimate LOW Platelet Morphology Comment NORMAL Ovalocytes 1+ Date/Time Source Procedure Growth Status 06/13/17 16:25 Urine Clean Catch Urine Culture - Final 50-100,000 CFU/ML MIXED KIARA... Complete ROS General: Fatigue (improved), Weakness (improved), No: Other HEENT: No: Sore Throat, Dysphagia Cardiac: No: Chest Pain, Edema, Palpitations Pulmonary: No: Cough, SOB, Wheezing GI: No: Abdominal Pain, BM, Diarrhea, N/V /CHIEF INFORMATION OFFICER: No: Dysuria, Urgency Neuro/MS: Other (leg pain), No: Lightheaded, Confusion Psych: Anxiety, No: Depression Skin: Other (bilateral lower extremities with masses, non-erythematous, tender to palpation.), No: Itching, Rash Physical Exam Physical Exam GENERAL: This is a well-nourished, obese female. SKIN: Skin pale, cool and dry. There are soft tissue masses noted to both legs or extremities. Skin overlying masses is dark pigmented, thickened. No exudate, no open areas. HEAD: Atraumatic. Normocephalic. No temporal or scalp tenderness. EYES: Pupils equal round and reactive. Extraocular motions intact. No scleral icterus. Conjunctiva pale. No injection or drainage. ENT: Nose without bleeding, purulent drainage or septal hematoma. Throat without erythema, tonsillar hypertrophy or exudate. Uvula midline. Airway patent. NECK: Trachea midline. No JVD or lymphadenopathy. Supple, nontender, no meningeal signs. CARDIOVASCULAR: Regular rate and rhythm soft murmurs, no gallops, no rubs. CHEST: Right upper chest with PAC RESPIRATORY: Clear to auscultation. Breath sounds equal bilaterally. No wheezes , rales, or rhonchi. GASTROINTESTINAL: Abdomen soft, non-tender, nondistended. No hepato-splenomegaly , or palpable masses. No guarding. MUSCULOSKELETAL: Extremities without clubbing, cyanosis. No joint tenderness, effusion, or edema noted. No calf tenderness. Negative Homans sign bilaterally. Bilateral lower extremity with soft tissue masses as described above. Trace pretibial edema. Pedal pulses 2+ bilaterally NEUROLOGICAL: Awake, alert oriented 3. No focal deficits. Urinary Catheter: No Vascular Central Line Catheter: No A/P Diagnosis: (1) Symptomatic anemia ICD Codes: D64.9 - Anemia, unspecified Status: Acute (2) Dehydration ICD Codes: E86.0 - Dehydration Status: Acute (3) MDS (myelodysplastic syndrome) ICD Codes: D46.9 - Myelodysplastic syndrome, unspecified Status: Acute (4) Endometrial ca ICD Codes: C54.1 - Malignant neoplasm of endometrium Status: Acute (5) Pancytopenia ICD Codes: D61.818 - Other pancytopenia Status: Acute (6) UTI (urinary tract infection) ICD Codes: N39.0 - Urinary tract infection, site not specified Status: Acute (7) Total bilirubin, elevated ICD Codes: R17 - Unspecified jaundice Status: Acute Assessment and Plan 51-year-old female with history of metastatic endometrial cancer and high-grade myelodysplastic syndrome. Presented with dyspnea with exertion, found with symptomatic anemia. Undergoing chemotherapy Symptomatic anemia, heme negative stools Pancytopenia -s/p 4 units PRBC -HH stable -no cp, no sob, fatigue improved. Has been walking to bathroom with walker Metastatic endometrial cancer High-grade myelodysplastic syndrome - evaluated pt. input appreciated -continue Provera UTI -Follow urine culture-mixed gram-positive. Likely contaminant -Continued cefepime 1 g IV every 12 -No fever, Asymptomatic. Dehydration Hypokalemia -Improved -enc. to continue inc. PO intake, keep hydrated. Elevated T bili etiology unclear -T bili back to normal Bilateral leg pain, recent findings of painful soft tissue masses to both legs which apparently are calcification. Complaints of increasing pain and difficulty ambulating Status post punch biopsy 06/17 -Pain better control on Dilaudid 4 mg tabs -?erythema nodosum per oncology. On by mouth steroids, pain -Appreciate surgical input, patient underwent biopsy. Results pending. -Surgery recommends follow up in 10 days for suture removal. Hx DM, was on Metformin to avoid hyperglycemia but not taking regularly. Blood glucose has stabilized after bariatric surgery Controls through diet -continue check Accu-Cheks before meals and at bedtime with low-dose insulin therapy if needed -Blood glucose elevated, likely secondary to steroids. Nonsustained VT, had a second episode today, 11 beats Patient asymptomatic -2-D echo okay -telemetry monitoring -Consulted cardiology-input appreciated. At this time no recommendations for any anticoagulation, likely cause of dysrhythmia possibly secondary to other medical condition. -Remains sinus rhythm, no further ectopy. No need for any beta blockers or CCB PT for OOB No SCDs and anticoagulation at this time due to thrombocytopenia Case management consultation for discharge planning, home health care and PT Symptoms improved, no chest pain, no shortness of breath H&H stable Clear for discharge by oncology Discharge home patient today with home health care Follow-up with oncology Follow-up with cardiology in 3-4 weeks Follow-up with PCP Follow diabetic diet Activity as tolerated Discussed with patient Discussed with RN Discussed with Dr. Narayanan Discussed with CM This patient was seen by myself and Dr. Narayanan, this note is written on his behalf Problem Qualifiers (1) UTI (urinary tract infection): Qualified Codes: N39.0 - Urinary tract infection, site not specified Soledad Easley Jun 18, 2017 13:41
[2017-06-18] MEDS ORDERED: DILA4TAB2 PO (14:53)
--- NOTE | 2017-06-18 18:09 | HHI.DS ---
Discharge Summary Admission Date Jun 13, 2017 at 19:08 Discharge Date: Jun 18, 2017 Admitting Diagnosis anemia, neutropenia, thrombocytopenia, UTI (1) Symptomatic anemia ICD Codes: D64.9 - Anemia, unspecified Status: Acute (2) Dehydration ICD Codes: E86.0 - Dehydration Status: Acute (3) MDS (myelodysplastic syndrome) ICD Codes: D46.9 - Myelodysplastic syndrome, unspecified Status: Acute (4) Endometrial ca ICD Codes: C54.1 - Malignant neoplasm of endometrium Status: Acute (5) Pancytopenia ICD Codes: D61.818 - Other pancytopenia Status: Acute (6) UTI (urinary tract infection) ICD Codes: N39.0 - Urinary tract infection, site not specified Status: Acute (7) Total bilirubin, elevated ICD Codes: R17 - Unspecified jaundice Status: Acute Procedures punch biopsy 06/17 CBC/BMP: 06/18/17 1030 06/16/17 0345 Significant Findings Laboratory Tests Test 06/16/17 03:45 06/17/17 03:55 06/18/17 10:30 White Blood Count 2.8 TH/MM3 (4.0-11.0) 3.4 TH/MM3 (4.0-11.0) 3.1 TH/MM3 (4.0-11.0) Red Blood Count 3.02 MIL/MM3 (4.00-5.30) 3.04 MIL/MM3 (4.00-5.30) 2.90 MIL/MM3 (4.00-5.30) Hemoglobin 8.8 GM/DL (11.6-15.3) 8.9 GM/DL (11.6-15.3) 8.5 GM/DL (11.6-15.3) Hematocrit 26.3 % (35.0-46.0) 26.9 % (35.0-46.0) 25.7 % (35.0-46.0) Red Cell Distribution Width 18.9 % (11.6-17.2) 18.4 % (11.6-17.2) 18.0 % (11.6-17.2) Platelet Count 108 TH/MM3 (150-450) 120 TH/MM3 (150-450) 114 TH/MM3 (150-450) Lymphocytes % 49 % (9-44) 51 % (9-44) Monocytes % 9 % (0-8) 15 % (0-8) 11 % (0-8) Neutrophils # (Manual) 1.1 TH/MM3 (1.8-7.7) 1.1 TH/MM3 (1.8-7.7) Metamyelocytes 7 % (0-1) 2 % (0-1) Myelocytes 1 % (0-0) 2 % (0-0) 2 % (0-0) Platelet Estimate LOW (NORMAL) LOW (NORMAL) LOW (NORMAL) Ovalocytes 1+ (NORMAL) 1+ (NORMAL) 1+ (NORMAL) Random Glucose 257 MG/DL (74-106) Calcium Level 8.4 MG/DL (8.5-10.1) Estimat Glomerular Filtration Rate 58 ML/MIN (>89) Band Neutrophils % 8 % (0-6) Nucleated Red Blood Cells 1 /100 WBC (0-0) Blastocytes 2 % (0-0) 2 % (0-0) Imaging Last Impressions CT Angiography 06/13/17 1707 Signed Impressions: Service Date/Time: Tuesday, June 13, 2017 18:13 - CONCLUSION: 1. No pulmonary embolus. 2. A right midlung pulmonary nodule seen on series 3 a 2 image 48 is larger in the interim. Otherwise, previously seen scattered vague nodular opacities of both lungs are smaller and less distinct in the interim. 3. Irregular area of low-attenuation seen in the visualized spleen and not convincingly present previously. This may represent an area of splenic infarction. Bakari Paz MD Lower Extremity Ultrasound 06/13/17 1644 Signed Impressions: Service Date/Time: Tuesday, June 13, 2017 17:16 - CONCLUSION: 1. No DVT identified. 2. 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 Kolton Felix MD Chest X-Ray 06/13/17 1541 Signed Impressions: Service Date/Time: Tuesday, June 13, 2017 16:00 - CONCLUSION: 1. No acute cardiopulmonary findings. Kolton Felix MD Hospital Course Ms. Clara Barrett is a pleasant 51-year-old white female with significant history of recent diagnosis of high-grade myelodysplastic syndrome currently on Pentasa. History of endometrial carcinoma, had been treated previously with chemotherapy. Had recurrence of the disease in 2012 and underwent right lung surgery and completed another cycle of chemotherapy. Most recently, she had a PET scan confirming pulmonary metastasis. She is currently on Provera. Patient presented to the emergency room with dyspnea with her cessation has been worsening. She's had chills, no fever. She's had increasing leg pain and has not been ambulating very much. At this soft tissue mass on her legs that had been evaluated in our believed to be calcifications. Indicates that they are very tender to palpation and she has been difficulty ambulating to the point that she's not able to get up in the morning and make breakfast for herself or take care of her activities of daily living. She had been pretty much laying in bed and has not been able to drive herself to the store to buy groceries. She had been taking Dilaudid 2 mg tabs every 6 hours as needed, sometimes taking up to 4 mg every [address] Kurtz is her oncologist. She has received intermittent transfusions of blood as she has been severely anemic. During this admission, she was evaluated in emergency room, laboratory workup was completed. CBC was significant for hemoglobin of 5.8, hematocrit 17.5, WBC 2.8, platelets 103. She denies any blood in stool. Hemoccult was negative in the emergency room. BMP remarkable for hypokalemia, potassium 3.4. Creatinine 1.11. Total bilirubin 2.3. Urinalysis positive for leukocyte esterase with WBC. 2 units of packed cells were ordered. She was started on cefepime. During evaluation in emergency room, patient was very tearful and indicated that she needs more help at home. She lives with her son and he is not able to help as much. She felt like her quality of life was diminishing and was not sure whether continuing with treatment was appropriate. Patient was admitted for further evaluation and treatment. During the course of the hospitalization, the following took place: 51-year-old female with history of metastatic endometrial cancer and high-grade myelodysplastic syndrome. Presented with dyspnea with exertion, found with symptomatic anemia. Undergoing chemotherapy Admitted with symptomatic anemia, heme negative stools Pancytopenia -Patient admitted to oncology floor, serial H&H's were ordered, continuous cardiac telemetry -Blood transfusion were recommended, patient received 4 units PRBC -HH stable -Patient's symptoms improve-no cp, no sob, fatigue improved. Was walking to bathroom with walker Metastatic endometrial cancer High-grade myelodysplastic syndrome - evaluated pt. input appreciated -continued Provera UTI -Followed urine culture-mixed gram-positive. Likely contaminant -Continued cefepime 1 g IV every 12 until dc -No fever, Asymptomatic. -No need for PO abx at home Dehydration Hypokalemia -Improved after IVF given -enc. to continue inc. PO intake, keep hydrated. Elevated T bili etiology unclear -T bili back to normal Bilateral leg pain, recent findings of painful soft tissue masses to both legs which apparently were calcification. Complained of increasing pain and difficulty ambulating -Patient was put on appropriate management, physical therapy was consulted -It was thought that lesions were possibly erythema nodosum per oncology. She was put on steroids which did help the pain -Gen. surgery was consulted for biopsy. -Surgery did punch biopsy 06/17, tolerated procedure well -Her pain medicines were adjusted, Dilaudid increased to Dilaudid 4 mg tab -Surgery recommended follow-up in 10 days for removal of sutures. Biopsy was pending, patient was to follow up as outpatient for results -Pain was better controlled, patient was more ambulatory. Was using walker. Hx DM, was on Metformin to avoid hyperglycemia but not taking regularly. Blood glucose had stabilized after bariatric surgery Controls through diet -continue check Accu-Cheks before meals and at bedtime with low-dose insulin therapy if needed -Blood glucose elevated, likely secondary to steroids. -Instructed to monitor blood sugars at home, may need to go back on metformin -Needs to follow diabetic diet During hospitalization, had Nonsustained VT-2 episodes. 11-15 beats of nonsustained VT were noted on 2 different occasions. Patient patient was asymptomatic -2-D echo ordered, EF okay. Some aortic stenosis noted. -Consulted cardiology, input was appreciated. At this time no recommendations for any anticoagulation, likely cause of dysrhythmia possibly secondary to other medical condition. There was no need to start the patient on any beta blockers or calcium channel blockers. -For the rest of the hospitalization, remained in sinus rhythm, no further ectopy. Cardiology instructed patient to follow-up in 2-4 weeks as outpatient. Consulted PT for OOB Was unable to use SCDs due to leg pain. No anticoagulation was recommended due to thrombocytopenia Case management consultation for discharge planning, home health care and PT. Patient was agreeable. Symptoms improved, no chest pain, no shortness of breath H&H stable Cleared for discharge by oncology Discharged home patient with home health care Instructed to: Follow-up with oncology Follow-up with cardiology in 3-4 weeks Follow-up with PCP Follow diabetic diet Activity as tolerated Pt Condition on Discharge: Stable Discharge Disposition: Discharge Home Discharge Instructions DIET: Follow Instructions for: Diabetic Diet Activities you can perform: Weight Bearing as [place] Follow up Referrals: Cardiology with Saeed Winters MD Oncology PCP Follow-up Surgical - 10 Days with Stephanie Landry New Medications: Methylprednisolone Dosepak (Medrol Dosepak) 4 Mg Dspk 4 MG PO DIRECTED, #1 DSPK 0 Refills Per Pharmacist direction Hydromorphone (Dilaudid) 4 Mg Tab 4 MG PO Q6HR PRN for pain 1-10 for 30 Days, #60 TAB Continued Medications: Azacitidine Inj (Vidaza Inj) 100 Mg Inj Escitalopram (Escitalopram) 10 Mg Tab 10 MG PO DAILY, #30 TAB 0 Refills Gabapentin (Gabapentin) 600 Mg Tab 600 MG PO TID, #90 TAB 0 Refills Medroxyprogesterone Acetate (Provera) 2.5 Mg Tab 2.5 MG PO DAILY for Uterine bleeding, #10 TAB Start day 16 Pantoprazole (Pantoprazole) 40 Mg Tab 40 MG PO DAILY for Reflux, #30 TAB 0 Refills Temazepam (Temazepam) 30 Mg Cap 30 MG PO HS PRN for INSOMNIA, #30 CAP 0 Refills Soledad Easley Jun 18, 2017 18:09
== END 2017-06-18 18:28 | disposition home or self-care (01) | DRG 809 ==
LOC: NEPE 15:07 → NEDA 19:08 → HOCA 23:25
PROVIDERS: ADMIT Specialist; ATTEND Specialist
PROC: 30233N1 Transfusion of Nonautologous Red Blood Cells into Peripheral Vein, Percutaneous Approach (ICD-10-PCS; 2017-06-13)
PROC: 0HBLXZX Excision of Left Lower Leg Skin, External Approach, Diagnostic (ICD-10-PCS; principal; 2017-06-17)
PROC: 0HBKXZX Excision of Right Lower Leg Skin, External Approach, Diagnostic (ICD-10-PCS; 2017-06-17)
DX: D61.818 Other pancytopenia (principal); C78.00 Secondary malignant neoplasm of unspecified lung; R17 Unspecified jaundice; G62.9 Polyneuropathy, unspecified; L52 Erythema nodosum; D46.Z Other myelodysplastic syndromes; I10 Essential (primary) hypertension; J44.9 Chronic obstructive pulmonary disease, unspecified; F32.9 Major depressive disorder, single episode, unspecified; M19.042 Primary osteoarthritis, left hand; M17.11 Unilateral primary osteoarthritis, right knee; E11.9 Type 2 diabetes mellitus without complications; I35.0 Nonrheumatic aortic (valve) stenosis; I45.10 Unspecified right bundle-branch block; E86.0 Dehydration; Z98.84 Bariatric surgery status; R63.0 Anorexia; E53.8 Deficiency of other specified B group vitamins; R26.2 Difficulty in walking, not elsewhere classified; E66.9 Obesity, unspecified; K21.9 Gastro-esophageal reflux disease without esophagitis; M71.22 Synovial cyst of popliteal space [Baker], left knee; Z92.21 Personal history of antineoplastic chemotherapy; E87.6 Hypokalemia; Z79.84 Long term (current) use of oral hypoglycemic drugs; G47.33 Obstructive sleep apnea (adult) (pediatric); Z80.41 Family history of malignant neoplasm of ovary; Z83.3 Family history of diabetes mellitus; Z84.1 Family history of disorders of kidney and ureter; Z80.6 Family history of leukemia; Z85.42 Personal history of malignant neoplasm of other parts of uterus; Z80.43 Family history of malignant neoplasm of testis
CPT/HCPCS: 36430; 71010; 71275; 80048; 80053; 80076; 81001; 82948; 83010; 83615; 83735; 85007; 85025; 85027; 85044; 85610; 85730; 86850; 86880; 86900; 86901; 86920; 87086; 88305; 93005; 93306; 93970; 96361; 96374; J0692; J1170; J1642; J1815; J1940; J7030; J7050; J7512; P9016; Q9967

== ENCOUNTER 2017-06-26 14:48 | Inpatient (IN) | payer MEDICARE, OTHER ==
[2017-06-26] VITALS (9 sets, daily range): BP systolic 102–134; BP diastolic 55–77; PULSE 82–126; RESP 16–22; TEMP 97.8–100; O2SAT 95–98
[~2017-06-26] VITALS: Ht 170.2 cm; Wt 118.9 kg
[~2017-06-26 14:48] MED LIST changes: +DILA4TAB2 PO; +GABA600T PO; +MEDR2.5 PO; +MEDR4PAK PO; -METF500T PO; -SUCR1S PO
[2017-06-26] MEDS ORDERED: SODIUM CHLORIDE 0.9% FLUSH 10 ML FLUSH IVF PRN (15:15)
[2017-06-26] MEDS ORDERED: HYDROmorphone HCL PF 1 MG/ML VIAL IV PUSH ONE ×2 (15:15→18:15)
--- NOTE | 2017-06-26 15:32 | PD ---
HPI Chief Complaint: Respiratory Symptoms Time Seen by Provider: 15:03 Travel History International Travel<30 days: No Contact w/Intl Traveler<30days: No Traveled to known affect area: No History of Present Illness HPI 52 F c/o pain in the L shoulder and L thoracolumbar back which started with chemotherapy today for high grade myelodysplastic syndrome. Associated symptoms : sob and fatigue. No fever. Follows with Dr Cartwright. Pain is constant. Pain is similar to prior episode requiring admission. onset sudden. Severity moderate. 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 PAIN) Glaucoma: No Genitourinary: Yes (edometrial cancer) Hepatitis: No Hiatal Hernia: No Hypertension: Yes (RESOLVED WITH WT LOSS) Immune Disorder: No Musculoskeletal: No Neurologic: No Psychiatric: Yes (Depression) Reproductive: No Respiratory: Yes Immunizations Current: No Migraines: Yes Radiation Therapy: No Sleep Apnea: No Thyroid Disease: No Menopausal: Yes : 1 Para: 1 Ovarian Cysts: Yes Past Surgical History Abdominal Surgery: Yes (gastric bypass, gallbladder, hernia repair) AICD: No Body Medical Devices: INFUSAPORT Cardiac Surgery: No Cholecystectomy: Yes Ear Surgery: No Endocrine Surgery: No Eye Surgery: No Genitourinary Surgery: No Gynecologic Surgery: Yes (DIANNE) Hysterectomy: Yes Joint Replacement: No Oral Surgery: No Pacemaker: No Thoracic Surgery: Yes (LUNG) Other Surgery: Yes (RYN -gastric bypass) Social History Alcohol Use: No Tobacco Use: No Substance Use: No Allergies-Medications (Allergen,Severity, Reaction): Coded Allergies: latex (Verified Allergy, Severe, Itching, RASH, 06/26/17) ketorolac (Verified Allergy, Intermediate, HIVES, 06/26/17) burning rash carboplatin (Verified Allergy, Mild, Rash, 06/26/17) adhesive (Verified Adverse Reaction, Severe, RASH, 06/26/17) OK FOR PAPER TAPE lorazepam (Verified Adverse Reaction, Mild, NIGHTMARES, 06/26/17) morphine (Verified Adverse Reaction, Mild, Itching, 06/26/17) acetaminophen (Verified Adverse Reaction, Unknown, 06/26/17) nausea oxycodone (Verified Adverse Reaction, Unknown, 06/26/17) nausea Reported Meds & Prescriptions Reported Meds & Active Scripts Active Dilaudid (Hydromorphone HCl) 4 Mg Tab 4 Mg PO Q6HR PRN 30 Days Medrol Dosepak (Methylprednisolone) 4 Mg Dspk 4 Mg PO DIRECTED Per Pharmacist direction Reported Gabapentin 600 Mg Tab 600 Mg PO TID Provera (Medroxyprogesterone Acetate) 2.5 Mg Tab 2.5 Mg PO DAILY Start day 16 Vidaza Inj (Azacitidine) 100 Mg Inj Escitalopram (Escitalopram Oxalate) 10 Mg Tab 10 Mg PO DAILY Pantoprazole (Pantoprazole Sodium) 40 Mg Tab 40 Mg PO DAILY Temazepam 30 Mg Cap 30 Mg PO HS PRN Review of Systems Except as stated in HPI: all other systems reviewed are Neg Physical Exam Narrative GENERAL: 52 yo F, WNWD, mild distress 2/2 pain SKIN: Warm and dry. HEAD: Atraumatic. Normocephalic. EYES: Pupils equal and round. No scleral icterus. No injection or drainage. ENT: No nasal bleeding or discharge. Mucous membranes pink and moist. NECK: Trachea midline. No JVD. CARDIOVASCULAR: Regular rate and rhythm. RESPIRATORY: No accessory muscle use. Clear to auscultation. Breath sounds equal bilaterally. GASTROINTESTINAL: Abdomen soft, non-tender, nondistended. Hepatic and splenic margins not palpable. MUSCULOSKELETAL: Extremities without clubbing, cyanosis, or edema. No obvious deformities. NEUROLOGICAL: Awake and alert. No obvious cranial nerve deficits. Motor grossly within normal limits. Five out of 5 muscle strength in the arms and legs. Normal speech. PSYCHIATRIC: Appropriate mood and affect; insight and judgment normal. Data Data Last Documented VS Vital Signs Date Time Temp Pulse Resp B/P (MAP) Pulse Ox O2 Delivery O2 Flow Rate FiO2 06/26/17 18:07 97 Room Air 06/26/17 18:05 108 20 134/58 (83) 06/26/17 14:49 100.0 VS reviewed Orders Orders Electrocardiogram (06/26/17 15:10) Complete Blood Count With Diff (06/26/17 15:10) Comprehensive Metabolic Panel (06/26/17 15:10) Magnesium (Mg) (06/26/17 15:10) Prothrombin Time / Inr (Pt) (06/26/17 15:10) Act Partial Throm Time (Ptt) (06/26/17 15:10) Lipase (06/26/17 15:10) Chest, Single Ap (06/26/17 15:10) Ecg Monitoring (06/26/17 15:10) Bilateral Bp Monitoring (06/26/17 15:10) Iv Access Insert/Monitor (06/26/17 15:10) Oximetry (06/26/17 15:10) Oxygen Administration (06/26/17 15:10) Sodium Chloride 0.9% Flush (Ns Flush) (06/26/17 15:15) Hydromorphone Pf Inj (Dilaudid Pf Inj) (06/26/17 15:15) Urinalysis - C+S If Indicated (06/26/17 16:35) Type And Screen (06/26/17 17:25) Red Blood Cells (Rbc) (06/26/17 17:25) Blood Product Administration (06/26/17 17:25) Sodium Chlor 0.9% 250 Ml Inj (Ns 250 Ml (06/26/17 17:30) Magnesium Sulfate 1 Gm Premix (Magnesium (06/26/17 18:15) Admit Order (Ed Use Only) (06/26/17 18:08) Labs Laboratory Tests Test 06/26/17 16:06 06/26/17 17:15 White Blood Count 4.4 TH/MM3 Red Blood Count 2.72 MIL/MM3 Hemoglobin 7.9 GM/DL Hematocrit 24.3 % Mean Corpuscular Volume 89.4 FL Mean Corpuscular Hemoglobin 29.1 PG Mean Corpuscular Hemoglobin Concent 32.6 % Red Cell Distribution Width 18.7 % Platelet Count 108 TH/MM3 Mean Platelet Volume 7.8 FL Neutrophils (%) (Auto) 48.4 % Lymphocytes (%) (Auto) 28.2 % Monocytes (%) (Auto) 22.2 % Eosinophils (%) (Auto) 0.4 % Basophils (%) (Auto) 0.8 % Neutrophils # (Auto) 2.1 TH/MM3 Lymphocytes # (Auto) 1.2 TH/MM3 Monocytes # (Auto) 1.0 TH/MM3 Eosinophils # (Auto) 0.0 TH/MM3 Basophils # (Auto) 0.0 TH/MM3 CBC Comment AUTO DIFF Differential Total Cells Counted 100 Neutrophils % (Manual) 52 % Band Neutrophils % 5 % Lymphocytes % 28 % Monocytes % 12 % Basophils % 2 % Neutrophils # (Manual) 2.6 TH/MM3 Metamyelocytes 1 % Nucleated Red Blood Cells 2 /100 WBC Differential Comment FINAL DIFF MANUAL Platelet Estimate LOW Platelet Morphology Comment NORMAL Ovalocytes 1+ Acanthocytes 1+ Keratocytes OCC Prothrombin Time 12.4 SEC Prothromb Time International Ratio 1.1 RATIO Activated Partial Thromboplast Time 28.1 SEC Blood Urea Nitrogen 20 MG/DL Creatinine 1.23 MG/DL Random Glucose 185 MG/DL Total Protein 6.3 GM/DL Albumin 2.6 GM/DL Calcium Level 8.0 MG/DL Magnesium Level 1.4 MG/DL Alkaline Phosphatase 64 U/L Aspartate Amino Transf (AST/SGOT) 10 U/L Alanine Aminotransferase (ALT/SGPT) 9 U/L Total Bilirubin 1.3 MG/DL Sodium Level 133 MEQ/L Potassium Level 3.4 MEQ/L Chloride Level 96 MEQ/L Carbon Dioxide Level 29.3 MEQ/L Anion Gap 8 MEQ/L Estimat Glomerular Filtration Rate 46 ML/MIN Lipase 50 U/L [facility] Medical Decision Making Medical Screen Exam Complete: Yes Emergency Medical Condition: Yes Medical Record Reviewed: Yes Differential Diagnosis UTI, PNA, PTX, PE, anemia, renal failure, electrolyte imbalance Narrative Course CBC & BMP Diagram 06/26/17 16:06 Total Protein 6.3 L, Albumin 2.6 L, Calcium Level 8.0 L, Magnesium Level 1.4 L, Alkaline Phosphatase 64, Aspartate Amino Transf (AST/SGOT) 10 L, Alanine Aminotransferase (ALT/SGPT) 9 L, Total Bilirubin 1.3 H Lipase 50 INR 1.1 Anemia of 7.9 with dyspnea, fatigue and pain. 1g mg IV 1u PRBCs d/w Dr Narayanan for [facility]. Diagnosis Primary Impression: Symptomatic anemia Additional Impressions: Pleural effusion Hypomagnesemia Admitting Information Admitting Physician Requests: Admit Kolton Blanco MD Jun 26, 2017 15:32
--- NOTE | 2017-06-26 16:18 | RADRPT ---
EXAM DATE/TIME: 06/26/2017 15:12 [facility] COMPARISON: CHEST SINGLE AP, June 13, 2017, 16:00. INDICATIONS : Left posterior chest pain MEDICAL HISTORY : Carcinoma, lung. Diabetes mellitus type 2. uterine cancer SURGICAL HISTORY : Cholecystectomy. Gastric bypass. Hysterectomy ENCOUNTER: Initial ACUITY: 1 day PAIN SCORE: 10/10 LOCATION: Left chest FINDINGS: Single AP view of the chest. Right-sided [id number] remains in place. Lungs are clear. Mild blunti ng left costophrenic sulcus. No evidence of pneumothorax. Cardiomediastinal silhouette unchanged. CONCLUSION: Small left pleural effusion. Roberto Billingsley MD on June 26, 2017 at 16:16 Board Certified Radiologist. This report was verified electronically.
[2017-06-26 16:28] LABS: AUTOMATED NEUTROPHIL # 2.1 TH/MM3 (1.8-7.7); BASOPHIL % 0.8 % (0.0-2.0); EOSINOPHIL % 0.4 % (0.0-4.0); HEMATOCRIT 24.3 % (35.0-46.0); LYMPH % 28.2 % (9.0-44.0); LYMPHOCYTE # 1.2 TH/MM3 (1.0-4.8); MEAN CELL VOLUME 89.4 FL (80.0-100.0); MEAN CORPUSCULAR HEMOGLOBIN 29.1 PG (27.0-34.0); MEAN CORPUSCULAR HGB CONC 32.6 % (32.0-36.0); MONO % 22.2 % (0.0-8.0); NEUT % 48.4 % (16.0-70.0); PLATELET COUNT 108 TH/MM3 (150-450); RED BLOOD COUNT 2.72 MIL/MM3 (4.00-5.30); RED CELL DISTRIBUTION WIDTH 18.7 % (11.6-17.2); WHITE BLOOD COUNT 4.4 TH/MM3 (4.0-11.0)
[2017-06-26 16:49] LABS: ALT (GPT) 9 U/L (10-53); ANION GAP 8 MEQ/L (5-15); AST (GOT) 10 U/L (15-37); BICARBONATE 29.3 MEQ/L (21.0-32.0); BLOOD UREA NITROGEN 20 MG/DL (7-18); CHLORIDE 96 MEQ/L (98-107); GLOMERULAR FILTRATION RATE 46 ML/MIN (>89); HEMO FLAGS AUTO DIFF; MAGNESIUM 1.4 MG/DL (1.5-2.5); POTASSIUM 3.4 MEQ/L (3.5-5.1); SODIUM (NA) 133 MEQ/L (136-145)
[2017-06-26 16:52] LABS: ALKALINE PHOSPHATASE 64 U/L (45-117); TOTAL BILIRUBIN ADULT 1.3 MG/DL (0.2-1.0)
[2017-06-26 17:02] LABS: APTT (PATIENT) 28.1 SEC (24.3-30.1); INTERNATIONAL NORMALIZED RATIO 1.1 RATIO; PROTHROMBIN TIME - PATIENT 12.4 SEC (9.8-11.6)
[2017-06-26] MEDS ORDERED: SODIUM CHLOR 0.9% 250 ML INJ 250 ML IV ONE (17:30)
[2017-06-26 17:37] LABS: BANDS 5 % (0-6); BASOPHILS 2 % (0-2); CORRECTED NUCLEATED RBC 2 /100 WBC (0-0); METAMYELOCYTES 1 % (0-1); NEUTROPHIL # MANUAL DIFF 2.6 TH/MM3 (1.8-7.7); POLYS (SEG NEUTROPHILS) 52 % (16-70); WBC DIFF SAMPLE 100
[2017-06-26 17:38] LABS: ACANTHOCYTES 1+ (NORMAL); KERATOCYTES OCC (NORMAL); OVALOCYTES 1+ (NORMAL); PLATELET ESTIMATE SMEAR LOW (NORMAL); PLATELET MORPHOLOGY NORMAL (NORMAL); SCAN/DIFF FINAL DIFF MANUAL
[2017-06-26] MEDS ORDERED: SENNOSIDES 8.6 MG TAB PO PRN (18:15)
[2017-06-26] MEDS ORDERED: MAGNESIUM SULFATE 1 GM PREMIX 100 ML IV ONE (18:15)
[2017-06-26] MEDS ORDERED: MAGNESIUM HYDROXIDE SUSP 30 ML CUP PO PRN (18:15)
[2017-06-26] MEDS ORDERED: SODIUM CHLORIDE 0.9% FLUSH 10 ML FLUSH IV FLUSH PRN (18:15)
[2017-06-26] MEDS ORDERED: LACTULOSE SYRUP 20 GM/30 ML CUP PO PRN (18:15)
[2017-06-26] MEDS ORDERED: NALOXONE HCL 0.4 MG/ML AMP IV PUSH PRN (18:15)
[2017-06-26] MEDS ORDERED: BISACODYL 10 MG SUPP RECTAL PRN (18:15)
[2017-06-26 18:30] LABS: BLOOD, URINE NEG (NEG); COMMENT (UR) CULT NOT INDICATED; CULTURE IF INDICATED CULT NOT INDICATED; GLUCOSE,URINE NEG (NEG); KETONE, URINE NEG (NEG); MUCUS URINE FEW /lpf (OCC); NITRITE,URINE NEG (NEG); PH, URINE 5.5 (5.0-8.5); SQUAMOUS EPITHELIAL CELL URINE 6 /hpf (0-5); URINE COLOR DARK-YELLOW (YELLW/STRAW)
[2017-06-26] MEDS ORDERED: HYDROmorphone HCL PF 1 MG/ML VIAL IV PUSH PRN (18:30)
--- NOTE | 2017-06-26 18:58 | HHI.HP ---
HPI Service [facility] Primary Care Physician Polly Paulson M.D. Admission Diagnosis Anemia, CP, HypoMg Diagnoses: (1) Pleural effusion Diagnosis: Principal (2) Pain aggravated by breathing Diagnosis: Principal (3) Dehydration Diagnosis: Principal (4) Fatigue Diagnosis: Secondary (5) Symptomatic anemia Diagnosis: Principal (6) Pleural effusion Diagnosis: Principal (7) Hypomagnesemia Diagnosis: Principal (8) MDS (myelodysplastic syndrome) Diagnosis: Principal (9) Total bilirubin, elevated Diagnosis: Principal Chief Complaint: weakness, Left shoulder pain Left lower thoracolumbar pain weakness anorexia with dehydration Travel History International Travel<30 Days: No Contact w/Intl Traveler <30 Da: No Traveled to Known Affected Are: No History of Present Illness 52 year-old white female who has been treated for high-grade myelodysplastic syndrome. She has been receiving her chemotherapy this week which began Friday- . This was her fourth completed treatment. After day 2 patient noted some left shoulder pain which felt like a pinched nerve. She also noted left for thoracolumbar pain which is exacerbated by taking a deep breath. Patient was unable to sleep for the past 2 nights, has had a decreased appetite and decreased by mouth intake. She does note some generalized weakness and fatigue , and mild constipation noted with no BM 2 days. Currently patient denies any chest pain, no headache, no shortness of breath, but does describe a pleuritic type low back pain, left side. Patient is awake, good historian, able to answer simple questions. There is no family with her. Patient does have a trace of lower extremity edema, complains of extreme thirst, nausea but no emesis. Review of Systems Constitutional: COMPLAINS OF: Fatigue, Fever (low-grade, 100), Weight loss, Change in appetite Ears, nose, mouth, throat: COMPLAINS OF: Hoarseness (mild) Respiratory: COMPLAINS OF: Cough (pleuritic pain with inspiration) Cardiovascular: COMPLAINS OF: Palpitations (sinus rhythm with multiple PACs) Gastrointestinal: COMPLAINS OF: Nausea Musculoskeletal: COMPLAINS OF: Joint pain, Muscle aches Neurologic: COMPLAINS OF: Abnormal gait (generalized weakness) Past Family Social History Past Medical History Arthritis, bilateral hands right knee Uterine cancer with metastases to lungs bilateral Morbid obesity Diabetes depression Anxiety Constipation Endometrial cancer Abdominal pain Hypertension, controlled now since weight loss Chronic pain Ovarian cyst Past Surgical History Gastric bypass Gallbladder hernia repair Chemotherapy [id number] Thoracic surgery lung DIANNE cholecystectomy Reported Medications Dilaudid Medrol Dosepak gabapentin Provera Protonix Temazepam Vidaza Escitalopram Allergies: Coded Allergies: latex (Verified Allergy, Severe, Itching, RASH, 06/26/17) ketorolac (Verified Allergy, Intermediate, HIVES, 06/26/17) burning rash carboplatin (Verified Allergy, Mild, Rash, 06/26/17) adhesive (Verified Adverse Reaction, Severe, RASH, 06/26/17) OK FOR PAPER TAPE lorazepam (Verified Adverse Reaction, Mild, NIGHTMARES, 06/26/17) morphine (Verified Adverse Reaction, Mild, Itching, 06/26/17) acetaminophen (Verified Adverse Reaction, Unknown, 06/26/17) nausea oxycodone (Verified Adverse Reaction, Unknown, 06/26/17) nausea Active Ordered Medications See above Family History NA Social History No alcohol no tobacco no illicit drugs Son lives with her Physical Exam Vital Signs Vital Signs Date Time Temp Pulse Resp B/P (MAP) Pulse Ox O2 Delivery O2 Flow Rate FiO2 06/26/17 18:07 97 Room Air 06/26/17 18:05 108 20 134/58 (83) 97 Room Air 06/26/17 14:49 100.0 126 22 118/77 (91) 97 Room Air Physical Exam GENERAL: This is an obese well-developed patient, mild facial grimace, resting on stretcher. Complaints of low back flank pain and left shoulder pain SKIN: No rashes. Cool and dry. HEAD: Atraumatic. Normocephalic. No temporal or scalp tenderness. EYES: Pupils equal round and reactive. Extraocular motions intact. No scleral icterus. No injection or drainage. ENT: Nose without bleeding, purulent drainage or septal hematoma. Throat without erythema, tonsillar hypertrophy or exudate. Uvula midline. Airway patent. NECK: Trachea midline. Supple, nontender, CARDIOVASCULAR: Irregular rate and rhythm, multiple PACs, heart rate borderline tachycardic 100, systolic murmur grade 3/6, Lt sternal border RESPIRATORY: Diminished to auscultation left lower lobe. Breath sounds equal bilaterally. No wheezes, rales, or rhonchi. GASTROINTESTINAL: Abdomen soft, non-tender, nondistended. No hepato-splenomegaly , or palpable masses. No guarding. Left lower back/flank pain and left shoulder pain persist MUSCULOSKELETAL: Extremities without clubbing, cyanosis, trace lower extremity edema. NEUROLOGICAL: Awake and alert. Motor and sensory grossly within normal limits. Normal speech., Raspy voice sound Laboratory Laboratory Tests Test 06/26/17 16:06 06/26/17 17:15 White Blood Count 4.4 Red Blood Count 2.72 Hemoglobin 7.9 Hematocrit 24.3 Mean Corpuscular Volume 89.4 Mean Corpuscular Hemoglobin 29.1 Mean Corpuscular Hemoglobin Concent 32.6 Red Cell Distribution Width 18.7 Platelet Count 108 Mean Platelet Volume 7.8 Neutrophils (%) (Auto) 48.4 Lymphocytes (%) (Auto) 28.2 Monocytes (%) (Auto) 22.2 Eosinophils (%) (Auto) 0.4 Basophils (%) (Auto) 0.8 Neutrophils # (Auto) 2.1 Lymphocytes # (Auto) 1.2 Monocytes # (Auto) 1.0 Eosinophils # (Auto) 0.0 Basophils # (Auto) 0.0 CBC Comment AUTO DIFF Differential Total Cells Counted 100 Neutrophils % (Manual) 52 Band Neutrophils % 5 Lymphocytes % 28 Monocytes % 12 Basophils % 2 Neutrophils # (Manual) 2.6 Metamyelocytes 1 Nucleated Red Blood Cells 2 Differential Comment FINAL DIFF MANUAL Platelet Estimate LOW Platelet Morphology Comment NORMAL Ovalocytes 1+ Acanthocytes 1+ Keratocytes OCC Prothrombin Time 12.4 Prothromb Time International Ratio 1.1 Activated Partial Thromboplast Time 28.1 Blood Urea Nitrogen 20 Creatinine 1.23 Random Glucose 185 Total Protein 6.3 Albumin 2.6 Calcium Level 8.0 Magnesium Level 1.4 Alkaline Phosphatase 64 Aspartate Amino Transf (AST/SGOT) 10 Alanine Aminotransferase (ALT/SGPT) 9 Total Bilirubin 1.3 Sodium Level 133 Potassium Level 3.4 Chloride Level 96 Carbon Dioxide Level 29.3 Anion Gap 8 Estimat Glomerular Filtration Rate 46 Lipase 50 Result Diagram: 06/26/17 1606 06/26/17 1606 Imaging Last Impressions Chest X-Ray 06/26/17 1510 Signed Impressions: Service Date/Time: May 15:12 - CONCLUSION: Small left pleural effusion. Roberto Billingsley MD Course Hematology consult Treatment of pain symptoms Monitor vital signs and labs By mouth steroids Septic Shock Reassessment Heart: Regular rate and rhythm (with multiple PACs,), Murmur (systolic left sternal border) Lungs: Diminished (left lower lung) Skin: Warm, Dry Peripheral Pulses: Bounding Right Radial Bounding Left Radial Bounding Right Popliteal Bounding Left Popliteal Bounding Right Dorsalis Pedis Bounding Left Dorsalis Pedis Bounding Right Posterior Tibial Bounding Left Posterior Tibial Capillary Refill: Brisk Caprini VTE Risk Assessment Caprini VTE Risk Assessment: Mod/High Risk (score >= 2) VTE Pharm Contraindication: chemotherapy patient Caprini Risk Assessment Model Point Value = 1 Point Value = 2 Point Value = 3 Point Value = 5 Age 41-60 Minor surgery BMI > 25 kg/m2 Swollen legs Varicose veins or History of unexplained or recurrent spontaneous Oral contraceptives or hormone replacement Sepsis (< 1 month) Serious lung disease, including pneumonia (< 1 month) Abnormal pulmonary function Acute myocardial infarction Congestive heart failure (< 1 month) History of inflammatory bowel disease Medical patient at bed rest Age 61-74 Arthroscopic surgery Major open surgery (> 45 min) Laparoscopic surgery (> 45 min) Malignancy Confined to bed (> 72 hours) Immobilizing plaster cast Central venous access Age >= 75 History of VTE Family history of VTE Factor V Leiden Prothrombin [id number] Lupus anticoagulant Anticardiolipin antibodies Elevated serum homocysteine Heparin-induced thrombocytopenia Other congenital or acquired thrombophilia Stroke (< 1 month) Elective arthroplasty Hip, pelvis, or leg fracture Acute spinal cord injury (< 1 month) Prophylaxis Regimen Total Risk Factor Score Risk Level Prophylaxis Regimen 0-1 Low Early ambulation 2 Moderate Order ONE of the following: *Sequential Compression Device (SCD) *Heparin 5000 units SQ BID 3-4 Higher Order ONE of the following medications: *Heparin 5000 units SQ TID *Enoxaparin/Lovenox 40 mg SQ daily (WT < 150 kg, CrCl > 30 mL/min) *Enoxaparin/Lovenox 30 mg SQ daily (WT < 150 kg, CrCl > 10-29 mL/min) *Enoxaparin/Lovenox 30 mg SQ BID (WT < 150 kg, CrCl > 30 mL/min) AND/OR *Sequential Compression Device (SCD) 5 or more Highest Order ONE of the following medications: *Heparin 5000 units SQ TID (Preferred with Epidurals) *Enoxaparin/Lovenox 40 mg SQ daily (WT < 150 kg, CrCl > 30 mL/min) *Enoxaparin/Lovenox 30 mg SQ daily (WT < 150 kg, CrCl > 10-29 mL/min) *Enoxaparin/Lovenox 30 mg SQ BID (WT < 150 kg, CrCl > 30 mL/min) AND *Sequential Compression Device (SCD) Assessment and Plan Assessment and Plan Anemia, severe with dyspnea Debility with fatigue Acute on chronic pain uncontrolled, left shoulder, left thoracolumbar Constipation mild, Hypo-magnesia Hypokalemia Vital signs every 4 and as warranted, intake and output, IV hydration, reconcile medications as warrented, pain management Monitor labs, potassium supplement, magnesium supplement, recheck labs in the morning Dental Nurse consult, assist in her plan of care Heparin DVT prophylaxis, 1800-calorie ADA diet, by mouth steroids Bowel regimen Code Status Full Discussed With: Nurse, Family, Other (Dr. Peralta seen on his behalf,) Rose Mary Adan Jun 26, 2017 18:58
[2017-06-26] MEDS: SODIUM CHLOR 0.45% 1000 ML INJ 1,000 ML IV SCH (21:58)
[2017-06-26] MEDS: SODIUM CHLORIDE 0.9% FLUSH 10 ML FLUSH IV FLUSH SCH (21:59)
[2017-06-26] MEDS: HEPARIN SODIUM - SQ 10,000 UNITS/ML VIAL SQ SCH (21:59)
[2017-06-26] MEDS: DOCUSATE SODIUM 50 MG/SENNA 8.6 MG TAB PO SCH (22:00)
[2017-06-26] MEDS: HYDROmorphone HCL 4 MG TAB PO PRN (22:01)
[2017-06-27] VITALS (10 sets, daily range): BP systolic 99–115; BP diastolic 53–73; PULSE 73–86; RESP 14–18; TEMP 97.9–98.9; O2SAT 95–100
[2017-06-27] MEDS: TEMAZEPAM 15 MG CAP PO PRN ×2 (02:14→23:29)
[2017-06-27] MEDS: HYDROmorphone HCL 4 MG TAB PO PRN ×3 (06:31→23:30)
[2017-06-27 07:31] LABS: AUTOMATED NEUTROPHIL # 1.8 TH/MM3 (1.8-7.7); EOSINOPHIL % 1.2 % (0.0-4.0); HEMATOCRIT 26.2 % (35.0-46.0); LYMPH % 34.8 % (9.0-44.0); LYMPHOCYTE # 1.3 TH/MM3 (1.0-4.8); MEAN CELL VOLUME 87.7 FL (80.0-100.0); MEAN CORPUSCULAR HGB CONC 34.2 % (32.0-36.0); MONO % 16.6 % (0.0-8.0); NEUT % 46.4 % (16.0-70.0); PLATELET COUNT 93 TH/MM3 (150-450); RED BLOOD COUNT 2.98 MIL/MM3 (4.00-5.30); RED CELL DISTRIBUTION WIDTH 17.5 % (11.6-17.2); WHITE BLOOD COUNT 3.8 TH/MM3 (4.0-11.0)
[2017-06-27 07:49] LABS: HEMO FLAGS AUTO DIFF
[2017-06-27 07:56] LABS: BICARBONATE 30.4 MEQ/L (21.0-32.0); POTASSIUM 3.1 MEQ/L (3.5-5.1)
[2017-06-27] MEDS: methylPREDNISolone 4 MG TAB PO SCH (08:51)
[2017-06-27] MEDS: GABAPENTIN 300 MG CAP PO SCH ×3 (08:51→18:29)
[2017-06-27] MEDS: PANTOPRAZOLE SOD 40 MG DELAYED RELEASE TAB PO SCH (08:51)
[2017-06-27] MEDS: DOCUSATE SODIUM 50 MG/SENNA 8.6 MG TAB PO SCH ×2 (08:51→20:41)
[2017-06-27] MEDS: SODIUM CHLOR 0.45% 1000 ML INJ 1,000 ML IV SCH ×2 (08:52→20:41)
[2017-06-27] MEDS: SODIUM CHLORIDE 0.9% FLUSH 10 ML FLUSH IV FLUSH SCH ×2 (08:52→20:40)
[2017-06-27] MEDS: ESCITALOPRAM OXALATE 10 MG TAB PO SCH (08:52)
[2017-06-27] MEDS: HEPARIN SODIUM - SQ 10,000 UNITS/ML VIAL SQ SCH ×2 (08:52→20:40)
[2017-06-27 09:10] LABS: BANDS 10 % (0-6); CORRECTED NUCLEATED RBC 1 /100 WBC (0-0); METAMYELOCYTES 1 % (0-1); POLYS (SEG NEUTROPHILS) 41 % (16-70); WBC DIFF SAMPLE 100
--- NOTE | 2017-06-27 09:10 | HHI.PR ---
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, Voice is raspy, will add IV Protonix Chief complaint left lower back pain into the flank area Afebrile (Rose Mary Adan) Review of Systems Constitutional Constitutional: Fatigue, Weakness Constitutional Remarks 10 point ROS done positives noted (Rose Mary Adan) Pulmonary Pulmonary Remarks Low volumes (Rose Mary Adan) GI/Abdomen GI/Abdominal Exam: Nausea, Constipation (Rose Mary Adan) Musculoskeletal MS: Weakness, Stiffness (Rose Mary Adan) Psychiatric Psychiatric: Normal Mood, Anxiety (Rose Mary Adan) Vitals/Results Vital Signs Vital Signs Date Time Temp Pulse Resp B/P (MAP) Pulse Ox O2 Delivery O2 Flow Rate FiO2 06/27/17 08:06 98.3 84 16 102/61 (75) 95 06/27/17 04:40 98.0 79 18 105/58 (74) 95 06/27/17 02:56 98.5 81 16 99/53 95 06/27/17 01:36 98.3 77 18 103/55 (71) 96 06/27/17 01:36 98.3 77 18 103/55 96 06/27/17 00:44 98.5 82 16 110/55 96 06/27/17 00:24 98.3 81 16 108/65 100 06/26/17 23:55 98.6 82 16 114/60 96 06/26/17 21:55 99.5 86 16 102/55 95 06/26/17 21:26 98.6 95 18 120/65 95 06/26/17 20:43 98.1 91 18 118/66 97 06/26/17 20:41 98.1 91 18 118/66 (83) 97 06/26/17 20:11 06/26/17 20:03 98.9 93 18 117/58 96 06/26/17 19:33 97.8 104 18 105/57 98 06/26/17 18:07 97 Room Air 06/26/17 18:05 108 20 134/58 (83) 97 Room Air 06/26/17 14:49 100.0 126 22 118/77 (91) 97 Room Air (Rose Mary Adan SOCIAL SECURITY 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) CBC/BMP: 06/27/17 0655 06/27/17 0655 Lab Results Laboratory Tests Test 06/26/17 16:06 06/26/17 17:15 06/27/17 06:55 White Blood Count 4.4 TH/MM3 3.8 TH/MM3 Red Blood Count 2.72 MIL/MM3 2.98 MIL/MM3 Hemoglobin 7.9 GM/DL 9.0 GM/DL Hematocrit 24.3 % 26.2 % Mean Corpuscular Volume 89.4 FL 87.7 FL Mean Corpuscular Hemoglobin 29.1 PG 30.0 PG Mean Corpuscular Hemoglobin Concent 32.6 % 34.2 % Red Cell Distribution Width 18.7 % 17.5 % Platelet Count 108 TH/MM3 93 TH/MM3 Mean Platelet Volume 7.8 FL 7.7 FL Neutrophils (%) (Auto) 48.4 % 46.4 % Lymphocytes (%) (Auto) 28.2 % 34.8 % Monocytes (%) (Auto) 22.2 % 16.6 % Eosinophils (%) (Auto) 0.4 % 1.2 % Basophils (%) (Auto) 0.8 % 1.0 % Neutrophils # (Auto) 2.1 TH/MM3 1.8 TH/MM3 Lymphocytes # (Auto) 1.2 TH/MM3 1.3 TH/MM3 Monocytes # (Auto) 1.0 TH/MM3 0.6 TH/MM3 Eosinophils # (Auto) 0.0 TH/MM3 0.0 TH/MM3 Basophils # (Auto) 0.0 TH/MM3 0.0 TH/MM3 CBC Comment AUTO DIFF AUTO DIFF Differential Total Cells Counted 100 Neutrophils % (Manual) 52 % Band Neutrophils % 5 % Lymphocytes % 28 % Monocytes % 12 % Basophils % 2 % Neutrophils # (Manual) 2.6 TH/MM3 Metamyelocytes 1 % Nucleated Red Blood Cells 2 /100 WBC Differential Comment FINAL DIFF MANUAL Platelet Estimate LOW Platelet Morphology Comment NORMAL Ovalocytes 1+ Acanthocytes 1+ Keratocytes OCC Prothrombin Time 12.4 SEC Prothromb Time International Ratio 1.1 RATIO Activated Partial Thromboplast Time 28.1 SEC Blood Urea Nitrogen 20 MG/DL 18 MG/DL Creatinine 1.23 MG/DL 0.89 MG/DL Random Glucose 185 MG/DL 119 MG/DL Total Protein 6.3 GM/DL Albumin 2.6 GM/DL Calcium Level 8.0 MG/DL 8.2 MG/DL Magnesium Level 1.4 MG/DL Alkaline Phosphatase 64 U/L Aspartate Amino Transf (AST/SGOT) 10 U/L Alanine Aminotransferase (ALT/SGPT) 9 U/L Total Bilirubin 1.3 MG/DL Sodium Level 133 MEQ/L 134 MEQ/L Potassium Level 3.4 MEQ/L 3.1 MEQ/L Chloride Level 96 MEQ/L 97 MEQ/L Carbon Dioxide Level 29.3 MEQ/L 30.4 MEQ/L Anion Gap 8 MEQ/L 7 MEQ/L Estimat Glomerular Filtration Rate 46 ML/MIN 66 ML/MIN Lipase 50 U/L Urine Color DARK-YELLOW Urine Turbidity HAZY Urine pH 5.5 Urine Specific [place] 1.023 Urine Protein 100 mg/dL Urine Glucose (UA) NEG mg/dL Urine Ketones NEG mg/dL Urine Occult Blood NEG Urine Nitrite NEG Urine Bilirubin NEG Urine Urobilinogen 4.0 MG/DL Urine Leukocyte Esterase TRACE Urine RBC 1 /hpf Urine WBC 6 /hpf Urine Squamous Epithelial Cells 6 /hpf Urine Amorphous Sediment RARE Urine Mucus FEW /lpf Microscopic Urinalysis Comment CULT NOT INDICATED Imaging Remarks Last Impressions Chest X-Ray 06/26/17 1510 Signed Impressions: Service Date/Time: May 15:12 - CONCLUSION: Small left pleural effusion. Roberto Billingsley MD (Rose Mary Adan) Physical Exam General General Appearance: Well Developed, Pale, Anxious, Obese (Rose Mary Adan) Eyes Eye Exam: Pupils Equal, Pupils Reactive (Rose Mary Adan) Ears & Nose Ears & Nose Exam: Nasal Mucosa [place] (Rose Mary Adan) Throat Throat Exam: Oral Mucosa [place] & Moist (pedal pale) (Rose Mary Adan) Neck Neck Exam: Neck Supple (Rose Mary Adan) Pulmonary Resp Exam: Diminished Breath Sounds (left side) (Rose Mary Adan) Cardiology CV Exam: Normal Sinus Rhythm (with multiple PACs on admission), Irregular (Rose Mary Adan) Gastrointestinal/Abdomen GI Exam: Soft, Non-Tender, Bowel Sounds Present (Rose Mary Adan) Genitourinary Remarks During dark tea-colored (Rose Mary Adan) Musculoskeletal MS Exam: Joints Intact, Atrophy (Rose Mary Adan) Integumentary Skin Exam: Warm, Dry, Intact (Rose Mary Adan) Extremeties Extremities Exam: Trace Edema (trace lower extremity edema) (Rose Mary Adan) Neurologic Neuro Exam: Awake, Oriented, Speech Clear (voice raspy), Moving All Extremities (Rose Mary Adan) Assessment/Plan Assessment/Plan Vital signs reviewed, patient afebrile BP 105/58, patient states her norms are usually low Labs hemoglobin is now 9., Potassium 3.1, BBC count 3.8, platelets 93, blood sugar 156, rechecked mag level today, WBC count 3.8 High grade myelodysplastic syndrome, patient is currently on a chemotherapy regimen. She was supposed to receive 5 days this week. She has completed today for, hematology consult for their expert opinion and following. Leukopenia ,WBC count 3.8, patient received 4 treatments of chemotherapy this week. Anemia, severe with dyspnea 2 units of packed RBCs given, hemoglobin is now 9 this a.m., will continue to monitor GERD, raspy voice, will add IV Protonix to her regimen Debility with fatigue Patient has completed 4 of her 5 days of chemotherapy this week, on day 2 she was beginning to feel her symptoms of left shoulder pain, weakness and fatigue, left lower flank pain Acute on chronic pain uncontrolled, left shoulder, left thoracolumbar Patient continues to complain of left lower flank pain, small pleural effusion noted on chest x-ray. No hypoxia no shortness of breath noted. We will continue to evaluate pain today and consider pulmonary consult if needed. Constipation mild, Stool softeners and bowel regimen have been ordered, explained to process on admission to patient, if her bowels have not moved she needs to take laxative today along with her stool softeners. Hypo-magnesia Patient received a dose of IV magnesium in the ER, Will recheck her labs today Hypokalemia 40 mEq of potassium ordered 1, we'll recheck her labs in the morning Diabetes mellitus, 2, mild hyperglycemia Accu-Cheks before meals and at bedtime, low-dose sliding scale, patient states blood sugars are controlled most of the time since she has had her bariatric surgery. ADA diet 1800-calorie, continue to monitor her needs Discussed with patient Discussed with nurse Discussed with Dr. Narayanan, seen on his behalf (Rose Mary Adan) Assessment/Plan seen, examined by myself, Dr Narayanan, today Discussed with patient Discussed with mid level provider, agree with above Oncologist Dr. Romero has seen the patient, report noted and appreciated Follow electrolytes and replace as needed pain control for the left-sided thorax pain. If worse the last pulmonology to evaluate The exam, history, and the medical decision-making described in the above note were completed with the assistance of the mid-level provider. I reviewed the findings presented. I attest that I had a [id number] encounter with the patient on the same day, and personally performed and documented my assessment and findings in the medical record. (Maranda Narayanan MD) Rose Mary Adan Jun 27, 2017 09:09 Maranda Narayanan MD Jun 27, 2017 18:38
[2017-06-27 09:12] LABS: KERATOCYTES OCC (NORMAL); OVALOCYTES 1+ (NORMAL); PLATELET ESTIMATE SMEAR LOW (NORMAL); PLATELET MORPHOLOGY NORMAL (NORMAL); SCAN/DIFF FINAL DIFF MANUAL
[2017-06-27] MEDS ORDERED: POTASSIUM CHLORIDE 20 MEQ CONTROLLED RELEASE TAB PO ONE ×2 (09:30→20:15)
--- NOTE | 2017-06-27 10:33 | EKG ---
Date Performed: 06/26/2017 Time Performed: 16:19:18 PTAGE: 52 years EKG: ATRIAL FIBRILLATION WITH RAPID VENTRICULAR RESPONSE RIGHT BUNDLE BRANCH BLOCK Compared to p revious tracing atrial fibrillation with rapid response is new ABNORMAL ECG PREVIOUS TRACING : 06/15/2017 11.14 DOCTOR: Jong Lovell Interpretating Date/Time 06/27/2017 10:32:43
--- NOTE | 2017-06-27 10:45 | MB ---
cc: KARLA BOLDEN DATE OF CONSULTATION 06/27/2017 REASON FOR CONSULTATION 1. Myelodysplasia 2. Pain left chest area 3: Metastatic uterine cancer PATIENT PROFILE The patient is a 52 year-old white female who is single. She has never been . She has one son. She was born in [place]. She lives with her son. 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 She does not smoke and does not drink. HISTORY OF PRESENT ILLNESS The patient is a 52 year-old female who states that in 2010 she had a DIANNE/BSO for a uterine cancer and at that time, already had metastatic disease to the lung. 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 She has received a number of chemotherapy drugs. She developed progressive disease. She developed anemia and was found to have a myelodysplasia. 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 She has been receiving Vidaza administered by Dr. Kurtz. This past week, she received treatment. On Friday, she developed pain in the left lower chest area which has escalated. The pain was of sudden onset. The pain became so severe that she went to the emergency room. She had a chest x-ray on 06/26/2017 which shows a small left pleural effusion. She did have a CT angiogram on 06/13/2017 showing no pulmonary embolus. She had a right mid lung pulmonary nodule which had enlarged. She had an area of low attenuation in the visualized spleen, possibly a splenic infarct. At the present time, her major issue is the pain. PAST SURGICAL HISTORY 1. 2010, DIANNE/BSO for uterine cancer. 2. 2012, lung resection as described above. 3. Gastric bypass surgery 4. Cholecystectomy 5. Repair of abdominal hernia. 6. The patient had recent skin biopsy involving the legs and may have had some type of inflammatory process. She was placed on a tapering dose of prednisone. PAST MEDICAL HISTORY 1. Metastatic uterine cancer 2. Previous history of morbid obesity status post gastric bypass surgery. 3. Neuropathy MEDICATIONS Prior to admission: 1. Vidaza which he receives for seven days. 2. Celexa 3. Gabapentin 4. Dilaudid 5. Medroxy Provera 6. Tapering dose of steroids 7. Protonix 8. Restoril ALLERGIES ACETAMINOPHEN, CARBOPLATIN, KETOROLAC, LORAZEPAM, MORPHINE AND OXYCODONE. FAMILY HISTORY Noncontributory REVIEW OF SYSTEMS Major events are weakness, fatigue and the acute onset of pain in the left lower rib cage. the other systems normal PHYSICAL EXAM This is an acute ill female. She is lying in bed. She is miserable and points to the area where it hurts. VITAL SIGNS: Blood pressure 102/60, respiratory rate 18, pulse 80, afebrile, 95% saturation. HEAD: Normocephalic. EYES, EARS, NOSE AND THROAT: Sclerae and conjunctivae are normal. NECK: There is no adenopathy. BREASTS: Without masses. HEART: Regular rhythm. LUNGS: Clear. ABDOMEN: No hepatosplenomegaly. EXTREMITIES: +1 edema. MUSCULOSKELETAL: There is a distinct severe tenderness of the left inferior lateral and slightly posterior rib cage. It is reproducible and this is the pain that she states hurts. ASSESSMENT 1. Myelodysplasia. She is receiving Vidaza. She is still transfusion dependent. Her current hemoglobin today is 9, white count 3800 and platelets 93,000. There is nothing That has to be done. Her neutrophil count is adequate at 2000. 2. Metastatic uterine cancer. She is being treated with Provera and this certainly sounds appropriate. 3. The major issue is pain. I have ordered an x-ray of the left rib cage area. The pain does not appear to arise from the lung. She has a significant amount of tenderness involving the left rib cage area. Regarding pain control, I would simple use Dilaudid and if necessary increase the doses. Dr. Kurtz will be back on Friday. MD BEULAH Holman/JUDSON /10:08 AM /10:17 AM MTDD
--- NOTE | 2017-06-27 11:35 | RADRPT ---
EXAM DATE/TIME: 06/27/2017 10:40 This report includes an Addendum and supersedes previous reports for this exam. [facility] COMPARISON: CHEST SINGLE AP, June 26, 2017, 15:12. INDICATIONS : Left lower rib pain with no known injury. Painful inspiration. MEDICAL HISTORY : Carcinoma, lung. Gastroesophageal reflux disease. Ovarian cysts. Carcinoma, endometrial. Arthritis. D iabetes. Depression. Carcinoma, uterine. Chemotherapy. SURGICAL HISTORY : Cholecystectomy.Hysterectomy. Gastric bypass surgery. ENCOUNTER: Initial ACUITY: 2 days PAIN SCORE: 10/10 LOCATION: Left chest rib FINDINGS: Multiple views of the right ribs were performed. There is no evidence of displaced fracture. No de structive lesions or areas of periosteal thickening are seen. Incidental note is made of mild diffuse gaseous distention of the colon with moderate amount of stool noted in the distal colon. CONCLUSION: 1. No displaced rib fractures or pneumothorax. 2. Mild gaseous distention of the colon with moderate distal colonic stool. Formal abdominal radiogra phs may be obtained for further evaluation if clinically indicated. Sameer Pugh MD on June 27, 2017 at 11:31 Board Certified Radiologist. This report was verified electronically. ADDENDUM: There is a typographical error in the first sentence of this report. It should read: multiple views o f the left ribs were performed. Sameer Pugh MD on June 27, 2017 at 11:52 Board Certified Radiologist. This report was verified electronically.
[2017-06-27] MEDS: PANTOPRAZOLE SODIUM 40 MG VIAL IV PUSH SCH (12:23)
[2017-06-27] MEDS ORDERED: IOHEXOL 350 MG/ML 10 ML VIAL (for RAD DIAG) IVCONTRAST ONE (20:05)
[2017-06-27 20:06] LABS: BETA HCG QUANT 2 MIU/ML (0-5)
--- NOTE | 2017-06-27 20:39 | RADRPT ---
EXAM DATE/TIME: 06/27/2017 19:55 [facility] COMPARISON: CT PULMONARY ANGIOGRAM, June 13, 2017, 18:13. INDICATIONS : Left side chest pain. IV CONTRAST: 75 cc Omnipaque 350 (iohexol) IV RADIATION DOSE: 16.09 CTDIvol (mGy) MEDICAL HISTORY : Hypertension. Carcinoma, lung. Gastroesophageal reflux disease. Ovarian cysts. Carcinoma, endometria l. Arthritis. Diabetes. Carcinoma, uterine. Chemotherpy. SURGICAL HISTORY : Cholecystectomy.Hysterectomy. Gastric bypass surgery. Port placement. ENCOUNTER: Initial ACUITY: 1 week PAIN SCALE: 8/10 LOCATION: Left chest TECHNIQUE: Volumetric scanning of the chest was performed using a pulmonary embolism protocol MIP images were re constructed. Using automated exposure control and adjustment of the mA and/or kV according to patien t size, radiation dose was kept as low as reasonably achievable to obtain optimal diagnostic quality images. DICOM format image data is available electronically for review and comparison. Follow-up recommendations for detected pulmonary nodules are based at a minimum on nodule size and pa tient risk factors according to Fleischner Society Guidelines. FINDINGS: There is mild atelectasis at both lung bases. A small pleural effusion has developed on the left. 16m m focal opacity in the right midlung measures slightly smaller in the interim. There is no pulmonary embolus. Heart size stable, within normal limits. No adenopathy demonstrated. Upper abdomen only partly included on the study. There is decreased attenuation/enhancement now seen in the lateral half of the visualized spleen. CONCLUSION: 1. No pulmonary embolus. 2. Small left pleural effusion and mild bibasilar atelectasis. 3. Right midlung nodule measures slightly smaller in the interim. 4. Suspected new infarction of the spleen. Bakari Paz MD on June 27, 2017 at 20:34 Board Certified Radiologist. This report was verified electronically.
[2017-06-28] VITALS (11 sets, daily range): BP systolic 98–115; BP diastolic 56–70; PULSE 72–79; RESP 11–17; TEMP 97.8–98.3; O2SAT 96–100
--- NOTE | 2017-06-28 08:03 | HHI.PR ---
Subjective Subjective Remarks Resting in the bed Still complaining of left lower lung/flank pain Right shoulder pain improved Constipation, Dulcolax suppository given today Encouraged to be out of bed and increase activity (Rose Mary Adan) Review of Systems Constitutional Constitutional: Fatigue, Weakness Constitutional Remarks 10 point ROS done positives noted (Rose Mary Adan) Pulmonary Respiratory: Coughing (started within the last 24 hours) Pulmonary Remarks Low volumes (Rose Mary Adan) GI/Abdomen GI/Abdominal Exam: Nausea, Constipation (Rose Mary Adan) Musculoskeletal MS: Weakness, Stiffness (Rose Mary Adan) Psychiatric Psychiatric: Normal Mood, Anxiety (Rose Mary Adan) Vitals/Results Vital Signs Vital Signs Date Time Temp Pulse Resp B/P (MAP) Pulse Ox O2 Delivery O2 Flow Rate FiO2 06/28/17 04:29 98.0 75 17 115/70 (85) 96 06/28/17 04:00 73 06/27/17 23:22 98.2 86 17 113/73 (86) 95 06/27/17 21:05 97.9 73 17 100/61 (74) 98 06/27/17 17:00 16 06/27/17 15:09 98.2 79 14 115/64 (81) 96 06/27/17 11:35 98.9 83 16 102/60 (74) 96 06/27/17 08:06 98.3 84 16 102/61 (75) 95 (Rose Mary Adan) CBC/BMP: 06/27/17 0655 06/27/17 0655 Imaging Remarks Last Impressions Ribs X-Ray 06/27/17 0000 Signed Impressions: Service Date/Time: Tuesday, June 27, 2017 10:40 - CONCLUSION: 1. No displaced rib fractures or pneumothorax. 2. Mild gaseous distention of the colon with moderate distal colonic stool. Formal abdominal radiographs may be obtained for further evaluation if clinically indicated. Sameer Pugh MD ADDENDUM: There is a typographical error in the first sentence of this report. It should read: multiple views of the left ribs were performed. Sameer Pugh MD CT Angiography 06/27/17 0000 Signed Impressions: Service Date/Time: Tuesday, June 27, 2017 19:55 - CONCLUSION: 1. No pulmonary embolus. 2. Small left pleural effusion and mild bibasilar atelectasis. 3. Right midlung nodule measures slightly smaller in the interim. 4. Suspected new infarction of the spleen. Bakari Paz MD Chest X-Ray 06/26/17 1510 Signed Impressions: Service Date/Time: May 15:12 - CONCLUSION: Small left pleural effusion. Roberto Billingsley MD ([place],Rose Mary M. CHIMNEY REPAIRER) Physical Exam General General Appearance: Well Developed, Pale, Anxious, Obese ([place],Rose Mary M. CHIMNEY REPAIRER) Eyes Eye Exam: Pupils Equal, Pupils Reactive ([place],Rose Mary M. CHIMNEY REPAIRER) Ears & Nose Ears & Nose Exam: Nasal Mucosa [place] ([place]field,Rose Mary M. CHIMNEY REPAIRER) Throat Throat Exam: Oral Mucosa [place] & Moist (pedal pale) ([place],Rose Mary M. CHIMNEY REPAIRER) Neck Neck Exam: Neck Supple ([place],Rose Mary M. CHIMNEY REPAIRER) Pulmonary Resp Exam: Diminished Breath Sounds (left side) Resp Remarks Left lower lobe ([place],Rose Mary M. CHIMNEY REPAIRER) Cardiology CV Exam: Normal Sinus Rhythm (with multiple PACs on admission), Irregular ([place],Rose Mary M. CHIMNEY REPAIRER) Gastrointestinal/Abdomen GI Exam: Soft, Non-Tender, Bowel Sounds Present ([place],Rose Mary M. CHIMNEY REPAIRER) Genitourinary Remarks During dark tea-colored (RedfieldRose Mary M. CHIMNEY REPAIRER) Musculoskeletal MS Exam: Joints Intact, Atrophy (LocoRose Mary M. CHIMNEY REPAIRER) Integumentary Skin Exam: Warm, Dry, Intact ([place],Rose Mary M. CHIMNEY REPAIRER) Extremeties Extremities Exam: Trace Edema (trace lower extremity edema) ([place],Rose Mary M. CHIMNEY REPAIRER) Neurologic Neuro Exam: Awake, Oriented, Speech Clear (voice raspy), Moving All Extremities (RedfieldRose Mary M. CHIMNEY REPAIRER) Assessment/Plan Assessment/Plan Vital signs reviewed, normal trends Labs hemoglobin is now 9., bmp pending for K+ check and renal function, Mag 1.7 High grade myelodysplastic syndrome, patient is currently on a chemotherapy regimen. She was supposed to receive 5 days this week. She has completed today for, hematology consult for their expert opinion and following. Leukopenia ,WBC count 3.8, patient received 4 treatments of chemotherapy this week., Followed per Dr. Romero, appreciate input and managing this plan of care Anemia, severe with dyspnea 2 units of packed RBCs given, hemoglobin is now 9 this a.m., will continue to monitor. Hemoglobin stable, no further dyspnea GERD, raspy voice, will add IV Protonix to her regimen Left lower flank /lumbar pain . Debility with fatigue continues left shoulder pain, weakness and fatigue, left lower flank pain continues, ribs reviewed without fractures, small pleural effusion and some atelectasis continues. Patient now complains of some mild cough. Pillow to be given to her for bracing herself and encouraged return cough and deep breathe, incentive spirometry ordered and encourage patient to use frequently today. Dual nebs ordered every 4 hours, pulmonary consult for their expert opinion Constipation mild, still no BM Dulcolax suppository today, check for impaction if needed. Patient feels the urge thinks that she will go today Hypo-magnesia, resolved Patient received a dose of IV magnesium in the ER, Will recheck her labs today Hypokalemia 40 mEq of potassium ordered 1, BMP pending Diabetes mellitus, 2, mild hyperglycemia Accu-Cheks before meals and at bedtime, low-dose sliding scale, patient states blood sugars are controlled most of the time since she has had her bariatric surgery. ADA diet 1800-calorie, continue to monitor her needs Discussed with patient Discussed with nurse Discussed with Dr. johnson, seen on his behalf (Rose Mary Adan) Assessment/Plan PT IS SEEN & EXAMINED CHART REVIEWED d/w PT d/w Rose Mary agree w above pt is still in lot of pain .needing round the clock po & IV narcotics she meets Inpatient criteria d/t her fraility/obesity & gen weakness & intractable pain expected LOS is 4 to 5 days .possible d.c home w C when atble will f/u (Carlos Johnson MD) Rose Mary Adan Jun 28, 2017 08:03 Carlos Johnson MD Jun 28, 2017 15:06
[2017-06-28] MEDS: methylPREDNISolone 4 MG TAB PO SCH (09:00)
[2017-06-28] MEDS: HEPARIN SODIUM - SQ 10,000 UNITS/ML VIAL SQ SCH ×2 (09:07→21:46)
[2017-06-28] MEDS: GABAPENTIN 300 MG CAP PO SCH ×3 (09:08→17:35)
[2017-06-28] MEDS: POTASSIUM CHLORIDE 20 MEQ CONTROLLED RELEASE TAB PO SCH (09:09)
[2017-06-28] MEDS: SODIUM CHLORIDE 0.9% FLUSH 10 ML FLUSH IV FLUSH SCH ×2 (09:09→21:00)
[2017-06-28] MEDS: PANTOPRAZOLE SOD 40 MG DELAYED RELEASE TAB PO SCH (09:09)
[2017-06-28] MEDS: ESCITALOPRAM OXALATE 10 MG TAB PO SCH (09:09)
[2017-06-28] MEDS: DOCUSATE SODIUM 50 MG/SENNA 8.6 MG TAB PO SCH ×2 (09:09→21:00)
--- NOTE | 2017-06-28 09:16 | PD.ONC.PN ---
Subjective Subjective Remarks Afebrile overnight. Complaining of continued pain in the left flank/abdomen. Pain worsened with deep breath. She states she has been forgetting to take her pain medication. Objective Data Date Time Temp Pulse Resp B/P (MAP) Pulse Ox O2 Delivery O2 Flow Rate FiO2 06/28/17 08:25 97.8 74 16 107/63 (78) 99 06/28/17 04:29 98.0 75 17 115/70 (85) 96 06/28/17 04:00 73 06/27/17 23:22 98.2 86 17 113/73 (86) 95 06/27/17 21:05 97.9 73 17 100/61 (74) 98 06/27/17 17:00 16 06/27/17 15:09 98.2 79 14 115/64 (81) 96 06/27/17 11:35 98.9 83 16 102/60 (74) 96 Result Diagram: 06/27/17 0655 06/27/17 0655 Administered Medications Medications (Trade) Dose Ordered Sig/Jasen Route PRN Reason Start Time Stop Time Status Last Admin Dose Admin Sodium Chloride (NS Flush) 2 ml UNSCH PRN IVF FLUSH AFTER USING IV ACCESS 06/26/17 15:15 06/26/17 16:07 Escitalopram Oxalate (Lexapro) 10 mg DAILY PO 06/27/17 09:00 06/27/17 08:52 Gabapentin (Neurontin) 600 mg TID PO 06/27/17 09:00 06/27/17 18:29 Hydromorphone HCl (Dilaudid) 4 mg Q6HR PRN PO pain 1-10 06/26/17 18:15 06/27/17 23:30 Medroxyprogesterone Acetate (Provera) 2.5 mg DAILY PO 06/27/17 09:00 06/27/17 08:51 Methylprednisolone (Medrol) 4 mg DAILY PO 06/27/17 09:00 06/27/17 08:51 Pantoprazole Sodium (Protonix) 40 mg DAILY PO 06/27/17 09:00 06/27/17 08:51 Temazepam (Restoril) 30 mg HS PRN PO INSOMNIA 06/26/17 21:00 06/27/17 23:29 Sodium Chloride 1,000 ml @ 75 mls/hr [id number] IV 06/26/17 19:30 06/27/17 20:41 Sodium Chloride (NS Flush) 2 ml BID IV FLUSH 06/26/17 21:00 06/27/17 20:40 Heparin Sodium (Porcine) (Heparin Inj) 5,000 units Q12H SQ 06/26/17 20:00 06/27/17 20:40 Senna/Docusate Sodium (Quin-Colace) 1 tab BID PO 06/26/17 21:00 06/27/17 20:41 Pantoprazole Sodium (Protonix Inj) 40 mg DAILY IV PUSH 06/27/17 10:00 06/27/17 12:23 Objective Remarks GENERAL: Middle aged female upright in bed in nad. SKIN: Warm and dry. HEAD: Normocephalic. EYES: No injection or drainage. NECK: Supple, trachea midline. CARDIOVASCULAR: Regular rate and rhythm RESPIRATORY: diminished along left base, anterior nagy clear GASTROINTESTINAL: Abdomen soft, non-tender, nondistended. EXTREMITIES: No cyanosis. NEUROLOGICAL: awake and alert, normal speech. moving all extremities. Assessment/Plan Problem List: (1) MDS (myelodysplastic syndrome) ICD Codes: D46.9 - Myelodysplastic syndrome, unspecified Status: Acute Plan: --Myelodysplasia. --receiving Vidaza outpatient. ++transfusion dependent. (2) Endometrial ca ICD Codes: C54.1 - Malignant neoplasm of endometrium Status: Acute Plan: --follows with Dr. Thomason --being treated with Provera (3) Pleural effusion ICD Codes: J90 - Pleural effusion, not elsewhere classified Plan: --left sided pleural effusion --pulmonology consulted (4) Chest pain, atypical ICD Codes: R07.89 - Other chest pain Status: Acute Plan: --?referred pain from splenic infarct --? due to small left sided pleural effusion Assessment 52y/o female with uterine cancer, and myelodysplastic syndrome, admitted with left chest pain. Plan 1. check CBC today 2. continue pain management-->start scheduled Dilaudid 4mg PO q 6 hours. Start Dilaudid 0.5mg IV PRN q 2 hours for breakthrough pain. Attending Statement The exam, history, and the medical decision-making described in the above note were completed with the assistance of the mid-level provider. I reviewed and agree with the findings presented. I attest that I had a [id number] encounter with the patient on the same day, and personally performed and documented my assessment and findings in the medical record. endometrial ca with mets and MDS getting Vidaza o/p CTA --no PE splenic infarct pleuritic pain continue pain management CBC pending transfuse to keep Hb > 7 scheduled PO Dilaudid 4mg every 6 hours 0.5 mg IV Dilaudid for breakthrough pain On Provera for endometrial ca d/w rn o/n events reviewed Jeanne Mcdonald Jun 28, 2017 09:16 Ramon Decker MD Jun 28, 2017 12:09
[2017-06-28] MEDS ORDERED: HYDROmorphone HCL PF 1 MG/ML VIAL IV PUSH ONE (09:30)
[2017-06-28] MEDS: PANTOPRAZOLE SODIUM 40 MG VIAL IV PUSH SCH (11:05)
[2017-06-28] MEDS: HYDROmorphone HCL 4 MG TAB PO SCH ×3 (11:35→23:46)
[2017-06-28] MEDS: RESP: ALBUTEROL 2.5 MG/IPRATROPIUM 0.5 MG NEB (SCH) NEB ×4 (11:55→23:53)
[2017-06-28 12:01] LABS: AUTOMATED NEUTROPHIL # 1.3 TH/MM3 (1.8-7.7); BASOPHIL % 2.1 % (0.0-2.0); EOSINOPHIL # 0.1 TH/MM3 (0-0.4); EOSINOPHIL % 3.1 % (0.0-4.0); HEMATOCRIT 24.4 % (35.0-46.0); LYMPH % 25.4 % (9.0-44.0); LYMPHOCYTE # 0.6 TH/MM3 (1.0-4.8); MEAN CELL VOLUME 88.4 FL (80.0-100.0); MEAN CORPUSCULAR HEMOGLOBIN 29.5 PG (27.0-34.0); MEAN CORPUSCULAR HGB CONC 33.4 % (32.0-36.0); MONO % 12.8 % (0.0-8.0); NEUT % 56.6 % (16.0-70.0); PLATELET COUNT 94 TH/MM3 (150-450); RED BLOOD COUNT 2.76 MIL/MM3 (4.00-5.30); RED CELL DISTRIBUTION WIDTH 17.9 % (11.6-17.2); WHITE BLOOD COUNT 2.3 TH/MM3 (4.0-11.0)
[2017-06-28 12:06] LABS: HEMO FLAGS AUTO DIFF
[2017-06-28 12:33] LABS: POTASSIUM 4.3 MEQ/L (3.5-5.1)
[2017-06-28 12:41] LABS: PLATELET ESTIMATE SMEAR LOW (NORMAL); PLATELET MORPHOLOGY NORMAL (NORMAL); SCAN/DIFF AUTO DIFF CONFIRMED
[2017-06-28] MEDS: SODIUM CHLOR 0.45% 1000 ML INJ 1,000 ML IV SCH (13:21)
--- NOTE | 2017-06-28 20:13 | RADRPT ---
EXAM DATE/TIME: 06/28/2017 19:34 [facility] COMPARISON: No previous studies available for comparison. INDICATIONS : Pleural effusion. MEDICAL HISTORY : Carcinoma, lung. Gastroesophageal reflux disease. Ovarian cysts.Arthritis. Diabetes. Depression. Carc inoma, uterine. Chemotherapy. Carcinoma, endometrial. SURGICAL HISTORY : Cholecystectomy.Hysterectomy. Gastric bypass surgery. ENCOUNTER: Initial ACUITY: 4-6 days PAIN SCORE: 10/10 LOCATION: Left chest MEASUREMENTS: SKIN TO PARIETAL PLEURA: Inadequate fluid SKIN TO MAX SAFE DEPTH: Inadequate fluid ESTIMATED FLUID VOLUME: 11.3 cc FLUID COMPOSITION: simple FINDINGS: No marking was performed. CONCLUSION: There is only a minimal amount of effusion in the left chest. No marking was performed. Salvador Wilkinson MD on June 28, 2017 at 20:11 Board Certified Radiologist. This report was verified electronically.
[2017-06-28 20:32] LABS: BLOOD GAS BASE EXCESS 1.7 mmol/L (-2-2); BLOOD GAS CARBOXYHEMOGLOBIN 1.2 % (0-4); BLOOD GAS HCO3 25 mmol/L (22-26); BLOOD GAS O2 HGB SATURATION 92 % (90-100); BLOOD GAS OXYGEN CONTENT 15.4 Vol % (12.0-20.0); BLOOD GAS PCO2 38 mmHg (38-42); BLOOD GAS PO2 66 mmHG (61-120); CRITICAL VALUE NO; DRAW SITE RT RADIAL; FIO2 21 %; NUMBER OF ARTERIAL PUNCTURES 1; OXYGEN DEVICE ROOM AIR; STAT NO; TEMP CORR TO 98.6; ULNAR PULSE PRESENT
[2017-06-29] VITALS (12 sets, daily range): BP systolic 95–123; BP diastolic 56–82; PULSE 75–97; RESP 17–18; TEMP 97.1–99.9; O2SAT 97–99
[2017-06-29] MEDS: SODIUM CHLOR 0.45% 1000 ML INJ 1,000 ML IV SCH ×3 (00:50→20:27)
[2017-06-29] MEDS: RESP: ALBUTEROL 2.5 MG/IPRATROPIUM 0.5 MG NEB (SCH) NEB ×6 (03:30→23:08)
[2017-06-29] MEDS: HYDROmorphone HCL 4 MG TAB PO SCH (06:18)
[2017-06-29] MEDS: ESCITALOPRAM OXALATE 10 MG TAB PO SCH (08:47)
[2017-06-29] MEDS: DOCUSATE SODIUM 50 MG/SENNA 8.6 MG TAB PO SCH ×2 (08:47→20:24)
[2017-06-29] MEDS: PANTOPRAZOLE SOD 40 MG DELAYED RELEASE TAB PO SCH (08:47)
[2017-06-29] MEDS: POTASSIUM CHLORIDE 20 MEQ CONTROLLED RELEASE TAB PO SCH (08:47)
[2017-06-29] MEDS: HEPARIN SODIUM - SQ 10,000 UNITS/ML VIAL SQ SCH ×2 (08:47→20:24)
[2017-06-29] MEDS: GABAPENTIN 300 MG CAP PO SCH ×3 (08:48→17:24)
[2017-06-29] MEDS: SODIUM CHLORIDE 0.9% FLUSH 10 ML FLUSH IV FLUSH SCH ×2 (08:48→20:24)
[2017-06-29] MEDS: PANTOPRAZOLE SODIUM 40 MG VIAL IV PUSH SCH (08:48)
--- NOTE | 2017-06-29 10:13 | MB ---
cc: Abigail VELA M.D. DATE OF CONSULTATION: 06/28/2017 REASON FOR CONSULTATION Pleural effusion and left chest pain. HISTORY OF PRESENT ILLNESS This is a 52-year-old white female who has had a history of myelodysplasia and is under the care of Dr. Decker, oncologist. The patient has had a previous history for uterine cancer with metastatic disease to the lung. The patient has received chemotherapy but now was admitted with pain along the left lower chest and difficulty in taking a deep breath. The patient recently had a CT angiogram on 06/13 and it showed no evidence of pulmonary emboli and there was a right midlung nodule which had enlarged. There was also a small effusion on the left. There was evidence of a splenic infarct on the left side and she mainly came in because of pain and shortness of breath and has been placed on oxygen at 2 liters nasal cannula. The patient is a nonsmoker. She has had prior pneumonias and she denies any history of chronic lung disease. She has history of previous transfusions and has had undergone a bone marrow aspirates and biopsies earlier this year. The patient denied fevers or chills. She does have occasional cough. No hemoptysis, no abdominal pains. She has had mild leg swelling and also has joint pains. PAST MEDICAL HISTORY The past history has included: 1. 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 2. The patient also has had a history of uterine CA with metastasis as mentioned above. 3. History of myelodysplasia. 4. Previous history for total abdominal hysterectomy with salpingo-oophorectomy. 5. History of gastric bypass surgery for obesity. 6. Prior cholecystectomy. 7. Repair of an abdominal hernia. 8. She has had a skin biopsy. 9. She has had peripheral neuropathy. 10. Mild hypertension. ALLERGIES ACETAMINOPHEN, KETOROLAC, LORAZAPAM, MORPHINE, OXYCODONE, CARBOPLATIN. HABITS The patient is a nonsmoker. No significant alcohol use. MEDICATION Med list included: 1. Vidaza. 2. Celexa. 3. Gabapentin. 4. Dilaudid. 5. Provera. 6. Protonix. 7. Prednisone. REVIEW OF SYSTEMS The patient is overweight. She has trouble ambulating. She has joint pains. She has pain along the left lower rib cage. No fevers, chills. No urinary symptoms. The other system review is negative. PHYSICAL EXAMINATION GENERAL: This is an obese middle-aged white female who is alert, pale and mildly anxious and not in acute distress. VITAL SIGNS: Blood pressure 105/70, pulse 90, respirations 22, temperature 98.2. HEENT: Head normocephalic. Pupils reactive. Tongue is moist. Throat was clear. Nasal mucosa edematous. NECK: Supple. No venous distension. No thyromegaly or lymphadenopathy. CHEST: Equal movements. Percussion note resonant. Breath sounds diminished at the bases, more so on the left side and no wheezes or crackles heard. HEART: Heart sounds are regular, S1-S2. No murmur. ABDOMEN: Abdomen is soft with tenderness in the left upper quadrant and some tenderness in the lower ribcage. Spleen is not palpable. Bowel sounds are active. EXTREMITIES: Reveal edema with decreased pulses. She is moving all her extremities well with 1+ reflexes. There were no gross motor deficits. Cranial nerves grossly intact. RECTAL: Exam is deferred. SKIN: No lesions. IMPRESSION 1. Left pleural effusion with atelectasis. 2. Splenic infarct. 3. History of myelodysplasia. 4. Metastatic uterine carcinoma. 5. History of lung CA status post resection right mid and lower lobe. 6. Obesity. 7. Anemia with myeldyspasia. PLAN The patient has been started on O2 at 2 liters. Incentive spirometry will be advised every 2 hours, nebulized DuoNeb solution added t.i.d. p.r.n. and ultrasound examination of the left chest to evaluate the effusion and a thoracentesis planned. Antibiotic therapy will be continued as ordered for any underlying pneumonia. Anemia is being monitored by Dr. Romero and transfusions if necessary. We will order a D-dimer and continue with anticoagulation therapy as ordered and if there is a significant effusion present a thoracentesis will be planned. Pulmonary function studies to be done when she is clinically stable and we are awaiting blood cultures and sputum cultures. Thank you for this consultation. MD KIRSTIE Ramirez/SANAM /8:37 AM 9:52 AM
--- NOTE | 2017-06-29 10:13 | PD.ONC.PN ---
Subjective Subjective Remarks Afebrile overnight. Patient resting in bed. Continues to have severe pain with deep breath or cough in left flank. States the scheduled dilaudid did not improve her pain. pain from splenic infarct ? small pleural effusion Objective Data Date Time Temp Pulse Resp B/P (MAP) Pulse Ox O2 Delivery O2 Flow Rate FiO2 06/29/17 08:00 97.7 97 18 111/69 (83) 99 06/29/17 07:35 98 21 06/29/17 05:16 97.1 93 18 95/56 (69) 97 06/29/17 04:11 88 06/29/17 00:45 20 06/29/17 00:09 90 06/29/17 00:00 98.1 75 18 96/56 (69) 98 06/28/17 19:39 100 Nasal Cannula 2.00 06/28/17 19:18 98.3 78 17 98/56 (70) 97 06/28/17 18:57 73 06/28/17 15:24 98.0 79 15 112/70 (84) 98 06/28/17 12:31 97.9 76 15 110/65 (80) 98 06/28/17 11:07 14 06/28/17 11:00 11 06/29/17 06/29/17 06/29/17 07:00 15:00 23:00 Intake Total 240 ml Balance 240 ml Result Diagram: 06/28/17 1142 06/28/17 1142 Laboratory Results Laboratory Tests Test 06/28/17 11:42 06/28/17 20:20 White Blood Count 2.3 TH/MM3 Red Blood Count 2.76 MIL/MM3 Hemoglobin 8.1 GM/DL Hematocrit 24.4 % Mean Corpuscular Volume 88.4 FL Mean Corpuscular Hemoglobin 29.5 PG Mean Corpuscular Hemoglobin Concent 33.4 % Red Cell Distribution Width 17.9 % Platelet Count 94 TH/MM3 Mean Platelet Volume 7.0 FL Neutrophils (%) (Auto) 56.6 % Lymphocytes (%) (Auto) 25.4 % Monocytes (%) (Auto) 12.8 % Eosinophils (%) (Auto) 3.1 % Basophils (%) (Auto) 2.1 % Neutrophils # (Auto) 1.3 TH/MM3 Lymphocytes # (Auto) 0.6 TH/MM3 Monocytes # (Auto) 0.3 TH/MM3 Eosinophils # (Auto) 0.1 TH/MM3 Basophils # (Auto) 0.0 TH/MM3 CBC Comment AUTO DIFF Differential Comment AUTO DIFF CONFIRMED Platelet Estimate LOW Platelet Morphology Comment NORMAL Blood Urea Nitrogen 16 MG/DL Creatinine 0.87 MG/DL Random Glucose 127 MG/DL Calcium Level 8.2 MG/DL Sodium Level 135 MEQ/L Potassium Level 4.3 MEQ/L Chloride Level 102 MEQ/L Carbon Dioxide Level 27.0 MEQ/L Anion Gap 6 MEQ/L Estimat Glomerular Filtration Rate 68 ML/MIN Blood Gas Puncture Site RT RADIAL Blood Gas Patient Temperature 98.6 Blood Gas HCO3 25 mmol/L Blood Gas Base Excess 1.7 mmol/L Blood Gas Oxygen Saturation 92 % Arterial Blood pH 7.44 Arterial Blood Partial Pressure CO2 38 mmHg Arterial Blood Partial Pressure O2 66 mmHG Arterial Blood Oxygen Content 15.4 Vol % Arterial Blood Carboxyhemoglobin 1.2 % Arterial Blood Methemoglobin 1.0 % Blood Gas Hemoglobin 12.0 G/DL Oxygen Delivery Device ROOM AIR Blood Gas Inspired Oxygen 21 % Administered Medications Medications (Trade) Dose Ordered Sig/Jasen Route PRN Reason Start Time Stop Time Status Last Admin Dose Admin Sodium Chloride (NS Flush) 2 ml UNSCH PRN IVF FLUSH AFTER USING IV ACCESS 06/26/17 15:15 06/26/17 16:07 Escitalopram Oxalate (Lexapro) 10 mg DAILY PO 06/27/17 09:00 06/29/17 08:47 Gabapentin (Neurontin) 600 mg TID PO 06/27/17 09:00 06/29/17 08:48 Medroxyprogesterone Acetate (Provera) 2.5 mg DAILY PO 06/27/17 09:00 06/28/17 09:08 Methylprednisolone (Medrol) 4 mg DAILY PO 06/27/17 09:00 06/28/17 09:00 Pantoprazole Sodium (Protonix) 40 mg DAILY PO 06/27/17 09:00 06/29/17 08:47 Sodium Chloride 1,000 ml @ 75 mls/hr [id number] IV 06/26/17 19:30 06/28/17 13:21 Sodium Chloride (NS Flush) 2 ml BID IV FLUSH 06/26/17 21:00 06/29/17 08:48 Heparin Sodium (Porcine) (Heparin Inj) 5,000 units Q12H SQ 06/26/17 20:00 06/29/17 08:47 Senna/Docusate Sodium (Quin-Colace) 1 tab BID PO 06/26/17 21:00 06/29/17 08:47 Pantoprazole Sodium (Protonix Inj) 40 mg DAILY IV PUSH 06/27/17 10:00 06/29/17 08:48 Potassium Chloride (KCl) 40 meq DAILY PO 06/28/17 09:00 06/29/17 08:47 Albuterol/ Ipratropium (Duoneb Neb) 1 ampule Q4HR NEB NEB 06/28/17 12:00 06/29/17 07:36 Hydromorphone HCl (Dilaudid) 4 mg Q6HR PO 06/28/17 12:00 06/29/17 06:18 Objective Remarks GENERAL: Middle aged female sitting up in bed in nad. SKIN: Warm and dry. HEAD: Normocephalic. EYES: No injection or drainage. NECK: Supple, trachea midline. CARDIOVASCULAR: Regular rate and rhythm RESPIRATORY: left base sounds diminished, crackles heard posterior bases bilaterally. GASTROINTESTINAL: Abdomen soft, non-tender, nondistended. EXTREMITIES: No cyanosis. NEUROLOGICAL: no obvious focal deficit. aox3 Assessment/Plan Problem List: (1) MDS (myelodysplastic syndrome) ICD Codes: D46.9 - Myelodysplastic syndrome, unspecified Status: Acute Plan: --Myelodysplasia. --receiving Vidaza outpatient. ++transfusion dependent. (2) Endometrial ca ICD Codes: C54.1 - Malignant neoplasm of endometrium Status: Acute Plan: --follows with Dr. Thomason --being treated with Provera (3) Pleural effusion ICD Codes: J90 - Pleural effusion, not elsewhere classified Plan: --left sided pleural effusion --pulmonology following (4) Chest pain, atypical ICD Codes: R07.89 - Other chest pain Status: Acute Plan: --?referred pain from splenic infarct --? due to small left sided pleural effusion Assessment 52y/o female with uterine cancer, and myelodysplastic syndrome, admitted with left chest pain. Plan 1. continue pain management. will stop scheduled Dilaudid and try alternative pain management with Oramorph 15mg PO q 8. will continue IV dilaudid for breakthrough pain. 2. encourage IS 3. monitor CBC 4. continue pericolace scheduled. give one time dose of Lactulose for constipation. Attending Statement The exam, history, and the medical decision-making described in the above note were completed with the assistance of the mid-level provider. I reviewed and agree with the findings presented. I attest that I had a [id number] encounter with the patient on the same day, and personally performed and documented my assessment and findings in the medical record. Dilaudid stopped Oramorph 15mg q8H U.S showed only minimal left sided pleural effusion pain from ? splenic infarct d/w rn o/n events reviewed Jeanne Mcdonald Jun 29, 2017 10:13 Ramon Decker MD Jun 29, 2017 11:46
[2017-06-29] MEDS ORDERED: LACTULOSE SYRUP 20 GM/30 ML CUP PO ONE (12:00)
[2017-06-29] MEDS: methylPREDNISolone 4 MG TAB PO SCH (13:41)
[2017-06-29] MEDS: HYDROmorphone HCL PF 1 MG/ML VIAL IV PUSH PRN ×4 (13:42→23:34)
[2017-06-29] MEDS ORDERED: MORPHINE SULFATE 15 MG CONTROLLED RELEASE TAB PO SCH (14:00)
[2017-06-29 15:54] LABS: MEAN CELL VOLUME 88.1 FL (80.0-100.0); MEAN CORPUSCULAR HEMOGLOBIN 29.6 PG (27.0-34.0); MEAN CORPUSCULAR HGB CONC 33.6 % (32.0-36.0); PLATELET COUNT 82 TH/MM3 (150-450); RED BLOOD COUNT 2.61 MIL/MM3 (4.00-5.30); RED CELL DISTRIBUTION WIDTH 18.2 % (11.6-17.2); WHITE BLOOD COUNT 2.3 TH/MM3 (4.0-11.0)
[2017-06-29 16:00] LABS: HEMO FLAGS AUTO DIFF
[2017-06-29 16:26] LABS: BANDS 11 % (0-6); EOSINOPHILS 1 % (0-4); KERATOCYTES OCC (NORMAL); NEUTROPHIL # MANUAL DIFF 1.7 TH/MM3 (1.8-7.7); OVALOCYTES 1+ (NORMAL); PLATELET ESTIMATE SMEAR LOW (NORMAL); PLATELET MORPHOLOGY NORMAL (NORMAL); POLYS (SEG NEUTROPHILS) 61 % (16-70); WBC DIFF SAMPLE 100
[2017-06-29 16:27] LABS: SCAN/DIFF FINAL DIFF MANUAL
--- NOTE | 2017-06-29 16:41 | HHI.PR ---
Subjective Subjective Remarks Resting in the bed Still complaining of left lower lung/flank pain Staying in the bed most of the time unless she gets up to go to the bathroom Encouraged to be in out of bed increased activity, and using incentive spirometry Supportive care (Rose Mary Adan) Review of Systems Constitutional Constitutional: Fatigue, Weakness Constitutional Remarks 10 point ROS done positives noted (Rose Mary Adan) Pulmonary Respiratory: Coughing (started within the last 24 hours), Shortness of Breath Pulmonary Remarks Low volumes (Rose Mary Adan) GI/Abdomen GI/Abdominal Exam: Nausea, Constipation (Rose Mary Adan) Musculoskeletal MS: Weakness, Stiffness (Rose Mary Adan) Psychiatric Psychiatric: Normal Mood, Anxiety (Rose Mary Adan) Vitals/Results Vital Signs Vital Signs Date Time Temp Pulse Resp B/P (MAP) Pulse Ox O2 Delivery O2 Flow Rate FiO2 06/29/17 16:12 98 06/29/17 08:00 97.7 97 18 111/69 (83) 99 06/29/17 07:35 98 21 06/29/17 05:16 97.1 93 18 95/56 (69) 97 06/29/17 04:11 88 06/29/17 00:45 20 06/29/17 00:09 90 06/29/17 00:00 98.1 75 18 96/56 (69) 98 06/28/17 19:39 100 Nasal Cannula 2.00 06/28/17 19:18 98.3 78 17 98/56 (70) 97 06/28/17 18:57 73 (Rose Mary Adan) CBC/BMP: 06/29/17 1515 06/28/17 1142 Lab Results Laboratory Tests Test 06/28/17 20:20 06/29/17 15:15 Blood Gas Puncture Site RT RADIAL Blood Gas Patient Temperature 98.6 Blood Gas HCO3 25 mmol/L Blood Gas Base Excess 1.7 mmol/L Blood Gas Oxygen Saturation 92 % Arterial Blood pH 7.44 Arterial Blood Partial Pressure CO2 38 mmHg Arterial Blood Partial Pressure O2 66 mmHG Arterial Blood Oxygen Content 15.4 Vol % Arterial Blood Carboxyhemoglobin 1.2 % Arterial Blood Methemoglobin 1.0 % Blood Gas Hemoglobin 12.0 G/DL Oxygen Delivery Device ROOM AIR Blood Gas Inspired Oxygen 21 % White Blood Count 2.3 TH/MM3 Red Blood Count 2.61 MIL/MM3 Hemoglobin 7.7 GM/DL Hematocrit 23.0 % Mean Corpuscular Volume 88.1 FL Mean Corpuscular Hemoglobin 29.6 PG Mean Corpuscular Hemoglobin Concent 33.6 % Red Cell Distribution Width 18.2 % Platelet Count 82 TH/MM3 Mean Platelet Volume 7.4 FL CBC Comment AUTO DIFF Differential Total Cells Counted 100 Neutrophils % (Manual) 61 % Band Neutrophils % 11 % Lymphocytes % 21 % Monocytes % 6 % Eosinophils % 1 % Neutrophils # (Manual) 1.7 TH/MM3 Differential Comment FINAL DIFF MANUAL Platelet Estimate LOW Platelet Morphology Comment NORMAL Ovalocytes 1+ Keratocytes OCC (Rose Mary Adan. [employer]) Physical Exam General General Appearance: Well Developed, Pale, Anxious, Obese (Rose Mary Adan. [employer]) Eyes Eye Exam: Pupils Equal, Pupils Reactive (Rose Mary Adan [employer]) Ears & Nose Ears & Nose Exam: Nasal Mucosa [place] (Rose Mary Adan. [employer]) Throat Throat Exam: Oral Mucosa [place] & Moist (pedal pale) (Rose Mary Adan. [employer]) Neck Neck Exam: Neck Supple (Rose Mary Adan. [employer]) Pulmonary Resp Exam: Diminished Breath Sounds (left side) Resp Remarks Left lower lobe, pain continues especially with deep breaths (Rose Mary Adan. [employer]) Cardiology CV Exam: Normal Sinus Rhythm (with multiple PACs on admission), Irregular (Rose Mary Adan. [employer]) Gastrointestinal/Abdomen GI Exam: Soft, Non-Tender, Bowel Sounds Present (Rose Mary Adan. [employer]) Genitourinary Remarks Animal [employer]ter [employer] tea-colored (Rose Mary Adan. [employer]) Musculoskeletal MS Exam: Joints Intact, Atrophy (Rose Mary Adan. [employer]) Integumentary Skin Exam: Warm, Dry, Intact (Rose Mary Adan. [employer]) Extremeties Extremities Exam: Trace Edema (trace lower extremity edema) (Rose Mary Adan. [employer]) Neurologic Neuro Exam: Awake, Oriented, Speech Clear (voice raspy), Moving All Extremities (Rose Mary Adan) Assessment/Plan Assessment/Plan Labs and vital signs reviewed Anemia, severe with dyspnea 2 units of packed RBCs given, hemoglobin continue to monitor , dyspnea controlled GERD, raspy voice, will add IV Protonix to her regimen, occasional cough which has been encouraged Left lower flank /lumbar pain . Debility with fatigue continues left shoulder pain controlled now, weakness and fatigue, left lower flank pain continues, ribs reviewed without fractures, small pleural effusion and some atelectasis continues , no thoracentesis ordered for now. Patient now complains of some mild cough. incentive spirometry, encouraged again to be out of bed sitting up in chair turned coughing and deep breathing. She states pain is with inspiration and cough, probable pleuritic in nature Duo nebs ordered every 4 hours, pulmonary consult appreciate input. patient received 4 treatments of chemotherapy this week before admission then began having lower flank pain, weak debility., Followed per Dr. Romero, appreciate input and managing this plan of care Constipation mild, still no BM Dulcolax suppository today, check for impaction if needed. Patient feels the urge thinks that she will go today Hypo-magnesia, resolved Patient received a dose of IV magnesium in the ER, Will recheck her labs today Hypokalemia Resolved Diabetes mellitus, 2, mild hyperglycemia Accu-Cheks before meals and at bedtime, low-dose sliding scale, patient states blood sugars are controlled most of the time since she has had her bariatric surgery. ADA diet 1800-calorie, continue to monitor her needs Discussed with patient Discussed with nurse Discussed with Dr. johnson, seen on his behalf Discharge planning hopefully within the next few days once patient's symptoms are under control. Home with home health (Rose Mary Adan) Assessment/Plan pt is seen & examined pain is little better controlled No N/V appetite is ok US left side chest done , no sig effusion ambulate cont current tx ss for d/c planning/possible d/c home in am (Carlos Johnson MD) Rose Mary Adan Jun 29, 2017 16:41 Carlos Johnson MD Jun 29, 2017 20:17
--- NOTE | 2017-06-29 17:28 | HHI.PR ---
Subjective Remarks C/O pain along the left lower chest. On o2 2 l. No fever. Good output Objective Vital Signs Date Time Temp Pulse Resp B/P (MAP) Pulse Ox O2 Delivery O2 Flow Rate FiO2 06/29/17 16:12 98 06/29/17 08:00 97.7 97 18 111/69 (83) 99 06/29/17 07:35 98 21 06/29/17 05:16 97.1 93 18 95/56 (69) 97 06/29/17 04:11 88 06/29/17 00:45 20 06/29/17 00:09 90 06/29/17 00:00 98.1 75 18 96/56 (69) 98 06/28/17 19:39 100 Nasal Cannula 2.00 06/28/17 19:18 98.3 78 17 98/56 (70) 97 06/28/17 18:57 73 I/O 06/28/17 06/28/17 06/28/17 06/29/17 06/29/17 06/29/17 07:00 15:00 23:00 07:00 15:00 23:00 Intake Total 700 ml 240 ml Balance 700 ml 240 ml Intake Oral 700 ml 240 ml # Voids 5 2 Result Diagram: 06/29/17 1515 06/28/17 1142 Objective Remarks GENERAL: This is an obese middle-aged white female who is alert, pale and mildly anxious and not in acute distress. HEENT: Head normocephalic. Pupils reactive. Tongue is moist. Throat was clear. Nasal mucosa edematous. NECK: Supple. No venous distension. No thyromegaly or lymphadenopathy. CHEST: Equal movements. Percussion note resonant. Breath sounds diminished at the bases, more so on the left side and no wheezes or crackles heard. HEART: Heart sounds are regular, S1-S2. No murmur. ABDOMEN: Abdomen is soft with tenderness in the left upper quadrant and some tenderness in the lower ribcage. Spleen is not palpable. Bowel sounds are active. EXTREMITIES: Reveal edema with decreased pulses. She is moving all her extremities well with 1+ reflexes. There were no gross motor deficits. Cranial nerves grossly intact. RECTAL: Exam is deferred. SKIN: No lesions. Assessment and Plan Assessment and Plan IMPRESSION 1. Left pleural effusion with atelectasis. 2. Splenic infarct. 3. History of myelodysplasia. 4. Metastatic uterine carcinoma. 5. History of lung CA status post resection right mid and lower lobe. 6. Obesity. 7. Anemia with myelodysplasia. Plan : 1. Will continue antibiotics. 2. O2 prn 2L. 3. Nebs qid , duoneb. 4. IS at Bedside q2h. 5. CBC,BMP in am 6. No Need for thoracentesis Abigail Antunez MD Jun 29, 2017 17:28
[2017-06-30] VITALS (11 sets, daily range): BP systolic 103–125; BP diastolic 67–75; PULSE 74–98; RESP 16–18; TEMP 96.4–98; O2SAT 91–99
[2017-06-30] MEDS: RESP: ALBUTEROL 2.5 MG/IPRATROPIUM 0.5 MG NEB (SCH) NEB ×3 (03:25→21:03)
[2017-06-30] MEDS: HYDROmorphone HCL PF 1 MG/ML VIAL IV PUSH PRN ×4 (03:54→14:30)
[2017-06-30 06:09] LABS: AUTOMATED NEUTROPHIL # 0.6 TH/MM3 (1.8-7.7); HEMATOCRIT 21.9 % (35.0-46.0); LYMPH % 50.1 % (9.0-44.0); LYMPHOCYTE # 1.1 TH/MM3 (1.0-4.8); MEAN CELL VOLUME 89.9 FL (80.0-100.0); MEAN CORPUSCULAR HGB CONC 33.4 % (32.0-36.0); MONO % 19.3 % (0.0-8.0); NEUT % 28.6 % (16.0-70.0); PLATELET COUNT 66 TH/MM3 (150-450); RED BLOOD COUNT 2.43 MIL/MM3 (4.00-5.30); RED CELL DISTRIBUTION WIDTH 18.3 % (11.6-17.2); WHITE BLOOD COUNT 2.2 TH/MM3 (4.0-11.0)
[2017-06-30 06:10] LABS: BICARBONATE 26.1 MEQ/L (21.0-32.0); POTASSIUM 3.5 MEQ/L (3.5-5.1)
[2017-06-30 06:17] LABS: HEMO FLAGS AUTO DIFF
[2017-06-30] MEDS: HEPARIN SODIUM - SQ 10,000 UNITS/ML VIAL SQ SCH ×2 (08:18→22:42)
[2017-06-30] MEDS: GABAPENTIN 300 MG CAP PO SCH ×3 (08:18→17:18)
[2017-06-30] MEDS: ESCITALOPRAM OXALATE 10 MG TAB PO SCH (08:19)
[2017-06-30] MEDS: PANTOPRAZOLE SOD 40 MG DELAYED RELEASE TAB PO SCH (08:19)
[2017-06-30] MEDS: DOCUSATE SODIUM 50 MG/SENNA 8.6 MG TAB PO SCH ×2 (08:19→22:41)
[2017-06-30] MEDS: POTASSIUM CHLORIDE 20 MEQ CONTROLLED RELEASE TAB PO SCH (08:20)
[2017-06-30] MEDS: methylPREDNISolone 4 MG TAB PO SCH (08:21)
[2017-06-30] MEDS: PANTOPRAZOLE SODIUM 40 MG VIAL IV PUSH SCH (08:21)
[2017-06-30] MEDS: SODIUM CHLORIDE 0.9% FLUSH 10 ML FLUSH IV FLUSH SCH ×2 (08:21→22:42)
[2017-06-30] MEDS ORDERED: fentaNYL 25 MCG/HR PATCH T-DERMAL ONE (09:00)
[2017-06-30] MEDS ORDERED: SODIUM CHLOR 0.9% 250 ML INJ 250 ML IV ONE (09:00)
[2017-06-30 09:51] LABS: BANDS 10 % (0-6); BASOPHILS 1 % (0-2); BLASTS 1 % (0-0); NEUTROPHIL # MANUAL DIFF 0.8 TH/MM3 (1.8-7.7); OVALOCYTES 1+ (NORMAL); PLATELET ESTIMATE SMEAR LOW (NORMAL); PLATELET MORPHOLOGY NORMAL (NORMAL); POLYS (SEG NEUTROPHILS) 27 % (16-70); SCAN/DIFF FINAL DIFF MANUAL; WBC DIFF SAMPLE 100
--- NOTE | 2017-06-30 11:22 | PD.ONC.PN ---
Subjective Subjective Remarks Afebrile overnight. Patient continuing to have pain in her left flank/chest wall. Pain is worsened with deep breath. She has been trying to use her IS. Objective Data Date Time Temp Pulse Resp B/P (MAP) Pulse Ox O2 Delivery O2 Flow Rate FiO2 06/30/17 08:00 97.5 81 16 124/75 (91) 95 06/30/17 07:32 98 21 06/30/17 04:24 16 06/30/17 04:15 96.6 86 18 105/67 (80) 97 06/30/17 00:15 96.4 98 17 125/73 (90) 91 06/30/17 00:08 97 06/29/17 20:34 98 06/29/17 20:15 98.9 92 17 123/82 (96) 97 06/29/17 20:01 90 06/29/17 16:12 98 06/29/17 16:00 99.9 88 18 112/64 (80) 97 06/29/17 12:00 98.2 97 18 106/68 (81) 98 06/30/17 06/30/17 06/30/17 07:00 15:00 23:00 Intake Total 500 ml Balance 500 ml Result Diagram: 06/30/17 0529 06/30/17 0529 Laboratory Results Laboratory Tests Test 06/29/17 15:15 06/30/17 05:29 White Blood Count 2.3 TH/MM3 2.2 TH/MM3 Red Blood Count 2.61 MIL/MM3 2.43 MIL/MM3 Hemoglobin 7.7 GM/DL 7.3 GM/DL Hematocrit 23.0 % 21.9 % Mean Corpuscular Volume 88.1 FL 89.9 FL Mean Corpuscular Hemoglobin 29.6 PG 30.0 PG Mean Corpuscular Hemoglobin Concent 33.6 % 33.4 % Red Cell Distribution Width 18.2 % 18.3 % Platelet Count 82 TH/MM3 66 TH/MM3 Mean Platelet Volume 7.4 FL 7.1 FL CBC Comment AUTO DIFF AUTO DIFF Differential Total Cells Counted 100 100 Neutrophils % (Manual) 61 % 27 % Band Neutrophils % 11 % 10 % Lymphocytes % 21 % 51 % Monocytes % 6 % 10 % Eosinophils % 1 % Neutrophils # (Manual) 1.7 TH/MM3 0.8 TH/MM3 Differential Comment FINAL DIFF MANUAL FINAL DIFF MANUAL Platelet Estimate LOW LOW Platelet Morphology Comment NORMAL NORMAL Ovalocytes 1+ 1+ Keratocytes OCC Neutrophils (%) (Auto) 28.6 % Lymphocytes (%) (Auto) 50.1 % Monocytes (%) (Auto) 19.3 % Eosinophils (%) (Auto) 1.0 % Basophils (%) (Auto) 1.0 % Neutrophils # (Auto) 0.6 TH/MM3 Lymphocytes # (Auto) 1.1 TH/MM3 Monocytes # (Auto) 0.4 TH/MM3 Eosinophils # (Auto) 0.0 TH/MM3 Basophils # (Auto) 0.0 TH/MM3 Basophils % 1 % Blastocytes 1 % Blood Urea Nitrogen 11 MG/DL Creatinine 0.87 MG/DL Random Glucose 92 MG/DL Calcium Level 7.9 MG/DL Sodium Level 137 MEQ/L Potassium Level 3.5 MEQ/L Chloride Level 103 MEQ/L Carbon Dioxide Level 26.1 MEQ/L Anion Gap 8 MEQ/L Estimat Glomerular Filtration Rate 68 ML/MIN Administered Medications Medications (Trade) Dose Ordered Sig/Jasen Route PRN Reason Start Time Stop Time Status Last Admin Dose Admin Sodium Chloride (NS Flush) 2 ml UNSCH PRN IVF FLUSH AFTER USING IV ACCESS 06/26/17 15:15 06/26/17 16:07 Escitalopram Oxalate (Lexapro) 10 mg DAILY PO 06/27/17 09:00 06/30/17 08:19 Gabapentin (Neurontin) 600 mg TID PO 06/27/17 09:00 06/30/17 08:18 Medroxyprogesterone Acetate (Provera) 2.5 mg DAILY PO 06/27/17 09:00 06/30/17 08:18 Methylprednisolone (Medrol) 4 mg DAILY PO 06/27/17 09:00 06/30/17 08:21 Pantoprazole Sodium (Protonix) 40 mg DAILY PO 06/27/17 09:00 06/30/17 08:19 Sodium Chloride 1,000 ml @ 75 mls/hr [id number] IV 06/26/17 19:30 06/29/17 20:27 Sodium Chloride (NS Flush) 2 ml BID IV FLUSH 06/26/17 21:00 06/30/17 08:21 Heparin Sodium (Porcine) (Heparin Inj) 5,000 units Q12H SQ 06/26/17 20:00 06/30/17 08:18 Senna/Docusate Sodium (Quin-Colace) 1 tab BID PO 06/26/17 21:00 06/30/17 08:19 Pantoprazole Sodium (Protonix Inj) 40 mg DAILY IV PUSH 06/27/17 10:00 06/30/17 08:21 Potassium Chloride (KCl) 40 meq DAILY PO 06/28/17 09:00 06/30/17 08:20 Albuterol/ Ipratropium (Duoneb Neb) 1 ampule Q4HR NEB NEB 06/28/17 12:00 06/30/17 03:25 Hydromorphone HCl (Dilaudid Pf Inj) 0.5 mg Q2HR PRN IV PUSH PAIN 1-10 06/28/17 09:30 06/30/17 10:45 Objective Remarks GENERAL: Middle aged female upright in bed in nad SKIN: Warm and dry. HEAD: Normocephalic. EYES: No injection or drainage. NECK: Supple, trachea midline. CARDIOVASCULAR: Regular rate and rhythm RESPIRATORY: crackles in left base. anterior nagy clear. GASTROINTESTINAL: Abdomen soft, non-tender, nondistended. EXTREMITIES: No cyanosis. NEUROLOGICAL: no obvious focal deficit. awake and alert, normal speech. Assessment/Plan Problem List: (1) MDS (myelodysplastic syndrome) ICD Codes: D46.9 - Myelodysplastic syndrome, unspecified Status: Acute Plan: --Myelodysplasia. --receiving Vidaza outpatient. ++transfusion dependent. (2) Endometrial ca ICD Codes: C54.1 - Malignant neoplasm of endometrium Status: Acute Plan: --follows with Dr. Thomason --being treated with Provera (3) Pleural effusion ICD Codes: J90 - Pleural effusion, not elsewhere classified Plan: --left sided pleural effusion --pulmonology following (4) Chest pain, atypical ICD Codes: R07.89 - Other chest pain Status: Acute Plan: --?referred pain from splenic infarct --? due to small left sided pleural effusion Assessment 52y/o female with uterine cancer, and myelodysplastic syndrome, admitted with left chest pain. Plan 1. continue IS 2. will try Fentanyl patch as patient is allergic to morphine and Oxycodone. continue dilaudid for breakthrough pain 3. give 1 unit pRBC 4. can be discharged when pain control is achieved Attending Statement The exam, history, and the medical decision-making described in the above note were completed with the assistance of the mid-level provider. I reviewed and agree with the findings presented. I attest that I had a [id number] encounter with the patient on the same day, and personally performed and documented my assessment and findings in the medical record. C/O pain left costophrenic area. This is due to splenic infarct. Recommend conservative measures with pain mangement. Add Duragesic to PO Dilaudid. ( Pt is allergic to morphine and codeine) D/C IVF Skin bx is still pending. Ok to d/c home. Jeanne Mcdonald Jun 30, 2017 11:22 Carlos Johnson MD Jun 30, 2017 16:46 Pam Kurtz MD Jun 30, 2017 18:11
[2017-06-30] MEDS ORDERED: diphenhydrAMINE HCL 25 MG CAP PO PRN (14:15)
[2017-06-30] MEDS ORDERED: ACETAMINOPHEN 325 MG TAB PO PRN (14:15)
--- NOTE | 2017-06-30 16:47 | HHI.PR ---
Subjective History of Present Illness Back still painful/needing IV Dilaudid Fentanyl patch is ordered Blood transfusion ordered today No nausea or vomiting Appetite is improving Denies chest pain or shortness of breath No cough or sputum production Offers no other complaints Review of Systems Constitutional Constitutional: Fatigue, Weakness Pulmonary Respiratory: Coughing (started within the last 24 hours), Shortness of Breath GI/Abdomen GI/Abdominal Exam: Nausea, Constipation Musculoskeletal MS: Weakness, Stiffness Psychiatric Psychiatric: Normal Mood, Anxiety Vitals/Results Intake & Output 06/30/17 06/30/17 07/01/17 15:00 23:00 07:00 Intake Total 480 ml Balance 480 ml Intake Oral 480 ml Vital Signs Vital Signs Date Time Temp Pulse Resp B/P (MAP) Pulse Ox O2 Delivery O2 Flow Rate FiO2 06/30/17 12:00 97.1 77 16 120/74 (89) 96 06/30/17 08:00 97.5 81 16 124/75 (91) 95 06/30/17 07:32 98 21 06/30/17 04:24 16 06/30/17 04:15 96.6 86 18 105/67 (80) 97 06/30/17 00:15 96.4 98 17 125/73 (90) 91 06/30/17 00:08 97 06/29/17 20:34 98 06/29/17 20:15 98.9 92 17 123/82 (96) 97 06/29/17 20:01 90 CBC/BMP: 06/30/17 0529 06/30/17 0529 Lab Results Laboratory Tests Test 06/30/17 05:29 White Blood Count 2.2 TH/MM3 Red Blood Count 2.43 MIL/MM3 Hemoglobin 7.3 GM/DL Hematocrit 21.9 % Mean Corpuscular Volume 89.9 FL Mean Corpuscular Hemoglobin 30.0 PG Mean Corpuscular Hemoglobin Concent 33.4 % Red Cell Distribution Width 18.3 % Platelet Count 66 TH/MM3 Mean Platelet Volume 7.1 FL Neutrophils (%) (Auto) 28.6 % Lymphocytes (%) (Auto) 50.1 % Monocytes (%) (Auto) 19.3 % Eosinophils (%) (Auto) 1.0 % Basophils (%) (Auto) 1.0 % Neutrophils # (Auto) 0.6 TH/MM3 Lymphocytes # (Auto) 1.1 TH/MM3 Monocytes # (Auto) 0.4 TH/MM3 Eosinophils # (Auto) 0.0 TH/MM3 Basophils # (Auto) 0.0 TH/MM3 CBC Comment AUTO DIFF Differential Total Cells Counted 100 Neutrophils % (Manual) 27 % Band Neutrophils % 10 % Lymphocytes % 51 % Monocytes % 10 % Basophils % 1 % Neutrophils # (Manual) 0.8 TH/MM3 Differential Comment FINAL DIFF MANUAL Blastocytes 1 % Platelet Estimate LOW Platelet Morphology Comment NORMAL Ovalocytes 1+ Blood Urea Nitrogen 11 MG/DL Creatinine 0.87 MG/DL Random Glucose 92 MG/DL Calcium Level 7.9 MG/DL Sodium Level 137 MEQ/L Potassium Level 3.5 MEQ/L Chloride Level 103 MEQ/L Carbon Dioxide Level 26.1 MEQ/L Anion Gap 8 MEQ/L Estimat Glomerular Filtration Rate 68 ML/MIN Physical Exam General General Appearance: Pale, Anxious, Obese Appearance Remarks Middle-aged obese female appearing older than stated age Eyes Eye Exam: Pupils Equal, Pupils Reactive Ears & Nose Ears & Nose Exam: Nasal Mucosa [place] Throat Throat Exam: Oral Mucosa [place] & Moist (pedal pale) Neck Neck Exam: Neck Supple, Trachea Midline Pulmonary Resp Exam: Clear Bilaterally, Breath Sounds Equal, No Distress Cardiology CV Exam: Irregular, Arrhythmia Gastrointestinal/Abdomen GI Exam: Soft, Non-Tender, Bowel Sounds Present Musculoskeletal MS Exam: Atrophy MS Remarks Evidence of wasting and weight loss , bilateral lower extremity Integumentary Skin Exam: Warm, Dry, Intact Extremeties Extremities Exam: Trace Edema (trace lower extremity edema) Neurologic Neuro Exam: Alert, Awake, Oriented, Speech Clear (voice raspy), Moving All Extremities Psychiatric Psych Exam: Appropriate Responses Assessment/Plan Assessment/Plan assessment Intractable back pain ? etiology Anemia, severe with dyspnea Hx Endometrial ca Hx MDS GERD, Constipation Hypo-magnesia, Hypokalemia Diabetes mellitus, 2, mild hyperglycemia History of morbid Obesity status post bariatric surgery PLAN 1 more unit of packed RBC transfusions ordered by hematology Follow H&H posttransfusion Continue fentanyl patch Start oral Dilaudid 4 mg every 6 hours Diabetic diet Insulin Accu-Cheks before every meal C and daily at bedtime with insulin coverage ambulate Stool softeners/. Laxatives A.m. labs Assessment discharge planning/possible DC home in a.m. Discussed patient Will follow Carlos Johnson MD Jun 30, 2017 16:47
[2017-06-30] MEDS ORDERED: SENN1TAB PO (17:03)
[2017-06-30] MEDS ORDERED: DILA4TAB2 PO (17:03)
[2017-06-30] MEDS ORDERED: FENT50DI T-DERMAL (17:03)
--- NOTE | 2017-06-30 17:08 | HHI.PR ---
Subjective Subjective Notes Resting in bed eating breakfast No issues Objective Vitals/I&O Vital Signs Date Time Temp Pulse Resp B/P (MAP) Pulse Ox O2 Delivery O2 Flow Rate FiO2 06/30/17 12:00 97.1 77 16 120/74 (89) 96 06/30/17 07:32 21 06/28/17 19:39 Nasal Cannula 2.00 Labs Laboratory Tests Test 06/30/17 05:29 White Blood Count 2.2 Red Blood Count 2.43 Hemoglobin 7.3 Hematocrit 21.9 Mean Corpuscular Volume 89.9 Mean Corpuscular Hemoglobin 30.0 Mean Corpuscular Hemoglobin Concent 33.4 Red Cell Distribution Width 18.3 Platelet Count 66 Mean Platelet Volume 7.1 Neutrophils (%) (Auto) 28.6 Lymphocytes (%) (Auto) 50.1 Monocytes (%) (Auto) 19.3 Eosinophils (%) (Auto) 1.0 Basophils (%) (Auto) 1.0 Neutrophils # (Auto) 0.6 Lymphocytes # (Auto) 1.1 Monocytes # (Auto) 0.4 Eosinophils # (Auto) 0.0 Basophils # (Auto) 0.0 CBC Comment AUTO DIFF Differential Total Cells Counted 100 Neutrophils % (Manual) 27 Band Neutrophils % 10 Lymphocytes % 51 Monocytes % 10 Basophils % 1 Neutrophils # (Manual) 0.8 Differential Comment FINAL DIFF MANUAL Blastocytes 1 Platelet Estimate LOW Platelet Morphology Comment NORMAL Ovalocytes 1+ Blood Urea Nitrogen 11 Creatinine 0.87 Random Glucose 92 Calcium Level 7.9 Sodium Level 137 Potassium Level 3.5 Chloride Level 103 Carbon Dioxide Level 26.1 Anion Gap 8 Estimat Glomerular Filtration Rate 68 Cardiovascular: Regular Lungs: Clear Abdomen: Non-distended, Non-tender Extremities: Other (s/p bilateral skin bx---sutures removed ) A/P Assessment and Plan 52 year old female s/p punch bx; back with back pain -DC Sutures at bedside -Okay to shower -Still awaiting pathology -No acute GS issues at this time Stephanie Landry Jun 30, 2017 17:08
[2017-06-30] MEDS: HYDROmorphone HCL 4 MG TAB PO PRN ×2 (17:18→23:46)
[2017-06-30] MEDS ORDERED: HYDROmorphone HCL PF 1 MG/ML VIAL IV ONE (22:45)
[2017-07-01 00:04] VITALS: PULSE 71
[2017-07-01 00:14] VITALS: BP 97/64; PULSE 70; RESP 18; TEMP 98; O2SAT 97
[2017-07-01] MEDS: RESP: ALBUTEROL 2.5 MG/IPRATROPIUM 0.5 MG NEB (SCH) NEB ×5 (03:51→15:53)
[2017-07-01 04:15] VITALS: BP 134/83; PULSE 70; RESP 17; TEMP 96.7; O2SAT 97
[2017-07-01 05:26] LABS: AUTOMATED NEUTROPHIL # 0.7 TH/MM3 (1.8-7.7); BASOPHIL % 1.5 % (0.0-2.0); EOSINOPHIL # 0.1 TH/MM3 (0-0.4); EOSINOPHIL % 2.2 % (0.0-4.0); HEMATOCRIT 23.6 % (35.0-46.0); LYMPH % 51.6 % (9.0-44.0); LYMPHOCYTE # 1.4 TH/MM3 (1.0-4.8); MEAN CELL VOLUME 88.9 FL (80.0-100.0); MEAN CORPUSCULAR HEMOGLOBIN 30.3 PG (27.0-34.0); MEAN CORPUSCULAR HGB CONC 34.1 % (32.0-36.0); NEUT % 27.7 % (16.0-70.0); PLATELET COUNT 59 TH/MM3 (150-450); RED BLOOD COUNT 2.66 MIL/MM3 (4.00-5.30); WHITE BLOOD COUNT 2.6 TH/MM3 (4.0-11.0)
[2017-07-01 05:58] LABS: HEMO FLAGS AUTO DIFF
[2017-07-01] MEDS: HYDROmorphone HCL 4 MG TAB PO PRN (06:22)
[2017-07-01 08:00] VITALS: BP 115/69; PULSE 68; RESP 16; TEMP 96.7; O2SAT 98
[2017-07-01 09:10] VITALS: O2SAT 98
[2017-07-01] MEDS: SODIUM CHLORIDE 0.9% FLUSH 10 ML FLUSH IV FLUSH SCH (09:29)
[2017-07-01] MEDS: POTASSIUM CHLORIDE 20 MEQ CONTROLLED RELEASE TAB PO SCH (09:30)
[2017-07-01] MEDS: HEPARIN SODIUM - SQ 10,000 UNITS/ML VIAL SQ SCH (09:30)
[2017-07-01] MEDS: GABAPENTIN 300 MG CAP PO SCH ×2 (09:30→12:59)
[2017-07-01] MEDS: PANTOPRAZOLE SODIUM 40 MG VIAL IV PUSH SCH (09:30)
[2017-07-01] MEDS: methylPREDNISolone 4 MG TAB PO SCH (09:31)
[2017-07-01] MEDS: PANTOPRAZOLE SOD 40 MG DELAYED RELEASE TAB PO SCH (09:31)
[2017-07-01] MEDS: ESCITALOPRAM OXALATE 10 MG TAB PO SCH (09:32)
[2017-07-01] MEDS: DOCUSATE SODIUM 50 MG/SENNA 8.6 MG TAB PO SCH (09:32)
[2017-07-01 09:42] LABS: BANDS 8 % (0-6); OVALOCYTES 1+ (NORMAL); POLYS (SEG NEUTROPHILS) 31 % (16-70); WBC DIFF SAMPLE 100
[2017-07-01 09:45] LABS: PLATELET ESTIMATE SMEAR LOW (NORMAL); PLATELET MORPHOLOGY NORMAL (NORMAL); SCAN/DIFF FINAL DIFF MANUAL
--- NOTE | 2017-07-01 10:30 | PD.ONC.PN ---
Subjective Subjective Remarks Afebrile overnight. Patient reporting no improvement in pain with Fentanyl patch. she states she just feels very sleepy with the Fentanyl. Objective Data Date Time Temp Pulse Resp B/P (MAP) Pulse Ox O2 Delivery O2 Flow Rate FiO2 07/01/17 09:10 98 07/01/17 08:00 96.7 68 16 115/69 (84) 98 07/01/17 04:15 96.7 70 17 134/83 (100) 97 07/01/17 00:14 98.0 70 18 97/64 97 07/01/17 00:04 71 06/30/17 23:57 96.9 76 18 103/70 99 06/30/17 21:04 98 06/30/17 20:15 98.0 74 17 110/71 (84) 99 06/30/17 20:01 98 06/30/17 16:00 97.2 85 16 108/74 (85) 98 06/30/17 12:00 97.1 77 16 120/74 (89) 96 07/01/17 07/01/17 07/01/17 07:00 15:00 23:00 Intake Total 880 ml Balance 880 ml Result Diagram: 07/01/17 0440 06/30/17 0529 Laboratory Results Laboratory Tests Test 07/01/17 04:40 White Blood Count 2.6 TH/MM3 Red Blood Count 2.66 MIL/MM3 Hemoglobin 8.1 GM/DL Hematocrit 23.6 % Mean Corpuscular Volume 88.9 FL Mean Corpuscular Hemoglobin 30.3 PG Mean Corpuscular Hemoglobin Concent 34.1 % Red Cell Distribution Width 17.0 % Platelet Count 59 TH/MM3 Mean Platelet Volume 7.4 FL Neutrophils (%) (Auto) 27.7 % Lymphocytes (%) (Auto) 51.6 % Monocytes (%) (Auto) 17.0 % Eosinophils (%) (Auto) 2.2 % Basophils (%) (Auto) 1.5 % Neutrophils # (Auto) 0.7 TH/MM3 Lymphocytes # (Auto) 1.4 TH/MM3 Monocytes # (Auto) 0.4 TH/MM3 Eosinophils # (Auto) 0.1 TH/MM3 Basophils # (Auto) 0.0 TH/MM3 CBC Comment AUTO DIFF Differential Total Cells Counted 100 Neutrophils % (Manual) 31 % Band Neutrophils % 8 % Lymphocytes % 51 % Monocytes % 10 % Neutrophils # (Manual) 1.0 TH/MM3 Differential Comment FINAL DIFF MANUAL Platelet Estimate LOW Platelet Morphology Comment NORMAL Ovalocytes 1+ Administered Medications Medications (Trade) Dose Ordered Sig/Jasen Route PRN Reason Start Time Stop Time Status Last Admin Dose Admin Sodium Chloride (NS Flush) 2 ml UNSCH PRN IVF FLUSH AFTER USING IV ACCESS 06/26/17 15:15 06/26/17 16:07 Escitalopram Oxalate (Lexapro) 10 mg DAILY PO 06/27/17 09:00 07/01/17 09:32 Gabapentin (Neurontin) 600 mg TID PO 06/27/17 09:00 07/01/17 09:30 Medroxyprogesterone Acetate (Provera) 2.5 mg DAILY PO 06/27/17 09:00 07/01/17 09:32 Methylprednisolone (Medrol) 4 mg DAILY PO 06/27/17 09:00 07/01/17 09:31 Pantoprazole Sodium (Protonix) 40 mg DAILY PO 06/27/17 09:00 07/01/17 09:31 Sodium Chloride (NS Flush) 2 ml BID IV FLUSH 06/26/17 21:00 07/01/17 09:29 Heparin Sodium (Porcine) (Heparin Inj) 5,000 units Q12H SQ 06/26/17 20:00 07/01/17 09:30 Senna/Docusate Sodium (Quin-Colace) 1 tab BID PO 06/26/17 21:00 07/01/17 09:32 Pantoprazole Sodium (Protonix Inj) 40 mg DAILY IV PUSH 06/27/17 10:00 07/01/17 09:30 Potassium Chloride (KCl) 40 meq DAILY PO 06/28/17 09:00 07/01/17 09:30 Albuterol/ Ipratropium (Duoneb Neb) 1 ampule Q4HR NEB NEB 06/28/17 12:00 07/01/17 09:00 Acetaminophen (Tylenol) 650 mg Q4H PRN PO SEE LABEL COMMENTS 06/30/17 14:15 06/30/17 22:41 Diphenhydramine HCl (Benadryl) 25 mg Q4H PRN PO SEE LABEL COMMENTS 06/30/17 14:15 06/30/17 22:41 Hydromorphone HCl (Dilaudid) 4 mg Q6HR PRN PO pain 6 to 10 06/30/17 17:00 07/01/17 06:22 Objective Remarks GENERAL: Middle aged female lying in bed in nad. SKIN: Warm and dry. HEAD: Normocephalic. EYES: No injection or drainage. NECK: Supple, trachea midline. CARDIOVASCULAR: Regular rate and rhythm RESPIRATORY: left base with crackles, anterior nagy clear. GASTROINTESTINAL: Abdomen soft, non-tender, nondistended. EXTREMITIES: No cyanosis. NEUROLOGICAL: awake and alert, lethargic. normal speech. Assessment/Plan Problem List: (1) MDS (myelodysplastic syndrome) ICD Codes: D46.9 - Myelodysplastic syndrome, unspecified Status: Acute Plan: --Myelodysplasia. --receiving Vidaza outpatient. ++transfusion dependent. (2) Endometrial ca ICD Codes: C54.1 - Malignant neoplasm of endometrium Status: Acute Plan: --follows with Dr. Thomason --being treated with Provera (3) Pleural effusion ICD Codes: J90 - Pleural effusion, not elsewhere classified Plan: --left sided pleural effusion --pulmonology following (4) Chest pain, atypical ICD Codes: R07.89 - Other chest pain Status: Acute Plan: --?referred pain from splenic infarct --? due to small left sided pleural effusion Assessment 52y/o female with uterine cancer, and myelodysplastic syndrome, admitted with left chest pain. Plan 1. continue IS 2. Fentanyl patch not relieving pain, just making patient fatigued. will d/c fentanyl patch and continue PO dilaudid only. 3. patient clear for discharge. follow up in clinic this week. Attending Statement c/o increase sedation with Duragesic. D/C Duragesic. Ok to d/c home on Po Dilaudid. fu as outpt on this friday. Jeanne Mcdonald Jul 01, 2017 10:30 Pam Kurtz MD Jul 01, 2017 23:35
[2017-07-01 12:00] VITALS: BP 120/70; PULSE 75; RESP 16; TEMP 97; O2SAT 99
--- NOTE | 2017-07-01 13:14 | HHI.PR ---
Subjective Subjective Remarks Fentanyl removed, makes her sleepy left lateral chest pain unchanged, inc. with deep breathing and movement anxious to go home no cp no sob no fever eating okay legs tender but overall improved Review of Systems Constitutional Constitutional Remarks 12 POINT ROS COMPLETED, NEGATIVE EXCEPT NOTED ABOVE Vitals/Results Vital Signs Vital Signs Date Time Temp Pulse Resp B/P (MAP) Pulse Ox O2 Delivery O2 Flow Rate FiO2 07/01/17 12:00 97.0 75 16 120/70 (87) 99 07/01/17 09:10 98 07/01/17 08:00 96.7 68 16 115/69 (84) 98 07/01/17 04:15 96.7 70 17 134/83 (100) 97 07/01/17 00:14 98.0 70 18 97/64 97 07/01/17 00:04 71 06/30/17 23:57 96.9 76 18 103/70 99 06/30/17 21:04 98 06/30/17 20:15 98.0 74 17 110/71 (84) 99 06/30/17 20:01 98 06/30/17 16:00 97.2 85 16 108/74 (85) 98 CBC/BMP: 07/01/17 0440 06/30/17 0529 Lab Results Laboratory Tests Test 07/01/17 04:40 White Blood Count 2.6 TH/MM3 Red Blood Count 2.66 MIL/MM3 Hemoglobin 8.1 GM/DL Hematocrit 23.6 % Mean Corpuscular Volume 88.9 FL Mean Corpuscular Hemoglobin 30.3 PG Mean Corpuscular Hemoglobin Concent 34.1 % Red Cell Distribution Width 17.0 % Platelet Count 59 TH/MM3 Mean Platelet Volume 7.4 FL Neutrophils (%) (Auto) 27.7 % Lymphocytes (%) (Auto) 51.6 % Monocytes (%) (Auto) 17.0 % Eosinophils (%) (Auto) 2.2 % Basophils (%) (Auto) 1.5 % Neutrophils # (Auto) 0.7 TH/MM3 Lymphocytes # (Auto) 1.4 TH/MM3 Monocytes # (Auto) 0.4 TH/MM3 Eosinophils # (Auto) 0.1 TH/MM3 Basophils # (Auto) 0.0 TH/MM3 CBC Comment AUTO DIFF Differential Total Cells Counted 100 Neutrophils % (Manual) 31 % Band Neutrophils % 8 % Lymphocytes % 51 % Monocytes % 10 % Neutrophils # (Manual) 1.0 TH/MM3 Differential Comment FINAL DIFF MANUAL Platelet Estimate LOW Platelet Morphology Comment NORMAL Ovalocytes 1+ Physical Exam General General Appearance: Well Developed, Pale, Anxious, Obese Eyes Eye Exam: Pupils Equal, Pupils Reactive Ears & Nose Ears & Nose Exam: Nasal Mucosa [place] Throat Throat Exam: Oral Mucosa [place] & Moist Neck Neck Exam: Neck Supple, Trachea Midline Pulmonary Resp Exam: Clear Bilaterally, Breath Sounds Equal, No Distress, Decreased Bases Cardiology CV Exam: Regular, Good Perfusion Gastrointestinal/Abdomen GI Exam: Soft, Non-Tender, Bowel Sounds Present, Non-Distended Musculoskeletal MS Exam: Joints Intact Integumentary Skin Exam: Warm, Dry Extremeties Extremities Exam: Trace Edema (trace lower extremity edema) Extremeties Remarks DISCOLORED HARDENED LESIONS TO LEGS, TENDER TO PALPATION Neurologic Neuro Exam: Alert, Awake, Oriented, Speech Clear, Moving All Extremities, No Focal Deficits Psychiatric Psych Exam: Appropriate Responses VTE Prophylaxis VTE Prophylaxis Meds: Heparin PUD Prophylasis PUD Prophylaxis: Protonix Assessment/Plan Assessment/Plan Assessment Intractable back pain ? etiology Anemia, severe with dyspnea Hx Endometrial ca Hx MDS GERD, Constipation Hypo-magnesia, Hypokalemia Diabetes mellitus, 2, mild hyperglycemia History of morbid Obesity status post bariatric surgery S/P bx of leg lesions, pathology pending Left pleural effusion Plan HH stable received total 3 units through hospitalization oncology has cleared for dc f/u on Friday to have CBC done. Left flank, back pain Continue with Dilaudid, doesn't like Fentanyl Diabetic diet Insulin with Accu-Cheks before every meal and daily at bedtime with insulin coverage ambulate Continue Stool softeners/. Laxatives S/P bx of leg lesions, pathology still pending sutures removed per GS 10/ left pleural effusion continue duonebs PRN appreciate pulm input no need for thoracentesis Stable for dc no etiology for left post back pain, ? musculoskeletal Dilaudid seems to be working okay F/U hematology on Friday, needs a CBC, has appointment F/U PCP Diet-heart healthy/diabetic Activity-as tolerated D/W RN D/W Dr. Johnson D/W pt This patient was seen by myself and Dr. Johnson, this note is written on his behalf. Discharge Minutes: 40 Soledad Easley Jul 01, 2017 13:14
--- NOTE | 2017-07-01 13:15 | HHI.DCPOC ---
Discharge Care Plan Diagnosis: (1) Chest pain, atypical Your Health Problems Are: Chest Pain Goals to Promote Your Health * To prevent worsening of your condition and complications * To maintain your health at the optimal level Directions to Meet Your Goals Take your medications as prescribed Follow your dietary instruction Follow activity as directed Keep your appointments as scheduled Take your immunizations and boosters as scheduled If your symptoms worsen call your PCP, if no PCP go to Urgent Care Center or Emergency Room Smoking is Dangerous to Your Health. Avoid second hand smoke Call the 24-hour hour crisis hotline for domestic abuse at Soledad Easley Jul 01, 2017 13:15
--- NOTE | 2017-07-01 13:26 | HHI.PR ---
Subjective Remarks C/O pain along the left lower chest. Off O2 No fever. will go home Objective Vital Signs Date Time Temp Pulse Resp B/P (MAP) Pulse Ox O2 Delivery O2 Flow Rate FiO2 07/01/17 12:00 97.0 75 16 120/70 (87) 99 07/01/17 09:10 98 07/01/17 08:00 96.7 68 16 115/69 (84) 98 07/01/17 04:15 96.7 70 17 134/83 (100) 97 07/01/17 00:14 98.0 70 18 97/64 97 07/01/17 00:04 71 06/30/17 23:57 96.9 76 18 103/70 99 06/30/17 21:04 98 06/30/17 20:15 98.0 74 17 110/71 (84) 99 06/30/17 20:01 98 06/30/17 16:00 97.2 85 16 108/74 (85) 98 I/O 06/30/17 06/30/17 06/30/17 07/01/17 07/01/17 07/01/17 07:00 15:00 23:00 07:00 15:00 23:00 Intake Total 500 ml 960 ml 1200 ml 880 ml Output Total 1000 ml Balance 500 ml 960 ml 200 ml 880 ml Intake Oral 500 ml 960 ml 480 ml IV Total 1200 ml Packed Cells 400 ml Output Urine Total 1000 ml # Voids 3 2 2 3 # Bowel Movements 0 1 Result Diagram: 07/01/17 0440 06/30/17 0529 Objective Remarks GENERAL: This is an obese middle-aged white female who is alert,not in acute distress. HEENT: Head normocephalic. Pupils reactive. Tongue is moist. Throat was clear. Nasal mucosa edematous. NECK: Supple. No venous distension. No thyromegaly or lymphadenopathy. CHEST: Equal movements. Percussion note resonant. Breath sounds diminished at the bases, more so on the left side and no wheezes or crackles heard. HEART: Heart sounds are regular, S1-S2. No murmur. ABDOMEN: Abdomen is soft with tenderness in the left upper quadrant and some tenderness in the lower ribcage. Spleen is not palpable. Bowel sounds are active. EXTREMITIES: Reveal edema with decreased pulses. She is moving all her extremities well with 1+ reflexes. There were no gross motor deficits. Cranial nerves grossly intact. RECTAL: Exam is deferred. SKIN: No lesions. Assessment and Plan Assessment and Plan IMPRESSION 1. Left pleural effusion with atelectasis. 2. Splenic infarct. 3. History of myelodysplasia. 4. Metastatic uterine carcinoma. 5. History of lung CA status post resection right mid and lower lobe. 6. Obesity. 7. Anemia with myelodysplasia. Plan : 1.Will continue antibiotics. 2. D/C O2 3. D/C Nebs and add Ventolin HFA , 2 puffs tid prn. 4. IS at Bedside q2h. 5. Will need F/U CT chest in 4 weeks. 6. Will F/U as OP in 2 weeks Abigail Antunez MD Jul 01, 2017 13:26
[2017-07-01] MEDS ORDERED: VENTAER INH (13:31)
--- NOTE | 2017-07-01 15:33 | HHI.DS ---
Discharge Summary Admission Date Jun 28, 2017 at 15:04 Discharge Date: Jul 01, 2017 Admitting Diagnosis Anemia, CP, HypoMg (1) Pleural effusion ICD Codes: J90 - Pleural effusion, not elsewhere classified Diagnosis: Principal (2) Pain aggravated by breathing ICD Codes: R52 - Pain, unspecified Diagnosis: Principal (3) Dehydration ICD Codes: E86.0 - Dehydration Diagnosis: Principal Status: Acute (4) Fatigue ICD Codes: R53.83 - Other fatigue Diagnosis: Secondary Status: Acute (5) Symptomatic anemia ICD Codes: D64.9 - Anemia, unspecified Diagnosis: Principal Status: Acute (6) Pleural effusion ICD Codes: J90 - Pleural effusion, not elsewhere classified Diagnosis: Principal Status: Acute (7) Hypomagnesemia ICD Codes: E83.42 - Hypomagnesemia Diagnosis: Principal Status: Acute (8) MDS (myelodysplastic syndrome) ICD Codes: D46.9 - Myelodysplastic syndrome, unspecified Diagnosis: Principal Status: Acute (9) Total bilirubin, elevated ICD Codes: R17 - Unspecified jaundice Diagnosis: Principal Status: Acute CBC/BMP: 07/01/17 0440 06/30/17 0529 Significant Findings Laboratory Tests Test 06/28/17 20:20 06/29/17 15:15 06/30/17 05:29 07/01/17 04:40 Arterial Blood pH 7.44 (7.380-7.420) White Blood Count 2.3 TH/MM3 (4.0-11.0) 2.2 TH/MM3 (4.0-11.0) 2.6 TH/MM3 (4.0-11.0) Red Blood Count 2.61 MIL/MM3 (4.00-5.30) 2.43 MIL/MM3 (4.00-5.30) 2.66 MIL/MM3 (4.00-5.30) Hemoglobin 7.7 GM/DL (11.6-15.3) 7.3 GM/DL (11.6-15.3) 8.1 GM/DL (11.6-15.3) Hematocrit 23.0 % (35.0-46.0) 21.9 % (35.0-46.0) 23.6 % (35.0-46.0) Red Cell Distribution Width 18.2 % (11.6-17.2) 18.3 % (11.6-17.2) Platelet Count 82 TH/MM3 (150-450) 66 TH/MM3 (150-450) 59 TH/MM3 (150-450) Band Neutrophils % 11 % (0-6) 10 % (0-6) 8 % (0-6) Neutrophils # (Manual) 1.7 TH/MM3 (1.8-7.7) 0.8 TH/MM3 (1.8-7.7) 1.0 TH/MM3 (1.8-7.7) Platelet Estimate LOW (NORMAL) LOW (NORMAL) LOW (NORMAL) Ovalocytes 1+ (NORMAL) 1+ (NORMAL) 1+ (NORMAL) Keratocytes OCC (NORMAL) Lymphocytes (%) (Auto) 50.1 % (9.0-44.0) 51.6 % (9.0-44.0) Monocytes (%) (Auto) 19.3 % (0.0-8.0) 17.0 % (0.0-8.0) Neutrophils # (Auto) 0.6 TH/MM3 (1.8-7.7) 0.7 TH/MM3 (1.8-7.7) Lymphocytes % 51 % (9-44) 51 % (9-44) Monocytes % 10 % (0-8) 10 % (0-8) Blastocytes 1 % (0-0) Calcium Level 7.9 MG/DL (8.5-10.1) Estimat Glomerular Filtration Rate 68 ML/MIN (>89) Imaging Last Impressions Chest Ultrasound 06/28/17 0000 Signed Impressions: Service Date/Time: Wednesday, June 28, 2017 19:34 - CONCLUSION: There is only a minimal amount of effusion in the left chest. No marking was performed. Salvador Wilkinson MD Ribs X-Ray 06/27/17 0000 Signed Impressions: Service Date/Time: Tuesday, June 27, 2017 10:40 - CONCLUSION: 1. No displaced rib fractures or pneumothorax. 2. Mild gaseous distention of the colon with moderate distal colonic stool. Formal abdominal radiographs may be obtained for further evaluation if clinically indicated. Sameer Pugh MD ADDENDUM: There is a typographical error in the first sentence of this report. It should read: multiple views of the left ribs were performed. Sameer Pugh MD CT Angiography 06/27/17 0000 Signed Impressions: Service Date/Time: Tuesday, June 27, 2017 19:55 - CONCLUSION: 1. No pulmonary embolus. 2. Small left pleural effusion and mild bibasilar atelectasis. 3. Right midlung nodule measures slightly smaller in the interim. 4. Suspected new infarction of the spleen. Bakari Paz MD Chest X-Ray 06/26/17 1510 Signed Impressions: Service Date/Time: May 15:12 - CONCLUSION: Small left pleural effusion. Roberto Billingsley MD Hospital Course 52 year-old white female who has been treated for high-grade myelodysplastic syndrome. Also with hx of endometrial cancer on Provera. She has been receiving chemotherapy, has completed 4 treatments. After treatment, pt. noted some left shoulder pain which felt like a pinched nerve. She also noted left for thoracolumbar pain which is exacerbated by taking a deep breath. Patient was unable to sleep for the past 2 nights, has had a decreased appetite and decreased by mouth intake. She does note some generalized weakness and fatigue , and mild constipation noted with no BM 2 days. Described a pleuritic type low back pain, left side. Patient was awake, good historian, able to answer simple questions. Patient presented to the emergency room for further evaluation. She had been recently admitted for symptomatic anemia and received blood transfusions. Patient was admitted for the following: Intractable back pain ? etiology Anemia, severe with dyspnea Hx Endometrial ca Hx MDS GERD, Constipation Hypo-magnesia, Hypokalemia Diabetes mellitus, 2, mild hyperglycemia History of morbid Obesity status post bariatric surgery S/P bx of leg lesions, pathology pending Left pleural effusion During the hospital course, the following took place: Patient was admitted to the hospital, appropriate pain management was ordered Medications were reconciled Oncology was consulted for evaluation She was noted again anemic, received a total of 3 units throughout hospitalization. H&H was at baseline oncology cleared for dc Was instructed to f/u on Friday to have CBC done and continue with blood transfusions as needed. Left flank, back pain-no etiology was found for pain. She underwent imaging studies. Continue with Dilaudid, did not like Fentanyl During workup for left flank pain, she was found with a left pleural effusion. Pulmonology was consulted. Put on duonebs PRN appreciate pulm input Had ultrasound of the chest to assess whether patient had enough fluid for thoracentesis. There was no need for thoracentesis D/W melia García for dc f/u [address] chest in 3 weeks recommended Ventolin INH TID PRN, patient was given prescription History of diabetes, had gastric bypass. Put on Diabetic diet Insulin with Accu-Cheks before every meal and daily at bedtime with insulin coverage Continue Stool softeners/. Laxatives Patient had bowel movement S/P bx of leg lesions this was during prior admission. Pathology was still pending. Oncology to follow up on results. Gen. surgery was contacted, patient had follow-up appointments to have sutures removed. sutures removed per GS 06/30, tolerated well Leg lesions appeared improved, less tender. Patient stabilize, H&H was back to baseline. Pain better controlled. Stable for dc cleared by all consultants no etiology for left post back pain, poss musculoskeletal Dilaudid seemed to be working okay Instructed to: F/U hematology on Friday, needs a CBC, has appointment F/U PCP Diet-heart healthy/diabetic Activity-as tolerated Pt Condition on Discharge: Stable Discharge Disposition: Discharge Home Discharge Instructions DIET: Follow Instructions for: Heart Healthy Diet, Diabetic Diet Activities you can perform: Weight Bearing as [place] Follow up Referrals: Oncology - 2 Weeks PCP Follow-up - 1 Week Pulmonology - 2 Weeks with Abigail Antunez MD New Medications: Albuterol 18 GM Inh (Ventolin Hfa 18 GM Inh) 90 Mcg/Act Aer 2 PUFF INH TID PRN for SHORTNESS OF BREATH, #1 INHALER 0 Refills Fentanyl Patch 72 HR (Fentanyl Patch 72 HR) 50 Mcg/Hr Patch 50 MCG T-DERMAL Q72H for Pain Management, #10 PATCH 0 Refills Remove old patch when new one placed. Sennosides-Docusate Sodium (Senna Plus 8.6-50 mg) 8.6 Mg-50 Mg Tab 1 TAB PO BID for Constipation, #60 TAB Continued Medications: Azacitidine Inj (Vidaza Inj) 100 Mg Inj Escitalopram (Escitalopram) 10 Mg Tab 10 MG PO DAILY, #30 TAB 0 Refills Gabapentin (Gabapentin) 600 Mg Tab 600 MG PO TID, #90 TAB 0 Refills Hydromorphone (Dilaudid) 4 Mg Tab 4 MG PO Q6HR PRN for pain 1-10 for 30 Days, #60 TAB (This prescription has been renewed) Medroxyprogesterone Acetate (Provera) 2.5 Mg Tab 2.5 MG PO DAILY for Uterine bleeding, #10 TAB Start day 16 Methylprednisolone Dosepak (Medrol Dosepak) 4 Mg Dspk 4 MG PO DIRECTED, #1 DSPK 0 Refills Per Pharmacist direction Pantoprazole (Pantoprazole) 40 Mg Tab 40 MG PO DAILY for Reflux, #30 TAB 0 Refills Temazepam (Temazepam) 30 Mg Cap 30 MG PO HS PRN for INSOMNIA, #30 CAP 0 Refills Soledad Easley [facility] Jul 01, 2017 15:33
[2017-07-03] MEDS ORDERED: REMOVE OLD DURAGESIC (FENTANYL) PATCH T-DERMAL SCH (09:00)
== END 2017-07-01 15:50 | disposition home or self-care (01) | DRG 815 ==
LOC: NEPC 14:48 → NEDA 18:10 → NEPGCP 20:27 → OBSVTOIN 06-28 15:04 → HOCB 06-28 22:27
PROVIDERS: ADMIT Specialist; ATTEND Specialist
PROC: 30233N1 Transfusion of Nonautologous Red Blood Cells into Peripheral Vein, Percutaneous Approach (ICD-10-PCS; principal; 2017-06-26)
DX: D73.5 Infarction of spleen (principal); J90 Pleural effusion, not elsewhere classified; C78.00 Secondary malignant neoplasm of unspecified lung; E11.41 Type 2 diabetes mellitus with diabetic mononeuropathy; Z68.41 Body mass index [BMI] 40.0-44.9, adult; R17 Unspecified jaundice; E86.0 Dehydration; J98.11 Atelectasis; E83.42 Hypomagnesemia; D46.9 Myelodysplastic syndrome, unspecified; K59.00 Constipation, unspecified; G89.29 Other chronic pain; E87.6 Hypokalemia; R91.1 Solitary pulmonary nodule; E66.9 Obesity, unspecified; K21.9 Gastro-esophageal reflux disease without esophagitis; M54.5 Low back pain; M25.512 Pain in left shoulder; M19.042 Primary osteoarthritis, left hand; M19.041 Primary osteoarthritis, right hand; M17.11 Unilateral primary osteoarthritis, right knee; I49.1 Atrial premature depolarization; R01.1 Cardiac murmur, unspecified; I10 Essential (primary) hypertension; F32.9 Major depressive disorder, single episode, unspecified; F41.9 Anxiety disorder, unspecified; Z85.118 Personal history of other malignant neoplasm of bronchus and lung; Z85.42 Personal history of malignant neoplasm of other parts of uterus; Z88.5 Allergy status to narcotic agent; Z88.6 Allergy status to analgesic agent; Z90.2 Acquired absence of lung [part of]; Z91.040 Latex allergy status; Z98.84 Bariatric surgery status; C54.1 Malignant neoplasm of endometrium
CPT/HCPCS: 36430; 36600; 71010; 71100; 71275; 76604; 80048; 80053; 81001; 82805; 82948; 83690; 83735; 84702; 85007; 85025; 85027; 85610; 85730; 86850; 86900; 86901; 86920; 93005; 94150; 94640; 94664; 96361; 96372; 96374; 96375; 96376; 96413; C9113; G0378; J1170; J1626; J1642; J1644; J3475; J7050; J7509; J9025; P9016; Q9967

== ENCOUNTER 2017-07-10 18:43 | Inpatient (IN) | payer MEDICARE, OTHER ==
[~2017-07-10] VITALS: Ht 171.4 cm; Wt 115.5 kg
[~2017-07-10 18:43] MED LIST changes: +FENT50DI T-DERMAL; +SENN1TAB PO; +VENTAER INH
[2017-07-10 18:53] VITALS: BP 102/63; PULSE 114; RESP 20; TEMP 98.2; O2SAT 98
[2017-07-10] MEDS ORDERED: ONDANSETRON HCL 4 MG/2 ML VIAL IV PUSH ONE (19:45)
[2017-07-10] MEDS ORDERED: HYDROmorphone HCL PF 1 MG/ML VIAL IV PUSH ONE (19:45)
--- NOTE | 2017-07-10 20:38 | PD ---
HPI Chief Complaint: Respiratory Symptoms Time Seen by Provider: 19:06 Travel History International Travel<30 days: No Contact w/Intl Traveler<30days: No Traveled to known affect area: No History of Present Illness HPI 52-year-old female complains of right-sided mid back pain and right leg pain. She hasn't has history of myelodysplastic syndrome, endometrial cancer on chemotherapy, status post right lobectomy, GERD, type 2 diabetes, and painful lesions lower extremity. Patient was admitted to [facility] June 28 undischarged July 01. 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 Patient states that she had persistent pain associate with the lesion. Patient is on fentanyl patch at home for pain. Patient also has good recurrent back pain on the left thoracic lumbar region during last admission and now on the right side. Patient denies any new injury. Patient denies any headache. Patient denies any neck pain. Patient denies any coughing congestion fever chills. Patient has history of left pleural effusion. Patient states the pain is worse with breathing. Patient complains generalized malaise and weakness. 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) Cardiovascular Problems: No High Cholesterol: No Chemotherapy: Yes Chest Pain: No Congestive Heart Failure: No COPD: No Diabetes: Yes Diminished Hearing: No Endocrine: Yes (diabetes) Gastrointestinal Disorders: Yes (GERD) Glaucoma: No Genitourinary: No Hepatitis: No Hiatal Hernia: No Immune Disorder: No Implanted Vascular Access Dvce: Yes Musculoskeletal: No Neurologic: Yes (bilateral neuropathy) Psychiatric: Yes (Depression) Reproductive: Yes (edometrial cancer) Respiratory: Yes (LUNG CA) Immunizations Current: No Migraines: Yes Radiation Therapy: No Sleep Apnea: No Thyroid Disease: No Menopausal: Yes : 1 Para: 1 Ovarian Cysts: Yes Past Surgical History Abdominal Surgery: Yes (gastric bypass, gallbladder, hernia repair) AICD: No Body Medical Devices: INFUSAPORT right chest Cardiac Surgery: No Cholecystectomy: Yes Ear Surgery: No Endocrine Surgery: No Eye Surgery: No Genitourinary Surgery: No Gynecologic Surgery: Yes (DIANNE) Hysterectomy: Yes Joint Replacement: No Oral Surgery: No Pacemaker: No Thoracic Surgery: Yes (LUNG) Other Surgery: Yes (RYN -gastric bypass) Social History Alcohol Use: No Tobacco Use: No Substance Use: No Allergies-Medications (Allergen,Severity, Reaction): Coded Allergies: latex (Verified Allergy, Severe, Itching, RASH, 06/26/17) ketorolac (Verified Allergy, Intermediate, HIVES, 06/26/17) burning rash carboplatin (Verified Allergy, Mild, Rash, 06/26/17) adhesive (Verified Adverse Reaction, Severe, RASH, 06/26/17) OK FOR PAPER TAPE lorazepam (Verified Adverse Reaction, Mild, NIGHTMARES, 06/26/17) morphine (Verified Adverse Reaction, Mild, Itching, 06/26/17) acetaminophen (Verified Adverse Reaction, Unknown, 06/26/17) nausea oxycodone (Verified Adverse Reaction, Unknown, 06/26/17) nausea Reported Meds & Prescriptions Reported Meds & Active Scripts Active Flexeril (Cyclobenzaprine HCl) 10 Mg Tab 10 Mg PO TID Ventolin Hfa 18 GM Inh (Albuterol Sulfate) 90 Mcg/Act Aer 2 Puff INH TID PRN Fentanyl Patch 72 HR (Fentanyl) 50 Mcg/Hr Patch 50 Mcg T-DERMAL Q72H Remove old patch when new one placed. Senna Plus 8.6-50 mg (Sennosides-Docusate Sodium) 8.6 Mg-50 Mg Tab 1 Tab PO BID Dilaudid (Hydromorphone HCl) 4 Mg Tab 4 Mg PO Q6HR PRN 30 Days Medrol Dosepak (Methylprednisolone) 4 Mg Dspk 4 Mg PO DIRECTED Per Pharmacist direction Reported Gabapentin 600 Mg Tab 600 Mg PO TID Provera (Medroxyprogesterone Acetate) 2.5 Mg Tab 2.5 Mg PO DAILY Start day 16 Vidaza Inj (Azacitidine) 100 Mg Inj Escitalopram (Escitalopram Oxalate) 10 Mg Tab 10 Mg PO DAILY Pantoprazole (Pantoprazole Sodium) 40 Mg Tab 40 Mg PO DAILY Temazepam 30 Mg Cap 30 Mg PO HS PRN Review of Systems General / Constitutional: No: Fever Eyes: No: Visual changes HENT: No: Headaches Cardiovascular: No: Chest Pain or Discomfort Respiratory: No: Shortness of Breath Gastrointestinal: No: Abdominal Pain Genitourinary: No: Dysuria Musculoskeletal: Positive: Pain Skin: No Rash Neurologic: No: Weakness Psychiatric: No: Depression Endocrine: No: Polydipsia Hematologic/Lymphatic: No: Easy Bruising Physical Exam Narrative GENERAL: Well-nourished, well-developed patient. SKIN: Focused skin assessment warm/dry. HEAD: Normocephalic. EYES: No scleral icterus. No injection or drainage. NECK: Supple, trachea midline. No JVD or lymphadenopathy. CARDIOVASCULAR: Regular rate and rhythm without murmurs, gallops, or rubs. RESPIRATORY: Breath sounds equal bilaterally. No accessory muscle use. GASTROINTESTINAL: Abdomen soft, non-tender, nondistended. MUSCULOSKELETAL: Patient has several diffuse thickening mild redness area bilateral lower extremity with tenderness on palpation. No induration no discharge noted. BACK: Patient has moderate tenderness on palpation right low thoracic upper lumbar area, without obvious deformity. No midline tenderness. No CVA tenderness. Neurologic exam normal. Data Data Last Documented VS Vital Signs Date Time Temp Pulse Resp B/P (MAP) Pulse Ox O2 Delivery O2 Flow Rate FiO2 07/10/17 22:57 81 16 107/54 (71) 97 Room Air 07/10/17 18:53 98.2 Orders Orders Complete Blood Count With Diff (07/10/17 19:30) Comprehensive Metabolic Panel (07/10/17 19:30) Prothrombin Time / Inr (Pt) (07/10/17 19:30) Act Partial Throm Time (Ptt) (07/10/17 19:30) Chest, Single Ap (07/10/17 19:30) Iv Access Insert/Monitor (07/10/17 19:30) Ecg Monitoring (07/10/17 19:30) Oximetry (07/10/17 19:30) Ct Thor Spine W/O Contrast (07/10/17 19:30) Ct Lumb Spine W/O Contrast (07/10/17 19:30) Hydromorphone Pf Inj (Dilaudid Pf Inj) (07/10/17 19:45) Ondansetron Inj (Zofran Inj) (07/10/17 19:45) Potassium Chloride (Kcl) (07/10/17 21:45) Cefepime Inj (Maxipime Inj) (07/10/17 22:30) Vancomycin Inj (Vancomycin Inj) (07/10/17 22:30) Sodium Chlor 0.9% 1000 Ml Inj (Ns 1000 M (07/10/17 22:30) Blood Culture (07/10/17 22:30) Lactic Acid (07/10/17 22:30) Urinalysis - C+S If Indicated (07/10/17 22:30) Type And Screen (07/10/17 22:35) Cath For Specimen (07/10/17 22:36) Labs Laboratory Tests Test 07/10/17 19:35 White Blood Count 3.4 TH/MM3 Red Blood Count 2.44 MIL/MM3 Hemoglobin 7.4 GM/DL Hematocrit 21.7 % Mean Corpuscular Volume 88.9 FL Mean Corpuscular Hemoglobin 30.3 PG Mean Corpuscular Hemoglobin Concent 34.0 % Red Cell Distribution Width 17.0 % Platelet Count 139 TH/MM3 Mean Platelet Volume 9.4 FL CBC Comment AUTO DIFF Differential Total Cells Counted 100 Neutrophils % (Manual) 37 % Band Neutrophils % 8 % Lymphocytes % 15 % Monocytes % 27 % Other Cells % 1 % Neutrophils # (Manual) 1.8 TH/MM3 Metamyelocytes 7 % Nucleated Red Blood Cells 1 /100 WBC Differential Comment FINAL DIFF MANUAL Blastocytes 5 % Toxic Granulation 2+ Toxic Vacuolation PRESENT Dohle Bodies PRESENT Platelet Estimate LOW Platelet Morphology Comment ENLARGED Prothrombin Time 13.3 SEC Prothromb Time International Ratio 1.2 RATIO Activated Partial Thromboplast Time 31.5 SEC Blood Urea Nitrogen 24 MG/DL Creatinine 1.50 MG/DL Random Glucose 182 MG/DL Total Protein 6.4 GM/DL Albumin 2.3 GM/DL Calcium Level 8.4 MG/DL Alkaline Phosphatase 67 U/L Aspartate Amino Transf (AST/SGOT) 18 U/L Alanine Aminotransferase (ALT/SGPT) 10 U/L Total Bilirubin 2.1 MG/DL Sodium Level 133 MEQ/L Potassium Level 3.0 MEQ/L Chloride Level 94 MEQ/L Carbon Dioxide Level 28.1 MEQ/L Anion Gap 11 MEQ/L Estimat Glomerular Filtration Rate 36 ML/MIN MDM Medical Decision Making Medical Screen Exam Complete: Yes Emergency Medical Condition: Yes Interpretation(s) 22:09 PM. Chest x-ray shows no acute finding. Lumbar spine CT shows mild to moderate central canal stenosis L4-L5 and facet arthropathy. CT scan thoracic spine shows no acute finding. CBC WBC 3.4. Hemoglobin 7.4 hematocrit 21.7. Platelet count 139. Patient has 37 neutrophils, 8 bands, 15 lymphs, 27 monocytes and toxic vacuoles. Sodium 133. Potassium 3.0. BUN 24. Creatinine 1.50. Differential Diagnosis Differential diagnosis including acute exacerbation chronic pain, cellulitis, abscess, myositis, electrolyte abnormality. Narrative Course 52-year-old female with right-sided back pain and lower extremity pain. History of recurrent back pain and lower extremity pain and would lesions lower extremity. History of endometrial cancer on chemotherapy. History of myelodysplastic syndrome. Considering patient's on chemotherapy and she has 8 bands, we will prophylactically put patient on cefepime and vancomycin and a blood culture and lactic acid. No obvious source. Diagnosis Primary Impression: Back pain Qualified Codes: M54.9 - Dorsalgia, unspecified Additional Impressions: Fibrous histiocytoma of skin MDS (myelodysplastic syndrome) Symptomatic anemia Admitting Information Admitting Physician Requests: Observation Scripts Cyclobenzaprine (Flexeril) 10 Mg Tab 10 MG PO TID for Muscle Spasm, #90 TAB 0 Refills Prov: Esdras Lopez MD 07/10/17 Esdras Lopez MD Jul 10, 2017 20:38
--- NOTE | 2017-07-10 20:40 | RADRPT ---
EXAM DATE/TIME: 07/10/2017 19:51 [facility] COMPARISON: No previous studies available for comparison. INDICATIONS : Short of breath MEDICAL HISTORY : Carcinoma, lung. Gastroesophageal reflux disease. Ovarian cysts.Arthritis Depression. Carcinoma, uter ine. Chemotherapy. Carcinoma, endometrial. SURGICAL HISTORY : Cholecystectomy.Hysterectomy. Gastric bypass surgery, infusaport ENCOUNTER: Initial ACUITY: 3 days PAIN SCORE: 0/10 LOCATION: chest FINDINGS: A single view of the chest demonstrates the lungs to be symmetrically aerated without evidence of mas s, infiltrate or effusion. [id number] tip in superior vena cava. Scattered linear scarring in the lungs. The cardiomediastinal contours are unremarkable. Osseous structures are intact. CONCLUSION: 1. No acute findings. Scattered linear scarring in the lungs. Owen Hines MD on July 10, 2017 at 20:38 Board Certified Radiologist. This report was verified electronically.
[2017-07-10 20:44] LABS: APTT (PATIENT) 31.5 SEC (24.3-30.1); INTERNATIONAL NORMALIZED RATIO 1.2 RATIO; PROTHROMBIN TIME - PATIENT 13.3 SEC (9.8-11.6)
[2017-07-10 20:55] LABS: HEMATOCRIT 21.7 % (35.0-46.0); MEAN CELL VOLUME 88.9 FL (80.0-100.0); MEAN CORPUSCULAR HEMOGLOBIN 30.3 PG (27.0-34.0); PLATELET COUNT 139 TH/MM3 (150-450); RED BLOOD COUNT 2.44 MIL/MM3 (4.00-5.30); WHITE BLOOD COUNT 3.4 TH/MM3 (4.0-11.0)
[2017-07-10 20:56] VITALS: BP 115/53; PULSE 92; RESP 24; O2SAT 94
[2017-07-10 20:56] LABS: HEMO FLAGS AUTO DIFF
[2017-07-10 20:57] LABS: ANION GAP 11 MEQ/L (5-15); AST (GOT) 18 U/L (15-37); BICARBONATE 28.1 MEQ/L (21.0-32.0); BLOOD UREA NITROGEN 24 MG/DL (7-18); CHLORIDE 94 MEQ/L (98-107); GLOMERULAR FILTRATION RATE 36 ML/MIN (>89); SODIUM (NA) 133 MEQ/L (136-145)
[2017-07-10 21:00] LABS: ALKALINE PHOSPHATASE 67 U/L (45-117); ALT (GPT) 10 U/L (10-53); TOTAL BILIRUBIN ADULT 2.1 MG/DL (0.2-1.0)
--- NOTE | 2017-07-10 21:14 | RADRPT ---
EXAM DATE/TIME: 07/10/2017 20:37 [facility] COMPARISON: No previous studies available for comparison. INDICATIONS : Back pain. RADIATION DOSE: 33.23 CTDIvol (mGy) ; Combined studies - Brain/Cervical Spine; Combined studies MEDICAL HISTORY : Cardiovascular disease. Carcinoma, lung. SURGICAL HISTORY : Cholecystectomy. Hysterectomy. ENCOUNTER: Initial ACUITY: 1 day PAIN SCALE: 5/10 LOCATION: Paraspinal TECHNIQUE: Volumetric scanning of the thoracic spine was performed. Multiplanar reconstructions in the sagittal , coronal and oblique axial planes were performed. Using automated exposure control and adjustment o f the mA and/or kV according to patient size, radiation dose was kept as low as reasonably achievable to obtain optimal diagnostic quality images. DICOM format image data is available electronically f or review and comparison. FINDINGS: The vertebral bodies of the thoracic spine are in normal alignment without evidence of subluxation. Vertebral body height is maintained. No fractures are seen. T1-T2: Normal. T2-T3: The thecal sac has a normal diameter. No evidence of disc bulge or protrusion. T3-T4: The thecal sac has a normal diameter. No evidence of disc bulge or protrusion. T4-T5: The thecal sac has a normal diameter. No evidence of disc bulge or protrusion. T5-T6: The thecal sac has a normal diameter. No evidence of disc bulge or protrusion. T6-T7: The thecal sac has a normal diameter. No evidence of disc bulge or protrusion. T7-T8: The thecal sac has a normal diameter. No evidence of disc bulge or protrusion. T8-T9: The thecal sac has a normal diameter. No evidence of disc bulge or protrusion. T9-T10: The thecal sac has a normal diameter. No evidence of disc bulge or protrusion. T10-T11: The thecal sac has a normal diameter. No evidence of disc bulge or protrusion. T11-T12: The thecal sac has a normal diameter. No evidence of disc bulge or protrusion. T12-L1: The thecal sac has a normal diameter. No evidence of disc bulge or protrusion. CONCLUSION: 1. No acute findings. Negative for traumatic injury. Mild degenerative disc disease. Owen Hines MD on July 10, 2017 at 21:06 Board Certified Radiologist. This report was verified electronically.
--- NOTE | 2017-07-10 21:18 | RADRPT ---
EXAM DATE/TIME: 07/10/2017 20:39 [facility] COMPARISON: No previous studies available for comparison. INDICATIONS : Back pain. RADIATION DOSE: 33.23 CTDIvol (mGy) MEDICAL HISTORY : Cardiovascular disease. Carcinoma, lung. SURGICAL HISTORY : Cholecystectomy. Hysterectomy. ENCOUNTER: Initial ACUITY: 1 day PAIN SCALE: 5/10 LOCATION: Paraspinal TECHNIQUE: Volumetric scanning of the lumbar spine was performed. Multiplanar reconstructions in the sagittal, coronal and oblique axial planes were performed. Using automated exposure control and adjustment of the mA and/or kV according to patient size, radiation dose was kept as low as reasonably achievable t o obtain optimal diagnostic quality images. DICOM format image data is available electronically for review and comparison. FINDINGS: There is no acute fracture or subluxation. Mild degenerative disc disease and facet arthropathy prese nt. At L4-5 there is a posterior disc bulge and facet arthropathy with facet hypertrophy resulting in a mild to moderate central canal and lateral recess stenosis and mild bilateral foraminal encroachme nt. Incidental calcification seen in the soft tissues posteriorly. CONCLUSION: 1. At L4-5 there is mild to moderate central canal stenosis and facet arthropathy. 2. No acute fracture or spondylolisthesis. Owen Hines MD on July 10, 2017 at 21:13 Board Certified Radiologist. This report was verified electronically.
[2017-07-10 21:43] LABS: BANDS 8 % (0-6); BLASTS 5 % (0-0); CORRECTED NUCLEATED RBC 1 /100 WBC (0-0); METAMYELOCYTES 7 % (0-1); NEUTROPHIL # MANUAL DIFF 1.8 TH/MM3 (1.8-7.7); POLYS (SEG NEUTROPHILS) 37 % (16-70); WBC DIFF SAMPLE 100
[2017-07-10] MEDS ORDERED: POTASSIUM CHLORIDE 20 MEQ CONTROLLED RELEASE TAB PO ONE (21:45)
[2017-07-10 21:53] LABS: PLATELET ESTIMATE SMEAR LOW (NORMAL); PLATELET MORPHOLOGY ENLARGED (NORMAL); SCAN/DIFF FINAL DIFF MANUAL; TOXIC GRANULATION 2+ (NORMAL); TOXIC VACUOLATION PRESENT (NONE SEEN)
[2017-07-10] MEDS ORDERED: CYCL1TAB29 PO (22:19)
[2017-07-10] MEDS ORDERED: VANCOMYCIN INJ 1,000 MG in SODIUM CHLOR 0.9% 250 ML INJ 250 ML IV ONE (22:30)
[2017-07-10] MEDS ORDERED: SODIUM CHLOR 0.9% 1000 ML INJ 1,000 ML IV SCH (22:30)
[2017-07-10] MEDS ORDERED: CEFEPIME INJ 1,000 MG in SODIUM CHLORIDE 0.9% INJ 100 ML IV ONE (22:30)
[2017-07-10 22:53] LABS: DOHLE BODIES PRESENT (NONE SEEN)
[2017-07-10 22:57] VITALS: BP 107/54; PULSE 81; RESP 16; O2SAT 97
[2017-07-10] MEDS: SODIUM CHLOR 0.9% 1000 ML INJ 1,000 ML IV SCH (23:18)
[2017-07-10 23:19] LABS: BLOOD, URINE NEG (NEG); COMMENT (UR) CATH-CULT NOT IND; CULTURE IF INDICATED CATH CULTURE NOT IND; GLUCOSE,URINE NEG (NEG); HYALINE CAST, URINE 10 /lpf (RARE); KETONE, URINE TRACE mg/dL (NEG); MUCUS URINE FEW /lpf (OCC); NITRITE,URINE NEG (NEG); PH, URINE 5.5 (5.0-8.5); SQUAMOUS EPITHELIAL CELL URINE 1 /hpf (0-5); URINE COLOR DARK-YELLOW (YELLW/STRAW)
--- NOTE | 2017-07-10 23:29 | HHI.HP ---
[facility] Polly Paulson M.D. Admission Diagnosis weakness. Back pain. Fibrous histiocytoma. Endometrial cancer on Diagnoses: (1) Symptomatic anemia Diagnosis: Principal (2) Back pain Diagnosis: Principal (3) Pancytopenia Diagnosis: Principal Travel History International Travel<30 Days: No Contact w/Intl Traveler <30 Da: No Traveled to Known Affected Are: No History of Present Illness Mrs. Barrett is a 52 year old female. She came in secondary to weakness and worsening of her back and leg pain. The pains are chronic. She has myelodysplastic syndrome and an associated pancytopenia. Hemoglobin today is 7.4. Primary pains right now her right lower back and that pain appears superficial. 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 Antibiotics have been started secondary to findings of vacuoles on peripheral smear. Patient's chemotherapy status places her at increased risk for infections without necessarily having traditional evidence for infection. She denies any fevers. No other complaints. Potassium is low and will be replaced through time. Review of Systems Constitutional: DENIES: Fatigue, Fever, Chills, Night Sweats Eyes: DENIES: Blurred vision, Diplopia, Eye inflammation, Eye pain Ears, nose, mouth, throat: DENIES: Tinnitus, Hearing loss, Vertigo, Nasal discharge Respiratory: DENIES: Cough, Wheezing, Shortness of breath Cardiovascular: DENIES: Chest pain, Palpitations, Syncope Gastrointestinal: DENIES: Abdominal pain, Black stools, Bloody stools Musculoskeletal: DENIES: Joint pain, Muscle aches, Stiffness Integumentary: COMPLAINS OF: Abnormal pigmentation, DENIES: Pruritus, Rash, Nail changes Hematologic/lymphatic: DENIES: Bruising, Lymphadenopathy Immunologic/allergic: DENIES: Eczema, Urticaria Neurologic: COMPLAINS OF: Abnormal gait, Poor Balance, DENIES: Headache, Paresthesias Psychiatric: DENIES: Anxiety, Confusion, Hallucinations Past Family Social History Past Medical History Endometrial Cancer Chemotherapy Chronic Leg Pain Chronic Back Pain Myelodysplasia Syndrome Osteoarthritis Depression DM2 Peripheral Neuopathy Lung Cancer Migraine Headaches Ovarian Cysts Past Surgical History Hysterectomy Gastric Bypass Hernia Repair Cholecystectomy Right chest infusaport Lung Surgery Reported Medications Reported Meds & Active Scripts Active Flexeril (Cyclobenzaprine HCl) 10 Mg Tab 10 Mg PO TID Ventolin Hfa 18 GM Inh (Albuterol Sulfate) 90 Mcg/Act Aer 2 Puff INH TID PRN Fentanyl Patch 72 HR (Fentanyl) 50 Mcg/Hr Patch 50 Mcg T-DERMAL Q72H Remove old patch when new one placed. Senna Plus 8.6-50 mg (Sennosides-Docusate Sodium) 8.6 Mg-50 Mg Tab 1 Tab PO BID Dilaudid (Hydromorphone HCl) 4 Mg Tab 4 Mg PO Q6HR PRN 30 Days Medrol Dosepak (Methylprednisolone) 4 Mg Dspk 4 Mg PO DIRECTED Per Pharmacist direction Reported Gabapentin 600 Mg Tab 600 Mg PO TID Provera (Medroxyprogesterone Acetate) 2.5 Mg Tab 2.5 Mg PO DAILY Start day 16 Vidaza Inj (Azacitidine) 100 Mg Inj Escitalopram (Escitalopram Oxalate) 10 Mg Tab 10 Mg PO DAILY Pantoprazole (Pantoprazole Sodium) 40 Mg Tab 40 Mg PO DAILY Temazepam 30 Mg Cap 30 Mg PO HS PRN Allergies: Coded Allergies: latex (Verified Allergy, Severe, Itching, RASH, 06/26/17) ketorolac (Verified Allergy, Intermediate, HIVES, 06/26/17) burning rash carboplatin (Verified Allergy, Mild, Rash, 06/26/17) adhesive (Verified Adverse Reaction, Severe, RASH, 06/26/17) OK FOR PAPER TAPE lorazepam (Verified Adverse Reaction, Mild, NIGHTMARES, 06/26/17) morphine (Verified Adverse Reaction, Mild, Itching, 06/26/17) acetaminophen (Verified Adverse Reaction, Unknown, 06/26/17) nausea oxycodone (Verified Adverse Reaction, Unknown, 06/26/17) nausea Active Ordered Medications Administered Medications Medications (Trade) Dose Ordered Sig/Jasen Route PRN Reason Start Time Stop Time Status Last Admin Dose Admin Sodium Chloride 1,000 ml @ 100 mls/hr Q10H IV 07/10/17 22:30 07/10/17 22:56 Family History CVA and brain tumor and hyperlipidemia in father. Her father at age 39. His CVA was at age 29. The patient's mother and maternal grandmother stomach cancer Leukemia and brother, at age 14 Social History No smoking No alcohol abuse No illicit drug abuse Physical Exam Vital Signs Vital Signs Date Time Temp Pulse Resp B/P (MAP) Pulse Ox O2 Delivery O2 Flow Rate FiO2 07/10/17 22:57 81 16 107/54 (71) 97 Room Air 07/10/17 21:01 94 Room Air 07/10/17 20:56 92 24 115/53 (73) 94 Room Air 07/10/17 18:53 98.2 114 20 102/63 (76) 98 Physical Exam GENERAL: NAD, A&Ox3 HEAD: Normocephalic. NECK: Supple, trachea midline. No lymphadenopathy. EYES: No scleral icterus. No injection or drainage. CARDIOVASCULAR: Regular rate and rhythm without murmurs, gallops, or rubs. RESPIRATORY: Breath sounds equal bilaterally. No accessory muscle use. GASTROINTESTINAL: Abdomen soft, non-tender, nondistended. MUSCULOSKELETAL: No cyanosis, or edema. Hyperpigmented/erythematous and scarred down lesions in patches at bilateral lower extremities. SKIN: Warm and dry. NEURO: No focal neurological deficitis. Laboratory Laboratory Tests Test 07/10/17 19:35 07/10/17 22:50 White Blood Count 3.4 Red Blood Count 2.44 Hemoglobin 7.4 Hematocrit 21.7 Mean Corpuscular Volume 88.9 Mean Corpuscular Hemoglobin 30.3 Mean Corpuscular Hemoglobin Concent 34.0 Red Cell Distribution Width 17.0 Platelet Count 139 Mean Platelet Volume 9.4 CBC Comment AUTO DIFF Differential Total Cells Counted 100 Neutrophils % (Manual) 37 Band Neutrophils % 8 Lymphocytes % 15 Monocytes % 27 Other Cells % 1 Neutrophils # (Manual) 1.8 Metamyelocytes 7 Nucleated Red Blood Cells 1 Differential Comment FINAL DIFF MANUAL Blastocytes 5 Toxic Granulation 2+ Toxic Vacuolation PRESENT Dohle Bodies PRESENT Platelet Estimate LOW Platelet Morphology Comment ENLARGED Prothrombin Time 13.3 Prothromb Time International Ratio 1.2 Activated Partial Thromboplast Time 31.5 Blood Urea Nitrogen 24 Creatinine 1.50 Random Glucose 182 Total Protein 6.4 Albumin 2.3 Calcium Level 8.4 Alkaline Phosphatase 67 Aspartate Amino Transf (AST/SGOT) 18 Alanine Aminotransferase (ALT/SGPT) 10 Total Bilirubin 2.1 Sodium Level 133 Potassium Level 3.0 Chloride Level 94 Carbon Dioxide Level 28.1 Anion Gap 11 Estimat Glomerular Filtration Rate 36 Urine Color DARK-YELLOW Urine Turbidity HAZY Urine pH 5.5 Urine Specific [place] 1.024 Urine Protein 30 Urine Glucose (UA) NEG Urine Ketones TRACE Urine Occult Blood NEG Urine Nitrite NEG Urine Bilirubin NEG Urine Urobilinogen 8.0 Urine Leukocyte Esterase NEG Urine RBC LESS THAN 1 Urine WBC 4 Urine Squamous Epithelial Cells 1 Urine Amorphous Sediment RARE Urine Hyaline Casts 10 Urine Mucus FEW Microscopic Urinalysis Comment CATH-CULT NOT IND Date/Time Source Procedure Growth Status 07/10/17 22:55 Blood Peripheral Aerobic Blood Culture Pending Received 07/10/17 22:55 Blood Peripheral Anaerobic Blood Culture Pending Received Result Diagram: 07/10/17193407/10/171934 Caprini VTE Risk Assessment Caprini VTE Risk Assessment: Mod/High Risk (score >= 2) Caprini Risk Assessment Model Point Value = 1 Point Value = 2 Point Value = 3 Point Value = 5 Age 41-60 Minor surgery BMI > 25 kg/m2 Swollen legs Varicose veins or History of unexplained or recurrent spontaneous Oral contraceptives or hormone replacement Sepsis (< 1 month) Serious lung disease, including pneumonia (< 1 month) Abnormal pulmonary function Acute myocardial infarction Congestive heart failure (< 1 month) History of inflammatory bowel disease Medical patient at bed rest Age 61-74 Arthroscopic surgery Major open surgery (> 45 min) Laparoscopic surgery (> 45 min) Malignancy Confined to bed (> 72 hours) Immobilizing plaster cast Central venous access Age >= 75 History of VTE Family history of VTE Factor V Leiden Prothrombin [id number] Lupus anticoagulant Anticardiolipin antibodies Elevated serum homocysteine Heparin-induced thrombocytopenia Other congenital or acquired thrombophilia Stroke (< 1 month) Elective arthroplasty Hip, pelvis, or leg fracture Acute spinal cord injury (< 1 month) Prophylaxis Regimen Total Risk Factor Score Risk Level Prophylaxis Regimen 0-1 Low Early ambulation 2 Moderate Order ONE of the following: *Sequential Compression Device (SCD) *Heparin 5000 units SQ BID 3-4 Higher Order ONE of the following medications: *Heparin 5000 units SQ TID *Enoxaparin/Lovenox 40 mg SQ daily (WT < 150 kg, CrCl > 30 mL/min) *Enoxaparin/Lovenox 30 mg SQ daily (WT < 150 kg, CrCl > 10-29 mL/min) *Enoxaparin/Lovenox 30 mg SQ BID (WT < 150 kg, CrCl > 30 mL/min) AND/OR *Sequential Compression Device (SCD) 5 or more Highest Order ONE of the following medications: *Heparin 5000 units SQ TID (Preferred with Epidurals) *Enoxaparin/Lovenox 40 mg SQ daily (WT < 150 kg, CrCl > 30 mL/min) *Enoxaparin/Lovenox 30 mg SQ daily (WT < 150 kg, CrCl > 10-29 mL/min) *Enoxaparin/Lovenox 30 mg SQ BID (WT < 150 kg, CrCl > 30 mL/min) AND *Sequential Compression Device (SCD) Assessment and Plan Problem List: (1) Anemia ICD Code: D64.9 - Anemia, unspecified (2) Myelodysplastic syndrome ICD Code: D46.9 - Myelodysplastic syndrome, unspecified (3) Pancytopenia ICD Code: D61.818 - Other pancytopenia Status: Acute (4) Symptomatic anemia ICD Code: D64.9 - Anemia, unspecified Status: Acute (5) Fibrous histiocytoma of skin ICD Code: D23.9 - Other benign neoplasm of skin, unspecified Status: Acute (6) MDS (myelodysplastic syndrome) ICD Code: D46.9 - Myelodysplastic syndrome, unspecified Status: Acute Assessment and Plan Assessment and plan 52-year-old female admitted secondary to weakness, increased pain, and anemia Symptomatic Anemia Myelodysplastic syndrome Active chemotherapy Hemoglobin 7.4 Transfuse 2 units packed red blood cells on 07/11/17 Consult hematology Follow CBC Endometrial Cancer Patient reports she has a scheduled visit with her gynecology oncologist Consult GynOnc Chronic Leg Pain Chronic Back Pain Continue fentanyl patch As needed Dilaudid Topical Lidoderm patch trial Depression No change to baseline treatments Diabetes mellitus type 2 Follow blood sugars Insulin sliding scale Diabetic diet Peripheral Neuopathy No change in baseline treatments DVT prophylaxis SCDs Blood thinners avoided secondary to degree of anemia Physician Certification 2 Midnight Certification Type: Admission for Inpatient Services Order for Inpatient Services The services are ordered in accordance with Medicare regulations or non- Medicare payer requirements, as applicable. In the case of services not specified as inpatient-only, they are appropriately provided as inpatient services in accordance with the 2-midnight benchmark. Estimated LOS (days): 3 days is the estimated time the patient will need to remain in the hospital, assuming treatment plan goals are met and no additional complications. Post-Hospital Plan: Home Problem Qualifiers (1) Back pain: Qualified Codes: M54.9 - Dorsalgia, unspecified Kolton Vides MD Jul 10, 2017 23:29
[2017-07-10] MEDS ORDERED: oxyCODONE/ACETAMINOPHEN 10 MG/325 MG TAB PO PRN (23:30)
[2017-07-10] MEDS ORDERED: MAGNESIUM HYDROXIDE SUSP 30 ML CUP PO PRN (23:30)
[2017-07-10] MEDS ORDERED: oxyCODONE/ACETAMINOPHEN 5 MG/325 MG TAB PO PRN (23:30)
[2017-07-10] MEDS ORDERED: SODIUM CHLORIDE 0.9% FLUSH 10 ML FLUSH IV FLUSH PRN (23:30)
[2017-07-10] MEDS ORDERED: NALOXONE HCL 0.4 MG/ML AMP IV PUSH PRN (23:30)
[2017-07-10] MEDS ORDERED: ONDANSETRON HCL 4 MG/2 ML VIAL IVP PRN (23:30)
[2017-07-11] VITALS (16 sets, daily range): BP systolic 89–121; BP diastolic 48–71; PULSE 66–89; RESP 14–21; TEMP 96.5–99.7; O2SAT 94–100
[2017-07-11] MEDS ORDERED: SODIUM CHLOR 0.9% 250 ML INJ 250 ML IV ONE (01:30)
[2017-07-11] MEDS ORDERED: POTASSIUM CHLORIDE 20 MEQ PWD PACKET PO ONE (01:30)
[2017-07-11] MEDS: LIDOCAINE HCL 5% PATCH T-DERMAL SCH ×2 (01:54→08:49)
[2017-07-11] MEDS: HYDROmorphone HCL PF 1 MG/ML VIAL IV PUSH PRN ×5 (01:54→22:29)
[2017-07-11] MEDS ORDERED: fentaNYL 50 MCG/HR PATCH T-DERMAL SCH (02:15)
[2017-07-11] MEDS ORDERED: TEMAZEPAM 15 MG CAP PO PRN (02:15)
[2017-07-11] MEDS ORDERED: ALBUTEROL SULFATE 90 MCG/ACT HFA 8 GM INHALER INH PRN (02:15)
[2017-07-11] MEDS: CYCLOBENZAPRINE HCL 10 MG TAB PO SCH ×3 (08:47→18:11)
[2017-07-11] MEDS: DOCUSATE SODIUM 50 MG/SENNA 8.6 MG TAB PO SCH ×2 (08:48→21:00)
[2017-07-11] MEDS: LACTOBACILLUS ACIDOPHILUS TAB PO SCH ×3 (08:48→18:11)
[2017-07-11] MEDS: ESCITALOPRAM OXALATE 10 MG TAB PO SCH (08:48)
[2017-07-11] MEDS: PANTOPRAZOLE SOD 40 MG DELAYED RELEASE TAB PO SCH (08:48)
[2017-07-11] MEDS: SODIUM CHLOR 0.9% 1000 ML INJ 1,000 ML IV SCH (08:49)
[2017-07-11] MEDS: SODIUM CHLORIDE 0.9% FLUSH 10 ML FLUSH IV FLUSH SCH ×2 (08:50→22:29)
[2017-07-11] MEDS ORDERED: GABAPENTIN 300 MG CAP PO SCH (09:00)
[2017-07-11] MEDS ORDERED: DOCUSATE SODIUM 50 MG/SENNA 8.6 MG TAB PO SCH (09:00)
[2017-07-11] MEDS: CEFEPIME INJ 1,000 MG in SODIUM CHLORIDE 0.9% INJ 100 ML IV SCH ×2 (09:12→22:27)
--- NOTE | 2017-07-11 10:45 | HHI.PR ---
Subjective Remarks Patient reports persistent right lower back pain radiating down the right legs. She states she is unable to move the right leg secondary to severe pain and weakness. Patient states she had an unremarkable PET scan a few days ago. Objective Vitals Vital Signs Date Time Temp Pulse Resp B/P (MAP) Pulse Ox O2 Delivery O2 Flow Rate FiO2 07/11/17 09:16 121/57 (78) 07/11/17 08:00 97.5 86 21 89/57 (68) 96 07/11/17 06:28 97.8 77 16 103/57 99 07/11/17 03:25 98.6 71 18 106/48 96 07/11/17 03:10 97.5 73 18 91/52 96 07/11/17 01:36 79 07/11/17 00:30 96.5 89 21 109/52 (71) 99 07/11/17 00:12 94 07/10/17 22:57 81 16 107/54 (71) 97 Room Air 07/10/17 21:01 94 Room Air 07/10/17 20:56 92 24 115/53 (73) 94 Room Air 07/10/17 18:53 98.2 114 20 102/63 (76) 98 I/O 07/10/17 07/10/17 07/10/17 07/11/17 07/11/17 07/11/17 06:59 14:59 22:59 06:59 14:59 22:59 Intake Total 1277 ml 480 ml Balance 1277 ml 480 ml Intake Oral 480 ml IV Total 877 ml Packed Cells 400 ml # Voids 1 # Bowel Movements 0 Result Diagram: 07/10/17193407/10/171934 Imaging Last Impressions Thoracic Spine CT 07/10/171929 Signed Impressions: Service Date/Time: June 20:37 - CONCLUSION: 1. No acute findings. Negative for traumatic injury. Mild degenerative disc disease. Owen Hines MD Lumbar Spine CT 07/10/171929 Signed Impressions: Service Date/Time: June 20:39 - CONCLUSION: 1. At L4-5 there is mild to moderate central canal stenosis and facet arthropathy. 2. No acute fracture or spondylolisthesis. Owen Hines MD Chest X-Ray 07/10/171929 Signed Impressions: Service Date/Time: June 19:51 - CONCLUSION: 1. No acute findings. Scattered linear scarring in the lungs. Owen Hines MD Objective Remarks GENERAL: Morbidly obese female in no acute distress. CARDIOVASCULAR: Regular rate and rhythm without murmurs, gallops, or rubs. RESPIRATORY: Breath sounds equal bilaterally. No accessory muscle use. GASTROINTESTINAL: Abdomen soft, non-tender, nondistended. MUSCULOSKELETAL: No cyanosis, or edema. Bilateral lower extremities disproportionately large, multiple scarred down patches. Right leg with limited range of motion secondary to pain. NEURO: No focal neurological deficitis. A/P Problem List: (1) Anemia ICD Code: D64.9 - Anemia, unspecified (2) Myelodysplastic syndrome ICD Code: D46.9 - Myelodysplastic syndrome, unspecified (3) Pancytopenia ICD Code: D61.818 - Other pancytopenia Status: Acute (4) Symptomatic anemia ICD Code: D64.9 - Anemia, unspecified Status: Acute (5) Fibrous histiocytoma of skin ICD Code: D23.9 - Other benign neoplasm of skin, unspecified Status: Acute (6) MDS (myelodysplastic syndrome) ICD Code: D46.9 - Myelodysplastic syndrome, unspecified Status: Acute Assessment and Plan 52-year-old female admitted secondary to weakness, increased pain, and symptomatic anemia Symptomatic Anemia Myelodysplastic syndrome Active chemotherapy Hemoglobin 7.4 Transfuse 2 units packed red blood cells on 07/11/17 Hematology consulted. Follow CBC Pancytopenia: Likely secondary to above. - Patient was started empirically on cefepime from the emergency room. Would plan to continue antibiotics for another 24 hours and discontinued if no other signs of systemic infections. Endometrial Cancer [employer] oncology, per patient, she had an unremarkable PET scan a few days ago. Palliative care has been consulted to assist with goals of care. Chronic Leg Pain Chronic Back Pain Continue fentanyl patch As needed Dilaudid Topical Lidoderm patch trial Right leg pain/weakness: Unreliable exam secondary to pain. Lumbar CT does not show any acute process. - Continue pain control. Consult physical therapy. Depression No change to baseline treatments Diabetes mellitus type 2 Follow blood sugars Insulin sliding scale Diabetic diet Peripheral Neuopathy No change in baseline treatments DVT prophylaxis SCDs Blood thinners avoided secondary to degree of anemia Fang York MD Jul 11, 2017 10:45
--- NOTE | 2017-07-11 15:32 | PD.CONS ---
Consult Service Palliative Care . Consult Requested By JONATHAN Amaya/ Dr. Thomason . Primary Care Physician Polly Paulson M.D. . Reason for Consultation a. To assist with evaluation and management of symptoms including: pain, weakness. b. To assist medical decision maker(s) with: better understanding of current medical conditions; weighing benefits/burdens of medical treatment options; making medical treatment decisions. . HPI History of Present Illness Ms. Barrett is a 52 -year-old female with past medical history of GERD, type II diabetes, obesity s/p gastric bypass, chronic back and leg pain, depression, peripheral neuropathy, osteoarthritis and migraine headaches. She was diagnosed with Stage IV endometrial cancer diagnosed in 2009 who underwent hysterectomy/ supping oophorectomy/lymphadenectomy by Dr. Thomason followed by chemotherapy. In 2012 she developed recurrent disease in lung and was treated again with chemotherapy which she completed in October 2013. Patient later developed pancytopenia with peripheral blasts, was referred to hematology (Dr. Kurtz), bone marrow biopsy was completed the confirmed she had high-grade myelodysplastic syndrome. She was started on Vidaza. A few months ago the patient developed dark, hard, skin lesion so n bilateral lower extremities that have been increasing in size. They have also become increasingly painful. She recently had imaging and recent skin biopsy of skin lesion, final pathology pending. Patient presented to [facility] on 07/10/17 with back and lower extremity pain and significant worsening weakness. Her hemoglobin was 7.4 and she was given 2 units PRBCs. She was admitted with pain, weakness and symptomatic anemia. Creatinine was 1.50. Albumin 2.3, Total bilirubin 2.1. Thoracic spine CT was negative except mild degenerative disc disease. Lumbar spine CT revealed L4 - 5 mild to moderate central canal stenosis and facet arthropathy no acute fracture. Chest x-ray no acute findings. Palliative care was consulted to assist with clarification of treatment goals in this patient who has had ongoing functional decline, history of metastatic endometrial cancer, MDS and skin lesions on bilateral lower extremities. Discussed with Dr. 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 Dr. Kurtz and I met with patient and her dear friend, Radha. Her sister/HCS , Josefina was on speaker phone. Also present Nayely Driscoll Palliative care MATTHEW. Medical update provided. Dr. Kurtz who reveals biospy of skin lesion sent to [facility] confirmed a soft tissue sarcoma, a new cancer. He reports she is no longer a candidate for chemotherapy given underlying MDS and declining functional status. He recommends comfort with hospice support. Lengthy conversation with patient and family regarding hospice services and options. Patient elects NO CODE status. She would like to meet with hospice to make further plans. Her sister Josefina eventually would like to take her to [place] so she can assist in her care. Patient in the meantime would like to get hospice services here to manage her pain and advised they may be able to assist with hospice to hospice transfer when arrangements can be made. And family understand that she could decline rapidly. She has some affairs that she would like to get in order, her family will assist. Patient seems to be taking this news relatively well, she indicates that she has been feeling for some time that this would be happening and "just needed to know." She and family are very grateful for the time spent. Palliative care number provided. Questions answered to their satisfaction. . Function/Cognitive Trajectory Patient has become weaker, is now unable to get herself from bed to chair. She is unable to move right LE. She is having difficulty swallowing. She is even having trouble repositioning herself in the bed. . Review of Systems Constitutional: COMPLAINS OF: Fatigue, Weight loss, Change in appetite ( decreased eating bites and sepsis), Pain (pain and back, bilateral lower extremities), Generalized weakness (unable to ambulate) Respiratory: COMPLAINS OF: Shortness of breath Cardiovascular: COMPLAINS OF: Dyspnea on Exertion, Lower Extremity Edema Musculoskeletal: COMPLAINS OF: Joint pain, Stiffness, Back pain, Decreased range of motion (unable to move right lower extremity) Integumentary: COMPLAINS OF: Abnormal pigmentation (bilateral lower extremity skin lesions and dimpling) Hematologic/Lymphatics: COMPLAINS OF: Bruising, History of transfusions Neurologic: COMPLAINS OF: Localized weakness (bilateral lower extremities), Poor Balance (unable to transfer from bed to chair independently anymore) Psychiatric: COMPLAINS OF: Anxiety, Depression Past Family Social History Coded Allergies: latex (Verified Allergy, Severe, Itching, RASH, 06/26/17) ketorolac (Verified Allergy, Intermediate, HIVES, 06/26/17) burning rash carboplatin (Verified Allergy, Mild, Rash, 06/26/17) adhesive (Verified Adverse Reaction, Severe, RASH, 06/26/17) OK FOR PAPER TAPE lorazepam (Verified Adverse Reaction, Mild, NIGHTMARES, 06/26/17) morphine (Verified Adverse Reaction, Mild, Itching, 06/26/17) acetaminophen (Verified Adverse Reaction, Unknown, 06/26/17) nausea oxycodone (Verified Adverse Reaction, Unknown, 06/26/17) nausea Past Medical History Endometrial Cancer status post surgery and chemotherapy, stage IV at diagnosis, Mets to lung Chronic Leg Pain Chronic Back Pain High-grade Myelodysplasia Syndrome Recent diagnosis soft tissue sarcoma bilateral lower extremities, biopsy proven Osteoarthritis Depression DM2 Peripheral Neuropathy Migraine Headaches GERD . Past Surgical History DIANNE/BSO/pelvic and periaortic lymphadenectomy 2009 Gastric Bypass Hernia Repair Laparoscopic Cholecystectomy 2002 Right chest infusaport Middle lobe wedge resection, mid lower lobe segment resection 2012 Skin biopsy Upper endoscopy 2014 . Reported Medications Reported Meds & Active Scripts Active Flexeril (Cyclobenzaprine HCl) 10 Mg Tab 10 Mg PO TID Ventolin Hfa 18 GM Inh (Albuterol Sulfate) 90 Mcg/Act Aer 2 Puff INH TID PRN Fentanyl Patch 72 HR (Fentanyl) 50 Mcg/Hr Patch 50 Mcg T-DERMAL Q72H Remove old patch when new one placed. Senna Plus 8.6-50 mg (Sennosides-Docusate Sodium) 8.6 Mg-50 Mg Tab 1 Tab PO BID Dilaudid (Hydromorphone HCl) 4 Mg Tab 4 Mg PO Q6HR PRN 30 Days Medrol Dosepak (Methylprednisolone) 4 Mg Dspk 4 Mg PO DIRECTED Per Pharmacist direction Reported Gabapentin 600 Mg Tab 600 Mg PO TID Provera (Medroxyprogesterone Acetate) 2.5 Mg Tab 2.5 Mg PO DAILY Start day 16 Vidaza Inj (Azacitidine) 100 Mg Inj Escitalopram (Escitalopram Oxalate) 10 Mg Tab 10 Mg PO DAILY Pantoprazole (Pantoprazole Sodium) 40 Mg Tab 40 Mg PO DAILY Temazepam 30 Mg Cap 30 Mg PO HS PRN Current Medications Medications (Trade) Dose Ordered Sig/Jasen Route Start Time Stop Time Status Last Admin Sodium Chloride 1,000 ml @ 100 mls/hr Q10H IV 07/10/17 23:18 (NS Flush) 2 ml UNSCH PRN IV FLUSH 07/10/17 23:30 (NS Flush) 2 ml BID IV FLUSH 07/11/17 09:00 07/11/17 08:50 (Zofran Inj) 4 mg Q6H PRN IVP 07/10/17 23:30 (Narcan Inj) 0.4 mg UNSCH PRN IV PUSH 07/10/17 23:30 (Milk Of Magnesia Liq) 30 ml Q12H PRN PO 07/10/17 23:30 (Lactinex) 1 tab TID PO 07/11/17 09:00 07/11/17 13:40 Cefepime HCl 1000 mg/Sodium Chloride 100 ml @ 200 mls/hr Q12H IV 07/11/17 10:00 07/11/17 09:12 (Lidoderm 5% Patch.12 Hr) 1 patch DAILY T-DERMAL 07/11/17 01:30 07/11/17 08:49 (Dilaudid Pf Inj) 1 mg Q4H PRN IV PUSH 07/11/17 01:30 07/11/17 12:34 Sodium Chloride 250 ml @ 15 mls/hr ONCE ONCE IV 07/11/17 01:30 07/11/17 18:09 07/11/17 01:53 (Proair Hfa Inh) 2 puff TID PRN INH 07/11/17 02:15 (Flexeril) 10 mg TID PO 07/11/17 09:00 07/11/17 13:40 (Lexapro) 10 mg DAILY PO 07/11/17 09:00 07/11/17 08:48 (Duragesic 50 Mcg Patch.72 Hr) 1 patch Q72H T-DERMAL 07/11/17 02:15 07/11/17 03:11 (Protonix) 40 mg DAILY PO 07/11/17 09:00 07/11/17 08:48 (Quin-Colace) 1 tab BID PO 07/11/17 09:00 (Restoril) 30 mg HS PRN PO 07/11/17 02:15 (Neurontin) 600 mg BID PO 07/11/17 21:00 Family History CVA and brain tumor and hyperlipidemia in father. Her father at age 39. His CVA was at age 29. The patient's mother and maternal grandmother stomach cancer Leukemia and brother, at age 14 Substance Use Tobacco: previously smoked socially less than one pack every few days, none recent. Alcohol: previous social alcohol use non-recent. Prescription med abuse: none. Illicits: none. . Psychosocial History Single. Never . Previously lived in [place]. Has one son. 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 Supported by her good friend Radha and her sister Josefina. Josefina lives in [place]. . Spiritual/Cultural Factors Orthodox elva. . Living Will: Copy in medical record Health Care Surrogate: Copy in medical record Date completed: 05/08/17 Health Care Surrogate(s): Designated healthcare surrogate named as Josefina Arnold, . . Documented care wishes: Patient does not want life prolonging measures if she has a terminal or end stage condition. . Today's verbally stated goals: Patient desires comfort focused care with hospice support. . Family/friends goals: Friends and family support patient wishes. Ethical and Legal Issues Patient is currently capacitated to make her own health care decisions. Should she lose capacity designated healthcare surrogate is named as Josefina Arnold, . . Physical Exam Vital Signs Date Time Temp Pulse Resp B/P (MAP) Pulse Ox O2 Delivery O2 Flow Rate FiO2 07/11/17 12:57 66 07/11/17 12:12 97.3 76 16 116/71 (86) 100 07/11/17 11:05 66 17 101/49 98 07/11/17 11:00 96.9 68 20 106/49 97 07/11/17 10:55 97.6 69 109/56 94 07/11/17 10:50 97.5 73 21 97/60 96 07/11/17 09:16 121/57 (78) 07/11/17 08:42 71 07/11/17 08:00 97.5 86 21 89/57 (68) 96 07/11/17 06:28 97.8 77 16 103/57 99 07/11/17 03:25 98.6 71 18 106/48 96 07/11/17 03:10 97.5 73 18 91/52 96 07/11/17 01:36 79 07/11/17 00:30 96.5 89 21 109/52 (71) 99 07/11/17 00:12 94 07/10/17 22:57 81 16 107/54 (71) 97 Room Air 07/10/17 21:01 94 Room Air 10/12/17 20:56 92 24 115/53 (73) 94 Room Air 07/10/17 18:53 98.2 114 20 102/63 (76) 98 07/11/17 07/12/17 19:00 07:00 Intake Total 895 ml Balance 895 ml Intake Oral 480 ml Packed Cells 400 ml Blood Product IV Normal Saline Flush 15 ml # Voids 1 # Bowel Movements 0 Exam CONSTITUTIONAL/GENERAL: This is an overweight, debilitated patient, in no apparent distress. TUBES/LINES/DRAINS: right port. SKIN: No jaundice, rashes, or lesions. Ecchymoses on upper extremities. No wounds seen anteriorly. Skin temperature appropriate. Not diaphoretic. HEAD: Atraumatic. Normocephalic. EYES: Pupils equal and round and reactive. Extraocular motions intact. No scleral icterus. No injection or drainage. Fundi not examined. ENT: Hearing grossly normal. Nose without bleeding or purulent drainage. Throat without visible erythema, exudates, masses, or lesions. NECK: Trachea midline. tender, difficulty swallowing. CARDIOVASCULAR: Regular rate and rhythm without murmurs, gallops, or rubs. No JVD. Peripheral pulses symmetric. RESPIRATORY/CHEST: Symmetric, unlabored respirations. Clear to auscultation. Breath sounds equal bilaterally. No wheezes, rales, or rhonchi. GASTROINTESTINAL: Abdomen soft, non-tender, nondistended. Bruising to abdomen, and nodules at injection sites on abdomen. Bowel sounds present. GENITOURINARY: Without palpable bladder distension. MUSCULOSKELETAL: Extremities with edema. Dark skin lesions and dimpling bilateral LEs. LYMPHATICS: No palpable cervical or supraclavicular adenopathy. NEUROLOGICAL: Awake and alert. Follows commands. Cognitively sharp. Unable to move right LE. PSYCHIATRIC: tearful at times. . Diagnostic Tests Laboratory Laboratory Tests Test 07/10/17 19:35 07/10/17 22:50 White Blood Count 3.4 TH/MM3 (4.0-11.0) Red Blood Count 2.44 MIL/MM3 (4.00-5.30) Hemoglobin 7.4 GM/DL (11.6-15.3) Hematocrit 21.7 % (35.0-46.0) Mean Corpuscular Volume 88.9 FL (80.0-100.0) Mean Corpuscular Hemoglobin 30.3 PG (27.0-34.0) Mean Corpuscular Hemoglobin Concent 34.0 % (32.0-36.0) Red Cell Distribution Width 17.0 % (11.6-17.2) Platelet Count 139 TH/MM3 (150-450) Mean Platelet Volume 9.4 FL (7.0-11.0) CBC Comment AUTO DIFF Differential Total Cells Counted 100 Neutrophils % (Manual) 37 % (16-70) Band Neutrophils % 8 % (0-6) Lymphocytes % 15 % (9-44) Monocytes % 27 % (0-8) Other Cells % 1 % Neutrophils # (Manual) 1.8 TH/MM3 (1.8-7.7) Metamyelocytes 7 % (0-1) Nucleated Red Blood Cells 1 /100 WBC (0-0) Differential Comment FINAL DIFF MANUAL Blastocytes 5 % (0-0) Toxic Granulation 2+ (NORMAL) Toxic Vacuolation PRESENT (NONE SEEN) Dohle Bodies PRESENT (NONE SEEN) Platelet Estimate LOW (NORMAL) Platelet Morphology Comment ENLARGED (NORMAL) Prothrombin Time 13.3 SEC (9.8-11.6) Prothromb Time International Ratio 1.2 RATIO Activated Partial Thromboplast Time 31.5 SEC (24.3-30.1) Blood Urea Nitrogen 24 MG/DL (7-18) Creatinine 1.50 MG/DL (0.50-1.00) Random Glucose 182 MG/DL (74-106) Total Protein 6.4 GM/DL (6.4-8.2) Albumin 2.3 GM/DL (3.4-5.0) Calcium Level 8.4 MG/DL (8.5-10.1) Alkaline Phosphatase 67 U/L (45-117) Aspartate Amino Transf (AST/SGOT) 18 U/L (15-37) Alanine Aminotransferase (ALT/SGPT) 10 U/L (10-53) Total Bilirubin 2.1 MG/DL (0.2-1.0) Sodium Level 133 MEQ/L (136-145) Potassium Level 3.0 MEQ/L (3.5-5.1) Chloride Level 94 MEQ/L (98-107) Carbon Dioxide Level 28.1 MEQ/L (21.0-32.0) Anion Gap 11 MEQ/L (5-15) Estimat Glomerular Filtration Rate 36 ML/MIN (>89) Urine Color DARK-YELLOW (YELLW/STRAW) Urine Turbidity HAZY (CLEAR) Urine pH 5.5 (5.0-8.5) Urine Specific [place] 1.024 (1.002-1.035) Urine Protein 30 mg/dL (NEG-TRACE) Urine Glucose (UA) NEG mg/dL (NEG) Urine Ketones TRACE mg/dL (NEG) Urine Occult Blood NEG (NEG) Urine Nitrite NEG (NEG) Urine Bilirubin NEG (NEG) Urine Urobilinogen 8.0 MG/DL (LESS THAN Urine Leukocyte Esterase NEG (NEG) Urine RBC LESS THAN 1 /hpf (0-3) Urine WBC 4 /hpf (0-5) Urine Squamous Epithelial Cells 1 /hpf (0-5) Urine Amorphous Sediment RARE Urine Hyaline Casts 10 /lpf (RARE) Urine Mucus FEW /lpf (OCC) Microscopic Urinalysis Comment CATH-CULT NOT IND Lactic Acid Level 1.1 mmol/L (0.4-2.0) Result Diagram: 07/10/17193407/10/171934 Microbiology Microbiology Date/Time Source Procedure Growth Status 07/10/17 22:55 Blood Peripheral Aerobic Blood Culture - Preliminary NO GROWTH IN 1 DAY Resulted 07/10/17 22:55 Blood Peripheral Anaerobic Blood Culture - Preliminary NO GROWTH IN 1 DAY Resulted 07/10/17 22:50 Blood Peripheral Aerobic Blood Culture - Preliminary NO GROWTH IN 1 DAY Resulted 07/10/17 22:50 Blood Peripheral Anaerobic Blood Culture - Preliminary NO GROWTH IN 1 DAY Resulted Imaging Last Impressions Thoracic Spine CT 07/10/171929 Signed Impressions: Service Date/Time: June 20:37 - CONCLUSION: 1. No acute findings. Negative for traumatic injury. Mild degenerative disc disease. Owen Hines MD Lumbar Spine CT 07/10/171929 Signed Impressions: Service Date/Time: June 20:39 - CONCLUSION: 1. At L4-5 there is mild to moderate central canal stenosis and facet arthropathy. 2. No acute fracture or spondylolisthesis. Owen Hines MD Chest X-Ray 07/10/171929 Signed Impressions: Service Date/Time: June 19:51 - CONCLUSION: 1. No acute findings. Scattered linear scarring in the lungs. Owen Hines MD Patient/Family Conference Present at Family Conference: Dr. Kurtz, Nayely Driscoll and I met with patient and her friend Radha. Also present via telephone sister Josefina. Family Conference Time (mins): 100 Family Conference Location: Bedside Issues Discussed: * Palliative care role, purpose, approach * Additional medical, psychosocial, and spiritual history * Patients general health, functional status, and cognitive changes in the months leading up to the current hospitalization * Patient/family understanding of the current medical problems * Patient/family understanding of prognosis * Patients goals of care as best understood from advance directives and/or conversations and/or values * Current medical treatment options and benefits/burdens of those options * Likely scenarios comparing ongoing aggressive care with a transition to comfort measures only * Questions answered to the best of my ability * Palliative care contact information provided Assessment and Plan Disease Oriented Problem List: (1) Soft tissue sarcoma (2) Pancytopenia (3) Myelodysplastic syndrome (4) Anemia (5) Back pain (6) Endometrial ca Symptom Scale: (1) Pain 0-10 Scale: 10 (2) Weakness 0-10 Scale: Unable to quantify Pertinent Non-Medical Issues Psychosocial: single. Supported by her friend Radha and sister Josefina. Spiritual: Orthodox elva. Legal:Patient is currently capacitated to make her own health care decisions. Should she lose capacity designated healthcare surrogate is named as Josefina Barrett, . Ethical issues impacting care: no known concerns at this time. . Important Contacts * Josefina Barrett, sister/HCP: [phone] * Radha Vasquez, friend: [phone] . Prognosis Overall prognosis poor, PPS 30. Prognosis weeks to months. Hospice appropriate. . Code Status: No Code Plan * Decision Maker: Patient is currently capacitated to make her own health care decisions. Should she lose capacity designated healthcare surrogate is named as Josefina Barrett . * NO CODE * Dr. Kurtz and I met with patient and her dear friend, Radha. Her sister/ HCS, Josefina was on speaker phone. Also present Nayely Driscoll Palliative care MATTHEW. Medical update provided. Dr. Kurtz who reveals biospy of skin lesion sent to [facility] confirmed a soft tissue sarcoma, a new cancer. He reports she is no longer a candidate for chemotherapy given underlying MDS and declining functional status. He recommends comfort with hospice support. Lengthy conversation with patient and family regarding hospice services and options. Patient elects NO CODE status. She would like to meet with hospice to make further plans. Her sister Josefina eventually would like to take her to [place] so she can assist in her care. Patient in the meantime would like to get hospice services, go to hospice care center here to manage her pain and advised they may be able to assist with hospice to hospice transfer when arrangements can be made. And family understand that she could decline rapidly. She has some affairs that she would like to get in order, her family will assist. Patient seems to be taking this news relatively well, she indicates that she has been feeling for some time that this would be happening and "just needed to know." * SYMPTOMS: Pain: pain bilateral lower extremities, back and generalized pain all over. Currently on fentanyl patch and PRN Dilaudid. Patient feels current medications are adequate control her pain. Weakness: generalized weakness and ability secondary to MDS and new diagnosis soft tissue sarcoma bilateral lower extremities. * Palliative care number provided. * Palliative care will continue to follow throughout hospital course to assist with symptom management and clarification of goals as needed. Thank you for the opportunity to participate in the care of Ms. Barrett. Attestation To help prompt me to consider important information that might be impacting today's encounter and assessment, information from prior notes written by myself or my colleagues may have been "brought forward" into today's note. My signature on this note, however, is an attestation that I personally performed the exam, history, and/or decision-making noted today, and, unless otherwise indicated, the interactions with patient, family, and staff as well as the review of records all occurred today. I also attest that the listed assessment and stated plan reflect my best clinical judgment today based on the combination of historical information, prior notes, and today's exam/ interactions. When time spent is documented, it refers only to time spent today by the signer, or if indicated, combined time spent today by collaborating physician/nurse practitioner. Ruth Raymond Jul 11, 2017 15:32
[2017-07-11 15:50] LABS: HEMATOCRIT 23.9 % (35.0-46.0); MEAN CORPUSCULAR HGB CONC 33.7 % (32.0-36.0); PLATELET COUNT 144 TH/MM3 (150-450); RED BLOOD COUNT 2.78 MIL/MM3 (4.00-5.30); RED CELL DISTRIBUTION WIDTH 17.7 % (11.6-17.2); WHITE BLOOD COUNT 3.7 TH/MM3 (4.0-11.0)
[2017-07-11 15:54] LABS: HEMO FLAGS AUTO DIFF
[2017-07-11 16:06] LABS: ALT (GPT) 9 U/L (10-53); ANION GAP 8 MEQ/L (5-15); AST (GOT) 16 U/L (15-37); BICARBONATE 29.3 MEQ/L (21.0-32.0); BLOOD UREA NITROGEN 23 MG/DL (7-18); CHLORIDE 98 MEQ/L (98-107); GLOMERULAR FILTRATION RATE 54 ML/MIN (>89); SODIUM (NA) 135 MEQ/L (136-145)
[2017-07-11 16:09] LABS: ALKALINE PHOSPHATASE 57 U/L (45-117); TOTAL BILIRUBIN ADULT 2.5 MG/DL (0.2-1.0)
[2017-07-11 16:35] LABS: BANDS 6 % (0-6); BLASTS 3 % (0-0); CORRECTED NUCLEATED RBC 1 /100 WBC (0-0); METAMYELOCYTES 3 % (0-1); NEUTROPHIL # MANUAL DIFF 1.7 TH/MM3 (1.8-7.7); POLYS (SEG NEUTROPHILS) 35 % (16-70); PROMYELOCYTES 1 % (0-0); WBC DIFF SAMPLE 100
[2017-07-11 16:38] LABS: TOXIC GRANULATION 1+ (NORMAL)
[2017-07-11 16:39] LABS: PLATELET ESTIMATE SMEAR NORMAL (NORMAL); PLATELET MORPHOLOGY NORMAL (NORMAL); SCAN/DIFF FINAL DIFF MANUAL
[2017-07-11] MEDS: GABAPENTIN 300 MG CAP PO SCH (21:00)
[2017-07-12] VITALS (8 sets, daily range): BP systolic 105–145; BP diastolic 52–70; PULSE 72–104; RESP 16–20; TEMP 98.3–100.2; O2SAT 90–100
[2017-07-12] MEDS: HYDROmorphone HCL PF 1 MG/ML VIAL IV PUSH PRN ×5 (02:24→21:44)
[2017-07-12] MEDS: LACTOBACILLUS ACIDOPHILUS TAB PO SCH ×3 (08:06→17:43)
[2017-07-12] MEDS: SODIUM CHLOR 0.9% 1000 ML INJ 1,000 ML IV SCH ×2 (08:06→17:46)
[2017-07-12] MEDS: GABAPENTIN 300 MG CAP PO SCH ×2 (08:08→21:44)
[2017-07-12] MEDS: PANTOPRAZOLE SOD 40 MG DELAYED RELEASE TAB PO SCH (08:08)
[2017-07-12] MEDS: ESCITALOPRAM OXALATE 10 MG TAB PO SCH (08:08)
[2017-07-12] MEDS: SODIUM CHLORIDE 0.9% FLUSH 10 ML FLUSH IV FLUSH SCH ×2 (08:10→21:44)
--- NOTE | 2017-07-12 08:20 | PD.ONC.PN ---
Subjective Subjective Remarks Tmax 100.2 overnight. Patient resting in bed. She has elected hospice and is awaiting meeting with them. Continues to have severe pain in legs, especially left leg with muscle cramping and soreness. Also very fatigued/somnolent. Objective Data Date Time Temp Pulse Resp B/P (MAP) Pulse Ox O2 Delivery O2 Flow Rate FiO2 07/12/17 07:59 99.2 84 18 105/59 (74) 90 07/12/17 04:00 100.2 85 20 115/69 (84) 97 07/12/17 03:24 20 07/12/17 00:00 104 07/12/17 00:00 100.0 84 18 113/52 (72) 97 07/11/17 20:00 99.7 80 16 109/62 (78) 98 07/11/17 16:00 97.2 68 14 116/71 (86) 95 07/11/17 12:57 66 07/11/17 12:12 97.3 76 16 116/71 (86) 100 07/11/17 11:05 66 17 101/49 98 07/11/17 11:00 96.9 68 20 106/49 97 07/11/17 10:55 97.6 69 109/56 94 07/11/17 10:50 97.5 73 21 97/60 96 07/11/17 09:16 121/57 (78) 07/11/17 08:42 71 07/12/17 07/12/17 07/12/17 07:00 15:00 23:00 Intake Total 1840 ml Balance 1840 ml Result Diagram: 07/11/17 1453 07/11/17 1453 Laboratory Results Laboratory Tests Test 07/11/17 14:53 White Blood Count 3.7 TH/MM3 Red Blood Count 2.78 MIL/MM3 Hemoglobin 8.1 GM/DL Hematocrit 23.9 % Mean Corpuscular Volume 86.0 FL Mean Corpuscular Hemoglobin 29.0 PG Mean Corpuscular Hemoglobin Concent 33.7 % Red Cell Distribution Width 17.7 % Platelet Count 144 TH/MM3 Mean Platelet Volume 8.3 FL CBC Comment AUTO DIFF Differential Total Cells Counted 100 Neutrophils % (Manual) 35 % Band Neutrophils % 6 % Lymphocytes % 19 % Monocytes % 33 % Neutrophils # (Manual) 1.7 TH/MM3 Metamyelocytes 3 % Promyelocytes 1 % Nucleated Red Blood Cells 1 /100 WBC Differential Comment FINAL DIFF MANUAL Atypical Lymphocytes % Blastocytes 3 % Toxic Granulation 1+ Platelet Estimate NORMAL Platelet Morphology Comment NORMAL Blood Urea Nitrogen 23 MG/DL Creatinine 1.06 MG/DL Random Glucose 110 MG/DL Total Protein 5.7 GM/DL Albumin 2.0 GM/DL Calcium Level 8.1 MG/DL Alkaline Phosphatase 57 U/L Aspartate Amino Transf (AST/SGOT) 16 U/L Alanine Aminotransferase (ALT/SGPT) 9 U/L Total Bilirubin 2.5 MG/DL Sodium Level 135 MEQ/L Potassium Level 3.0 MEQ/L Chloride Level 98 MEQ/L Carbon Dioxide Level 29.3 MEQ/L Anion Gap 8 MEQ/L Estimat Glomerular Filtration Rate 54 ML/MIN Culture Results Microbiology Date/Time Source Procedure Growth Status 07/10/17 22:55 Blood Peripheral Aerobic Blood Culture - Preliminary NO GROWTH IN 1 DAY Resulted 07/10/17 22:55 Blood Peripheral Anaerobic Blood Culture - Preliminary NO GROWTH IN 1 DAY Resulted 07/10/17 22:50 Blood Peripheral Aerobic Blood Culture - Preliminary NO GROWTH IN 1 DAY Resulted 07/10/17 22:50 Blood Peripheral Anaerobic Blood Culture - Preliminary NO GROWTH IN 1 DAY Resulted Administered Medications Medications (Trade) Dose Ordered Sig/Jasen Route PRN Reason Start Time Stop Time Status Last Admin Dose Admin Sodium Chloride (NS Flush) 2 ml BID IV FLUSH 07/11/17 09:00 07/11/17 22:29 Lactobacillus Acidophilus (Lactinex) 1 tab TID PO 07/11/17 09:00 07/11/17 13:40 Cefepime HCl 1000 mg/Sodium Chloride 100 ml @ 200 mls/hr Q12H IV 07/11/17 10:00 07/11/17 22:27 Lidocaine HCl (Lidoderm 5% Patch.12 Hr) 1 patch DAILY T-DERMAL 07/11/17 01:30 07/11/17 08:49 Hydromorphone HCl (Dilaudid Pf Inj) 1 mg Q4H PRN IV PUSH Pain 3 to 10 07/11/17 01:30 07/12/17 02:24 Cyclobenzaprine HCl (Flexeril) 10 mg TID PO 07/11/17 09:00 07/11/17 13:40 Escitalopram Oxalate (Lexapro) 10 mg DAILY PO 07/11/17 09:00 07/11/17 08:48 Fentanyl (Duragesic 50 Mcg Patch.72 Hr) 1 patch Q72H T-DERMAL 07/11/17 02:15 07/11/17 03:11 Pantoprazole Sodium (Protonix) 40 mg DAILY PO 07/11/17 09:00 07/11/17 08:48 Objective Remarks GENERAL: Pleasant middle aged female lying in bed, somnolent, complaining of pain. SKIN: Warm and dry. HEAD: Normocephalic. EYES: No injection or drainage. NECK: Supple, trachea midline. CARDIOVASCULAR: Regular rate and rhythm RESPIRATORY: Breath sounds equal bilaterally. No accessory muscle use. GASTROINTESTINAL: Abdomen soft, non-tender, nondistended. EXTREMITIES: No cyanosis. NEUROLOGICAL: awake and alert, lethargic. Assessment/Plan Assessment 52y/o female with metastatic endometrial cancer and MDS admitted for pain management. Plan 1. await hospice consult 2. continue pain management with Dilaudid, Fentanyl patch 3. avoid blood draws or invasive procedures, as patient electing comfort care only at this point. Attending Statement The exam, history, and the medical decision-making described in the above note were completed with the assistance of the mid-level provider. I reviewed and agree with the findings presented. I attest that I had a [id number] encounter with the patient on the same day, and personally performed and documented my assessment and findings in the medical record. Continues to have severe pain in lower legs with enlarging soft tissue nodules. C/P muscle spasms. Had a visit with hospice today will have formal meeting tomorrow at 10 am. d/w pt and two sisters. everyone wants comfort care with hospice. ok to d/c to hospice when bed is available Jeanne Mcdonald Jul 12, 2017 08:20 Pam Kurtz MD Jul 12, 2017 19:03
--- NOTE | 2017-07-12 08:24 | MB ---
cc: ASHLEY LOCKE M.D. DATE OF CONSULTATION: 07/11/2017 REASON FOR CONSULTATION: Consult requested by hospitalist for evaluation of myelodysplastic syndrome and multiple painful growing lesions on both lower legs. HISTORY OF PRESENT ILLNESS Deanne is a 52-year-old very pleasant unfortunate white female. She was diagnosed with metastatic endometrial cancer in July 2010. In September 2010 she underwent complete hysterectomy. The CT scan of the chest at that time showed multiple bilateral pulmonary nodules consistent with metastatic disease. She was treated with at 10 cycles of, carboplatin, Taxol and chemotherapy which she completed on April 2011. The patient subsequently went into remission. In April of 2013. She was found to have relapsed that the solitary right lower lobe lung nodule. She underwent wedge resection and the pathology was consistent with endometrial cancer. She had additional six cycles of carboplatin/Taxol chemotherapy which she completed in October 2013. Again she went into remission. In March of this year she had a PET scan which showed new lung nodules. This was her second relapse. At the same time she had developed severe pancytopenia with a peripheral blast. She underwent bone marrow biopsy which showed high-grade myelodysplastic syndrome. She was started on Vidaza chemotherapy on March 31. The patient had an excellent response with the Vidaza. Her blood counts have improved and she has become transfusion independent. She was also placed on Provera for metastatic endometrial cancer. She was not a candidate for any further chemotherapy due to her myelodysplastic syndrome. About six to eight weeks ago she had developed some nodules in her lower legs. These were not painful initially. I had ordered CT of both lower legs which showed that these were calcifications. I have recommended only observation. However, these lesions started growing and she was getting more new lesions, initially clinical suspicion was that these could be with Erythema nodosum. She was given steroid therapy with no improvement in these lesions. She underwent biopsy of these lesions, started on June 17. 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 The patient had called our office yesterday that she is having a lot of pain in both lower legs which is now controlled with the narcotics. She stated that she was unable to move her right leg due to the groin painful subcutaneous lesions. She was advised to come to the emergency room. The patient is now admitted to the hospital. I have been asked to see her for further evaluation. The patient is in severe pain due to these is subcutaneous lesions at both lower legs. They are very painful to touch, they are enlarging and I am seeing new lesions as well. The patient lives by herself. She stated that she cannot live like that. She has been in and out of the hospital for the last month or so. She stated that this is not the way she wants to live. Palliative care has been consulted. They have already evaluated the patient earlier. Tiffany Raymond is the Nurse practitioner for palliative care who knows the patient is very well from 2009 when she was diagnosed with metastatic endometrial cancer. The patient's sister was present at the bedside and another sister was on the speaker phone. The patient's appetite is poor. She is losing weight, She is complaining of extreme weakness, fatigue. She hardly can walk. She cannot do activities of daily living. The rest of the review of systems is negative. PAST MEDICAL HISTORY 1. Myelodysplastic syndrome 2. Metastatic endometrial cancer 3. Arthritis 4. History of morbid obesity. PAST SURGICAL HISTORY 1. Nmzlsi-M-Brzj placement 2. Colonoscopy 3. Hernia repair 4. Rhinoscopy 5. Gastric bypass surgery 6. Right lower lobe tumor resection 7. Complete hysterectomy 8. Cholecystectomy. ALLERGIES ATIVAN CARBOPLATIN LATEX TORADOL MEDICATIONS Please see EMR FAMILY HISTORY There is no family history of malignancy. SOCIAL HISTORY This the patient does not smoke cigarettes, does not drink alcohol. PHYSICAL EXAMINATION: IN GENERAL: Physical examination is a well-developed, well-nourished white female who appears to be in moderate distress due to severe painful lesions in both lower legs. VITAL SIGNS: Temperature 97.2, heart rate 68, blood pressure 116/71, O2 saturations 95%. HEAD, EYES, EARS, NOSE, AND THROAT: Pupils equal, round, reactive to light and accommodation extraocular muscles intact. Anicteric and no oral lesions are noted. NECK: No lymphadenopathy noted. LUNGS: The lungs are clear. No wheezing, rhonchi or rales. HEART: Heart is he regular rate and rhythm. ABDOMEN: Abdomen is soft and nontender. EXTREMITIES: Multiple painful violaceous lesions are noted in both lower legs which are enlarging and some of them are new since her saw her last. NEUROLOGIC: Neurology awake, alert, oriented x3. ASSESSMENT 1. 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 2. Myelodysplastic syndrome on Vidaza. 3. Metastatic endometrial cancer currently on Provera. 4. Poor performance status with rapid decline, in the last week or so. 5. History of morbid obesity status post gastric bypass surgery. PLAN I have reviewed her available records at and I had an extensive discussion with the patient sister at bedside and another sister on the speaker phone in the presence of palliative nurse practitioner Tiffany Raymond. We had discussed the pathology report of the skin biopsies on both lower legs. The pathology report indicated that she has fibrous histiocytoma. This was sent out to [facility] to get second opinion from dermatopathologist. I did talk to the dermatopathologist Dr. Tamica Cochran at telephone number [phone] as well as the Dermatopathologist fellow Melquiades Banks. I discussed with them regarding her clinical status and the pathology report. The dermatopathologist Dr. Cochran read this as a benign fibrous histiocytoma. Although she did not mention in the pathology report whether this is benign or malignant. But on conversation with her. She indicated to me that this is a benign fibrous histiocytoma. However when I gave her the clinical history that these lesions are growing and very painful and does not behave as benign lesions. She stated that we should to get another biopsy and confirm the pathology report. Certainly this will delay her care. In my opinion given the clinical nature of these lesions which are progressing rapidly this is most certainly consistent with malignant fibrous histiocytoma. Unfortunately she is not a candidate for any chemotherapy for this type of malignancy due to the myelodysplastic syndrome. One could treat these lesions with palliative radiation therapy. However, the patient and her two sisters have decided against the radiation therapy. They don't want her to go through any more treatment given her very poor performance status, almost now she is bedridden. She states that she can hardly move her right leg. She is in severe pain due to these lesions which are rapidly growing and she is getting new lesions as well. The pathologist have rule out this to be metastatic endometrial carcinoma by doing multiple staining and has been evaluated by another pathologist Dr. Erasmo Bautista of the [facility]. Who concurs that this is not metastatic endometrial carcinoma within the specimen provided. After we had a lengthy discussion with the patient and two of her sisters, it was decided the best course of action is best supportive care with hospice. They have all agreed with that. My recommendation is that the patient should be transferred to the care center when the bed is available as I do not think that she could go home, as she lives by herself. Her sister who was on the phone wanted her to come to [place] to live with her. We discussed that she needs to be enrolled into hospice program here and then she could be transferred to hospice in [place] if she wanted. We discussed several end of life issues. Unfortunately her prognosis is extremely poor and I do not expect her to live more than a few weeks at the most. I will stop all the blood product support and all the labs since we are transitioning her into comfort care. Enough time was given for the patient and her family to ask several questions and these were answered to their satisfaction. Thank you for asking my opinion. MD AIME Martin/arnie /11:55 PM /7:44 AM [email or web address]
[2017-07-12] MEDS: DOCUSATE SODIUM 50 MG/SENNA 8.6 MG TAB PO SCH ×2 (09:00→21:00)
[2017-07-12] MEDS: CYCLOBENZAPRINE HCL 10 MG TAB PO SCH ×3 (09:03→17:43)
[2017-07-12] MEDS: CEFEPIME INJ 1,000 MG in SODIUM CHLORIDE 0.9% INJ 100 ML IV SCH (10:19)
[2017-07-12] MEDS: LIDOCAINE HCL 5% PATCH T-DERMAL SCH (10:20)
[2017-07-12] MEDS ORDERED: MENTHOL/METHYL SALICYLATE OINT 30 GM TUBE TOPICAL PRN (11:30)
--- NOTE | 2017-07-12 11:33 | HHI.PR ---
Subjective Remarks Family will come in tonight. Hospice to meet with them in the morning. Leg pain persisting. Now having same pain on the left. Cannot move them due to severe pain. Objective Vitals Vital Signs Date Time Temp Pulse Resp B/P (MAP) Pulse Ox O2 Delivery O2 Flow Rate FiO2 07/12/17 07:59 99.2 84 18 105/59 (74) 90 07/12/17 04:00 100.2 85 20 115/69 (84) 97 07/12/17 03:24 20 07/12/17 00:00 104 07/12/17 00:00 100.0 84 18 113/52 (72) 97 07/11/17 20:00 99.7 80 16 109/62 (78) 98 07/11/17 16:00 97.2 68 14 116/71 (86) 95 07/11/17 12:57 66 07/11/17 12:12 97.3 76 16 116/71 (86) 100 I/O 07/11/17 07/11/17 07/11/17 07/12/17 07/12/17 07/12/17 07:00 15:00 23:00 07:00 15:00 23:00 Intake Total 1277 ml 895 ml 600 ml 1840 ml Balance 1277 ml 895 ml 600 ml 1840 ml Intake Oral 480 ml 600 ml 240 ml IV Total 877 ml 1600 ml Packed Cells 400 ml 400 ml Blood Product IV Normal Saline Flush 15 ml # Voids 1 3 4 # Bowel Movements 0 0 Result Diagram: 07/11/17 1453 07/11/17 1453 Objective Remarks GENERAL: Morbidly obese female in no acute distress. CARDIOVASCULAR: Regular rate and rhythm without murmurs, gallops, or rubs. RESPIRATORY: Breath sounds equal bilaterally. No accessory muscle use. GASTROINTESTINAL: Abdomen soft, non-tender, nondistended. MUSCULOSKELETAL: No cyanosis, or edema. Bilateral lower extremities disproportionately large, multiple scarred down patches. Both legs with severe pain and palpation. Patient unable to move them due to pain. NEURO: No focal neurological deficitis. A/P Problem List: (1) Anemia ICD Code: D64.9 - Anemia, unspecified (2) Myelodysplastic syndrome ICD Code: D46.9 - Myelodysplastic syndrome, unspecified (3) Pancytopenia ICD Code: D61.818 - Other pancytopenia Status: Acute (4) Symptomatic anemia ICD Code: D64.9 - Anemia, unspecified Status: Acute (5) Fibrous histiocytoma of skin ICD Code: D23.9 - Other benign neoplasm of skin, unspecified Status: Acute (6) MDS (myelodysplastic syndrome) ICD Code: D46.9 - Myelodysplastic syndrome, unspecified Status: Acute Assessment and Plan 52-year-old female admitted secondary to weakness, increased pain, and symptomatic anemia. Oncology's note reviewed. 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 She cannot undergo treatment for this to to myelodysplastic syndrome. After extensive discussion with the patient and her family, they opted for comfort measures and hospice services. Hospice has been consulted. The rest of the family will arrive in town today and they will have a meeting tomorrow. The patient is being transitioned to comfort care. Symptomatic Anemia Myelodysplastic syndrome Active chemotherapy Status post 2 units packed red blood cells on 07/11/17 Pancytopenia: Likely secondary to above. - Patient was started empirically on cefepime from the emergency room. No obvious signs of infectious process. Discontinue antibiotics. 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 No evidence of metastatic disease. Chronic Leg Pain Chronic Back Pain Continue fentanyl patch As needed Dilaudid Topical Lidoderm patch trial Trial of [place] per the patient request which reportedly works at home. Right leg pain/weakness: Unreliable exam secondary to pain. Lumbar CT does not show any acute process. - Continue pain control. Consult physical therapy. Depression No change to baseline treatments Diabetes mellitus type 2 Follow blood sugars Insulin sliding scale Diabetic diet DVT prophylaxis SCDs Blood thinners avoided secondary to degree of anemia Discharge Planning Probably will need discharge to hospice care center to manage pain. Hospice was consulted. Case management following. Fang York MD Jul 12, 2017 11:33
[2017-07-13 01:00] VITALS: BP 114/71; PULSE 76; RESP 16; TEMP 97.8; O2SAT 97
[2017-07-13] MEDS: SODIUM CHLOR 0.9% 1000 ML INJ 1,000 ML IV SCH ×2 (05:50→11:18)
[2017-07-13] MEDS: HYDROmorphone HCL PF 1 MG/ML VIAL IV PUSH PRN ×2 (05:51→11:09)
[2017-07-13 05:53] VITALS: BP 115/71; PULSE 77; RESP 16; TEMP 98.3; O2SAT 100
[2017-07-13 08:00] VITALS: PULSE 69
[2017-07-13 08:33] VITALS: BP 118/75; PULSE 71; RESP 20; TEMP 98.2; O2SAT 100
[2017-07-13] MEDS: SODIUM CHLORIDE 0.9% FLUSH 10 ML FLUSH IV FLUSH SCH (09:00)
[2017-07-13] MEDS: DOCUSATE SODIUM 50 MG/SENNA 8.6 MG TAB PO SCH (09:00)
[2017-07-13] MEDS: LIDOCAINE HCL 5% PATCH T-DERMAL SCH (09:00)
--- NOTE | 2017-07-13 09:58 | PD.ONC.PN ---
Subjective Subjective Remarks Afebrile overnight. Patient resting in room. Pain better controlled today. Waiting on hospice meeting at 10AM. Objective Data Date Time Temp Pulse Resp B/P (MAP) Pulse Ox O2 Delivery O2 Flow Rate FiO2 07/13/17 08:33 98.2 71 20 118/75 (89) 100 07/13/17 05:53 98.3 77 16 115/71 (86) 100 07/13/17 01:00 97.8 76 16 114/71 (85) 97 07/12/17 21:49 98.3 81 16 145/70 (95) 97 07/12/17 20:00 90 07/12/17 16:16 98.6 72 16 130/66 (87) 100 07/12/17 11:43 98.7 77 18 109/64 (79) 99 07/13/17 07/13/17 07/13/17 07:00 15:00 23:00 Output Total 800 ml Balance -800 ml Result Diagram: 07/11/17 1453 07/11/17 145 Culture Results Microbiology Date/Time Source Procedure Growth Status 07/10/17 22:55 Blood Peripheral Aerobic Blood Culture - Preliminary NO GROWTH IN 2 DAYS Resulted 07/10/17 22:55 Blood Peripheral Anaerobic Blood Culture - Preliminary NO GROWTH IN 2 DAYS Resulted 07/10/17 22:50 Blood Peripheral Aerobic Blood Culture - Preliminary NO GROWTH IN 2 DAYS Resulted 07/10/17 22:50 Blood Peripheral Anaerobic Blood Culture - Preliminary NO GROWTH IN 2 DAYS Resulted Administered Medications Medications (Trade) Dose Ordered Sig/Jasen Route PRN Reason Start Time Stop Time Status Last Admin Dose Admin Sodium Chloride 1,000 ml @ 100 mls/hr Q10H IV 07/10/17 23:18 07/13/17 05:50 Sodium Chloride (NS Flush) 2 ml BID IV FLUSH 07/11/17 09:00 07/12/17 21:44 Lactobacillus Acidophilus (Lactinex) 1 tab TID PO 07/11/17 09:00 07/12/17 17:43 Lidocaine HCl (Lidoderm 5% Patch.12 Hr) 1 patch DAILY T-DERMAL 07/11/17 01:30 07/12/17 10:20 Hydromorphone HCl (Dilaudid Pf Inj) 1 mg Q4H PRN IV PUSH Pain 3 to 10 07/11/17 01:30 07/13/17 05:51 Cyclobenzaprine HCl (Flexeril) 10 mg TID PO 07/11/17 09:00 07/12/17 17:43 Escitalopram Oxalate (Lexapro) 10 mg DAILY PO 07/11/17 09:00 07/12/17 08:08 Fentanyl (Duragesic 50 Mcg Patch.72 Hr) 1 patch Q72H T-DERMAL 07/11/17 02:15 07/11/17 03:11 Pantoprazole Sodium (Protonix) 40 mg DAILY PO 07/11/17 09:00 07/12/17 08:08 Gabapentin (Neurontin) 600 mg BID PO 07/11/17 21:00 07/12/17 21:44 Menthol/Methyl Salicylate (Bob Palomo Oint) 1 applic UNSCH PRN TOPICAL LEG PAIN 07/12/17 11:30 07/12/17 15:11 Objective Remarks GENERAL: chronically ill, pleasant middle aged female supine in bed, lethargic. SKIN: Warm and dry. HEAD: Normocephalic. EYES: No injection or drainage. NECK: Supple, trachea midline. CARDIOVASCULAR: Regular rate and rhythm RESPIRATORY: Breath sounds equal bilaterally. No accessory muscle use. GASTROINTESTINAL: Abdomen soft, non-tender, nondistended. EXTREMITIES: No cyanosis. NEUROLOGICAL: awake and alert, lethargic. Assessment/Plan Assessment 52y/o female with metastatic endometrial cancer and MDS admitted for pain management. Plan 1. await hospice consult 2. continue pain management. Attending Statement The exam, history, and the medical decision-making described in the above note were completed with the assistance of the mid-level provider. I reviewed and agree with the findings presented. I attest that I had a [id number] encounter with the patient on the same day, and personally performed and documented my assessment and findings in the medical record. pain is better controlled Met with hospice Bed is available at the care center. D/C today. Prognosis remains very poor. Jeanne Mcdonald Jul 13, 2017 09:58 Pam Kurtz MD Jul 13, 2017 17:05
[2017-07-13] MEDS: PANTOPRAZOLE SOD 40 MG DELAYED RELEASE TAB PO SCH (11:06)
[2017-07-13] MEDS: ESCITALOPRAM OXALATE 10 MG TAB PO SCH (11:06)
[2017-07-13] MEDS: LACTOBACILLUS ACIDOPHILUS TAB PO SCH (11:06)
[2017-07-13] MEDS: GABAPENTIN 300 MG CAP PO SCH (11:07)
[2017-07-13] MEDS: CYCLOBENZAPRINE HCL 10 MG TAB PO SCH (11:07)
[2017-07-13] MEDS ORDERED: HYDROmorphone HCL PF 1 MG/ML VIAL IV PUSH ONE (11:30)
[2017-07-13 12:00] VITALS: BP 119/67; PULSE 77; PULSE 81; RESP 20; TEMP 98.1; O2SAT 99
--- NOTE | 2017-07-13 13:14 | HHI.DS ---
Discharge Summary Admission Date Jul 10, 2017 at 23:17 Discharge Date: Jul 13, 2017 Admitting Diagnosis weakness. Back pain. Fibrous histiocytoma. Endometrial cancer on (1) Anemia ICD Code: D64.9 - Anemia, unspecified (2) Myelodysplastic syndrome ICD Code: D46.9 - Myelodysplastic syndrome, unspecified (3) Pancytopenia ICD Code: D61.818 - Other pancytopenia Status: Acute (4) Symptomatic anemia ICD Code: D64.9 - Anemia, unspecified Status: Acute (5) Fibrous histiocytoma of skin ICD Code: D23.9 - Other benign neoplasm of skin, unspecified Status: Acute (6) MDS (myelodysplastic syndrome) ICD Code: D46.9 - Myelodysplastic syndrome, unspecified Status: Acute Procedures none Brief History - From Admission HPI from the admitting physician Mrs. Barrett is a 52 year old female. She came in secondary to weakness and worsening of her back and leg pain. The pains are chronic. She has myelodysplastic syndrome and an associated pancytopenia. Hemoglobin today is 7.4. Primary pains right now her right lower back and that pain appears superficial. 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 Antibiotics have been started secondary to findings of vacuoles on peripheral smear. Patient's chemotherapy status places her at increased risk for infections without necessarily having traditional evidence for infection. She denies any fevers. No other complaints. Potassium is low and will be replaced through time. CBC/BMP: 07/11/17 1453 07/11/17 1453 Significant Findings Laboratory Tests Test 07/10/17 19:35 07/10/17 22:50 07/11/17 14:53 White Blood Count 3.4 TH/MM3 (4.0-11.0) 3.7 TH/MM3 (4.0-11.0) Red Blood Count 2.44 MIL/MM3 (4.00-5.30) 2.78 MIL/MM3 (4.00-5.30) Hemoglobin 7.4 GM/DL (11.6-15.3) 8.1 GM/DL (11.6-15.3) Hematocrit 21.7 % (35.0-46.0) 23.9 % (35.0-46.0) Platelet Count 139 TH/MM3 (150-450) 144 TH/MM3 (150-450) Band Neutrophils % 8 % (0-6) Monocytes % 27 % (0-8) 33 % (0-8) Metamyelocytes 7 % (0-1) 3 % (0-1) Nucleated Red Blood Cells 1 /100 WBC (0-0) 1 /100 WBC (0-0) Blastocytes 5 % (0-0) 3 % (0-0) Toxic Granulation 2+ (NORMAL) 1+ (NORMAL) Toxic Vacuolation PRESENT (NONE SEEN) Dohle Bodies PRESENT (NONE SEEN) Platelet Estimate LOW (NORMAL) Platelet Morphology Comment ENLARGED (NORMAL) Prothrombin Time 13.3 SEC (9.8-11.6) Activated Partial Thromboplast Time 31.5 SEC (24.3-30.1) Blood Urea Nitrogen 24 MG/DL (7-18) 23 MG/DL (7-18) Creatinine 1.50 MG/DL (0.50-1.00) 1.06 MG/DL (0.50-1.00) Random Glucose 182 MG/DL (74-106) 110 MG/DL (74-106) Albumin 2.3 GM/DL (3.4-5.0) 2.0 GM/DL (3.4-5.0) Calcium Level 8.4 MG/DL (8.5-10.1) 8.1 MG/DL (8.5-10.1) Total Bilirubin 2.1 MG/DL (0.2-1.0) 2.5 MG/DL (0.2-1.0) Sodium Level 133 MEQ/L (136-145) 135 MEQ/L (136-145) Potassium Level 3.0 MEQ/L (3.5-5.1) 3.0 MEQ/L (3.5-5.1) Chloride Level 94 MEQ/L (98-107) Estimat Glomerular Filtration Rate 36 ML/MIN (>89) 54 ML/MIN (>89) Urine Color DARK-YELLOW (YELLW/STRAW) Urine Turbidity HAZY (CLEAR) Urine Protein 30 mg/dL (NEG-TRACE) Urine Ketones TRACE mg/dL (NEG) Urine Urobilinogen 8.0 MG/DL (LESS THAN Urine Mucus FEW /lpf (OCC) Red Cell Distribution Width 17.7 % (11.6-17.2) Neutrophils # (Manual) 1.7 TH/MM3 (1.8-7.7) Promyelocytes 1 % (0-0) Total Protein 5.7 GM/DL (6.4-8.2) Alanine Aminotransferase (ALT/SGPT) 9 U/L (10-53) Imaging Last Impressions Thoracic Spine CT 07/10/171929 Signed Impressions: Service Date/Time: , July 10, 2017 20:37 - CONCLUSION: 1. No acute findings. Negative for traumatic injury. Mild degenerative disc disease. Owen Hines MD Lumbar Spine CT 07/10/171929 Signed Impressions: Service Date/Time: , July 10, 2017 20:39 - CONCLUSION: 1. At L4-5 there is mild to moderate central canal stenosis and facet arthropathy. 2. No acute fracture or spondylolisthesis. Owen Hines MD Chest X-Ray 07/10/171929 Signed Impressions: Service Date/Time: , July 10, 2017 19:51 - CONCLUSION: 1. No acute findings. Scattered linear scarring in the lungs. Owen Hines MD PE at Discharge GENERAL: Morbidly obese female in no acute distress. CARDIOVASCULAR: Regular rate and rhythm without murmurs, gallops, or rubs. RESPIRATORY: Breath sounds equal bilaterally. No accessory muscle use. GASTROINTESTINAL: Abdomen soft, non-tender, nondistended. MUSCULOSKELETAL: No cyanosis, or edema. Bilateral lower extremities disproportionately large, multiple scarred down patches. Both legs with severe pain and palpation. Patient unable to move them due to pain. NEURO: No focal neurological deficitis. Pt update on day of discharge Patient reports persistent pain involving bilateral lower extremities. Planning to go to the hospice care center today. Hospital Course 52-year-old female admitted secondary to weakness, increased pain, and symptomatic anemia. Oncology's note reviewed. 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 She cannot undergo treatment for this due to myelodysplastic syndrome. After extensive discussion with the patient and her family by oncology, they opted for comfort measures and hospice services. The patient is discharged to hospice care center for symptoms management. Evaluation and course during this hospitalization include: Symptomatic Anemia Myelodysplastic syndrome Active chemotherapy Status post 2 units packed red blood cells on 07/11/17 Pancytopenia: Likely secondary to above. - Patient was started empirically on cefepime from the emergency room. No obvious signs of infectious process. Antibiotics were discontinued. Endometrial Cancer [employer] oncology, per patient, she had an unremarkable PET scan a few days ago. No evidence of metastatic disease. 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 Chronic Back Pain Continue fentanyl patch As needed Dilaudid Topical Lidoderm patch trial Trial of [place] per the patient request which reportedly works at home. Depression No change to baseline treatments Diabetes mellitus type 2 Follow blood sugars Insulin sliding scale Diabetic diet Pt Condition on Discharge: Deteriorating Discharge Disposition: Hospice/Med Facility Discharge Time: > 30 minutes Discharge Instructions DIET: Follow Instructions for: As Tolerated, No Restrictions Activities you can perform: Regular-No Restrictions Fang York MD Jul 13, 2017 13:14
== END 2017-07-13 13:13 | disposition hospice, inpatient (51) | DRG 812 ==
LOC: NEPC 18:43 → NEDA 23:17 → N06B 07-11 00:19 → HCIS 07-11 11:52
PROVIDERS: ADMIT Family Medicine; ATTEND Family Medicine
PROC: 30233N1 Transfusion of Nonautologous Red Blood Cells into Peripheral Vein, Percutaneous Approach (ICD-10-PCS; principal; 2017-07-11)
DX: D46.9 Myelodysplastic syndrome, unspecified (principal); D61.818 Other pancytopenia; E11.42 Type 2 diabetes mellitus with diabetic polyneuropathy; R13.10 Dysphagia, unspecified; F32.9 Major depressive disorder, single episode, unspecified; K21.9 Gastro-esophageal reflux disease without esophagitis; Z85.118 Personal history of other malignant neoplasm of bronchus and lung; G43.909 Migraine, unspecified, not intractable, without status migrainosus; G89.29 Other chronic pain; Z98.84 Bariatric surgery status; Z51.5 Encounter for palliative care; C76.52 Malignant neoplasm of left lower limb; C76.51 Malignant neoplasm of right lower limb; Z85.42 Personal history of malignant neoplasm of other parts of uterus
CPT/HCPCS: 36430; 71010; 72128; 72131; 80053; 81001; 83605; 85007; 85027; 85610; 85730; 86850; 86900; 86901; 86920; 87040; 96365; 96375; J0692; J1170; J2405; J3370; J7030; J7050; P9016; P9612